=== PATIENT | male | born 1960 | race Caucasian/White ===

== ENCOUNTER 2016-03-26 01:09 | Inpatient (IN) ==
[2016-03-26] MEDS ORDERED: 0.9 % Sodium Chloride 1,000 ML ONE ×2 (01:21→04:35)
[2016-03-26] MEDS ORDERED: 0.9 % Sodium Chloride 1,000 ML IV ONE (01:25)
[2016-03-26 01:59] LABS: Basophils # 0.1 K/mcL (0.0-0.2); Basophils % 0.4 %; Eosinophils # 0.1 K/mcL (0.0-0.6); Eosinophils % 0.6 %; Hematocrit 33.5 % (37.5-50.1); Immature Granulocytes % 2.1 % (0-4); Lymphocytes # 1.8 K/mcL (0.6-4.6); Lymphocytes % 14.2 %; Mean Corpuscular HGB Conc 32.8 g/dL (31.6-35.5); Mean Corpuscular Hemoglobin 31.7 pg (28.0-33.3); Mean Corpuscular Volume 96.5 fL (83.0-100.0); Mean Platelet Volume 9.2 fL (9.4-12.4); Monocytes # 1.6 K/mcL (0.0-1.3); Monocytes % 12.8 %; Neutrophils # 8.8 K/mcL (1.6-8.9); Platelet Count 252 K/mcL (140-400); Red Blood Count 3.47 M/mcL (4.19-5.50); Red Cell Distribution Width 13.5 % (11.5-14.5); Segmented Neutrophils % 69.9 %
[2016-03-26 02:00] LABS: Bilirubin,Urine Negative (Negative); Blood,Urine Negative (Negative); Clarity,Urine Cloudy (Clear); Color,Urine Yellow (Yellow); Glucose,Urine (UA) >=1000 mg/dL (Normal); Ketones,Urine Negative (Negative); Leukocyte Esterase,Urine Negative (Negative); Nitrite,Urine Negative (Negative); PH,Urine 6.5 pH Units (5.0-8.0); Protein,Urine Negative (Neg-Trace); Urobilinogen,Urine Normal (Normal)
[2016-03-26 02:02] LABS: Bacteria,Urine None Seen per hpf (None-Few); Hyaline Casts,Urine None Seen per lpf (None-Few); Squamous Epithelial Cell,Urine Many per lpf (None-Few)
[2016-03-26 02:03] LABS: INR 1.1; Prothrombin Time 12.4 Seconds (9.4-12.1)
[2016-03-26 02:04] LABS: Amphetamine Screen,Urine Negative ng/mL (Cutoff=1000); Barbiturate Screen,Urine Negative ng/mL (Cutoff=200); Benzodiazepines Screen,Urine Negative ng/mL (Cutoff=200); Cannabinoid Screen,Urine Positive ng/mL (Cutoff = 50); Cocaine Screen,Urine Negative ng/mL (Cutoff= 300); Opiate Screen,Urine Negative ng/mL (Cutoff=300); Phencyclidine Screen,Urine Negative ng/mL (Cutoff=25)
[2016-03-26 02:05] LABS: Activated Partial Thrombo Time 26.6 Seconds (26.0-36.0)
[2016-03-26] MEDS: 0.9 % Sodium Chloride 1,000 ML IVC ONE ×2 (02:06→05:11)
--- NOTE | 2016-03-26 02:07 | Emergency Department Note ---
START Narrative - START START: I examined this patient and my medical decision-making was reviewed with the TERMINATION CLERK/PA/Advanced Practice Nurse/Resident Physician. I agree with the documented findings, disposition and treatment plan as described except to the extent set forth below. Patient to the emergency department with altered mental status. Per EMS the family called them because they state he stumbled and after smoking some marijuana. He was confused. On arrival here patient is awake alert. Denies taking any drugs tonight. On exam he is lethargic but answers questions. Hypotensive in the 60s systolic. No obvious signs of trauma. Noted have a glass eye. Abdomen soft and lungs clear. Plan. Altered mental status workup. IV fluids. Patient's blood pressure is improved after IV fluids. His mental status is improved as well. He is awake alert and appropriate. We will observe.
[2016-03-26 02:12] LABS: Acetaminophen < 1.0 mcg/mL (10-30); Alanine Aminotransferase 12 Units/L (0-55); Albumin 2.8 g/dL (3.5-5.0); Alkaline Phosphatase 41 Units/L (38-126); Aspartate Amino Transferase 16 Units/L (5-34); BUN/Creatinine Ratio 8 (6-26); Bilirubin,Direct 0.1 mg/dL (0.0-0.5); Bilirubin,Indirect 0.2 mg/dL (0.0-1.2); Bilirubin,Total 0.3 mg/dL (0.2-1.2); Blood Urea Nitrogen 21 mg/dL (8-26); Calcium 8.3 mg/dL (8.6-10.8); Carbon Dioxide 13 mEq/L (19-29); Chloride 100 mEq/L (98-109); Ethanol < 10 mg/dL (0-10); Globulin 2.7 g/dL (2.4-3.5); Glucose 142 mg/dL (70-99); Osmolality,Calculated 265 (280-300); Potassium 5.6 mEq/L (3.5-4.5); Salicylate < 5.0 mg/dL (15-30); Sodium 125 mEq/L (136-145); Total Protein 5.5 g/dL (6.0-8.3); eGFR For African Americans 31 (> 60); eGFR For Non-African Americans 26 (> 60)
[2016-03-26 02:20] LABS: Transitional Epi Cells,Urine Many per hpf (None-Few)
--- NOTE | 2016-03-26 02:49 | Emergency Department Note ---
Disposition Clinical Impression: Acute kidney injury, Dehydration Altered mental status Qualifiers: Altered mental status type: unspecified Qualified Code(s): R41.82 - Altered mental status, unspecified Hypotension Qualifiers: Hypotension type: unspecified hypotension type Qualified Code(s): I95.9 - Hypotension, unspecified Disposition: Admitted As Inpatient Condition: Fair Referrals: NO,PCP [Non-Partnered Physician] - Forms: ED Satisfaction Letter Time of Disposition: 04:34 Altered Mental Status HPI - General Chief Complaint: ED Altered Mental Status Stated Complaint: AMS Source: patient Limitations: altered mental status Nursing Notes Reviewed: Yes Vital Signs Reviewed: Yes - History of Present Illness HPI Narrative: Patient presents AMS today for evaluation of altered mental status. He was found by family to be stumbling and acting differently after going to a friend' s house. They said that he might have smoked marijuana at the house. Denied any other drug use. Patient has had this happen several times at the past but this is little different. He does have a seizure history and takes medications for this as well as psychiatric disorder. His med list is not with him at this time. Vital signs in transit showed normal heart rate but he has been intermittently hypotensive. He was difficult to arouse per EMS. No other intervention is performed by EMS transportation MD complaint: decreased responsiveness Onset (ago): Just [employer] Timing confirmed by: family member Pain Severity: mild Consistency of Symptoms: waxing and waning Context: other (Drug use) Associated symptoms: Reports: other (Difficult to obtain secondary to patient's presenting decreased responsiveness) Treatments prior to arrival: IV fluid - Related Data Home Medications Medication Instructions Recorded Confirmed Divalproex (24 HR) [Depakote ER 1,500 mg PO BID 03/31/15 03/01/16 (24 HR)] Glimepiride [Amaryl] 4 mg PO BID 03/31/15 03/01/16 Lisinopril [Zestril] 20 mg PO DAILY 03/31/15 03/01/16 RisperiDONE [Risperidone] 1 mg PO DAILY 03/31/15 03/01/16 Aspirin [Adult Low Dose Aspirin EC] 81 mg PO DAILY 04/07/15 03/01/16 Benztropine Mesylate 2 mg PO BID 04/07/15 03/01/16 Citalopram [CeleXA] 40 mg PO HS 04/07/15 03/01/16 Diclofenac Sodium [Voltaren] 50 mg PO TID 04/07/15 03/01/16 Fenofibrate [Tricor] 54 mg PO DAILY 04/07/15 03/01/16 Gabapentin [Neurontin] 600 mg PO QID 04/07/15 03/01/16 Levothyroxine [Synthroid] 100 mcg PO 0630 04/07/15 03/01/16 Metformin [Glucophage] 500 mg PO BIDWM 08/04/15 03/01/16 Pantoprazole Sodium [Protonix] 40 mg PO DAILY 10/04/15 03/01/16 RisperiDONE [Risperdal] 3 mg PO HS 10/04/15 03/01/16 Vitamin E 1,000 unit PO DAILY 10/04/15 03/01/16 Previous Rx's Medication Instructions Recorded Benzonatate [Tessalon] 200 mg PO TID PRN #30 capsule 02/17/16 DiphenhydraMINE [Benadryl] 25 mg PO Q8HR PRN #20 capsule 02/17/16 Allergies Allergy/AdvReac Type Severity Reaction Status Date / Time No Known Allergies Allergy Verified 12/18/14 22:44 All systems ED: reviewed and negative except as stated. Constitutional: Denies: fever, chills Cardiovascular: Denies: palpitations, dyspnea on exertion Respiratory: Denies: dyspnea, wheezes Gastrointestinal: Denies: nausea, vomiting, diarrhea Neurological: Denies: headache Psychiatric: Denies: depression Past Medical History - Past Medical History Attestation: Yes The following information was validated with the patient. Source: patient Medical history: Reports: diabetes, other Surgical history: Reports: orthopedic, other, other Psychiatric history: Reports: anxiety, depression, prior suicide attempt - Social History Smoking Status: Current every day smoker Smokeless Tobacco Status: No Alcohol use: Reports: rarely Drug use: Reports: marijuana Physical Exam - General Limitations: altered mental status General appearance: appears intoxicated, lethargic - Head Head exam: atraumatic, normocephalic - Eye Eye exam: Present: normal appearance, PERRL - ENT ENT exam: normal exam, normal oropharynx - Neck Neck exam: Present: normal inspection, full ROM, trachea midline - Chest Chest inspection: Present: normal inspection, symmetric chest wall rise. Absent : tenderness - Respiratory Respiratory exam: Present: normal lung sounds bilaterally - Cardiovascular Cardiovascular exam: Present: regular rate, normal rhythm, normal heart sounds - Extremities Exam Extremities exam: Present: normal inspection, full ROM. Absent: tenderness, pedal edema - Back Exam Back exam: Present: normal inspection, full ROM - Neurological Exam Neurological exam: Present: alert, oriented X3, CN II-XII intact, normal gait - Psychiatric Psychiatric exam: Present: normal affect, normal mood - Skin Skin exam: Present: warm, dry, intact, normal color Course Course Narrative: Patient seen and examined the time of arrival. See history of present illness. 55-year-old male presents by EMS. EMS picked him up at his home today for altered mental status as well as ataxic gait. The family he was a friend's house in its proximal lead. A concern that he had a drug reaction. Patient on presentation here has decreased responsiveness but is mentating appropriately when awake. Answers questions appropriately and knows exactly where he is at. Vital signs on presentation show stable heart rate blood pressure has been marginal with systolic ranging from 95 205. His physical exam is benign head is atraumatic left pupil is decreased reactivedoes react to light. His right eye is glass. His oral mucosa is patent. He is an appropriate gag reflex. He has full range of motion in neck cervical lymphadenopathy is not visualized. His lungs are clear heart is regular. Abdomen soft nontender nondistended. He moves all 4 extremities with purpose. He does have decreased responsiveness but he does wake up easily with sternal rub. EKG chest x-ray CT of the head urine drug screen alcohol Tylenol and aspirin to be ordered. Basic laboratory workup to be treated. Disposition will be determined once workup is completed. Patient has some underlying aspect of toxidrome. There is no visible signs of trauma or injury. We will continue to monitor as his workup is completed. - Reevaluation(s) Reevaluation #1: Showing signs of decreased responsiveness. He had an episode of somnolence while getting his CAT scan required evaluation on arrival back to the emergency room. He woke up quickly with sternal rub at that time and has been answering questions appropriately since then. Patient is denying any drug use though he does have a seizure history. He does take Depakote. Depakote level ordered at this time. Patient is stable and is provided with 2 L of fluid and his blood pressure stabilizes time. He is mentating more appropriate. Patient's vital signs been stable. He has not required aggressive intervention including intubation or IV access. He is easily arousable now this time his vital signs stabilized. Disposition and be determined after we image his chest and abdomen. There is concern for possible other underlying etiology. Bedside ultrasound was also completely looking at the there is no visible signs of aneurysm or dilation. There is no fluid in the abdomen. We will continue to monitor as this workup is completed. Disposition pending evaluation and treatment course Time: 03:32 Reevaluation #2: CT imaging of the patient's chest and abdomen are negative for acute pathology. Patient is still somnolent while here in the vital signs are stable. At this point patient will be admitted to the hospital for further evaluation of what appears to be decreased responsiveness and concern for drug-induced toxidrome. No other acute pathology noted during this treatment course her evaluation. Hospitals be paged and discussed on the hand over the patient's medical recommendations. We will advised to come down and evaluate the patient here in the emergency room to make sure that they are comfortable with him going to the floor as he is. Access sites have been obtained of the abdomen given Time: 04:16 Reevaluation #3: Patient was discussed with the hospitalist . Detailed review the presentation symptoms medical intervention were discussed. He is comfortable accepting the patient this time. I had requested for him to come down and evaluate him in the emergency room initially did not want anything else done to him prior to going up to the floor. He does not have any acute signs of decompensation. He has been maintaining his airway without complication or issue. Vital signs been stable. Hospitals, evaluated in the emergency room prior to him going up to the floor. He will be observed here in the ER until admission process is completed Time: 04:32 Additional Reevaluation(s): Patient was evaluated by the hospitalist Dr. darby. We reviewed the patient at the bedside. He evaluated him here in the emergency room and had no other recommendations at this time. She will be placed on a telemetry floor. Vital Signs Temperature 97.5 F L 03/26/16 01:22 Pulse Rate 85 03/26/16 01:22 Respiratory Rate 14 03/26/16 01:22 Blood Pressure 64/36 03/26/16 01:22 O2 Sat by Pulse Oximetry 96 03/26/16 01:22 Temperature 97.5 F L 03/26/16 01:22 Pulse Rate 85 03/26/16 01:22 Respiratory Rate 14 03/26/16 01:22 Blood Pressure 64/36 03/26/16 01:22 O2 Sat by Pulse Oximetry 96 03/26/16 01:22 Oxygen Delivery Oxygen Delivery Room Air Altered Mental Status - MDM Narrative Medical decision making narrative: Decreased responsiveness, hypotension, - Medical Records Medical records reviewed: Yes I reviewed the patient's medical records. - Lab Data Lab results reviewed: Yes I reviewed the patient's lab results. Result diagrams: 03/26/16 01:51 03/26/16 01:51 Lab Results 03/26/16 03/26/16 03/26/16 Range/Units 01:47 01:50 01:50 WBC (4.3-11.1) K/mcL RBC (4.19-5.50) M/mcL Hgb (12.9-16.9) g/dL Hct (37.5-50.1) % MCV (83.0-100.0) fL MCH (28.0-33.3) pg MCHC (31.6-35.5) g/dL RDW (11.5-14.5) % Plt Count (140-400) K/mcL MPV (9.4-12.4) fL Immature Gran % (0-4) % Seg Neutrophils % % Lymphocytes % % Monocytes % % Eosinophils % % Basophils % % Neutrophils # (1.6-8.9) K/mcL Lymphocytes # (0.6-4.6) K/mcL Monocytes # (0.0-1.3) K/mcL Eosinophils # (0.0-0.6) K/mcL Basophils # (0.0-0.2) K/mcL PT (9.4-12.1) Seconds INR APTT (26.0-36.0) Seconds Sodium (136-145) mEq/L Potassium (3.5-4.5) mEq/L Chloride (98-109) mEq/L Carbon Dioxide (19-29) mEq/L BUN (8-26) mg/dL Creatinine (0.72-1.25) mg/dL Est GFR ( Amer) (> 60) Est GFR (Non-Af Amer) (> 60) BUN/Creatinine Ratio (6-26) Glucose (70-99) mg/dL POC Glucose 159 H (58-89) Calculated Osmolality (280-300) Calcium (8.6-10.8) mg/dL Total Bilirubin (0.2-1.2) mg/dL Direct Bilirubin (0.0-0.5) mg/dL Indirect Bilirubin (0.0-1.2) mg/dL AST (5-34) Units/L ALT (0-55) Units/L Alkaline Phosphatase (38-126) Units/L Troponin I (0-0.03) ng/mL Serum Total Protein (6.0-8.3) g/dL Albumin (3.5-5.0) g/dL Globulin (2.4-3.5) g/dL Albumin/Globulin Ratio (1.1-2.2) Urine Color Yellow (Yellow) Urine Clarity Cloudy A (Clear) Urine pH 6.5 (5.0-8.0) pH Units Ur Specific [place] 1.020 (1.010-1.025) Urine Protein Negative (Neg-Trace) mg/dL Urine Glucose (UA) >=1000 H (Normal) mg/dL Urine Ketones Negative (Negative) mg/dL Urine Blood Negative (Negative) Urine Nitrite Negative (Negative) Urine Bilirubin Negative (Negative) Urine Urobilinogen Normal (Normal) mg/dL Ur Leukocyte Esterase Negative (Negative) Urine Microscopic RBC 5-15 H (0-3) per hpf Urine Microscopic WBC 3-5 H (0-3) per hpf Ur Squamous Epith Cells Many H (None-Few) per lpf Ur Transition Epith Cell Many H (None-Few) per hpf Urine Bacteria None Seen (None-Few) per hpf Hyaline Casts None Seen (None-Few) per lpf Ur Culture Indicated? NO (NO) Salicylates (15-30) mg/dL Urine Opiates Screen Negative (Liepgf=409) ng/mL Acetaminophen (10-30) mcg/mL Ur Barbiturates Screen Negative (Rtbaav=398) ng/mL Ur Phencyclidine Scrn Negative (Cutoff=25) ng/mL Ur Amphetamines Screen Negative (Pkauvy=1145) ng/mL U Benzodiazepines Scrn Negative (Jehdkx=000) ng/mL Urine Cocaine Screen Negative (Cutoff= 300) ng/mL U Marijuana (THC) Screen Positive H (Cutoff = 50) ng/mL Ethyl Alcohol (0-10) mg/dL 03/26/16 03/26/16 03/26/16 Range/Units 01:51 01:51 01:51 WBC 12.5 H (4.3-11.1) K/mcL RBC 3.47 L (4.19-5.50) M/mcL Hgb 11.0 L (12.9-16.9) g/dL Hct 33.5 L (37.5-50.1) % MCV 96.5 (83.0-100.0) fL MCH 31.7 (28.0-33.3) pg MCHC 32.8 (31.6-35.5) g/dL RDW 13.5 (11.5-14.5) % Plt Count 252 (140-400) K/mcL MPV 9.2 L (9.4-12.4) fL Immature Gran % 2.1 (0-4) % Seg Neutrophils % 69.9 % Lymphocytes % 14.2 % Monocytes % 12.8 % Eosinophils % 0.6 % Basophils % 0.4 % Neutrophils # 8.8 (1.6-8.9) K/mcL Lymphocytes # 1.8 (0.6-4.6) K/mcL Monocytes # 1.6 H (0.0-1.3) K/mcL Eosinophils # 0.1 (0.0-0.6) K/mcL Basophils # 0.1 (0.0-0.2) K/mcL PT 12.4 H (9.4-12.1) Seconds INR 1.1 APTT 26.6 (26.0-36.0) Seconds Sodium 125 L (136-145) mEq/L Potassium 5.6 H (3.5-4.5) mEq/L Chloride 100 (98-109) mEq/L Carbon Dioxide 13 L (19-29) mEq/L BUN 21 (8-26) mg/dL Creatinine 2.60 H (0.72-1.25) mg/dL Est GFR ( Amer) 31 L (> 60) Est GFR (Non-Af Amer) 26 L (> 60) BUN/Creatinine Ratio 8 (6-26) Glucose 142 H (70-99) mg/dL POC Glucose (58-89) Calculated Osmolality 265 L (280-300) Calcium 8.3 L (8.6-10.8) mg/dL Total Bilirubin 0.3 (0.2-1.2) mg/dL Direct Bilirubin 0.1 (0.0-0.5) mg/dL Indirect Bilirubin 0.2 (0.0-1.2) mg/dL AST 16 (5-34) Units/L ALT 12 (0-55) Units/L Alkaline Phosphatase 41 (38-126) Units/L Troponin I (0-0.03) ng/mL Serum Total Protein 5.5 L (6.0-8.3) g/dL Albumin 2.8 L (3.5-5.0) g/dL Globulin 2.7 (2.4-3.5) g/dL Albumin/Globulin Ratio 1.0 L (1.1-2.2) Urine Color (Yellow) Urine Clarity (Clear) Urine pH (5.0-8.0) pH Units Ur Specific [place] (1.010-1.025) Urine Protein (Neg-Trace) mg/dL Urine Glucose (UA) (Normal) mg/dL Urine Ketones (Negative) mg/dL Urine Blood (Negative) Urine Nitrite (Negative) Urine Bilirubin (Negative) Urine Urobilinogen (Normal) mg/dL Ur Leukocyte Esterase (Negative) Urine Microscopic RBC (0-3) per hpf Urine Microscopic WBC (0-3) per hpf Ur Squamous Epith Cells (None-Few) per lpf Ur Transition Epith Cell (None-Few) per hpf Urine Bacteria (None-Few) per hpf Hyaline Casts (None-Few) per lpf Ur Culture Indicated? (NO) Salicylates (15-30) mg/dL Urine Opiates Screen (Nmjbmf=737) ng/mL Acetaminophen (10-30) mcg/mL Ur Barbiturates Screen (Bgctpu=806) ng/mL Ur Phencyclidine Scrn (Cutoff=25) ng/mL Ur Amphetamines Screen (Vrdlcr=5185) ng/mL U Benzodiazepines Scrn (Fewewr=459) ng/mL Urine Cocaine Screen (Cutoff= 300) ng/mL U Marijuana (THC) Screen (Cutoff = 50) ng/mL Ethyl Alcohol < 10 (0-10) mg/dL 03/26/16 03/26/16 Range/Units 01:51 01:51 WBC (4.3-11.1) K/mcL RBC (4.19-5.50) M/mcL Hgb (12.9-16.9) g/dL Hct (37.5-50.1) % MCV (83.0-100.0) fL MCH (28.0-33.3) pg MCHC (31.6-35.5) g/dL RDW (11.5-14.5) % Plt Count (140-400) K/mcL MPV (9.4-12.4) fL Immature Gran % (0-4) % Seg Neutrophils % % Lymphocytes % % Monocytes % % Eosinophils % % Basophils % % Neutrophils # (1.6-8.9) K/mcL Lymphocytes # (0.6-4.6) K/mcL Monocytes # (0.0-1.3) K/mcL Eosinophils # (0.0-0.6) K/mcL Basophils # (0.0-0.2) K/mcL PT (9.4-12.1) Seconds INR APTT (26.0-36.0) Seconds Sodium (136-145) mEq/L Potassium (3.5-4.5) mEq/L Chloride (98-109) mEq/L Carbon Dioxide (19-29) mEq/L BUN (8-26) mg/dL Creatinine (0.72-1.25) mg/dL Est GFR ( Amer) (> 60) Est GFR (Non-Af Amer) (> 60) BUN/Creatinine Ratio (6-26) Glucose (70-99) mg/dL POC Glucose (58-89) Calculated Osmolality (280-300) Calcium (8.6-10.8) mg/dL Total Bilirubin (0.2-1.2) mg/dL Direct Bilirubin (0.0-0.5) mg/dL Indirect Bilirubin (0.0-1.2) mg/dL AST (5-34) Units/L ALT (0-55) Units/L Alkaline Phosphatase (38-126) Units/L Troponin I 0.02 (0-0.03) ng/mL Serum Total Protein (6.0-8.3) g/dL Albumin (3.5-5.0) g/dL Globulin (2.4-3.5) g/dL Albumin/Globulin Ratio (1.1-2.2) Urine Color (Yellow) Urine Clarity (Clear) Urine pH (5.0-8.0) pH Units Ur Specific [place] (1.010-1.025) Urine Protein (Neg-Trace) mg/dL Urine Glucose (UA) (Normal) mg/dL Urine Ketones (Negative) mg/dL Urine Blood (Negative) Urine Nitrite (Negative) Urine Bilirubin (Negative) Urine Urobilinogen (Normal) mg/dL Ur Leukocyte Esterase (Negative) Urine Microscopic RBC (0-3) per hpf Urine Microscopic WBC (0-3) per hpf Ur Squamous Epith Cells (None-Few) per lpf Ur Transition Epith Cell (None-Few) per hpf Urine Bacteria (None-Few) per hpf Hyaline Casts (None-Few) per lpf Ur Culture Indicated? (NO) Salicylates < 5.0 L (15-30) mg/dL Urine Opiates Screen (Aotipx=065) ng/mL Acetaminophen < 1.0 L (10-30) mcg/mL Ur Barbiturates Screen (Qvkpan=666) ng/mL Ur Phencyclidine Scrn (Cutoff=25) ng/mL Ur Amphetamines Screen (Spidze=0648) ng/mL U Benzodiazepines Scrn (Noahwg=303) ng/mL Urine Cocaine Screen (Cutoff= 300) ng/mL U Marijuana (THC) Screen (Cutoff = 50) ng/mL Ethyl Alcohol (0-10) mg/dL - Radiology Data Radiology results reviewed: Yes I reviewed the patient's radiology results. Chest x-ray and CT of the head are negative for acute without - EKG Data EKG attestation: Yes I reviewed and interpreted this EKG. EKG shows normal: sinus rhythm, axis, intervals, QRS complexes, ST-T waves Rate: normal Rhythm: NSR [place]/QRS: normal When compared to previous EKG there are: no significant changes Interpretation: no acute changes, unchanged when compared to prior tracing (date ) (10/03/13) TPA Checklist - LKW: 3-4.5 hrs Add. Contraindications Patient/family understanding: The patient/family members have been counseled and understood the risk, benefit , and alternatives of treatment.
[2016-03-26 04:37] LABS: Creatine Kinase 224 Units/L (30-200); Magnesium 1.8 mg/dL (1.6-2.6)
[2016-03-26 04:44] LABS: Valproate 81.81 mcg/mL (50-100)
[2016-03-26] MEDS ORDERED: Naloxone 0.4 MG/ML INJ IVP PRN (06:00)
[2016-03-26] MEDS ORDERED: Calcium Gluconate 1,000 MG in D5% in Water 100 ML IVPB STA (06:04)
[2016-03-26] MEDS ORDERED: Lactulose Oral Soln 20 GM/30 ML UDC PO ONE (06:04)
--- NOTE | 2016-03-26 06:23 | Internal Med History&Physical ---
Date of Encounter: 03/26/16 Time of Encounter: 05:00 Assessment and Plan (1) Acute renal failure Current visit: Yes Status: Acute Possibly due to volume depletion. Treat with IV normal saline infusion. Monitor renal function Qualifiers: Acute renal failure type: unspecified Qualified Code(s): N17.9 - Acute kidney failure, unspecified (2) Hyperkalemia Current visit: Yes Status: Acute Likely due to Acute renal failure / ELOISE. Treat with kayexalate and calcium gluconate. (3) Encephalopathy Current visit: Yes Status: Acute Likely due to substance abuse versus ELOISE. Neurological checks Q4H (4) Substance abuse Current visit: Yes Status: Acute Utox is positive for Marijuana (5) Schizoaffective disorder Current visit: Yes Status: Chronic Continue home medications Qualifiers: Schizoaffective disorder type: depressive Qualified Code(s): F25.1 - Schizoaffective disorder, depressive type (6) Diabetes mellitus, type 2 Current visit: Yes Status: Chronic Hold oral agents. 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 Continue home meds (8) Hyponatremia Current visit: Yes Status: Chronic Monitor Sodium levels. (9) Hypothyroidism Current visit: Yes Status: Chronic Continue synthroid Qualifiers: Hypothyroidism type: unspecified Qualified Code(s): E03.9 - Hypothyroidism , unspecified (10) DVT prophylaxis Current visit: No Status: Acute Heparin Internal Medicine - H&P: HPI Chief complaint: Altered mental status Admitted From: Emergency Dept Plans for Post Hospital Care: Home History of present illness: Mr. Frey is a 55 year old male with medical history significant for hypertension , schizoaffective disorder on multiple antipsychotics, seizure disorder, chronic hyponatremia, Diabetes mellitus, hypothyroidism. Pt is not able to give clinical details. Per the ER physician, he was found by family to be stumbling and acting differently after going to a friend's house. They suspected he might have smoked marijuana at the house. He denied any other drug use. Apparently this happened several times in the past but this is little different. He was difficult to arouse per EMS. He was evaluated in the ER. CT head was negative. Labs showed acute kidney injury and hyperkalemia. He was started on IV fluid and admitted to the hospitalist service for further management. Past Med Surg Social Fam HX - Past Medical History Medical history: diabetes, other Psychiatric history: anxiety, depression, prior suicide attempt - Past Surgical History Surgical History: orthopedic, other, other - Social History Smoking Status: Current every day smoker Smokeless Tobacco Status: No Alcohol use: rarely Drug use: marijuana - Family History Daughter Living Status: Still Living Hx Family Cardiac Disorders: No Hx Family Respiratory Disorders: Yes Hx Family Cancer: No Hx Family GI Disorders: No Hx Family Endocrine Disorder: No Hx Family Neuromuscular Disorders: No Hx Family Neurologic Disorders: No Hx Family HEENT Disorders: No Hx Family Autoimmune Disorders: No Mother Living Status: Hx Family Cardiac Disorders: Yes Father Living Status: Internal Medicine - H&P: Meds Divalproex (24 HR) [Depakote ER (24 HR)] 1,500 mg PO BID 03/31/15 [History] Glimepiride [Amaryl] 4 mg PO BID 03/31/15 [History] Lisinopril [Zestril] 20 mg PO DAILY 03/31/15 [History] RisperiDONE [Risperidone] 1 mg PO DAILY 03/31/15 [History] Aspirin [Adult Low Dose Aspirin EC] 81 mg PO DAILY 04/07/15 [History] Benztropine Mesylate 2 mg PO BID 04/07/15 [History] Citalopram [CeleXA] 40 mg PO HS 04/07/15 [History] Diclofenac Sodium [Voltaren] 50 mg PO TID 04/07/15 [History] Fenofibrate [Tricor] 54 mg PO DAILY 04/07/15 [History] Gabapentin [Neurontin] 600 mg PO QID 04/07/15 [History] Levothyroxine [Synthroid] 100 mcg PO 0630 04/07/15 [History] Metformin [Glucophage] 500 mg PO BIDWM 08/04/15 [History] Pantoprazole Sodium [Protonix] 40 mg PO DAILY 10/04/15 [History] RisperiDONE [Risperdal] 3 mg PO HS 10/04/15 [History] Vitamin E 1,000 unit PO DAILY 10/04/15 [History] Benzonatate [Tessalon] 200 mg PO TID PRN #30 capsule 02/17/16 [Rx] DiphenhydraMINE [Benadryl] 25 mg PO Q8HR PRN #20 capsule 02/17/16 [Rx] Allergies No Known Allergies Allergy (Verified 12/18/14 22:44) ROS unobtainable: due to mental status All Systems PM: A 10-system review of systems was performed and is negative for pertinent findings except as documented above in the HPI. - Constitutional Vitals: Temp Pulse Resp BP Pulse Ox 97.5 F L 96 18 85/53 100 03/26/16 01:22 03/26/16 04:20 03/26/16 05:44 03/26/16 05:44 03/26/16 04:20 Exam: General: Not in acute distress at the time of my evaluation HEENT: Oral mucosa is moist. No conjunctival palor. Has glass eye on the right side. Neck: No obvious neck swellings Lungs: Clear to auscultation Cardiac: Regular rate and rhythm. No significant murmurs Abdomen: Soft, non tender. Bowel sounds present Neurological: Somnolent. Arousable to sternal rub. confused. No gross localizing deficits Psych: Not aggressive or agitated Extremities: no significant leg edema Skin: No generalized rash Internal Med - H&P Results - Labs CBC & Chem 7: 03/26/16 01:51 03/26/16 01:51 - Impressions ITS Impressions Chest X-Ray 03/26/16 01:18 IMPRESSION: Negative portable expiratory exam. D/ / Elvin Hernandez MD / Elvin Hernandez MD Interpreting Provider: Elvin Hernandez MD Head CT 03/26/16 01:19 IMPRESSION: 1. No acute intracranial process identified. 2. Mild diffuse cerebral volume loss. D/ / Paulino Hood MD / Paulino Hood MD Interpreting Provider: Paulino Hood MD Abdomen/Pelvis CT 03/26/16 02:26 IMPRESSION: 1. No acute intra-abdominal abnormality. 2. Reticular opacities in the bilateral bases may represent atelectasis versus aspiration. 3. Normal appendix. D/ / Shannan Putnam MD / Shannan Putnam MD Interpreting Provider: Shannan Putnam MD Chest CT 03/26/16 02:26
[2016-03-26] MEDS ORDERED: *HR* Dextrose 50 % in Water (Syg) 50 ML SYRINGE IVP PRN (06:35)
[2016-03-26] MEDS ORDERED: D5% in Water 1,000 ML IV PRN (06:35)
[2016-03-26] MEDS ORDERED: Dextrose Gel 15 GM PO PRN ×2 (06:35)
[2016-03-26] MEDS: 0.9 % Sodium Chloride 1,000 ML IVC SCH ×3 (07:14→19:40)
[2016-03-26] MEDS: *HR* Heparin 5,000 UNIT/ML VIAL SQ SCH ×2 (07:14→18:08)
[2016-03-26] MEDS: Insulin LISPRO 300 UNITS/3 ML VIAL SQ SCH ×3 (09:38→16:09)
--- NOTE | 2016-03-26 14:00 | Internal Med Progress Note ---
Date of Encounter: 03/26/16 Time of Encounter: 09:00 - Assessment and plan (1) Acute kidney injury Current Visit: Yes Status: Acute Assessment and plan: Most likely due to dehydration. We will aggressively hydrate patient with IV fluid and follow-up renal function. (2) Altered mental status Current Visit: Yes Status: Acute Assessment and plan: Patient was found confused. His urine screen shows marijuana positive. Suspect drug induced confusion. However, patient has a seizure disorder, pulse is seizure confusion is also a possibility. We will continue closely monitor patient and continue his seizure medications. Qualifiers: Altered mental status type: transient alteration of awareness Qualified Code(s): R40.4 - Transient alteration of awareness (3) Dehydration Current Visit: Yes Status: Acute Assessment and plan: Patient is dehydrated. Will give IV fluid. (4) Encephalopathy Current Visit: Yes Status: Acute Assessment and plan: Etiology is undetermined. Improved now. We will closely monitor patient in telemetry. (5) Hyperkalemia Current Visit: Yes Status: Acute Assessment and plan: Due to dehydration and acute renal failure. Calcium-gluconate and Kayexalate were given. Continue IV fluid. Follow up potassium level (6) Substance abuse Current Visit: Yes Status: Acute Assessment and plan: Social work consult (7) Diabetes mellitus, type 2 Current Visit: Yes Status: Chronic Assessment and plan: Patient was on by mouth medication at home. We will cover him with sliding scale in Hospital Qualifiers: Diabetes mellitus complication status: without complication Diabetes mellitus snf insulin use: without snf use Qualified Code(s): E11.9 - Type 2 diabetes mellitus without complications (8) Hyponatremia Current Visit: Yes Status: Chronic Assessment and plan: Patient has a history of chronic hyponatremia, possibly due to psych medications. His sodium level is at his baseline now. (9) Hypothyroidism Current Visit: Yes Status: Chronic Qualifiers: Hypothyroidism type: due to medication Qualified Code(s): E03.2 - Hypothyroidism due to medicaments and other exogenous substances (10) Schizoaffective disorder Current Visit: Yes Status: Chronic Assessment and plan: We will continue home medication Qualifiers: Schizoaffective disorder type: depressive Qualified Code(s): F25.1 - Schizoaffective disorder, depressive type (11) Seizure disorder Current Visit: Yes Status: Chronic Assessment and plan: We will continue home medications and closely monitor patient (12) DVT prophylaxis Current Visit: No Status: Acute Assessment and plan: Heparin subcutaneously (13) Nonhealing surgical wound Current Visit: No Status: Acute Assessment and plan: Wound care, podiatry consult Qualifiers: Encounter type: subsequent encounter Qualified Code(s): T81.89XD - Other complications of procedures, not elsewhere classified, subsequent encounter - Time Spent With Patient 25 - 35 minutes - Subjective Interval history: Patient is a 55-year-old male admitted for altered mental status. His past medical history is significant for hypertension, schizoaffective disorder, seizure, chronic hyponatremia, diabetes, hypothyroidism. Patient was seen and examined. He is awake alert, oriented 3. Denies chest pain, shortness of breath, nausea, or vomiting. Vitals are stable. U tox shows a marijuana positive. Acute altered mental status possibly drug induced. Patient has a chronic wound on heel, podiatry consult was called. - Constitutional Vitals: Temp Pulse Resp BP Pulse Ox 97.6 F 101 18 130/70 100 03/26/16 11:51 03/26/16 11:51 03/26/16 11:51 03/26/16 11:51 03/26/16 11:51 General appearance: Present: A&O X 3, no acute distress, answers questions appropriately - Head Head exam: Present: atraumatic, normocephalic - Eye Eye exam: Present: PERRL, conjuntiva pink, sclera anicteric Pupils: Present: PERRL - Neck Neck exam general surgery: Present: supple, trachea midline. Absent: lymphadenopathy - Respiratory Respiratory exam: Present: CTAB. Absent: accessory muscle use, rales, rhonchi, wheezes - Cardiovascular Cardiovascular exam: Present: RRR, +S1, +S2. Absent: diastolic murmur, gallop, rubs, systolic murmur - GI/Abdominal GI/Abdominal exam: Present: normal bowel sounds, soft, no peritoneal signs. Absent: distended, tenderness - Extremities Exam Extremities exam: Present: warm, radial pulses palpable and symetrical. Absent : calf tenderness, cyanotic, pedal edema - Neurological Exam Neurological exam: Present: CN II-XII intact, oriented X3, no focal deficits. Absent: pronater drift, facial droop, speech deficit - Skin Skin exam: Present: dry, intact Internal Medicine: Result - Labs CBC & Chem 7: 03/26/16 01:51 03/26/16 01:51 - ABG Interpretation ABG results: PT/INR, D-dimer PT 12.4 Seconds (9.4-12.1) H 03/26/16 01:51 Consult Discharge Plan - Plan Referrals: Dany Carreon DO [Primary Care Provider] -
--- NOTE | 2016-03-26 14:48 | Electrocardiograph Report ---
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
[2016-03-26] MEDS: risperiDONE 1 MG TABLET PO SCH (15:42)
[2016-03-26] MEDS: Gabapentin 400 MG CAPSULE PO SCH ×2 (18:08→21:30)
[2016-03-26] MEDS ORDERED: RisperiDAL 3 MG TABLET PO SCH (21:00)
[2016-03-26] MEDS ORDERED: Insulin LISPRO 300 UNITS/3 ML VIAL SQ SCH (21:00)
[2016-03-26] MEDS ORDERED: traZODone 50 MG TABLET PO ONE (21:23)
[2016-03-26] MEDS: Divalproex (24 HR) 500 MG TABLET PO SCH (21:30)
[2016-03-27] MEDS: 0.9 % Sodium Chloride 1,000 ML IVC SCH (04:12)
[2016-03-27 05:41] LABS: Basophils % 0.4 %; Eosinophils # 0.2 K/mcL (0.0-0.6); Eosinophils % 3.4 %; Hematocrit 31.6 % (37.5-50.1); Hemoglobin 10.6 g/dL (12.9-16.9); Immature Granulocytes % 0.7 % (0-4); Lymphocytes # 2.7 K/mcL (0.6-4.6); Lymphocytes % 38.4 %; Mean Corpuscular HGB Conc 33.5 g/dL (31.6-35.5); Mean Corpuscular Volume 92.4 fL (83.0-100.0); Monocytes # 0.8 K/mcL (0.0-1.3); Monocytes % 11.2 %; Neutrophils # 3.3 K/mcL (1.6-8.9); Platelet Count 233 K/mcL (140-400); Red Blood Count 3.42 M/mcL (4.19-5.50); Red Cell Distribution Width 13.1 % (11.5-14.5); Segmented Neutrophils % 45.9 %
[2016-03-27] MEDS: *HR* Heparin 5,000 UNIT/ML VIAL SQ SCH (05:50)
[2016-03-27 05:56] LABS: BUN/Creatinine Ratio 9 (6-26); Calcium 8.3 mg/dL (8.6-10.8); Carbon Dioxide 22 mEq/L (19-29); Chloride 102 mEq/L (98-109); Glucose 78 mg/dL (70-99); Magnesium 1.5 mg/dL (1.6-2.6); Osmolality,Calculated 267 (280-300); Sodium 130 mEq/L (136-145); eGFR For African Americans > 60 (> 60); eGFR For Non-African Americans > 60 (> 60)
[2016-03-27 06:01] LABS: Blood Urea Nitrogen 7 mg/dL (8-26); Potassium 4.3 mEq/L (3.5-4.5)
[2016-03-27] MEDS: Insulin LISPRO 300 UNITS/3 ML VIAL SQ SCH ×2 (08:27→11:24)
[2016-03-27] MEDS: risperiDONE 1 MG TABLET PO SCH (08:43)
[2016-03-27] MEDS: Divalproex (24 HR) 500 MG TABLET PO SCH (08:44)
[2016-03-27] MEDS: Gabapentin 400 MG CAPSULE PO SCH ×2 (08:44→14:47)
[2016-03-27 11:13] VITALS: BP 118/74
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
--- NOTE | 2016-03-27 14:31 | Discharge Summary ---
Date of Encounter: 03/27/16 Time of Encounter: 10:00 - Discharge Diagnosis (1) Acute kidney injury Priority: Primary Status: Acute (2) Altered mental status Priority: Primary Status: Acute Qualifiers: Altered mental status type: transient alteration of awareness Qualified Code(s): R40.4 - Transient alteration of awareness (3) Dehydration Priority: Primary Status: Acute (4) Encephalopathy Priority: Primary Status: Acute (5) Hyperkalemia Priority: Primary Status: Acute (6) Substance abuse Priority: Primary Status: Acute (7) Diabetes mellitus, type 2 Priority: Secondary Status: Chronic Qualifiers: Diabetes mellitus complication status: without complication Diabetes mellitus terminal clerk insulin use: without skilled nursing use Qualified Code(s): E11.9 - Type 2 diabetes mellitus without complications (8) Hyponatremia Priority: Secondary Status: Chronic (9) Hypothyroidism Priority: Secondary Status: Chronic Qualifiers: Hypothyroidism type: due to medication Qualified Code(s): E03.2 - Hypothyroidism due to medicaments and other exogenous substances (10) Schizoaffective disorder Priority: Secondary Status: Chronic Qualifiers: Schizoaffective disorder type: depressive Qualified Code(s): F25.1 - Schizoaffective disorder, depressive type (11) Seizure disorder Priority: Secondary Status: Chronic (12) DVT prophylaxis Priority: Secondary Status: Acute (13) Nonhealing surgical wound Priority: Secondary Status: Acute Qualifiers: Encounter type: subsequent encounter Qualified Code(s): T81.89XD - Other complications of procedures, not elsewhere classified, subsequent encounter - Discharge Medications Home Medications: Divalproex (24 HR) [Depakote ER (24 HR)] 1,500 mg PO BID 03/31/15 [History] Glimepiride [Amaryl] 4 mg PO BID 03/31/15 [History] Lisinopril [Zestril] 20 mg PO DAILY 03/31/15 [History] RisperiDONE [Risperidone] 1 mg PO DAILY 03/31/15 [History] Aspirin [Adult Low Dose Aspirin EC] 81 mg PO DAILY 04/07/15 [History] Benztropine Mesylate 2 mg PO BID 04/07/15 [History] Citalopram [CeleXA] 40 mg PO HS 04/07/15 [History] Fenofibrate [Tricor] 54 mg PO DAILY 04/07/15 [History] Levothyroxine [Synthroid] 100 mcg PO 0630 04/07/15 [History] Pantoprazole Sodium [Protonix] 40 mg PO DAILY 10/04/15 [History] RisperiDONE [Risperdal] 3 mg PO HS 10/04/15 [History] Vitamin E 1,000 unit PO DAILY 10/04/15 [History] Dextran 70/Hypromellose [Artificial Tears] 1 drop OP DAILY 03/27/16 [History] Diclofenac Sodium 1 appl TP QID PRN 03/27/16 [History] Gabapentin 800 mg PO TID 03/27/16 [History] Metformin [Glucophage] 850 mg PO BIDWM 03/27/16 [History] Sulfamethoxazole/Trimeth DS [Bactrim Ds] 1 each PO BID 03/27/16 [History] Allergies/Adverse Reactions: Allergies No Known Allergies Allergy (Verified 12/18/14 22:44) - Notes to Outpatient Provider Patient had blood culture result pending (Sent from ER). He has no white count , no fever, no signs of infection. Please follow up result as outpatient. Date of admission: 03/26/16 06:00 Primary care physician: Dany Carreon DO Consults: 03/26/16 10:55 Consult to Open Hearth Furnace Operator [CONS] Routine Reason for SW Consult: Poor self management 03/26/16 11:07 Consult to Podiatry [CONS] Routine Consulting Provider: [facility] Reason for Consult: Heel wound Call Completed: Yes Discharging clinician: Billy Maddox Anticipated date of discharge: 03/27/16 - Patient Status Disposition: Home, Self-Care Condition: Good Functional capacity at discharge: independent ambulation Overall status at discharge: patient is back to baseline - Discharge Instructions Follow Up With: Dany Carreon DO [Primary Care Provider] - 04/05/16 3:15 pm - Diet and Activity Activity: increase activity as tolerated Diet: diabetic diet Interval History: Mr. Frey is a 55 year old male with medical history significant for hypertension , schizoaffective disorder on multiple antipsychotics, seizure disorder, chronic hyponatremia, Diabetes mellitus, hypothyroidism. Pt is not able to give clinical details. Per the ER physician, he was found by family to be stumbling and acting differently after going to a friend's house. They suspected he might have smoked marijuana at the house. He denied any other drug use. Apparently this happened several times in the past but this is little different. He was difficult to arouse per EMS. He was evaluated in the ER. CT head was negative. Labs showed acute kidney injury and hyperkalemia. He was started on IV fluid and admitted to the hospitalist service for further management. Hospital course: Mr. Frey is a 55 year old male admitted as altered mental status, dehydration, and acute kidney injury. He was placed on closely cardiac monitoring. Treated with IV fluid. His mental status had changed back to normal. The altered mental status is most likely due to marijuana use. After treatment, his kidney function returned to normal. Hypokalemia has improved. Repeated potassium level is normal. Patient has a mild hypo-magnesium, will give po supplements. Patient has an unhealed wound, he is following podiatry as outpatient for wound care. Will continue arrange podiatry and wound care follow-up. Patient is ready to discharge home and follow-up with podiatry and PCP and psychiatry as outpatient. Patient was seen and examined today, he is awake alert, oriented 3. Vitals are stable. Labs unremarkable. Patient was educated stopped taking marijuana. Patient is stable to discharge home and follow-up with PCP, psychiatry, and podiatry. - Time Spent with Patient Total time spent providing and/or coordinating discharge services: 40 minutes Greater than 30 minutes - Constitutional Vitals: Temp Pulse Resp BP Pulse Ox 97.7 F 75 16 118/74 99 03/27/16 11:11 03/27/16 13:27 03/27/16 11:11 03/27/16 11:11 03/27/16 13:27 General appearance: Present: A&O X 3, no acute distress, answers questions appropriately - Head Head exam: Present: atraumatic, normocephalic - Eye Eye exam: Present: PERRL, conjuntiva pink, sclera anicteric Pupils: Present: PERRL - Neck Neck exam general surgery: Present: supple, trachea midline. Absent: lymphadenopathy - Respiratory Respiratory exam: Present: CTAB. Absent: accessory muscle use, rales, rhonchi, wheezes - Cardiovascular Cardiovascular exam: Present: RRR, +S1, +S2. Absent: diastolic murmur, gallop, rubs, systolic murmur - GI/Abdominal GI/Abdominal exam: Present: normal bowel sounds, soft, no peritoneal signs. Absent: distended, tenderness - Extremities Exam Extremities exam: Present: warm, radial pulses palpable and symetrical. Absent : calf tenderness, cyanotic, pedal edema - Neurological Exam Neurological exam: Present: CN II-XII intact, oriented X3, no focal deficits. Absent: pronater drift, facial droop, speech deficit - Skin Skin exam: Present: dry, intact
[2016-03-27] MEDS ORDERED: Magnesium Sulfate 1 GM in D5% in Water 100 ML IVPB ONE (14:33)
== END 2016-03-27 17:20 | disposition home or self-care (01) | DRG 469 ==
LOC: EMEROO 01:09 → 2NNU 01:09
PROVIDERS: ADMIT Internal Medicine; ATTEND Internal Medicine

== ENCOUNTER 2016-08-19 19:36 | Inpatient (IN) ==
[2016-08-19 20:04] LABS: Bilirubin,Urine Negative (Negative); Blood,Urine Negative (Negative); Clarity,Urine Clear (Clear); Color,Urine Yellow (Yellow); Glucose,Urine (UA) Normal (Normal); Ketones,Urine Negative (Negative); Leukocyte Esterase,Urine Negative (Negative); Nitrite,Urine Negative (Negative); PH,Urine 7.5 pH Units (5.0-8.0); Protein,Urine Negative (Neg-Trace); Specific Gravity,Urine 1.009 (1.010-1.025); Urobilinogen,Urine Normal (Normal)
[2016-08-19 20:20] LABS: Basophils # 0.1 K/mcL (0.0-0.2); Basophils % 0.8 %; Eosinophils # 0.2 K/mcL (0.0-0.6); Eosinophils % 2.2 %; Hematocrit 40.9 % (37.5-50.1); Hemoglobin 13.5 g/dL (12.9-16.9); Immature Granulocytes % 0.6 % (0-4); Lymphocytes # 2.8 K/mcL (0.6-4.6); Mean Corpuscular Hemoglobin 30.5 pg (28.0-33.3); Mean Corpuscular Volume 92.3 fL (83.0-100.0); Mean Platelet Volume 8.9 fL (9.4-12.4); Monocytes % 9.4 %; Neutrophils # 6.3 K/mcL (1.6-8.9); Platelet Count 379 K/mcL (140-400); Red Blood Count 4.43 M/mcL (4.19-5.50); Red Cell Distribution Width 12.6 % (11.5-14.5)
[2016-08-19 20:35] LABS: Amphetamine Screen,Urine Negative ng/mL (Cutoff=1000); Barbiturate Screen,Urine Negative ng/mL (Cutoff=200); Benzodiazepines Screen,Urine Negative ng/mL (Cutoff=200); Cannabinoid Screen,Urine Negative ng/mL (Cutoff = 50); Cocaine Screen,Urine Negative ng/mL (Cutoff= 300); Opiate Screen,Urine Negative ng/mL (Cutoff=300); Phencyclidine Screen,Urine Negative ng/mL (Cutoff=25)
[2016-08-19 20:36] LABS: Acetaminophen < 1.0 mcg/mL (10-30); BUN/Creatinine Ratio 22 (6-26); Blood Urea Nitrogen 19 mg/dL (8-26); Calcium 9.6 mg/dL (8.6-10.8); Carbon Dioxide 25 mEq/L (19-29); Chloride 100 mEq/L (98-109); Ethanol < 10 mg/dL (0-10); Glucose 127 mg/dL (70-99); Osmolality,Calculated 282 (280-300); Potassium 4.6 mEq/L (3.5-4.5); Salicylate < 5.0 mg/dL (15-30); Sodium 134 mEq/L (136-145); eGFR For African Americans > 60 (> 60); eGFR For Non-African Americans > 60 (> 60)
--- NOTE | 2016-08-19 22:04 | Emergency Department Note ---
Disposition Clinical Impression: Suicidal ideation Disposition: Admitted As Inpatient Condition: Fair Psych HPI - General Chief Complaint: ED Psychiatric Symptoms Stated Complaint: SI Source: patient, EMS Mode of arrival: EMS Limitations: no limitations Nursing Notes Reviewed: Yes Vital Signs Reviewed: Yes - History of Present Illness HPI Narrative: 55-year-old male presents with concerns of suicidal ideation. Patient states that he had thoughts about ending his life after a verbal argument with his significant other. Patient states he had a plan to take all of his medications which include medications for diabetes, high blood pressure and anxiety and depression. Recent states he has tried to take it medications to end his life in the past. Patient denies taking of his medications medications or other illicit drugs today. Denies fever, chills, nausea, vomiting, diarrhea, chest pain, palpitations, abdominal pain, diarrhea, hematochezia, melena. - Related Data Home Medications Medication Instructions Recorded Confirmed Glimepiride [Amaryl] 4 mg PO BID 03/31/15 06/28/16 Lisinopril [Zestril] 20 mg PO DAILY 03/31/15 06/28/16 risperiDONE [Risperidone] 1 mg PO DAILY 03/31/15 06/28/16 Aspirin [Adult Low Dose Aspirin EC] 81 mg PO DAILY 04/07/15 06/28/16 Citalopram [CeleXA] 40 mg PO HS 04/07/15 06/28/16 Fenofibrate [Tricor] 54 mg PO DAILY 04/07/15 06/28/16 Levothyroxine [Synthroid] 100 mcg PO 0630 04/07/15 06/28/16 Pantoprazole Sodium [Protonix] 40 mg PO DAILY 10/04/15 06/28/16 RisperiDONE [Risperdal] 3 mg PO HS 10/04/15 06/28/16 Dextran 70/Hypromellose 1 drop OP DAILY 03/27/16 06/28/16 [Artificial Tears] Diclofenac Sodium 1 appl TP QID PRN 03/27/16 06/28/16 Gabapentin 800 mg PO TID 03/27/16 06/28/16 metFORMIN [Glucophage] 850 mg PO BIDWM 03/27/16 06/28/16 Previous Rx's Medication Instructions Recorded Magnesium Oxide [Mag-Ox] 400 mg PO BID #14 tablet 03/27/16 Allergies Allergy/AdvReac Type Severity Reaction Status Date / Time No Known Allergies Allergy Verified 08/20/16 15:47 All systems ED: reviewed and negative except as stated. Constitutional: Denies: fever, chills, weakness Cardiovascular: Denies: chest pain, palpitations Respiratory: Denies: cough, dyspnea, wheezes Gastrointestinal: Denies: abdominal pain, nausea, vomiting Genitourinary: Denies: urgency, dysuria Musculoskeletal: Denies: back pain, neck pain Integumentary: Denies: rash, abrasion Past Medical History - Past Medical History Attestation: Yes The following information was validated with the patient. Source: patient Medical history: Reports: arthritis, diabetes, hypertension Surgical history: Reports: orthopedic, other, other Psychiatric history: Reports: anxiety, depression, prior suicide attempt - Social History Smoking Status: Current every day smoker Smokeless Tobacco Status: No Alcohol use: Reports: occasionally Drug use: Reports: none Physical Exam General: Alert and in no acute distress Skin: Warm, dry, intact Head: Normocephalic and atraumatic Neck: Supple, trachea midline and no tenderness Cardiovascular: RRR, no murmur, normal perfusion Respiratory: CTAB, no wheezing, cough, or respiratory distress Musculoskeletal: Normal strength, no tenderness, swelling or deformity GI: Soft, nontender, nondistended. Bowel sounds present Neuro: A&O to person, place, time and situation. No focal deficits noted on exam Psychiatric: cooperative and appropriate mood and affect. - General Limitations: no limitations General appearance: alert, in no apparent distress Course Vital Signs Temperature 98.2 F 08/19/16 19:41 Pulse Rate 104 08/19/16 19:41 Respiratory Rate 16 08/19/16 19:41 Blood Pressure 142/79 08/19/16 19:41 O2 Sat by Pulse Oximetry 97 08/19/16 19:41 Temperature 98.0 F 08/20/16 21:00 Pulse Rate 107 08/20/16 21:00 Respiratory Rate 16 08/20/16 21:00 Blood Pressure 125/87 08/20/16 21:00 O2 Sat by Pulse Oximetry 97 08/19/16 19:41 Oxygen Delivery Oxygen Delivery Room Air Psych - MDM Narrative Medical decision making narrative: Patient will be evaluated by behavioral health for further care and evaluation. Patient seen by behavioral health who found the patient to be in need of inpatient psychiatric care. - Lab Data Result diagrams: 08/19/16 20:15 08/19/16 20:15 Lab Results 08/19/16 08/19/16 08/19/16 Range/Units 19:50 20:15 20:15 WBC 10.4 (4.3-11.1) K/mcL RBC 4.43 (4.19-5.50) M/mcL Hgb 13.5 (12.9-16.9) g/dL Hct 40.9 (37.5-50.1) % MCV 92.3 (83.0-100.0) fL MCH 30.5 (28.0-33.3) pg MCHC 33.0 (31.6-35.5) g/dL RDW 12.6 (11.5-14.5) % Plt Count 379 (140-400) K/mcL MPV 8.9 L (9.4-12.4) fL Immature Gran % 0.6 (0-4) % Seg Neutrophils % 60.0 % Lymphocytes % 27.0 % Monocytes % 9.4 % Eosinophils % 2.2 % Basophils % 0.8 % Neutrophils # 6.3 (1.6-8.9) K/mcL Lymphocytes # 2.8 (0.6-4.6) K/mcL Monocytes # 1.0 (0.0-1.3) K/mcL Eosinophils # 0.2 (0.0-0.6) K/mcL Basophils # 0.1 (0.0-0.2) K/mcL Sodium 134 L (136-145) mEq/L Potassium 4.6 H (3.5-4.5) mEq/L Chloride 100 (98-109) mEq/L Carbon Dioxide 25 (19-29) mEq/L BUN 19 (8-26) mg/dL Creatinine 0.85 (0.72-1.25) mg/dL Est GFR ( Amer) > 60 (> 60) Est GFR (Non-Af Amer) > 60 (> 60) BUN/Creatinine Ratio 22 (6-26) Glucose 127 H (70-99) mg/dL Calculated Osmolality 282 (280-300) Calcium 9.6 (8.6-10.8) mg/dL Urine Color (Yellow) Urine Clarity (Clear) Urine pH (5.0-8.0) pH Units Ur Specific [place] (1.010-1.025) Urine Protein (Neg-Trace) mg/dL Urine Glucose (UA) (Normal) mg/dL Urine Ketones (Negative) mg/dL Urine Blood (Negative) Urine Nitrite (Negative) Urine Bilirubin (Negative) Urine Urobilinogen (Normal) mg/dL Ur Leukocyte Esterase (Negative) Salicylates < 5.0 L (15-30) mg/dL Urine Opiates Screen Negative (Wzdmgu=570) ng/mL Acetaminophen < 1.0 L (10-30) mcg/mL Ur Barbiturates Screen Negative (Ioexhd=163) ng/mL Ur Phencyclidine Scrn Negative (Cutoff=25) ng/mL Ur Amphetamines Screen Negative (Hcxwpd=1290) ng/mL U Benzodiazepines Scrn Negative (Wsrapw=116) ng/mL Urine Cocaine Screen Negative (Cutoff= 300) ng/mL U Marijuana (THC) Screen Negative (Cutoff = 50) ng/mL Ethyl Alcohol < 10 (0-10) mg/dL 08/19/16 Range/Units 20:50 WBC (4.3-11.1) K/mcL RBC (4.19-5.50) M/mcL Hgb (12.9-16.9) g/dL Hct (37.5-50.1) % MCV (83.0-100.0) fL MCH (28.0-33.3) pg MCHC (31.6-35.5) g/dL RDW (11.5-14.5) % Plt Count (140-400) K/mcL MPV (9.4-12.4) fL Immature Gran % (0-4) % Seg Neutrophils % % Lymphocytes % % Monocytes % % Eosinophils % % Basophils % % Neutrophils # (1.6-8.9) K/mcL Lymphocytes # (0.6-4.6) K/mcL Monocytes # (0.0-1.3) K/mcL Eosinophils # (0.0-0.6) K/mcL Basophils # (0.0-0.2) K/mcL Sodium (136-145) mEq/L Potassium (3.5-4.5) mEq/L Chloride (98-109) mEq/L Carbon Dioxide (19-29) mEq/L BUN (8-26) mg/dL Creatinine (0.72-1.25) mg/dL Est GFR ( Amer) (> 60) Est GFR (Non-Af Amer) (> 60) BUN/Creatinine Ratio (6-26) Glucose (70-99) mg/dL Calculated Osmolality (280-300) Calcium (8.6-10.8) mg/dL Urine Color Yellow (Yellow) Urine Clarity Clear (Clear) Urine pH 7.5 (5.0-8.0) pH Units Ur Specific [place] 1.009 L (1.010-1.025) Urine Protein Negative (Neg-Trace) mg/dL Urine Glucose (UA) Normal (Normal) mg/dL Urine Ketones Negative (Negative) mg/dL Urine Blood Negative (Negative) Urine Nitrite Negative (Negative) Urine Bilirubin Negative (Negative) Urine Urobilinogen Normal (Normal) mg/dL Ur Leukocyte Esterase Negative (Negative) Salicylates (15-30) mg/dL Urine Opiates Screen (Hyzoim=896) ng/mL Acetaminophen (10-30) mcg/mL Ur Barbiturates Screen (Spduwn=076) ng/mL Ur Phencyclidine Scrn (Cutoff=25) ng/mL Ur Amphetamines Screen (Bpphez=7091) ng/mL U Benzodiazepines Scrn (Mujbxb=287) ng/mL Urine Cocaine Screen (Cutoff= 300) ng/mL U Marijuana (THC) Screen (Cutoff = 50) ng/mL Ethyl Alcohol (0-10) mg/dL Psychiatric Medical Clearance - Medical Clearance Checklist Medical History: No Social History Section defined Current Vitals: Last Vital Signs Temp 98.0 F 08/20/16 21:00 Pulse 107 08/20/16 21:00 Resp 16 08/20/16 21:00 BP 125/87 08/20/16 21:00 Pulse Ox 97 08/19/16 19:41 Abnormal Labs: Abnormal lab results MPV 8.9 fL (9.4-12.4) L 08/19/16 20:15 Sodium 134 mEq/L (136-145) L 08/19/16 20:15 Potassium 4.6 mEq/L (3.5-4.5) H 08/19/16 20:15 Glucose 127 mg/dL (70-99) H 08/19/16 20:15 POC Glucose 125 (58-89) H 08/20/16 16:31 Ur Specific [place] 1.009 (1.010-1.025) L 08/19/16 20:50 Salicylates < 5.0 mg/dL (15-30) L 08/19/16 20:15 Acetaminophen < 1.0 mcg/mL (10-30) L 08/19/16 20:15 Statement of Medical Clearance: I have evaluated the patient, reviewed diagnostic information, and certify that the patient's medical condition is sufficiently stable that transfer to the psychiatric unit does not pose a significant risk of deterioration.
[2016-08-19] MEDS ORDERED: MOM Conc 10 ML UD.LIQ PO PRN (23:43)
[2016-08-19] MEDS ORDERED: *HR* LORazepam 2 MG/ML VIAL IM PRN (23:43)
[2016-08-19] MEDS ORDERED: *HR* LORazepam 1 MG TABLET PO PRN (23:43)
[2016-08-19] MEDS ORDERED: Mag Hydrox/Al Hydrox/Simeth 30 ML UDC PO PRN (23:43)
[2016-08-19] MEDS ORDERED: Nicotine 2 MG GUM BC PRN (23:43)
[2016-08-19] MEDS ORDERED: hydrOXYzine pamoate 25 MG CAPSULE PO PRN (23:43)
[2016-08-19] MEDS ORDERED: Haloperidol Lactate 5 MG/ML VIAL IM PRN (23:43)
[2016-08-20] MEDS: Gabapentin 400 MG CAPSULE PO SCH ×4 (00:14→20:13)
[2016-08-20] MEDS: *HR* Metformin 850 MG TABLET PO SCH ×3 (00:14→16:31)
[2016-08-20] MEDS: *HR* Glimepiride 4 MG TABLET PO SCH ×3 (00:14→20:13)
[2016-08-20] MEDS: traZODone 50 MG TABLET PO PRN ×2 (00:14→20:13)
[2016-08-20] MEDS: Aspirin Enteric Coated 81 MG Tablet PO SCH (08:25)
[2016-08-20] MEDS: Lisinopril 20 MG TABLET PO SCH (08:25)
[2016-08-20] MEDS: Fenofibrate 54 MG TABLET PO SCH (08:25)
[2016-08-20] MEDS: Artificial Tears SOLN 15 ML BOTTLE OP SCH (08:59)
--- NOTE | 2016-08-20 10:40 | Psychiatry History & Physical ---
Date of Encounter: 08/20/16 Time of Encounter: 09:30 History of Present Illness Patient Stated Chief Complaint: depression and suicidal ideations Medicare Admission Attestation: For traditional Medicare patients the provided hospital inpatient services are reasonable and necessary and in the case of services not specified as inpatient -only under 42 CFR 419.22 (n), that they are appropriately provided as inpatient services in accordance 42 CFR 412.3. For Critical Access Hospital the patient may reasonably be expected to be discharged or transferred to a hospital within 96 hours after admission to the Critical Access Hospital. Admitted From: Emergency Dept Plans for Post Hospital Care: Home History of Present Illness: Mr. Frey is a 55 year old male Was referred for hospitalization from emergency department where he presented with symptoms of depression and suicidal ideations with thoughts of wanting to overdose. Patient is noted to have extensive history of depression. He reported multiple recurrences of depression over the course of his life. He reported that his most recent bout has been going on for the last 2 or 3 months. His ongoing challenges and stressors include his living situation. Patient reported that he is currently residing with his girlfriend and girlfriend's and daughter and son. She reported that it is a small place and there is no privacy which leads to a lot of arguments and conflicts with his contribution to his depression. He also endorsed serious financial challenges. He reported that him and his girlfriend have been having frequent arguments and issues and on the day of his hospitalization that had an altercation after which she felt extremely hopeless depressed and decided to end his life by overdosing. He reported symptoms of depression which included low mood any Stephanie hopeless helpless feeling social and isolation and withdrawn behavior lower energy levels a motivation. Since patient was actively suicidal and able to contract for safety was decided to hospitalize him at [address] [facility] facility for safety concerns. Past Med Surg Social Fam HX - Past Medical History Medical history: arthritis, diabetes, hypertension - Past Psychiatric History Psychiatric history: Reports: depression, previous psychiatric hospitalization Past psychiatric history details: 2 prior psych hosp Last 4-5 yrs ago Receiving outpatient Rx from [facility] and is u/c of a telepsychiatrist Family psychiatric history: No Family History of Suicide: None - Past Surgical History Surgical History: orthopedic, other, other - Social History Smoking Status: Current every day smoker Smokeless Tobacco Status: No Alcohol use: occasionally Drug use: none Occupational status: disabled Current living situation: Home Activity Level: Independent ambulation Recent Out of Country Travel Within the Last 8 Weeks: No Exposure or Possible Exposure to Illness During Travel: No Additional social history: Born in [place] Educated till 9th grade Has 2 grownup daughters Currently residing with girlfriend and her family and is on disability No current legal issue - Family History Daughter Living Status: Still Living Hx Family Cardiac Disorders: No Hx Family Respiratory Disorders: Yes Hx Family Cancer: No Hx Family GI Disorders: No Hx Family Endocrine Disorder: No Hx Family Neuromuscular Disorders: No Hx Family Neurologic Disorders: No Hx Family HEENT Disorders: No Hx Family Autoimmune Disorders: No Mother History Unknown: Yes Living Status: Hx Family Cardiac Disorders: Yes Father History Unknown: Yes Living Status: Medications & Allergies Glimepiride [Amaryl] 4 mg PO BID 03/31/15 [History] Lisinopril [Zestril] 20 mg PO DAILY 03/31/15 [History] risperiDONE [Risperidone] 1 mg PO DAILY 03/31/15 [History] Aspirin [Adult Low Dose Aspirin EC] 81 mg PO DAILY 04/07/15 [History] Citalopram [CeleXA] 40 mg PO HS 04/07/15 [History] Fenofibrate [Tricor] 54 mg PO DAILY 04/07/15 [History] Levothyroxine [Synthroid] 100 mcg PO 0630 04/07/15 [History] Pantoprazole Sodium [Protonix] 40 mg PO DAILY 10/04/15 [History] RisperiDONE [Risperdal] 3 mg PO HS 10/04/15 [History] Dextran 70/Hypromellose [Artificial Tears] 1 drop OP DAILY 03/27/16 [History] Diclofenac Sodium 1 appl TP QID PRN 03/27/16 [History] Gabapentin 800 mg PO TID 03/27/16 [History] Magnesium Oxide [Mag-Ox] 400 mg PO BID #14 tablet 03/27/16 [Rx] metFORMIN [Glucophage] 850 mg PO BIDWM 03/27/16 [History] Allergies No Known Allergies Allergy (Verified 05/25/16 00:56) Review of Systems Psychiatric: Reports: depression, suicidal ideation, anhedonia, difficulty concentrating, hopelessness Mental Status Exam Patient orientation: Yes Person, Yes Time, Yes Place Level of alertness: Alert Patient appearance: Unkempt, Disheveled Behavior: anxious Psychomotor activity: Slowed Eye contact: Maintains Eye Contact Mood description: Depressed Affect description: flat Speech pattern: Normal rate, Normal rhythm, Normal tone Speech volume: Soft/Quiet Thought process: Linear, Goal Oriented Thought content: Yes Suicidal ideation Perceptual disturbances: No Auditory hallucinations, No Visual hallucinations Attention span: Capable of Focused Attention Memory description: Grossly Intact Patient reliability: Reliable Historian Intelligence estimate: Average Judgment: Limited Insight: Minimal Exam - HEENT Head exam IM: Present: normal inspection Eye exam IM: Present: normal appearance ENT exam IM: Present: mucous membranes moist, normal exam - Neurological Neurological exam IM: Present: alert, CN II-XII intact, normal gait, oriented X3 , reflexes normal, no focal deficits. Absent: motor sensory deficit - Respiratory Respiratory exam IM: Absent: respiratory distress, rhonchi, stridor, wheezes, tachypnea - GI/Abdominal GI/Abdominal exam IM: Present: normal bowel sounds, soft - Extremities Extremities exam IM: Present: full ROM, normal inspection - Skin Skin exam IM: Present: normal color Results - Vital Signs Vital signs: Temp Pulse Resp BP Pulse Ox 98.0 F 96 18 122/84 97 08/20/16 08:24 08/20/16 08:24 08/20/16 08:24 08/20/16 08:24 08/19/16 19:41 - Labs Labs: Laboratory Last Values WBC 10.4 K/mcL (4.3-11.1) 08/19/16 20:15 RBC 4.43 M/mcL (4.19-5.50) 08/19/16 20:15 Hgb 13.5 g/dL (12.9-16.9) 08/19/16 20:15 Hct 40.9 % (37.5-50.1) 08/19/16 20:15 MCV 92.3 fL (83.0-100.0) 08/19/16 20:15 MCH 30.5 pg (28.0-33.3) 08/19/16 20:15 MCHC 33.0 g/dL (31.6-35.5) 08/19/16 20:15 RDW 12.6 % (11.5-14.5) 08/19/16 20:15 Plt Count 379 K/mcL (140-400) 08/19/16 20:15 MPV 8.9 fL (9.4-12.4) L 08/19/16 20:15 Immature Gran % 0.6 % (0-4) 08/19/16 20:15 Seg Neutrophils % 60.0 % 08/19/16 20:15 Lymphocytes % 27.0 % 08/19/16 20:15 Monocytes % 9.4 % 08/19/16 20:15 Eosinophils % 2.2 % 08/19/16 20:15 Basophils % 0.8 % 08/19/16 20:15 Neutrophils # 6.3 K/mcL (1.6-8.9) 08/19/16 20:15 Lymphocytes # 2.8 K/mcL (0.6-4.6) 08/19/16 20:15 Monocytes # 1.0 K/mcL (0.0-1.3) 08/19/16 20:15 Eosinophils # 0.2 K/mcL (0.0-0.6) 08/19/16 20:15 Basophils # 0.1 K/mcL (0.0-0.2) 08/19/16 20:15 Sodium 134 mEq/L (136-145) L 08/19/16 20:15 Potassium 4.6 mEq/L (3.5-4.5) H 08/19/16 20:15 Chloride 100 mEq/L (98-109) 08/19/16 20:15 Carbon Dioxide 25 mEq/L (19-29) 08/19/16 20:15 BUN 19 mg/dL (8-26) 08/19/16 20:15 Creatinine 0.85 mg/dL (0.72-1.25) 08/19/16 20:15 Est GFR ( Amer) > 60 (> 60) 08/19/16 20:15 Est GFR (Non-Af Amer) > 60 (> 60) 08/19/16 20:15 BUN/Creatinine Ratio 22 (6-26) 08/19/16 20:15 Glucose 127 mg/dL (70-99) H 08/19/16 20:15 POC Glucose 185 (58-89) H 08/20/16 06:41 Calculated Osmolality 282 (280-300) 08/19/16 20:15 Calcium 9.6 mg/dL (8.6-10.8) 08/19/16 20:15 Urine Color Yellow (Yellow) 08/19/16 20:50 Urine Clarity Clear (Clear) 08/19/16 20:50 Urine pH 7.5 pH Units (5.0-8.0) 08/19/16 20:50 Ur Specific [place] 1.009 (1.010-1.025) L 08/19/16 20:50 Urine Protein Negative mg/dL (Neg-Trace) 08/19/16 20:50 Urine Glucose (UA) Normal mg/dL (Normal) 08/19/16 20:50 Urine Ketones Negative mg/dL (Negative) 08/19/16 20:50 Urine Blood Negative (Negative) 08/19/16 20:50 Urine Nitrite Negative (Negative) 08/19/16 20:50 Urine Bilirubin Negative (Negative) 08/19/16 20:50 Urine Urobilinogen Normal mg/dL (Normal) 08/19/16 20:50 Ur Leukocyte Esterase Negative (Negative) 08/19/16 20:50 Salicylates < 5.0 mg/dL (15-30) L 08/19/16 20:15 Urine Opiates Screen Negative ng/mL (Gvjzei=250) 08/19/16 19:50 Acetaminophen < 1.0 mcg/mL (10-30) L 08/19/16 20:15 Ur Barbiturates Screen Negative ng/mL (Xzusdc=210) 08/19/16 19:50 Ur Phencyclidine Scrn Negative ng/mL (Cutoff=25) 08/19/16 19:50 Ur Amphetamines Screen Negative ng/mL (Mofbmf=8347) 08/19/16 19:50 U Benzodiazepines Scrn Negative ng/mL (Cyfkzm=707) 08/19/16 19:50 Urine Cocaine Screen Negative ng/mL (Cutoff= 300) 08/19/16 19:50 U Marijuana (THC) Screen Negative ng/mL (Cutoff = 50) 08/19/16 19:50 Ethyl Alcohol < 10 mg/dL (0-10) 08/19/16 20:15 Assessment and Plan (1) MDD (major depressive disorder), recurrent severe, without psychosis Current visit: Yes Status: Acute Plan: Admit inpatient for safety and stabilization, Close observation, Suicide Precautions per unit protocol, Encourage participation in unit milieu, Group Therapy, Monitor sleep, Monitor appetite Additional Plan: After reviewing the symptoms, diagnosis,treatment plan and explaining the risks , benefits, side effects, alternative treatment and consequences of no treatment and afer getting informed consent from the patient it was obvious that patient never had a full-blown hypomanic or manic episode and his symptoms have mostly been of depression Based on this information we will not restart patient's Valium or Depakote or increase his Risperdal however,we will continue the Risperdal 3 mg at bedtime we will continue patient's Celexa 40 mg daily for his depression and we will add Wellbutrin SR 150 mg daily as an adjunct treatment for his depressed mood. Risks, benefits, side effects, alternatives discussed w/pt: No Patient agreeable to treatment: No Plans for Post Hospital Care: Home Estimated Length of Stay (Days): 4
[2016-08-20] MEDS: BuPROPion SR (12 HR) 150 MG TABLET PO SCH (12:08)
[2016-08-20] MEDS: Acetaminophen 325 MG TABLET PO PRN (19:12)
[2016-08-21] MEDS: *HR* Glimepiride 4 MG TABLET PO SCH (08:17)
[2016-08-21] MEDS: BuPROPion SR (12 HR) 150 MG TABLET PO SCH (08:17)
[2016-08-21] MEDS: Lisinopril 20 MG TABLET PO SCH (08:17)
[2016-08-21] MEDS: Aspirin Enteric Coated 81 MG Tablet PO SCH (08:17)
[2016-08-21] MEDS: *HR* Metformin 850 MG TABLET PO SCH (08:17)
[2016-08-21] MEDS: Gabapentin 400 MG CAPSULE PO SCH ×2 (08:18→14:24)
[2016-08-21] MEDS: Fenofibrate 54 MG TABLET PO SCH (08:18)
[2016-08-21] MEDS: Artificial Tears SOLN 15 ML BOTTLE OP SCH (08:19)
[2016-08-21 09:28] VITALS: BP 117/83
--- NOTE | 2016-08-21 12:30 | Discharge Summary ---
Date of Encounter: 08/21/16 Time of Encounter: 12:26 Diagnosis - Discharge Diagnosis (1) MDD (major depressive disorder), recurrent severe, without psychosis Status: Acute Medications - Discharge Medications Prescriptions: BuPROPion SR (12 HR) [Wellbutrin SR] 150 mg PO DAILY #30 tablet.er Glimepiride [Amaryl] 4 mg PO BID 03/31/15 [History] Lisinopril [Zestril] 20 mg PO DAILY 03/31/15 [History] risperiDONE [Risperidone] 1 mg PO BID 03/31/15 [History] Aspirin [Adult Low Dose Aspirin EC] 81 mg PO DAILY 04/07/15 [History] Citalopram [CeleXA] 20 mg PO HS 04/07/15 [History] Fenofibrate [Tricor] 54 mg PO DAILY 04/07/15 [History] Levothyroxine [Synthroid] 100 mcg PO DAILY 04/07/15 [History] Pantoprazole Sodium [Protonix] 40 mg PO DAILY 10/04/15 [History] Dextran 70/Hypromellose [Artificial Tears] 1 drop OP DAILY 03/27/16 [History] Gabapentin 800 mg PO QID 03/27/16 [History] Magnesium Oxide [Mag-Ox] 400 mg PO BID #14 tablet 03/27/16 [Rx] BuPROPion SR (12 HR) [Wellbutrin SR] 150 mg PO DAILY #30 tablet.er 08/21/16 [Rx] Diclofenac Sodium [Voltaren] 50 mg PO TID 08/21/16 [History] Trazodone HCl 100 mg PO HS 08/21/16 [History] metFORMIN [Glucophage] 500 mg PO BID 08/21/16 [History] Allergies No Known Allergies Allergy (Verified 08/20/16 15:47) Provider Date of admission: 08/19/16 22:51 Primary care physician: PCP NO Discharging clinician: Silva Cisse Assessment and Plan - Patient/Caregiver Discharge Instructions Activity: resume usual activities as tolerated Diet: diabetic diet - Follow up Plan Follow up with: [facility] [Outside] - 09/11/16 1:20 pm (The above appointment is with Dr. Rivera, for outpatient psychiatric assessment and medication management services. Additionally, the new test case developer assigned to you will contact you directly to schedule an appointment to meet with you.) Functional capacity at discharge: independent ambulation Overall status at discharge: Stable Disposition: Home, Self-Care Hospital Course Hospital course: Mr. Frey is a 55 year old male who was admitted secondary to SI and a plan to overdose. Started on Wellbutrin and feeling better. Lives with girlfriend and staff have spoken with her. She feels client is better and she is willing to have him come home. Client reports his living situation is stressful because his girlfriend rents the property from her ex-. However, client reports for now it is working. He also reports his sister lives a couple of blocks away and when he feels overwhelmed he is always welcome at her house. Client is already linked with [facility]. Social work is setting him up with case management. Client seems lower functioning and would likely benefit from case management/wrap around services. Client wants to leave today. Denies any further suicidal thoughts and states his girlfriend will manage his medications. - Time Spent with Patient Total time spent providing and/or coordinating discharge services: Quality - Multiple Antipsychotics Patient discharged on 2 or more antipsychotic medications: No Procedures - Procedures Procedures: Medication Management, Crisis Stabilization, Supportive Therapy, Group Therapy Mental Status Exam - Mental Status Exam Patient orientation: Yes Person, Yes Time, Yes Place Level of alertness: Alert Patient appearance: Appropriate Behavior: calm, cooperative Psychomotor activity: Normal Eye contact: Minimal Contact Mood description: Depressed Affect description: blunted Speech pattern: Slowed Speech Volume: Soft/Quiet Thought process: [place] Thought Content: No Suicidal ideation, No Homicidal ideation, No Overt delusions Perceptual Disturbances: No Auditory hallucinations, No Visual hallucinations Judgment: Fair Insight: Partial
[2016-08-21] MEDS: Acetaminophen 325 MG TABLET PO PRN (13:28)
== END 2016-08-21 15:00 | disposition home or self-care (01) | DRG 751 ==
LOC: EMEROO 19:36 → 1ANU 22:51
PROVIDERS: ADMIT Psychiatry & Neurology Psychiatry; ATTEND Psychiatry & Neurology Psychiatry

== ENCOUNTER 2016-09-27 20:02 | Inpatient (IN) ==
[2016-09-27] MEDS ORDERED: 0.9 % Sodium Chloride 1,000 ML IVC ONE ×2 (20:08→20:14)
--- NOTE | 2016-09-27 20:08 | Emergency Department Note ---
Disposition Clinical Impression: Septic shock, NSTEMI (non-ST elevated myocardial infarction), ELOISE (acute kidney injury) Disposition: Admitted As Inpatient Condition: Good Time of Disposition: 02:52 General Adult HPI - General Chief complaint: ED Dizziness Stated complaint: Dizziness/Weakness Time Seen by Provider: 09/27/16 20:07 Nursing Notes Reviewed: Yes Vital Signs Reviewed: Yes - History of Present Illness HPI Narrative: Patient had an I&D of a area to his left heel today. After he got home he had several episodes of syncope. Does have a history of seizures. States he takes his medication as prescribed. Has not missed any doses. Denies fevers chills shortness of breath or chest pain. Denies any headache or blurred vision. - Related Data Home Medications Medication Instructions Recorded Confirmed Glimepiride [Amaryl] 4 mg PO BID 03/31/15 09/27/16 Lisinopril [Zestril] 20 mg PO DAILY 03/31/15 09/27/16 risperiDONE [Risperidone] 1 mg PO BID 03/31/15 09/27/16 Citalopram [CeleXA] 20 mg PO HS 04/07/15 09/27/16 Fenofibrate [Tricor] 54 mg PO DAILY 04/07/15 09/27/16 Levothyroxine [Synthroid] 100 mcg PO DAILY 04/07/15 09/27/16 Pantoprazole Sodium [Protonix] 40 mg PO DAILY 10/04/15 09/27/16 Dextran 70/Hypromellose 1 drop OP DAILY 03/27/16 09/27/16 [Artificial Tears] Gabapentin 800 mg PO QID 03/27/16 09/27/16 Diclofenac Sodium [Voltaren] 50 mg PO TID 08/21/16 09/27/16 Trazodone HCl 100 mg PO HS 08/21/16 09/27/16 metFORMIN [Glucophage] 500 mg PO BID 08/21/16 09/27/16 Aspirin 81 mg PO DAILY 09/27/16 09/27/16 Previous Rx's Medication Instructions Recorded Magnesium Oxide [Mag-Ox] 400 mg PO BID #14 tablet 03/27/16 BuPROPion SR (12 HR) [Wellbutrin 150 mg PO DAILY #30 tablet.er 08/21/16 SR] Allergies Allergy/AdvReac Type Severity Reaction Status Date / Time No Known Allergies Allergy Verified 08/20/16 15:47 All systems ED: reviewed and negative except as stated. Constitutional: Denies: fever, chills ENT ED: Denies: congestion Cardiovascular: Denies: chest pain, palpitations, syncope Respiratory: Denies: cough, dyspnea, wheezes Gastrointestinal: Denies: abdominal pain, nausea, vomiting, diarrhea, hematemesis Genitourinary: Denies: urgency, dysuria, frequency, hematuria Musculoskeletal: Denies: back pain, neck pain Integumentary: Denies: rash, abrasion Neurological: Denies: headache, weakness Past Medical History - Past Medical History Attestation: Yes The following information was validated with the patient. Medical history: Reports: arthritis, diabetes, hypertension Surgical history: Reports: orthopedic, other, other Psychiatric history: Reports: anxiety, depression, prior suicide attempt - Social History Smoking Status: Current every day smoker Smokeless Tobacco Status: No Alcohol use: Reports: occasionally Drug use: Reports: none Physical Exam - General Limitations: no limitations General appearance: alert, in no apparent distress - Head Head exam: atraumatic, normocephalic, normal inspection - Eye Eye exam: Present: normal appearance, PERRL, EOMI. Absent: scleral icterus - ENT ENT exam: normal exam, normal oropharynx, mucous membranes moist - Neck Neck exam: Present: normal inspection, full ROM, trachea midline - Chest Chest inspection: Present: normal inspection, symmetric chest wall rise. Absent : tenderness - Respiratory Respiratory exam: Present: normal lung sounds bilaterally. Absent: respiratory distress, wheezes - Cardiovascular Cardiovascular exam: Present: regular rate, normal rhythm, normal heart sounds - Abdominal Exam Abdominal exam: Present: soft, Non-Tender, normal bowel sounds - Expanded Upper Extremity Exam Shoulder exam: Present: normal inspection, full ROM Arm exam: Present: normal inspection, full ROM Elbow exam: Present: normal inspection, full ROM Forearm/Wrist exam: Present: normal inspection, full ROM Hand exam: Present: normal inspection, full ROM Vascular exam: Normal: capillary refill, radial pulse - Expanded Lower Extremity Exam Hip/Pelvis exam: Present: normal inspection, full ROM Upper leg exam: Present: normal inspection, full ROM Knee exam: Present: normal inspection, full ROM Lower leg exam: Present: normal inspection, full ROM Ankle exam: Present: normal inspection, full ROM Foot/toe exam: Present: full ROM, other (Area of I&D to the left lateral aspect of left heel. Well-appearing. Nonerythematous. Non-warm. PACs. It does not appear to be draining.) Neurovascular/Tendon exam: Absent: motor deficit, sensory deficit, tendon deficit - Back Exam Back exam: Present: normal inspection, full ROM. Absent: tenderness - Neurological Exam Neurological exam: Present: alert, oriented X3 (Aware of person place and time.) , other (Appears to be somewhat confused. Has slowed speech. Unsure if this is patient's norm.) - Psychiatric Psychiatric exam: Present: normal affect, normal mood - Skin Skin exam: Present: warm, dry, intact, normal color. Absent: rash, cyanosis, diaphoresis, erythema Course Course Narrative: Male patient presented to the emergency department after several syncopal episodes at home. He had a wound I&D today at wound care on his left foot. As have history of seizures. Since he got home he has had several syncopal episodes. EMS got the scene and he syncopized whenever they attempted to get him up from a seated position. They denied any seizure-like activity. He said he was initially hypertensive for them. He is hypotensive on arrival here. Patient is alert and oriented to person place and time however does appear somewhat confused. He has a prosthetic right eye. I do not see any localizing neurological deficits. He has no trauma to his body that I can appreciate. We will scan patient's head and neck due to his recent falls. EEG shows new Q waves in the leads. There is also some upsloping ST elevation in lead V2 however this is isolated. It did not appreciate any reciprocal changes. He does have new T-wave inversions in several leads as well. We will give patient a fluid bolus. The area to patient's left heel appears to be healing appropriately. It does not appear erythematous it is not warm. There is no discharge however it is packed at this time. Not appreciate any other signs of infection to the patient. His lung sounds are clear heart sounds are normal chest x-ray is normal as well. Patient has an AK as well as increased troponin. This is been discussed with cardiology. They are advising to heparinize the patient but after their evaluation of the EKG advised that it is an NSTEMI. Patient has responded well to fluid bolus. - Reevaluation(s) Reevaluation #1: Patient reevaluated. He was not started on vasopressors as his blood pressure rapidly responded to IV fluids. At time of this reexamination patient has had 1500 mL of the 2500 mL bolus. Patient states that he feels much better. He still denies any chest pain or shortness of breath. Vital signs at this time show a pulse of 98, respirations 21, BP 118/81, oxygen saturation 99% on room air. Heart is regular rate and rhythm with no ectopy noted. Breath sounds are clear and equal bilaterally. Skin is warm and dry with good color. Strong peripheral pulses in upper and lower extremities with normal capillary refill. Time: 22:05 - Consultations Consultation #1: I Spoke with Dr. Kam. We discussed the EKG changes as well as the patient's elevated troponin and creatinine. He is going to the patient's EKG and call us back. He called back called the patient and an NSTEMI. He is suggesting we heparinized the patient. I have ordered this. Time: 21:27 Consultation #2: Dr. Perez accepted patient in stable condition. Time: 21:47 Vital Signs Temperature 97.4 F L 09/27/16 20:03 Pulse Rate 86 09/27/16 20:03 Respiratory Rate 16 09/27/16 20:03 Blood Pressure 63/41 09/27/16 20:03 O2 Sat by Pulse Oximetry 96 09/27/16 20:03 Temperature 98.3 F 09/28/16 00:02 Pulse Rate 106 09/28/16 00:02 Respiratory Rate 18 09/28/16 00:02 Blood Pressure 128/82 09/28/16 00:02 O2 Sat by Pulse Oximetry 96 09/28/16 00:02 Oxygen Delivery Oxygen Delivery Room Air Medical Decision Making - Medical Records Medical records reviewed: Yes I reviewed the patient's medical records. - Lab Data Lab results reviewed: Yes I reviewed the patient's lab results. Result diagrams: 09/27/16 20:10 09/27/16 20:10 Lab Results 09/27/16 09/27/16 09/27/16 Range/Units 20:10 20:10 20:10 WBC 18.5 H (4.3-11.1) K/mcL RBC 4.56 (4.19-5.50) M/mcL Hgb 13.8 (12.9-16.9) g/dL Hct 41.5 (37.5-50.1) % MCV 91.0 (83.0-100.0) fL MCH 30.3 (28.0-33.3) pg MCHC 33.3 (31.6-35.5) g/dL RDW 13.7 (11.5-14.5) % Plt Count 327 (140-400) K/mcL MPV 9.3 L (9.4-12.4) fL Immature Gran % 1.0 (0-4) % Seg Neutrophils % 70.4 % Lymphocytes % 16.6 % Monocytes % 10.5 % Eosinophils % 1.0 % Basophils % 0.5 % Neutrophils # 13.0 H (1.6-8.9) K/mcL Lymphocytes # 3.1 (0.6-4.6) K/mcL Monocytes # 1.9 H (0.0-1.3) K/mcL Eosinophils # 0.2 (0.0-0.6) K/mcL Basophils # 0.1 (0.0-0.2) K/mcL PT (9.4-12.1) Seconds INR APTT (26.0-36.0) Seconds Sodium 131 L (136-145) mEq/L Potassium 4.1 (3.5-4.5) mEq/L Chloride 98 (98-109) mEq/L Carbon Dioxide 19 (19-29) mEq/L BUN 27 H (8-26) mg/dL Creatinine 2.63 H (0.72-1.25) mg/dL Est GFR ( Amer) 31 L (> 60) Est GFR (Non-Af Amer) 25 L (> 60) BUN/Creatinine Ratio 10 (6-26) Glucose 156 H (70-99) mg/dL POC Glucose (58-89) Calculated Osmolality 280 (280-300) Lactic Acid (0.5-2.2) mmol/L Calcium 9.5 (8.6-10.8) mg/dL Phosphorus 4.8 H (2.3-4.7) mg/dL Magnesium 1.8 (1.6-2.6) mg/dL Total Bilirubin 0.3 (0.2-1.2) mg/dL AST 17 (5-34) Units/L ALT 19 (0-55) Units/L Alkaline Phosphatase 64 (38-126) Units/L Troponin I 0.38 H* (0-0.03) ng/mL Serum Total Protein 7.0 (6.0-8.3) g/dL Albumin 3.9 (3.5-5.0) g/dL Globulin 3.1 (2.4-3.5) g/dL Albumin/Globulin Ratio 1.3 (1.1-2.2) Ur Specimen Adequacy Urine Color (Yellow) Urine Clarity (Clear) Urine pH (5.0-8.0) pH Units Ur Specific Homer (1.010-1.025) Urine Protein (Neg-Trace) mg/dL Urine Glucose (UA) (Normal) mg/dL Urine Ketones (Negative) mg/dL Urine Blood (Negative) Urine Nitrite (Negative) Urine Bilirubin (Negative) Urine Urobilinogen (Normal) mg/dL Ur Leukocyte Esterase (Negative) Urine Microscopic RBC (0-3) per hpf Urine Microscopic WBC (0-3) per hpf Ur Squamous Epith Cells (None-Few) per lpf Urine Bacteria (None-Few) per hpf Hyaline Casts (None-Few) per lpf Ur Culture Indicated? (NO) Urine Opiates Screen (Zykuhb=112) ng/mL Ur Barbiturates Screen (Hcdpwy=954) ng/mL Ur Phencyclidine Scrn (Cutoff=25) ng/mL Ur Amphetamines Screen (Jrrkhm=1890) ng/mL U Benzodiazepines Scrn (Gafzpw=245) ng/mL Urine Cocaine Screen (Cutoff= 300) ng/mL U Marijuana (THC) Screen (Cutoff = 50) ng/mL 09/27/16 09/27/16 09/27/16 Range/Units 20:10 20:51 21:16 WBC (4.3-11.1) K/mcL RBC (4.19-5.50) M/mcL Hgb (12.9-16.9) g/dL Hct (37.5-50.1) % MCV (83.0-100.0) fL MCH (28.0-33.3) pg MCHC (31.6-35.5) g/dL RDW (11.5-14.5) % Plt Count (140-400) K/mcL MPV (9.4-12.4) fL Immature Gran % (0-4) % Seg Neutrophils % % Lymphocytes % % Monocytes % % Eosinophils % % Basophils % % Neutrophils # (1.6-8.9) K/mcL Lymphocytes # (0.6-4.6) K/mcL Monocytes # (0.0-1.3) K/mcL Eosinophils # (0.0-0.6) K/mcL Basophils # (0.0-0.2) K/mcL PT 11.0 (9.4-12.1) Seconds INR 1.0 APTT 25.5 L (26.0-36.0) Seconds Sodium (136-145) mEq/L Potassium (3.5-4.5) mEq/L Chloride (98-109) mEq/L Carbon Dioxide (19-29) mEq/L BUN (8-26) mg/dL Creatinine (0.72-1.25) mg/dL Est GFR ( Amer) (> 60) Est GFR (Non-Af Amer) (> 60) BUN/Creatinine Ratio (6-26) Glucose (70-99) mg/dL POC Glucose (58-89) Calculated Osmolality (280-300) Lactic Acid 5.3 H* (0.5-2.2) mmol/L Calcium (8.6-10.8) mg/dL Phosphorus (2.3-4.7) mg/dL Magnesium (1.6-2.6) mg/dL Total Bilirubin (0.2-1.2) mg/dL AST (5-34) Units/L ALT (0-55) Units/L Alkaline Phosphatase (38-126) Units/L Troponin I (0-0.03) ng/mL Serum Total Protein (6.0-8.3) g/dL Albumin (3.5-5.0) g/dL Globulin (2.4-3.5) g/dL Albumin/Globulin Ratio (1.1-2.2) Ur Specimen Adequacy Urine Color (Yellow) Urine Clarity (Clear) Urine pH (5.0-8.0) pH Units Ur Specific Homer (1.010-1.025) Urine Protein (Neg-Trace) mg/dL Urine Glucose (UA) (Normal) mg/dL Urine Ketones (Negative) mg/dL Urine Blood (Negative) Urine Nitrite (Negative) Urine Bilirubin (Negative) Urine Urobilinogen (Normal) mg/dL Ur Leukocyte Esterase (Negative) Urine Microscopic RBC (0-3) per hpf Urine Microscopic WBC (0-3) per hpf Ur Squamous Epith Cells (None-Few) per lpf Urine Bacteria (None-Few) per hpf Hyaline Casts (None-Few) per lpf Ur Culture Indicated? (NO) Urine Opiates Screen Negative (Dppqeo=155) ng/mL Ur Barbiturates Screen Negative (Qyakpv=283) ng/mL Ur Phencyclidine Scrn Negative (Cutoff=25) ng/mL Ur Amphetamines Screen Negative (Hxpkin=4372) ng/mL U Benzodiazepines Scrn Negative (Jovduj=520) ng/mL Urine Cocaine Screen Negative (Cutoff= 300) ng/mL U Marijuana (THC) Screen Positive H (Cutoff = 50) ng/mL 09/27/16 09/27/16 09/28/16 Range/Units 21:18 22:43 01:43 WBC (4.3-11.1) K/mcL RBC (4.19-5.50) M/mcL Hgb (12.9-16.9) g/dL Hct (37.5-50.1) % MCV (83.0-100.0) fL MCH (28.0-33.3) pg MCHC (31.6-35.5) g/dL RDW (11.5-14.5) % Plt Count (140-400) K/mcL MPV (9.4-12.4) fL Immature Gran % (0-4) % Seg Neutrophils % % Lymphocytes % % Monocytes % % Eosinophils % % Basophils % % Neutrophils # (1.6-8.9) K/mcL Lymphocytes # (0.6-4.6) K/mcL Monocytes # (0.0-1.3) K/mcL Eosinophils # (0.0-0.6) K/mcL Basophils # (0.0-0.2) K/mcL PT (9.4-12.1) Seconds INR APTT (26.0-36.0) Seconds Sodium (136-145) mEq/L Potassium (3.5-4.5) mEq/L Chloride (98-109) mEq/L Carbon Dioxide (19-29) mEq/L BUN (8-26) mg/dL Creatinine (0.72-1.25) mg/dL Est GFR ( Amer) (> 60) Est GFR (Non-Af Amer) (> 60) BUN/Creatinine Ratio (6-26) Glucose (70-99) mg/dL POC Glucose 152 H (58-89) Calculated Osmolality (280-300) Lactic Acid 3.3 H (0.5-2.2) mmol/L Calcium (8.6-10.8) mg/dL Phosphorus (2.3-4.7) mg/dL Magnesium (1.6-2.6) mg/dL Total Bilirubin (0.2-1.2) mg/dL AST (5-34) Units/L ALT (0-55) Units/L Alkaline Phosphatase (38-126) Units/L Troponin I (0-0.03) ng/mL Serum Total Protein (6.0-8.3) g/dL Albumin (3.5-5.0) g/dL Globulin (2.4-3.5) g/dL Albumin/Globulin Ratio (1.1-2.2) Ur Specimen Adequacy See below A Urine Color Yellow (Yellow) Urine Clarity Cloudy A (Clear) Urine pH 6.5 (5.0-8.0) pH Units Ur Specific Homer 1.028 H (1.010-1.025) Urine Protein >=300 H (Neg-Trace) mg/dL Urine Glucose (UA) Normal (Normal) mg/dL Urine Ketones Negative (Negative) mg/dL Urine Blood Negative (Negative) Urine Nitrite Negative (Negative) Urine Bilirubin Negative (Negative) Urine Urobilinogen Normal (Normal) mg/dL Ur Leukocyte Esterase Moderate H (Negative) Urine Microscopic RBC 0-3 (0-3) per hpf Urine Microscopic WBC 15-30 H (0-3) per hpf Ur Squamous Epith Cells Few (None-Few) per lpf Urine Bacteria Moderate H (None-Few) per hpf Hyaline Casts Few (None-Few) per lpf Ur Culture Indicated? YES A (NO) Urine Opiates Screen (Yqfzyy=590) ng/mL Ur Barbiturates Screen (Cvtmsk=016) ng/mL Ur Phencyclidine Scrn (Cutoff=25) ng/mL Ur Amphetamines Screen (Evdabb=4823) ng/mL U Benzodiazepines Scrn (Etdokf=090) ng/mL Urine Cocaine Screen (Cutoff= 300) ng/mL U Marijuana (THC) Screen (Cutoff = 50) ng/mL - Radiology Data Radiology results reviewed: Yes I reviewed the patient's radiology results. Chest X-Ray 09/27/16 20:08 IMPRESSION: Stable portable study. D/ / Kya Jorgensen Cha, MD / Kya Jorgensen Cha, MD Interpreting Provider: Kya Jorgensen Cha, MD Head CT 09/27/16 20:08 IMPRESSION: No acute intracranial abnormality. D/ / Jhon Brasher MD / Jhon Brasher MD Interpreting Provider: Jhon Brasher MD Cervical Spine CT 09/27/16 20:09 IMPRESSION: No acute abnormality of the cervical spine. D/ / Kya Jorgensen Cha, MD / Kya Jorgensen Cha, MD Interpreting Provider: Kya Jorgensen Cha, MD - EKG Data EKG #1 EKG attestation: Yes I reviewed and interpreted this EKG. EKG results narrative: Normal sinus rhythm at a rate 82. RI interval is 156. QRS duration is 89. QT is 363. QTC is 402. Patient does have some upsloping and ST elevation of lead V2. This is isolated. Again appreciate any other signs of ST elevation or cervical changes. RV does have some new Q waves in the precordial leads. He also has some T-wave inversions throughout. Abnormal EKG. Critical Care Time Critical Care Time: Yes (Patient presented hypotensive. Presentation consistent with septic shock. ) Total Critical Care Time: 60 (Patient also found to have a non-STEMI and started on heparin.) Attestation: Critical care performed: Time is exclusive of separately billable procedures. Time includes: direct patient care, patient reassessment, coordination of patient care, interpretation of data (laboratory data, radiology data, and respiratory data), review of patient's medical records, medical consultation and documentation of patient care. Procedures included in critical care time: Procedures excluded from critical care time: Attestation Statement - Attestation Attestation: I, Moshe Santamaria MD, personally evaluated this patient and discussed their management with the resident physician. I reviewed the resident's note and agree with the documented findings, medical decision making, and plan of care. 55-year-old male presents to the emergency department by ambulance with a complaint of dizziness and passing out spells. Patient had an I&D of an abscess of his left heel area this morning and was started on antibiotics. He states he felt fine at that time but after transport to come home and dropped him off he states he started feeling weak and dizzy. He went to his sister's house but they were not at home and he could not get in so he laid down on the porch. He states they got home about 12:30 this afternoon and when he got up he got dizzy and lightheaded and collapsed and fell. He denies any injury from the fall. He states that ever since then he is dizzy when he gets up or moves around. He gets very weak in his knees buckle and he goes down. He denies complete loss of consciousness with any of the episodes. He denies any chest pain or shortness of breath. No definite fever. No palpitations. He denies any nausea or vomiting or diarrhea. No abdominal pain. No urinary symptoms. On examination patient is a well-developed well-nourished male in no acute distress. He is alert and oriented 3. There is no cyanosis or diaphoresis. Patient hypotensive on arrival with blood pressure in the range of 60/40. He is not tachycardic. Patient has a right prosthetic eye. Mucous membranes are moist. Neck is supple. Chest is nontender to palpation. Breath sounds are decreased but clear and equal bilaterally. Heart regular rate and rhythm. Abdomen soft and nontender with normal bowel sounds. There is a wound to the lateral aspect of the left heel with packing in place. There is tenderness to palpation in this area with no significant bruising or erythema noted. EKG shows a normal sinus rhythm with a heart rate of 82. Inferior IN of indeterminate age, there is some isolated ST elevation in lead V2 only. Dr. Ordonez discussed the patient and EKG findings with the meter setter on-call, Dr. Dillon, and he reviewed the EKG. He did recommend starting the patient on heparin. Labs reviewed. WBC 18. Lactic acid 5.3. Troponin 0.38. Chest x-ray negative. CT of the head and cervical spine shows no acute abnormality. Patient treated for septic shock protocol other than not started on vasopressors as his blood pressure rapidly responded to IV fluids. Zosyn and vancomycin initiated. The hospitalist, Dr. Romero, was consulted and accepted admission of the patient.
[2016-09-27] MEDS ORDERED: 0.9 % Sodium Chloride 500 ML IVC ONE (20:19)
[2016-09-27 20:30] LABS: Basophils # 0.1 K/mcL (0.0-0.2); Basophils % 0.5 %; Eosinophils # 0.2 K/mcL (0.0-0.6); Hematocrit 41.5 % (37.5-50.1); Hemoglobin 13.8 g/dL (12.9-16.9); Lymphocytes # 3.1 K/mcL (0.6-4.6); Lymphocytes % 16.6 %; Mean Corpuscular HGB Conc 33.3 g/dL (31.6-35.5); Mean Corpuscular Hemoglobin 30.3 pg (28.0-33.3); Mean Platelet Volume 9.3 fL (9.4-12.4); Monocytes # 1.9 K/mcL (0.0-1.3); Monocytes % 10.5 %; Platelet Count 327 K/mcL (140-400); Red Blood Count 4.56 M/mcL (4.19-5.50); Red Cell Distribution Width 13.7 % (11.5-14.5); Segmented Neutrophils % 70.4 %
[2016-09-27 20:52] LABS: Albumin 3.9 g/dL (3.5-5.0); Albumin/Globulin Ratio 1.3 (1.1-2.2); Bilirubin,Total 0.3 mg/dL (0.2-1.2); Calcium 9.5 mg/dL (8.6-10.8); Globulin 3.1 g/dL (2.4-3.5); Potassium 4.1 mEq/L (3.5-4.5)
[2016-09-27 21:02] LABS: Magnesium 1.8 mg/dL (1.6-2.6); Phosphorous 4.8 mg/dL (2.3-4.7)
[2016-09-27] MEDS ORDERED: Vancomycin 1,250 MG in D5% in Water 250 ML IVPB ONE (21:11)
[2016-09-27] MEDS ORDERED: Piperacillin/Tazobactam 3.375 GM in D5% in Water (Mini-Bag+) 100 ML IVPB ONE (21:11)
[2016-09-27] MEDS ORDERED: *HR* Heparin 5,000 UNIT/ML VIAL IVP PRN (21:31)
[2016-09-27] MEDS ORDERED: *HR* Heparin 5,000 UNIT/ML VIAL IVP ONE (21:31)
[2016-09-27 21:42] LABS: Amphetamine Screen,Urine Negative ng/mL (Cutoff=1000); Barbiturate Screen,Urine Negative ng/mL (Cutoff=200); Benzodiazepines Screen,Urine Negative ng/mL (Cutoff=200); Cannabinoid Screen,Urine Positive ng/mL (Cutoff = 50); Cocaine Screen,Urine Negative ng/mL (Cutoff= 300); Opiate Screen,Urine Negative ng/mL (Cutoff=300); Phencyclidine Screen,Urine Negative ng/mL (Cutoff=25)
[2016-09-27 21:46] LABS: Bilirubin,Urine Negative (Negative); Blood,Urine Negative (Negative); Clarity,Urine Cloudy (Clear); Color,Urine Yellow (Yellow); Glucose,Urine (UA) Normal (Normal); Ketones,Urine Negative (Negative); Nitrite,Urine Negative (Negative); PH,Urine 6.5 pH Units (5.0-8.0); Protein,Urine >=300 mg/dL (Neg-Trace); Specific Gravity,Urine 1.028 (1.010-1.025); Urobilinogen,Urine Normal (Normal)
[2016-09-27 21:47] LABS: Leukocyte Esterase,Urine Moderate (Negative); WBC,Urine 15-30 per hpf (0-3)
[2016-09-27 21:48] LABS: Bacteria,Urine Moderate per hpf (None-Few); Hyaline Casts,Urine Few per lpf (None-Few); RBC,Urine 0-3 per hpf (0-3); Squamous Epithelial Cell,Urine Few per lpf (None-Few)
[2016-09-27] MEDS ORDERED: Aspirin 81 MG TAB.CHEW PO ONE (21:49)
[2016-09-27 22:22] LABS: Activated Partial Thrombo Time 25.5 Seconds (26.0-36.0)
--- NOTE | 2016-09-27 23:36 | Internal Med History&Physical ---
Addendum entered and electronically signed by Ry Dean DO 09/28/16 02:24: Exam: General: Alert, oriented x 3. Pleasant, resting comfortably, answering questions appropriately. - Head Head exam: Present: atraumatic, normal inspection, normocephalic - Eye Eye exam: Present: Left eye: normal appearance, pupil reactive to light, sclera anicteric. Right prosthetic eye. - Neck Neck exam general surgery: Present: trachea midline. Absent: lymphadenopathy, tenderness - Respiratory Respiratory exam: Present: CTAB Additional comments: No increased work of breathing, no resp distress - Cardiovascular Cardiovascular exam: Present: +S1, +S2, tachycardia. Absent: systolic murmur - GI/Abdominal GI/Abdominal exam: Present: soft. Absent: distended, mass, tenderness, peritoneal signs, rigidity - Extremities Exam Extremities exam: Present: normal capillary refill, radial pulses palpable and symmetrical. Absent: cyanotic, pedal edema Additional comments: Medial right foot lesion/wound inferior to medial malleolus with small 0.5cm central opening with small amount of yellow/green pus drainage - no significant erythema or edema of this area - Neurological Exam Additional comments: A&Ox3; no focal neuro deficits, strength 5/5 in UE and LE bilaterally; no facial droop, no speech deficit - Skin Skin exam: Present: dry, normal color, warm. Absent: cyanosis, diaphoretic, erythema, pallor, petechiae, rash Additional comments: Medial right foot lesion/wound inferior to medial malleolus with small 0.5cm central opening with small amount of yellow/green pus drainage - no significant erythema or edema of this area Original Note: <Ry Dean - Last Filed: 09/28/16 00:43> Date of Encounter: 09/28/16 Time of Encounter: 23:34 Assessment and Plan (1) Severe sepsis Current visit: Yes Status: Acute Presented to ED today due to near syncopal events. On presentation, found to have leukocytosis, tachycardia, lactic acid of 5.3, hypotensive; has chronic wound of right foot; meet sepsis criteria. Patient was given 2.5 L bolus in the ED and hypotension improved, BP now WNL. No pressors started. Patient follows with Dr. Fairchild for chronic wound of right foot. He states he had I&D of wound today at Dr. Fairchild's office. Exam shows open draining wound of right medial foot. No localized erythema, excessive warmth. Small 0.5cm central opening with small amount of pus draining from opening. Patient started on vancomycin and zosyn empirically, continue abx Trend lactic acid Continue IV fluids Monitor BP Blood cultures pending Urine culture pending (2) Unspecified open wound, right foot, subsequent encounter Current visit: Yes Status: Acute Patient follows with Dr. Fairchild for chronic wound of right foot. He states he had I&D of wound today at Dr. Fairchild's office. Exam shows open draining wound of right medial foot. No localized erythema, excessive warmth. Small 0.5cm central opening with small amount of pus draining from opening. Patient started on vancomycin and zosyn empirically, continue abx Blood cultures pending See above (3) Leukocytosis Current visit: Yes Status: Acute Likely secondary to chronic right foot wound infection. See above Qualifiers: Leukocytosis type: unspecified Qualified Code(s): D72.829 - Elevated white blood cell count, unspecified (4) Hypotension Current visit: No Status: Acute Resolved. Continue to monitor. See above Qualifiers: Hypotension type: unspecified hypotension type Qualified Code(s): I95.9 - Hypotension, unspecified (5) Near syncope Current visit: Yes Status: Acute Possibly secondary to hypotension and/or NSTEMI. He states feelings of weakness and light headedness have gone away after fluids. Head CT negative for any acute intracranial abnormality. No focal neuro deficits on exam, strength 5/5 in bilateral upper and lower extremities. Continue to monitor. See above plans. (6) NSTEMI (non-ST elevated myocardial infarction) Current visit: Yes Status: Acute Troponin of 0.38 with EKG showing sinus tach with no ST elevations, mild nonspecific changes. Cardiology has reviewed and called NSTEMI. Currently on heparin drip requested by cardiology. Continue heparin drip Cardiology consulted (7) Elevated troponin I level Current visit: Yes Status: Acute See above. (8) Acute kidney injury Current visit: No Status: Acute Cr 2.63, GFR 25. Continue fluids Continue to monitor renal function (9) Diabetes mellitus, type 2 Current visit: No Status: Chronic Glucose 156 on presentation. Hx of DM type 2, controlled at home with metformin. Will start low dose SSI ACHS Qualifiers: Diabetes mellitus complication status: without complication Diabetes mellitus intermediate insulin use: without assistant terminal manager use Qualified Code(s): E11.9 - Type 2 diabetes mellitus without complications (10) Schizoaffective disorder Current visit: No Status: Chronic Continue home medications of celexa, wellbutrin, trazodone (confirmed with patient) Qualifiers: Schizoaffective disorder type: depressive Qualified Code(s): F25.1 - Schizoaffective disorder, depressive type (11) Seizure disorder Current visit: No Status: Chronic Continue home medication of Depakote (12) Hyponatremia Current visit: No Status: Chronic Chronic for patient. Will continue to monitor. Internal Medicine - H&P: HPI Chief complaint: near syncope Admitted From: Emergency Dept Plans for Post Hospital Care: Home History of present illness: Mr. Frey is a 55 year old male with PMHx of DM, HTN, seizures, schizoaffective disorder. He has been taking all prescribed medicines daily, has not missed any doses. He presented today due to several episodes of near syncope at home. Patient stated that he had incision and drainage of chronic wound of right foot today at Dr. Fairchild's office. He was also prescribed doxycycline for this wound today. He states that after he went home from this appointment, he began feeling lightheaded and weak and felt like his knees buckled and gave out from underneath him. He said that he would slowly fall to the ground,land on the ground and then "almost pass out." He denies actually losing consciousness. Denies any changes in vision, hearing, numbness, tingling, headache, confusion, difficulty with speech, facial droop. He said this happened about 10 times a home. He says that he had some palpitations before some of the episodes but denies any overt chest pain, shortness of breath, nausea, vomiting, fevers, abdominal pain. He did admit to occasional diarrhea. EMS was called after a near syncope episode. No seizure like activity was noted by family member that was present at the time. On arrival to the ED, patient was hypotensive mildly confused but was still oriented 3. EKG showed nonspecific ST changes. Troponin elevated. Cardiology was contacted, they were concerned for NSTEMI and started patient on heparin drip. CT of the head was negative for any acute intracranial abnormality. Blood cultures were drawn, urine culture drawn, patient was started on vancomycin and Zosyn empirically for right wound infection. He is also given 2.5 L of fluids. Hypotension resolved. Blood pressure now stable and 120s over 80s. Patient stated feeling much better after receiving fluids, is no longer confused, says that he no longer feels lightheaded. Past Med Surg Social Fam HX - Past Medical History Medical history: arthritis, diabetes, hypertension Psychiatric history: anxiety, depression, prior suicide attempt - Past Surgical History Surgical History: orthopedic, other, other - Social History Smoking Status: Current every day smoker Smokeless Tobacco Status: No Alcohol use: occasionally Drug use: none - Family History Daughter Living Status: Still Living Hx Family Cardiac Disorders: No Hx Family Respiratory Disorders: Yes Hx Family Cancer: No Hx Family GI Disorders: No Hx Family Endocrine Disorder: No Hx Family Neuromuscular Disorders: No Hx Family Neurologic Disorders: No Hx Family HEENT Disorders: No Hx Family Autoimmune Disorders: No Mother Living Status: Hx Family Cardiac Disorders: Yes Father Living Status: Internal Medicine - H&P: Meds Glimepiride [Amaryl] 4 mg PO BID 03/31/15 [History] Lisinopril [Zestril] 20 mg PO DAILY 03/31/15 [History] risperiDONE [Risperidone] 1 mg PO BID 03/31/15 [History] Citalopram [CeleXA] 20 mg PO HS 04/07/15 [History] Fenofibrate [Tricor] 54 mg PO DAILY 04/07/15 [History] Levothyroxine [Synthroid] 100 mcg PO DAILY 04/07/15 [History] Pantoprazole Sodium [Protonix] 40 mg PO DAILY 10/04/15 [History] Dextran 70/Hypromellose [Artificial Tears] 1 drop OP DAILY 03/27/16 [History] Gabapentin 800 mg PO QID 03/27/16 [History] Magnesium Oxide [Mag-Ox] 400 mg PO BID #14 tablet 03/27/16 [Rx] BuPROPion SR (12 HR) [Wellbutrin SR] 150 mg PO DAILY #30 tablet.er 08/21/16 [Rx] Diclofenac Sodium [Voltaren] 50 mg PO TID 08/21/16 [History] Trazodone HCl 100 mg PO HS 08/21/16 [History] metFORMIN [Glucophage] 500 mg PO BID 08/21/16 [History] Aspirin 81 mg PO DAILY 09/27/16 [History] No Known Allergies Allergy (Verified 08/20/16 15:47) All Systems PM: A 10-system review of systems was performed and is negative for pertinent findings except as documented above in the HPI. - Constitutional Constitutional: fatigue, falls, weakness - EENT Eyes: no blurry vision, no change in vision, no loss of vision, no seeing flashes, no spots in vision Ears: no decreased hearing, no tinnitus Nose, mouth and throat: no neck pain, no sore throat - Cardiovascular Cardiovascular ROS IM: lightheadedness, palpitations, other (near syncope), no chest pain, no diaphoresis, no dyspnea - Respiratory Respiratory: no cough, no dyspnea, no wheezing, no excessive phlegm production - Gastrointestinal Gastrointestinal: diarrhea, no hematochezia, no melena, no nausea, no vomiting - Musculoskeletal Musculoskeletal ROS IM: no neck pain, no numbness, no tingling - Integumentary Integumentary IM: non-healing lesions, other - Neurological Neurological ROS: frequent falls, weakness, no abnormal hearing, no abnormal speech, no dizziness, no focal weakness - Allergic/Immunologic Allergic/Immunologic: no uticaria, no wheezing - Constitutional Vitals: Temp Pulse Resp BP Pulse Ox 97.4 F L 103 20 138/89 99 09/27/16 20:03 09/27/16 22:21 09/27/16 22:21 09/27/16 22:21 09/27/16 22:21 Internal Med - H&P Results - Labs CBC & Chem 7: 09/27/16 20:10 09/27/16 20:10 <Jose Luis Ramos - Last Filed: 09/28/16 02:46> Date of Encounter: 09/27/16 Assessment and Plan (1) GERD (gastroesophageal reflux disease) Current visit: Yes Status: Chronic will continue PPI Qualifiers: Esophagitis presence: without esophagitis Qualified Code(s): K21.9 - Gastro -esophageal reflux disease without esophagitis (2) Hypothyroidism Current visit: Yes Status: Chronic will continue home synthroid Qualifiers: Hypothyroidism type: acquired Qualified Code(s): E03.9 - Hypothyroidism, unspecified Internal Medicine - H&P: [facility] History of present illness: Mr. Frey is a 55 year old male All Systems PM: A 10-system review of systems was performed and is negative for pertinent findings except as documented above in the HPI. - Constitutional Vitals: Temp Pulse Resp BP Pulse Ox 98.3 F 106 18 128/82 96 09/28/16 00:02 09/28/16 00:02 09/28/16 00:02 09/28/16 00:02 09/28/16 00:02 Internal Med - H&P Results - Labs CBC & Chem 7: 09/27/16 20:10 09/27/16 20:10 - Diagnostic Studies CT scan - head Status: image reviewed by me Chest x-ray Status: image reviewed by me - Attending Attestation Correction; date of encounter is 09/27/16 I personally interviewed and examined this patient and my medical decision- making was reviewed with the Resident Physician. I agree with the documented findings, disposition and treatment plan as described except to the extent set forth below. Patient does not seem to have NSTEMI, he most likely has troponin elevation from a combination of demand ischemia and poor renal clearance of cardiac enzymes in the setting of ELOISE considering elevation of his creatinine from 0.85 in 08/28 to 2.63 today in the presence of sepsis. We will hydrate and follow BMP/Troponin and treat underlying cause. Jose Luis Ramos MD, MPH Hospitalist
[2016-09-28] MEDS ORDERED: Dextrose Gel 15 GM PO PRN ×2 (00:07)
[2016-09-28] MEDS ORDERED: D5% in Water 1,000 ML IVC PRN (00:07)
[2016-09-28] MEDS ORDERED: *HR* Dextrose 50 % in Water (Syg) 50 ML SYRINGE IVP PRN (00:07)
[2016-09-28] MEDS: Insulin LISPRO 300 UNITS/3 ML VIAL SQ SCH ×6 (01:20→20:26)
[2016-09-28] MEDS: 0.9 % Sodium Chloride 1,000 ML IVC SCH ×4 (01:32→17:42)
[2016-09-28] MEDS ORDERED: traZODone 50 MG TABLET PO ONE (01:45)
[2016-09-28] MEDS: Heparin 25,000 UNIT/500 ML D5W 25,000 UNIT/500 ML MLS IVC SCH (01:52)
[2016-09-28 04:31] LABS: Basophils # 0.1 K/mcL (0.0-0.2); Basophils % 0.4 %; Eosinophils # 0.1 K/mcL (0.0-0.6); Eosinophils % 1.1 %; Hematocrit 37.1 % (37.5-50.1); Hemoglobin 12.6 g/dL (12.9-16.9); Immature Granulocytes % 0.5 % (0-4); Immature Platelets 2.4 % (1.1-6.1); Lymphocytes # 3.1 K/mcL (0.6-4.6); Lymphocytes % 23.4 %; Mean Corpuscular Hemoglobin 30.7 pg (28.0-33.3); Mean Corpuscular Volume 90.5 fL (83.0-100.0); Mean Platelet Volume 9.3 fL (9.4-12.4); Monocytes # 1.1 K/mcL (0.0-1.3); Monocytes % 8.6 %; Neutrophils # 8.7 K/mcL (1.6-8.9); Platelet Count 312 K/mcL (140-400); Red Cell Distribution Width 13.5 % (11.5-14.5)
[2016-09-28 04:42] LABS: BUN/Creatinine Ratio 15 (6-26); Blood Urea Nitrogen 21 mg/dL (8-26); Calcium 8.5 mg/dL (8.6-10.8); Carbon Dioxide 22 mEq/L (19-29); Chloride 103 mEq/L (98-109); Glucose 124 mg/dL (70-99); Magnesium 1.6 mg/dL (1.6-2.6); Osmolality,Calculated 278 (280-300); Phosphorous 4.1 mg/dL (2.3-4.7); Sodium 132 mEq/L (136-145); eGFR For African Americans > 60 (> 60); eGFR For Non-African Americans 54 (> 60)
[2016-09-28] MEDS ORDERED: Vancomycin 1,250 MG in D5% in Water 250 ML IVPB SCH (09:00)
[2016-09-28] MEDS ORDERED: Divalproex (12 HR) 500 MG TABLET PO SCH (09:00)
[2016-09-28] MEDS: BuPROPion SR (12 HR) 150 MG TABLET PO SCH (09:55)
[2016-09-28] MEDS: risperiDONE 1 MG TABLET PO SCH ×2 (09:55→20:19)
[2016-09-28] MEDS: Aspirin 81 MG TAB.CHEW PO SCH (09:56)
[2016-09-28] MEDS: Gabapentin 400 MG CAPSULE PO SCH ×3 (09:56→20:19)
[2016-09-28] MEDS: *HR* Heparin 5,000 UNIT/ML VIAL IVP PRN (10:16)
--- NOTE | 2016-09-28 12:26 | Cardiology Consult Note ---
Date of Encounter: 09/28/16 Time of Encounter: 12:17 Assessment and Plan (1) NSTEMI (non-ST elevated myocardial infarction) Current Visit: Yes Status: Acute Troponin 0.38, 5.01, 5.82. EKG shows NSR. Non-specific EKG changes. Type II KS in the setting of sepsis and ARF. Cardiac risk factors include DM type II, HTN, and tobacco use. Telemetry shows NSR. AVG HR 82 over past 12 hours. Check TTE. He denies chest pain. Continue heparin GTT. He was started on plavix. Recommend asa, statin, and bb. Not a good candidate for C at this time in the setting of ELOISE and sepsis. Further recommendations to follow. (2) Diabetes mellitus, type 2 Current Visit: No Status: Chronic Qualifiers: Diabetes mellitus complication status: without complication Diabetes mellitus skilled nursing insulin use: without skilled nursing use Qualified Code(s): E11.9 - Type 2 diabetes mellitus without complications (3) Hypertension Current Visit: No Status: Acute Qualifiers: Hypertension type: essential hypertension Qualified Code(s): I10 - Essential (primary) hypertension Discussion w patient/family: The assessment and plan as outlined above was discussed with the patient and/or family members who expressed understanding and agreement. All questions were answered. Thank you for involving us in the care of your patient. Please call with any questions. History of Present Illness Consult date: 09/28/16 Requesting physician: Ry Dean Consult reason: NSTEMI Chief complaint: Weakness, presyncope History of present illness: Mr. Frey is a 55 year old male with a history of diabetes, HTN, schizophrenia, and left foot wound who presented after falling. He underwent I&D of a foot wound with Dr. Fairchild yesterday. After going home he walked a couple blocks to his pharmacy to picker packer an antibiotic. He states he did well walking to the pharmacy. While walking home his legs became very weak and he became lightheaded. He also c/o his head pounding and he was sweating profusely. He says it was very hot and humid out. He eventually fell into the street. He denies loss of consciousness. Someone called EMS and he was brought to the hospital. While in the ED he was noted to have AMS and confusion. His initial work-up revealed lactic acidosis, leukocytosis, ELOISE, and hypotension. Findings concerning for sepsis. He was also found to have elevated troponin. He was started on heparin gtt for NSTEMI. He denies having chest pain or SOB. Denies history of CAD. Past Med Surg Social Fam HX - Past Medical History Attestation: Yes The following information was validated with the patient. Medical history: arthritis, diabetes, hypertension, seizures Psychiatric history: anxiety, depression, prior suicide attempt, schizophrenia - Past Surgical History Surgical History: orthopedic, other, other - Social History Smoking Status: Current every day smoker Smokeless Tobacco Status: No Alcohol use: occasionally Drug use: none - Family History Daughter Living Status: Still Living Hx Family Cardiac Disorders: No Hx Family Respiratory Disorders: Yes Hx Family Cancer: No Hx Family GI Disorders: No Hx Family Endocrine Disorder: No Hx Family Neuromuscular Disorders: No Hx Family Neurologic Disorders: No Hx Family HEENT Disorders: No Hx Family Autoimmune Disorders: No Mother Living Status: Hx Family Cardiac Disorders: Yes Father Living Status: Medications and Allergies Glimepiride [Amaryl] 4 mg PO BID 03/31/15 [History] Lisinopril [Zestril] 20 mg PO DAILY 03/31/15 [History] risperiDONE [Risperidone] 1 mg PO BID 03/31/15 [History] Citalopram [CeleXA] 20 mg PO HS 04/07/15 [History] Fenofibrate [Tricor] 54 mg PO DAILY 04/07/15 [History] Levothyroxine [Synthroid] 100 mcg PO DAILY 04/07/15 [History] Pantoprazole Sodium [Protonix] 40 mg PO DAILY 10/04/15 [History] Dextran 70/Hypromellose [Artificial Tears] 1 drop OP DAILY 03/27/16 [History] Gabapentin 800 mg PO QID 03/27/16 [History] Magnesium Oxide [Mag-Ox] 400 mg PO BID #14 tablet 03/27/16 [Rx] BuPROPion SR (12 HR) [Wellbutrin SR] 150 mg PO DAILY #30 tablet.er 08/21/16 [Rx] Diclofenac Sodium [Voltaren] 50 mg PO TID 08/21/16 [History] Trazodone HCl 100 mg PO HS 08/21/16 [History] metFORMIN [Glucophage] 500 mg PO BID 08/21/16 [History] Aspirin 81 mg PO DAILY 09/27/16 [History] 3 Allergy/AdvReac Type Severity Reaction Status Date / Time No Known Allergies Allergy Verified 08/20/16 15:47 All Systems Review: A 10-system review of systems was performed and is negative for pertinent findings except as documented above in the HPI. Physical Examination Vital Signs, Last 4 Hours Temp Pulse Resp BP Pulse Ox 09/28/16 11:44 98.4 F 90 18 140/83 98 09/28/16 11:09 98 General: Conversant, No Apparent Distress HEENT: Atraumatic, Normocephaly, Mucus Membranes Moist Neck: No JVD, Normal carotid pulses Cardiac: Reg Rate and Rhythm, Normal S1 and S2, No Murmur Lungs: Normal Breath Sounds, No Wheeze, Rales, Rhonchi Neuro: Alert and responsive, No focal deficits noted Abdomen: Soft, Non-Tender Skin: No rashes noted on visualized skin Musculoskeletal: No Chest Wall Tenderness Extremities: No Clubbing, No Cyanosis, No Edema, Normal Pulses Results 09/28/16 04:12 09/28/16 04:12 Lab Results 09/28/16 09/28/16 09/28/16 04:12 04:12 04:12 WBC 13.2 H Hgb 12.6 L Hct 37.1 L Plt Count 312 APTT Sodium 132 L Potassium 4.0 Chloride 103 Carbon Dioxide 22 BUN 21 Creatinine 1.36 H Glucose 124 H Calcium 8.5 L Magnesium 1.6 Troponin I 5.01 H* 09/28/16 09/28/16 07:44 07:44 WBC Hgb Hct Plt Count APTT 37.7 H Sodium Potassium Chloride Carbon Dioxide BUN Creatinine Glucose Calcium Magnesium Troponin I 5.82 H* - EKG Interpretation EKG results cardiology: personally reviewed (SR with non-specific ST changes. Old inferior KS.) Consult Discharge Plan - Plan Referrals: Luana Anna DO [Primary Care Provider] - 10/04/16 9:30 am
[2016-09-28] MEDS ORDERED: Piperacillin/Tazobactam 3.375 GM in D5% in Water (Mini-Bag+) 100 ML IVPB SCH (13:00)
[2016-09-28] MEDS: Nicotine 21 MG PATCH.TD24 TD SCH (13:36)
[2016-09-28] MEDS: Vancomycin 1,000 MG in D5% in Water 250 ML IVPB SCH (15:13)
--- NOTE | 2016-09-28 15:28 | Electrocardiograph Report ---
[place] [id number] Test Date: 2016-09-27 Pat Name: Joe Fery Department: 104 Room: 2N12 Gender: M Naturopathic Oncology Provider: : [id number] Requested By: Clarita Ordonez Order Number: [id number] Reading MD: Akil Landa MD Measurements Intervals Lena Rate: 82 P: 55 RI: 156 QRS: 11 QRSD: 89 T: -33 QT: 363 QTc: 402 Interpretive Statements SINUS RHYTHM INFERIOR MYOCARDIAL INFARCTION, OF INDETERMINATE AGE Electronically Signed On 09-28-2016 15:27:17 EDT by Akil Landa MD
--- NOTE | 2016-09-28 16:45 | Internal Med Progress Note ---
Date of Encounter: 09/28/16 Time of Encounter: 08:40 - Assessment and plan (1) NSTEMI (non-ST elevated myocardial infarction) Current Visit: Yes Status: Acute Assessment and plan: Non-ST elevation ME - probable type II ME in the setting of sepsis and acute kidney injury IV heparin continued as per protocol Continue aspirin, statin, beta clover Troponin - 5.82 EKG - nonspecific changes Echocardiogram - LVEF 45% with regional wall motion abnormalities, RV size and function normal CT head - no acute intracranial abnormality Chest x-ray - no acute process CT cervical spine - no acute process Cardiology consult - recommend left heart catheterization when acute kidney injury and sepsis improve Cardiac telemetry, lives in a.m. (2) Severe sepsis Current Visit: Yes Status: Acute Assessment and plan: Severe sepsis present on admission - possible sources include UTI and chronic right foot wound infection Continue IV fluids, IV vancomycin, IV Zosyn Cultures pending Podiatry consult pending (3) ELOISE (acute kidney injury) Current Visit: Yes Status: Acute Assessment and plan: Acute kidney injury - likely secondary to dehydration and severe sepsis - slowly improving Continue IV fluids, labs in a.m., monitor closely (4) Diabetes mellitus, type 2 Current Visit: No Status: Chronic Assessment and plan: Diabetes mellitus type 2, [id number], hyperglycemia Continue insulin sliding scale and glucose checks Qualifiers: Diabetes mellitus complication status: without complication Diabetes mellitus jail insulin use: without vermin exterminator use Qualified Code(s): E11.9 - Type 2 diabetes mellitus without complications (5) Hypertension Current Visit: No Status: Chronic Assessment and plan: Essential hypertension, controlled, continue current meds, monitor Qualifiers: Hypertension type: essential hypertension Qualified Code(s): I10 - Essential (primary) hypertension (6) Substance abuse Current Visit: No Status: Chronic Assessment and plan: Tobacco use and marijuana use - counseled about cessation Nicotine patch (7) Seizure disorder Current Visit: No Status: Chronic Assessment and plan: Stable - continue home medication Depakote (8) Schizoaffective disorder Current Visit: No Status: Chronic Assessment and plan: Continue home medications - Risperdal and trazodone Qualifiers: Schizoaffective disorder type: depressive Qualified Code(s): F25.1 - Schizoaffective disorder, depressive type (9) DVT prophylaxis Current Visit: No Status: Acute Assessment and plan: IV heparin continued - Time Spent With Patient 25 - 35 minutes - Subjective Interval history: Examined this morning. Patient is awake and alert. Not in any distress. Denies chest pain. Complains of mild shortness of breath at times. No fever. Hemodynamically stable. Admitted for non-ST elevation ME and severe sepsis. IV heparin and IV antibiotics continued. No other acute events or complaints. - Constitutional Vitals: Temp Pulse Resp BP Pulse Ox 98.3 F 83 18 139/82 98 09/28/16 16:31 09/28/16 16:31 09/28/16 16:31 09/28/16 16:31 09/28/16 16:31 General appearance: Present: cooperative, A&O X 3, pleasant, no acute distress, answers questions appropriately - Head Head exam: Present: atraumatic - Eye Eye exam: Present: EOMI - ENT ENT exam: Present: mucous membranes dry - Neck Neck exam general surgery: Present: supple - Respiratory Respiratory exam: Present: wheezes (Mild bilateral). Absent: accessory muscle use, rales, rhonchi, tachypnea - Cardiovascular Cardiovascular exam: Present: RRR, +S1, +S2 - GI/Abdominal GI/Abdominal exam: Present: soft. Absent: distended, firm, guarding, tenderness - Extremities Exam Extremities exam: Present: radial pulses palpable and symmetrical. Absent: cyanotic, pedal edema Additional comments: Right chronic foot wound - Neurological Exam Neurological exam: Present: alert, oriented X3, no focal deficits. Absent: facial droop, speech deficit Internal Medicine: Result - Labs CBC & Chem 7: 09/28/16 04:12 09/28/16 04:12 Labs: Short CBC 09/28/16 Range/Units 04:12 WBC 13.2 H (4.3-11.1) K/mcL Hgb 12.6 L (12.9-16.9) g/dL Hct 37.1 L (37.5-50.1) % Plt Count 312 (140-400) K/mcL Neutrophils # 8.7 (1.6-8.9) K/mcL BMP 09/28/16 04:12 Sodium 132 L Potassium 4.0 Chloride 103 Carbon Dioxide 22 BUN 21 Creatinine 1.36 H Glucose 124 H Calcium 8.5 L Cardiac Enzymes 09/28/16 09/28/16 Range/Units 04:12 07:44 Troponin I 5.01 H* 5.82 H* (0-0.03) ng/mL - ABG Interpretation ABG results: PT/INR, D-dimer PT 11.0 Seconds (9.4-12.1) 09/27/16 20:10 Consult Discharge Plan - Plan Referrals: Luana Anna DO [Primary Care Provider] - 10/04/16 9:30 am
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
[2016-09-28] MEDS: Piperacillin/Tazobactam 3.375 GM in D5% in Water (Mini-Bag+) 100 ML IVPB SCH (20:15)
[2016-09-28] MEDS: traZODone 50 MG TABLET PO SCH (20:19)
[2016-09-28] MEDS: Divalproex (12 HR) 500 MG TABLET PO SCH (20:19)
[2016-09-29] MEDS: Heparin 25,000 UNIT/500 ML D5W 25,000 UNIT/500 ML MLS IVC SCH (00:03)
[2016-09-29] MEDS: Vancomycin 1,000 MG in D5% in Water 250 ML IVPB SCH ×2 (00:03→12:29)
[2016-09-29] MEDS: Piperacillin/Tazobactam 3.375 GM in D5% in Water (Mini-Bag+) 100 ML IVPB SCH ×3 (03:38→20:23)
[2016-09-29 07:33] LABS: Basophils # 0.1 K/mcL (0.0-0.2); Basophils % 0.4 %; Eosinophils # 0.2 K/mcL (0.0-0.6); Eosinophils % 1.2 %; Hematocrit 35.5 % (37.5-50.1); Hemoglobin 12.2 g/dL (12.9-16.9); Immature Granulocytes % 0.4 % (0-4); Lymphocytes # 2.5 K/mcL (0.6-4.6); Lymphocytes % 18.8 %; Mean Corpuscular HGB Conc 34.4 g/dL (31.6-35.5); Mean Corpuscular Hemoglobin 30.7 pg (28.0-33.3); Mean Corpuscular Volume 89.4 fL (83.0-100.0); Mean Platelet Volume 9.7 fL (9.4-12.4); Monocytes # 1.4 K/mcL (0.0-1.3); Monocytes % 10.4 %; Neutrophils # 9.2 K/mcL (1.6-8.9); Platelet Count 266 K/mcL (140-400); Red Blood Count 3.97 M/mcL (4.19-5.50); Red Cell Distribution Width 13.6 % (11.5-14.5); Segmented Neutrophils % 68.8 %
[2016-09-29 07:42] LABS: BUN/Creatinine Ratio 13 (6-26); Carbon Dioxide 24 mEq/L (19-29); Chloride 102 mEq/L (98-109); Glucose 148 mg/dL (70-99); Osmolality,Calculated 282 (280-300); Potassium 4.2 mEq/L (3.5-4.5); Sodium 135 mEq/L (136-145); eGFR For African Americans > 60 (> 60); eGFR For Non-African Americans > 60 (> 60)
[2016-09-29 07:54] LABS: Blood Urea Nitrogen 10 mg/dL (8-26); INR 1.1; Prothrombin Time 11.4 Seconds (9.4-12.1)
[2016-09-29 08:00] LABS: Activated Partial Thrombo Time 27.1 Seconds (26.0-36.0)
[2016-09-29] MEDS: Insulin LISPRO 300 UNITS/3 ML VIAL SQ SCH ×4 (08:25→21:32)
[2016-09-29] MEDS: Divalproex (12 HR) 500 MG TABLET PO SCH ×2 (08:47→20:22)
[2016-09-29] MEDS: Gabapentin 400 MG CAPSULE PO SCH ×3 (08:48→20:22)
[2016-09-29] MEDS: Aspirin 81 MG TAB.CHEW PO SCH (08:48)
[2016-09-29] MEDS: risperiDONE 1 MG TABLET PO SCH ×2 (08:48→20:23)
[2016-09-29] MEDS: 0.9 % Sodium Chloride 1,000 ML IVC SCH (08:49)
[2016-09-29] MEDS: BuPROPion SR (12 HR) 150 MG TABLET PO SCH (08:49)
[2016-09-29] MEDS: *HR* Heparin 5,000 UNIT/ML VIAL IVP PRN (08:58)
--- NOTE | 2016-09-29 10:38 | Event Note ---
Date of Encounter: 09/29/16 Time of Encounter: 10:33 - Cardiology Event Note Mr. Frey had an uneventful night. Denies chest pain. Denies dizziness or syncope. Troponin elevated up to 5.82. TTE showed EF 45% with WMA. [facility] indication, risks, benefits, and alternatives discussed. Patient agrees to proceed. Kidney function has returned to normal. Plan for [facility] today.
[2016-09-29] MEDS ORDERED: Heparin 1,000 UNITS/500 mL NS 500 ML ONE (13:24)
[2016-09-29] MEDS ORDERED: *HR* Heparin 10,000 UNIT/10 ML VIAL ONE (13:24)
[2016-09-29] MEDS ORDERED: Nitroglycerin 1,000 MCG/10 ML VIAL IV ONE (13:24)
[2016-09-29] MEDS ORDERED: 0.9 % Sodium Chloride 1,000 ML ONE ×2 (13:24→14:04)
[2016-09-29] MEDS ORDERED: *HR* FentaNYL (PF) 100 MCG/2 ML VIAL ONE (13:34)
[2016-09-29] MEDS ORDERED: *HR* Midazolam HCl 2 MG/2 ML VIAL ONE ×2 (13:34→14:49)
--- NOTE | 2016-09-29 14:01 | Internal Med Progress Note ---
Date of Encounter: 09/29/16 Time of Encounter: 09:15 - Assessment and plan (1) NSTEMI (non-ST elevated myocardial infarction) Current Visit: Yes Status: Acute Assessment and plan: Non-ST elevation HI - probable type II HI in the setting of sepsis and acute kidney injury - [facility] planned for today IV heparin continued as per protocol Continue aspirin, statin, beta clover Troponin - 3.41 EKG - nonspecific changes Echocardiogram - LVEF 45% with regional wall motion abnormalities, RV size and function normal CT head - no acute intracranial abnormality Chest x-ray - no acute process CT cervical spine - no acute process Cardiology consult - recommend left heart catheterization today Cardiac telemetry, lives in a.m. (2) Severe sepsis Current Visit: Yes Status: Acute Assessment and plan: Severe sepsis present on admission - possible sources include UTI and chronic left foot wound infection Continue IV fluids, IV vancomycin, IV Zosyn Cultures - no growth Podiatry consult - recommendations reviewed, appreciate input (3) ELOISE (acute kidney injury) Current Visit: Yes Status: Acute Assessment and plan: Acute kidney injury - likely secondary to dehydration and severe sepsis - now resolved Continue IV fluids, labs in a.m., monitor closely (4) Diabetes mellitus, type 2 Current Visit: No Status: Chronic Assessment and plan: Diabetes mellitus type 2, [id number], hyperglycemia Continue insulin sliding scale and glucose checks Qualifiers: Diabetes mellitus complication status: without complication Diabetes mellitus penitentiary insulin use: without penitentiary use Qualified Code(s): E11.9 - Type 2 diabetes mellitus without complications (5) Hypertension Current Visit: No Status: Chronic Assessment and plan: Essential hypertension, controlled, continue current meds, monitor Qualifiers: Hypertension type: essential hypertension Qualified Code(s): I10 - Essential (primary) hypertension (6) Substance abuse Current Visit: No Status: Chronic Assessment and plan: Tobacco use and marijuana use - counseled about cessation Nicotine patch (7) Seizure disorder Current Visit: No Status: Chronic Assessment and plan: Stable - continue home medication Depakote (8) Schizoaffective disorder Current Visit: No Status: Chronic Assessment and plan: Continue home medications - Risperdal and trazodone Qualifiers: Schizoaffective disorder type: depressive Qualified Code(s): F25.1 - Schizoaffective disorder, depressive type (9) DVT prophylaxis Current Visit: No Status: Acute Assessment and plan: IV heparin continued - Time Spent With Patient 25 - 35 minutes - Subjective Interval history: Examined this morning. Patient is awake and alert. Not in any distress. Denies chest pain or mild shortness of breath. Patient had fever last night. Hemodynamically stable. Admitted for non-ST elevation HI and severe sepsis. Acute kidney injury has now resolved. IV heparin and IV antibiotics continued. [facility] planned for today. No other acute events or complaints. - Constitutional Vitals: Temp Pulse Resp BP Pulse Ox 97.5 F L 86 18 99/60 98 09/29/16 11:24 09/29/16 12:11 09/29/16 11:24 09/29/16 11:24 09/29/16 11:24 General appearance: Present: cooperative, A&O X 3, pleasant, no acute distress, answers questions appropriately - Head Head exam: Present: atraumatic - Eye Eye exam: Present: EOMI - ENT ENT exam: Present: mucous membranes dry - Respiratory Respiratory exam: Present: CTAB. Absent: rales, rhonchi, wheezes, tachypnea - Cardiovascular Cardiovascular exam: Present: RRR, +S1, +S2 - GI/Abdominal GI/Abdominal exam: Present: soft. Absent: distended, firm, guarding, tenderness - Extremities Exam Extremities exam: Present: radial pulses palpable and symmetrical. Absent: cyanotic, pedal edema Additional comments: Left heel chronic wound - Neurological Exam Neurological exam: Present: alert, oriented X3, no focal deficits. Absent: facial droop, speech deficit Internal Medicine: Result - Labs CBC & Chem 7: 09/29/16 06:58 09/29/16 06:58 Labs: Short CBC 09/29/16 Range/Units 06:58 WBC 13.4 H (4.3-11.1) K/mcL Hgb 12.2 L (12.9-16.9) g/dL Hct 35.5 L (37.5-50.1) % Plt Count 266 (140-400) K/mcL Neutrophils # 9.2 H (1.6-8.9) K/mcL BMP 09/29/16 06:58 Sodium 135 L Potassium 4.2 Chloride 102 Carbon Dioxide 24 BUN 10 D Creatinine 0.80 Glucose 148 H Calcium 9.0 Cardiac Enzymes 09/28/16 Range/Units 16:26 Troponin I 3.41 H* (0-0.03) ng/mL - ABG Interpretation ABG results: PT/INR, D-dimer PT 11.4 Seconds (9.4-12.1) 09/29/16 06:58 - Impressions Impressions Foot X-Ray 09/28/16 17:08 IMPRESSION: Lateral soft tissue swelling with no acute bony abnormality seen. D/ / Kya Jorgensen Cha, MD / Kya Jorgensen Cha, MD Interpreting Provider: Kya Jorgensen Cha, MD Consult Discharge Plan - Plan Referrals: Ruben Andre DO [Resident] - 10/03/16 8:00 am
--- NOTE | 2016-09-29 14:09 | Pre-Sedation Evaluation ---
Pre-sedation evaluation - Pre-sedation checklist Date of procedure: 09/29/16 Procedure: Heart Cath Recent Vitals: Last Vital Signs Temp 97.5 F L 09/29/16 11:24 Pulse 86 09/29/16 12:11 Resp 18 09/29/16 11:24 BP 99/60 09/29/16 11:24 Pulse Ox 98 09/29/16 11:24 H&P (including ROS) documented in medical record: Yes Previous reaction to sedatives/anesthetics: No Dietary Status: NPO after Midnight Airway Assessment: Patient can open mouth completely, TMJ function normal, Micrognathia (under-bite, receding chin) absent, Neck with adequate range of motion Dentition: No loose teeth or bridges Possible difficult airway: No ASA Classification *see protocol: CLASS II-Mild systemic disease Plan of Care: Pt appropriate candidate for procedure/moderate/conscious sedation , Risks/benefits of procedure/sedation discussed w/ patient/family
[2016-09-29] MEDS ORDERED: *HR* Bivalirudin 250 MG VIAL IVC ONE (14:54)
--- NOTE | 2016-09-29 15:36 | Invasive Diagnostic Lab Proc ---
Name: Joe Frey Date of Study: 09/29/2016 Date: 1960 Ht: 66.9in Medical Record#: [id number] Age: 55 Wt: 185.19lb Gender: Male BSA: 1.96 Order #: [id number] BMI: 29.07 Physicians Procedure Physician: Lakeshia Silav MD, [facility] Referring MD: Referring MD: Staff Name Position Time In Terry Torres RT (R) Scrub 02:05 PM Shannan Cruz RN Cook Fish Eggs 02:05 PM Duc Ross RN Cook Fish Eggs 02:05 PM Alyx Bernal RN Monitor 02:05 PM Esthela Sloan RT (R) 02:05 PM Indications Indication Non-Stemi Procedures Performed Procedure L HRT ARTERY/VENTRICLE ANGIO PRQ CARDIAC ANGIOPLAST 1 ART Pre-Procedure Checklist Informed consent is complete signed and on chart. H&P is on chart. ID band is on and ID verified with patient. Patient NPO for procedure The procedure was described for the patient and questions were answered. Blood Pressure: 115/71 ECG is on chart. Rhythm: NSR Plan of Care Patient will tolerate the procedure without complications. Adequate level of comfort will be maintained. Hemodynamics will remain stable Patient will recover from procedure without complications. Respiratory function will be maintained. Cardiac rhythm will remain stable. Patient temperature will be maintained. Patient and/or family have verbalized understanding of the procedure. Patient Education Chief Complaint/Reason for Test: Cardiac Cath Developmental Category: Adult (18-64 years) Developmentally Appropriate for Age: Yes Learning Barriers: None Education Needs: Procedure Education Method: Verbal Information Taught: Cardiac Cath Educational Evaluation: Able to repeat information Intravenous Access Time IV Size Location DC'd Fluid/Drip Rate Units RN 02:05 PM 20g 1 /" Patent On Arrival Rt Wrist 02:07 PM Powerglide Rt Arm 0.9NaCl 50 ml/hr Duc Ross RN Allergies NONE KNOWN Vital Signs Time BP (mmHg) HR (bpm) O2 Sat. RR (bpm) LOC 98 / 66 96 98 % 16 02:06 PM / % 5 = Fully awake and oriented or at pre-proc level 02:06 PM / % 5 = Fully awake and oriented or at pre-proc level 02:21 PM / % 5 = Fully awake and oriented or at pre-proc level 02:36 PM / % 5 = Fully awake and oriented or at pre-proc level 02:51 PM / % 5 = Fully awake and oriented or at pre-proc level 02:57 PM / % 4 = Oriented but drowsy 02:08 PM 115 / 71 88 98 % 17 02:13 PM 101 / 65 95 94 % 20 02:18 PM 97 / 58 91 95 % 20 02:20 PM 99 / 61 80 95 % 21 02:22 PM 106 / 65 96 95 % 20 02:28 PM 98 / 63 91 95 % 17 02:33 PM 99 / 63 90 95 % 17 02:38 PM 97 / 62 89 95 % 17 02:43 PM 104 / 69 91 95 % 16 02:49 PM 108 / 72 86 98 % 18 02:53 PM 94 / 64 91 92 % 20 02:58 PM 98 / 59 89 94 % 17 03:03 PM 87 / 55 88 92 % 17 03:04 PM 90 / 53 89 94 % 16 03:07 PM 98 / 66 84 98 % 18 03:08 PM 86 / 55 86 98 % 16 03:09 PM 93 / 56 87 97 % 21 03:13 PM 94 / 59 84 97 % 16 Procedural Medications Time Medication Dose Units Method Given By 02:06 PM Oxygen 2 L/min nasal cannula Duc Ross RN 02:08 PM Versed 2 mg Intravenous Duc Ross RN 02:08 PM Fentanyl 50 mcg Intravenous Duc Ross RN 02:18 PM Lidocaine 2% 16 ml Subcutaneous Lakeshia Silva MD, FACC 02:25 PM Angiomax 0.75mg/kg bolus: 13 ml Intravenous Duc Ross RN 02:26 PM Angiomax 1.75mg/kg/hr: 30 ml Intravenous Duc Ross RN 02:50 PM Versed 1 mg Intravenous Duc Ross RN 02:50 PM Fentanyl 25 mcg Intravenous Duc Ross RN 02:52 PM Nitroglycerin 200 mcg Intracoronary Lakeshia Silva MD, FACC 02:55 PM Oxygen 4 L/min nasal cannula Duc Ross RN 02:59 PM Nitroglycerin 200 mcg Intracroselynary Lakeshia Silva MD, FACC 03:04 PM Oxygen 5 L/min nasal cannula Duc Ross RN 03:07 PM Nitroglycerin 200 mcg Intracoronary Lakeshia Silva MD, FACC ASA Classification: CLASS II- Mild systemic disease (i.e. well-controlled diabetes, hypertension, asthma, cigarette smoking) Christ Score Preprocedure Postprocedure Activity 2- Moves 4 extremities sustained head lift Activity Circulation 2- SBP +/= 20 points of pre-anesthetic level Circulation Consciousness 2- Awake and alert oriented x 3 Consciousness O2 Saturation 2- Able to maintain O2 satruation of 92% on room air O2 Saturation Respiratory 2- Able to deep breathe and cough well Respiratory Total Score 10 Total Score Contrast Agent: Isovue Diagnostic Contrast: 132 ml Total Contrast: 132 ml Fluoro Dose: 1345 mGy Procedure Log Time Note Enter By 02:05 PM Pt arrived to bottle label inspector 2 at 14:05 ejohnson 02:05 PM Terry Torres RT (R) Position: Scrub Time in: 14:05 ejohnson 02:05 PM Shannan Cruz RN Position: Cook Fish Eggs Time in: 14:05 ejohnson 02:05 PM Duc Ross RN Position: Cook Fish Eggs Time in: 14: ejohnson 02:05 PM Alyx Bernal RN Position: Monitor Time in: 14:05 ejohnson 02:05 PM Esthela Sloan RT (R) Position: Time in: 14:05 ejohnson 02:05 PM Patient charges- Angio tray pack, Navilyst 3mm J, Pulse Oximetry and ACIST tubing and transducer ejohnson 02:05 PM Case Delayed No ejohnson 02:06 PM Hair removed from procedure site in procedure lab using clippers. Bilateral groin prepped with Chloraprep by Terry Torres RT (R), safety strap applied then patient was draped. Skin intact. ejohnson 02:06 PM Physician arrived 14:06 ejohnson 02:06 PM ASA Class CLASS II- Mild systemic disease (i.e. well-controlled diabetes, hypertension, asthma, cigarette smoking) ejohnson 02:06 PM Meet and greet completed ejohnson 02:06 PM Sign in performed according to hospital policy. ejohnson 02:06 PM Procedure start 14:06 ejohnson 02:06 PM Time: 14:06 Oxygen on at 2 L/min per nasal cannula by Duc Ross RN ejohnson 02:06 PM Time: 14:06 Patient comfortable and pain free: Yes ejohnson 02:06 PM Time: 14:06LOC: 5 = Fully awake and oriented or at pre-proc level ejohnson 02:07 PM CathStat 02:07 PM Vitals capture started with the following parameters, Patient=Adult, Interval=5 min, Initial Qpunvdtb=245 mmHg, Deflation Rate=5 mmHg, Cuff placed on Left Arm 02:08 PM HR=88 bpm, JQFF=841/71 mmhg, SpO2=98.0 %, Resp=17 B/min, Comment=SR 02:08 PM Recorded ECG: HR=89 Condition=Condition 1 02:08 PM Time: 14:08 Versed 2 mg Intravenous Given by Duc Ross RN ejohnsishaan 02:08 PM Time: 14:08 Fentanyl 50 mcg Intravenous Given by Duc Ross RN ejohnson 02:13 PM HR=95 bpm, LUGF=161/65 mmhg, SpO2=94.0 %, Resp=20 B/min, Comment=SR 02:16 PM Time out performed according to hospital policy ejohnson 02:18 PM Time: 14:18 16 ml Lidocaine 2% to right groin Subcutaneous Given by Lakeshia Silva MD, [facility] ejohnson 02:18 PM HR=91 bpm, NIBP=97/58 mmhg, SpO2=95.0 %, Resp=20 B/min, Comment=SR 02:18 PM Access obtained by percutaneous puncture. 5Fr 10cm Terumo Walker sheath placed in right Femoral artery. [id number] ejohnson 02:19 PM 5Fr FL 4 catheter inserted over the wire DN ejohnson 02:19 PM NIBP STAT measurement started. 02:19 PM Recorded Pressure: Ao, HR=88, Condition=Condition 1 (Aorta) Ao 71/54/62 02:20 PM LCA angiography performed in multiple views. ejohnson 02:20 PM HR=80 bpm, NIBP=99/61 mmhg, SpO2=95.0 %, Resp=21 B/min, Comment=SR 02:20 PM Catheter removed ejohnson 02:21 PM Time: 14:06LOC: 5 = Fully awake and oriented or at pre-proc level ejohnson 02:21 PM Time: 14:06 Patient comfortable and pain free: Yes ejohnson 02:21 PM 5Fr FR 4 catheter inserted over the wire DNC ejohnson 02:22 PM NIBP STAT measurement started. 02:22 PM Recorded Pressure: Ao, HR=98, Condition=Condition 1 (Aorta) Ao 70/57/63 02:22 PM HR=96 bpm, BLOT=925/65 mmhg, SpO2=95.0 %, Resp=20 B/min, Comment=SR 02:23 PM Catheter removed ejohnson 02:23 PM 5Fr Pigtail catheter inserted over the wire DNC ejohnson 02:24 PM Pressure channel 1 zeroed. 02:24 PM Recorded Pressure: LV, HR=95, Condition=Condition 1 (Left Ventricle) LV 73/10/12 02:24 PM Catheter selectively placed in left ventricle ejohnson 02:24 PM Bolus angiogram of left Ventricle complete: 8 ml/sec for a total of 24 mls ejohnson 02:24 PM Recorded Pressure: LV, Ao, HR=95, Condition=Condition 1 (Left Ventricle) LV 105/45/82, (Aorta) Ao 75/57/67 02:25 PM Catheter removed ejohnson 02:25 PM Sheath exchanged for a 6 Fr 11 cm Cordis Samanta sheath [id number] ejohnson 02:25 PM Inflation device was opened. ejohnson 02:25 PM 6Fr JR 4 Runway guide catheter was used to cannulate the PCI vessel successfully. reused? No ejohnson 02:26 PM Time: 14:25 Angiomax 0.75mg/kg bolus: 13 ml Intravenous Given by Duc Ross RN Nixon pump ejohnson 02:26 PM Time: 14:26 Angiomax 1.75mg/kg/hr: 30 ml Intravenous Given by Duc Ross RN Nixon pump ejohnson 02:26 PM .014 Prowater 180cm guide wire across target lesion- successful. reused? No ejohnson 02:26 PM Coronary Dominance: right ejohnson 02:27 PM Lesion found in Mid RCA. Pre Stenosis: 100 Pre PERNELL Flow: 0: No Flow/No perfusion ejohnson 02:27 PM Right Coronary, Right Posterior Descending Arteries with Right Posterolateral and Acute Marginal branches with 100 % stenosis. ejohnson 02:28 PM HR=91 bpm, NIBP=98/63 mmhg, SpO2=95.0 %, Resp=17 B/min, Comment=SR 02:33 PM HR=90 bpm, NIBP=99/63 mmhg, SpO2=95.0 %, Resp=17 B/min, Comment=SR 02:35 PM Guide wire removed intact. ejohnson 02:36 PM .014 PT Graphix 300cm guide wire across target lesion- successful. reused? No ejohnson 02:36 PM Time: 14:21LOC: 5 = Fully awake and oriented or at pre-proc level ejohnson 02:36 PM Time: 14:21 Patient comfortable and pain free: Yes ejohnson 02:38 PM HR=89 bpm, NIBP=97/62 mmhg, SpO2=95.0 %, Resp=17 B/min, Comment=SR 02:39 PM 1.5 mm x 15 mm Emerge OTW balloon across target lesion- successful. reused? No ejohnson 02:42 PM Guide wire removed intact. ejohnson 02:43 PM HR=91 bpm, PJYO=938/69 mmhg, SpO2=95.0 %, Resp=16 B/min, Comment=SR 02:44 PM .014 Prowater 300cm guide wire across target lesion- successful. reused? No ejohnson 02:45 PM Balloon inflated @ 6 elder for 20 seconds ejohnson 02:46 PM Balloon inflated @ 6 elder for 20 seconds ejohnson 02:46 PM Balloon inflated @ 6 elder for 20 seconds ejohnson 02:47 PM Balloon inflated @ 6 elder for 20 seconds ejohnson 02:47 PM Balloon inflated @ 6 elder for 20 seconds ejohnson 02:48 PM Balloon inflated @ 6 elder for 20 seconds ejohnson 02:49 PM HR=86 bpm, RPEP=211/72 mmhg, SpO2=98.0 %, Resp=18 B/min, Comment=SR 02:49 PM Balloon inflated @ 6 elder for 20 seconds ejohnson 02:50 PM Balloon inflated @ 6 elder for 20 seconds ejohnson 02:50 PM Time: 14:50 Versed 1 mg Intravenous Given by Duc Ross RN ejohnson 02:50 PM Time: 14:50 Fentanyl 25 mcg Intravenous Given by Duc Ross RN ejohnson 02:51 PM Balloon catheter removed intact. ejohnson 02:51 PM Time: 14:36 Patient comfortable and pain free: Yes ejohnson 02:51 PM Time: 14:36LOC: 5 = Fully awake and oriented or at pre-proc level ejohnson 02:51 PM Recorded Pressure: Ao, HR=90, Condition=Condition 1 (Aorta) Ao 94/61/76 02:52 PM Time: 14:52 Nitroglycerin 200 mcg Intracoronary Given by Lakeshia Silva MD, FAC ejohnson 02:53 PM HR=91 bpm, NIBP=94/64 mmhg, SpO2=92.0 %, Resp=20 B/min, Comment=SR 02:54 PM 2.0 mm x 15 mm Emerge Monorail balloon across target lesion- successful. reused? No ejohnson 02:54 PM Balloon inflated @ 10 elder for 20 seconds ejohnson 02:55 PM Balloon inflated @ 14 elder for 30 seconds ejohnson 02:56 PM Time: 14:55 Oxygen on at 4 L/min per nasal cannula by Duc Ross RN ejohnson 02:56 PM Balloon inflated @ 6 elder for 20 seconds ejohnson 02:57 PM Balloon inflated @ 6 elder for 20 seconds ejohnson 02:57 PM Balloon inflated @ 6 elder for 20 seconds ejohnson 02:57 PM Time: 14:51 Patient comfortable and pain free: Yes ejohnson 02:57 PM Time: 14:51LOC: 5 = Fully awake and oriented or at pre-proc level ejohnson 02:58 PM Balloon inflated @ 14 elder for 20 seconds ejohnson 02:58 PM HR=89 bpm, NIBP=98/59 mmhg, SpO2=94.0 %, Resp=17 B/min, Comment=SR 02:59 PM Balloon catheter removed intact. ejohnson 02:59 PM Time: 14:59 Nitroglycerin 200 mcg Intracoronary Given by Lakeshia Silva MD, FAC ejohnson 03:01 PM 2.5 mm x 15 mm Emerge Monorail balloon across target lesion- successful. reused? No ejohnson 03:03 PM HR=88 bpm, NIBP=87/55 mmhg, SpO2=92.0 %, Resp=17 B/min, Comment=SR 03:03 PM Balloon inflated @ 8 elder for 20 seconds ejohnson 03:03 PM NIBP STAT measurement started. 03:04 PM HR=89 bpm, NIBP=90/53 mmhg, SpO2=94.0 %, Resp=16 B/min, Comment=SR 03:04 PM Balloon inflated @ 8 elder for 20 seconds ejohnson 03:04 PM Time: 15:04 Oxygen on at 5 L/min per nasal cannula by Duc Ross RN ejohnson 03:06 PM Recorded Pressure: Ao, HR=86, Condition=Condition 1 (Aorta) Ao 71/54/62 03:06 PM NIBP STAT measurement started. 03:07 PM Balloon catheter removed intact. ejohnson 03:07 PM HR=84 bpm, NIBP=98/66 mmhg, SpO2=98 %, Resp=18 B/min 03:08 PM Time: 15:07 Nitroglycerin 200 mcg Intracoronary Given by Lakeshia Silva MD, FACC ejohnson 03:08 PM HR=86 bpm, NIBP=86/55 mmhg, SpO2=98.0 %, Resp=16 B/min, Comment=SR 03:09 PM NIBP STAT measurement started. 03:09 PM Recorded Pressure: Ao, HR=86, Condition=Condition 1 (Aorta) Ao 74/47/58 03:09 PM HR=87 bpm, NIBP=93/56 mmhg, SpO2=97 %, Resp=21 B/min 03:11 PM Guide wire removed intact. ejohnson 03:11 PM Guide catheter removed intact. ejohnson 03:11 PM Bolus angiogram of right Femoral complete: 2 ml/sec for a total of 4 mls ejohnson 03:12 PM Procedure completed at 15:12 ejohnson 03:13 PM Time: 14:57LOC: 4 = Oriented but drowsy ejohnson 03:13 PM Time: 14:57 Patient comfortable and pain free: Yes ejohnson 03:13 PM HR=84 bpm, NIBP=94/59 mmhg, SpO2=97.0 %, Resp=16 B/min, Comment=SR 03:16 PM Sign out completed: Radiation Dose 1344.52 mGy Fluoro Time: 20.4 Isovue 370 - 200ml contrast 132 ml given by Lakeshia Silva MD, FACC. Complications: NoneCardiac Rehab Consult needed: NoConfirmed administered medications: Yes ejohnson 03:18 PM Sheath left in place to be pulled on floor/holding area ejohnson 03:18 PM Post ECG NSR ejohnson 03:18 PM Post Blood Pressure 94/59 ejohnson 03:18 PM 15:18 Post Pulses Bilateral DP & PT 2+ ejohnson 03:19 PM Information taught PCI and Cardiac Cath ejohnson 03:20 PM Education needs Plan of Care and Responsibilities of Patient in Care ejohnson 03:20 PM Learning barriers :None ejohnson 03:20 PM Education Methods Verbal ejohnson 03:20 PM Education evaluation Able to repeat information ejohnson 03:20 PM Site status No bleeding/hematoma - Rt Groin as reported by Terry Torres RT (R) at 15:20 ejohnson 03:20 PM Opsite applied ejohnson 03:20 PM Report given to Gautam GORDON Pt taken to 2N Room #12. 15:20 ejohnson 03:20 PM Plavix, Effient or Brilinta given No ejohnson 03:20 PM Delay to floor No ejohnson 03:20 PM Patient out of room: 15:20 ejohnson 03:20 PM Family none available at this time ejohnson 03:21 PM Lesion found in LMCA. Pre Stenosis: 15 Pre PERNELL Flow: 3: Complete and Brisk Flow/Perfusion ejohnson 03:21 PM Lesion found in Proximal LAD. Pre Stenosis: 30 Pre PERNELL Flow: 3: Complete and Brisk Flow/Perfusion ejohnson 03:21 PM Lesion found in Proximal Circumflex. Pre Stenosis: 40 Pre PERNELL Flow: 3: Complete and Brisk Flow/Perfusion ejohnson 03:21 PM Lesion found in 1st Marginal. Pre Stenosis: 50 Pre PERNELL Flow: 3: Complete and Brisk Flow/Perfusion ejohnson 03:22 PM Lesion found in 2nd Marginal. Pre Stenosis: 30 Pre PERNELL Flow: 3: Complete and Brisk Flow/Perfusion ejohnson 03:22 PM Left Main Coronary Artery with 15% stenosis ejohnson 03:22 PM Proximal Left Anterior Descending Coronary Artery with 30% stenosis. ejohnson 03:22 PM Circumflex, Obtuse Marginal, Left Posterior Descending, and Left Posterolateral Coronary Arteries with 50 % stenosis. ejohnson Complications Complication None Hemodynamics Pressures Site Systolic/A Wave Diastolic/V Wave Mean AO 71 54 62 AO 70 57 63 LV 73 10 12 LV 105 45 82 AO 75 57 67 AO 94 61 76 AO 71 54 62 AO 74 47 58 Post Procedure Information Blood Pressure: 94/59 mmHg Rhythm: NSR Post procedural instructions were given Site Checks Time Location Status Staff Sheath In? Note 03:20 PM Rt Groin No bleeding/hematoma Terry Torres RT (R) Pulses Time Site Pre-Procedure Post-Procedure Note 09/29/2016 2:04:00 PM Bilateral DP & PT 2+ 09/29/2016 2:04:00 PM Bilateral radial 2+ 3:18:00 PM Bilateral DP & PT 2+ Updated by Alyx Bernal RN on 09/29/2016 3:29:22 PM Alyx Bernal RN electronically signed on 09/29/2016 3:29:50 PM with status of Final
[2016-09-29] MEDS: Nicotine 21 MG PATCH.TD24 TD SCH (16:03)
--- NOTE | 2016-09-29 16:20 | Invasive Diagnostic Lab ---
Name: Joe Frey Date of Study: 09/29/2016 Date: 1960 Ht: 170.0 cm /66.9 in Medical Record#: [id number] Age: 55 Wt: 84. kg / 185.19 lb Account/Order#: [id number] Gender: Male BSA: 1.96 Order #: [id number] Fluoro Dose: 1345 mGy BMI: 29.07 Procedure Physician: Lakeshia Silva MD, [facility] Referring MD: Referring MD: Procedures Performed: LEFT HEART CATH PTCA Single Major Vessel Indications: Non-Stemi Impressions: Single vessel coronary artery disease. Unsuccessful PTCA of RCA. R PDA fills via L to R collaterals. Mild segmental LV dysfunction. EF 45% Recommendations: Optimal medical therapy of patient's disease. Aggressive risk factor modification. History/Risk Factors: Acute Renal Failure Diabetes Hypertension Procedure Access obtained in the right Femoral artery by percutaneous puncture Patient had unsuccessful PTCA in the mid RCA. Complications: None Contrast: Isovue 132ml Hemodynamics: Pressures Site Systolic/ A Wave Diastolic/ V Wave End Diastolic/ Mean HR AO 71 54 62 88 AO 70 57 63 98 LV 73 10 12 95 LV 105 45 82 94 AO 75 57 67 96 AO 94 61 76 90 AO 71 54 62 86 AO 74 47 58 86 LV Ventriculography Ejection Method: LV Gram Ejection Fraction: 45% Wall Motion: NATH Anterobasal Normal Anterolateral Normal Apical: Normal Inferoapical Moderate Hypokinesis Inferobasal Severe Hypokinesis Coronary Dominance: right Lesion Findings/Interventions * Left Main Coronary Artery There is a 15% stenosis in the LMCA. * Left Anterior Descending There is a 30% stenosis in the Proximal LAD. * Circumflex There is a 40% stenosis in the Proximal Circumflex. There is a 50% stenosis in the 1st Marginal. There is a 30% stenosis in the 2nd Marginal. * Right Coronary Artery There is a 15 mm long, 100% stenosis in the Mid RCA. The lesion has a PERNELL flow of 0 and has collaterals which feed from left to right. An intervention was performed on the Mid RCA with a final stenosis of 99%. There were no lesion complications. The final PERNELL flow was 1. R PDA fills via L to R collaterals. Interventional Device(s) Vessel Segment Type Name Diameter (mm) Length (mm) Mid RCA Balloon Emerge Monorail 2.5 15 Mid RCA Balloon Emerge Monorail 2 15 Mid RCA Balloon Emerge OTW 1.5 15 Updated by Lakeshia Silva MD, FACC on 09/29/2016 4:15:37 PM Lakeshia Silva MD, FACC electronically signed on 09/29/2016 4:16:39 PM with status of Final
[2016-09-29] MEDS ORDERED: *HR* Atropine Sulfate 1 MG/10 ML SYRINGE ONE (17:25)
[2016-09-29] MEDS: traZODone 50 MG TABLET PO SCH (20:23)
[2016-09-30 02:20] LABS: Basophils # 0.1 K/mcL (0.0-0.2); Basophils % 0.4 %; Eosinophils # 0.1 K/mcL (0.0-0.6); Eosinophils % 0.7 %; Immature Granulocytes % 0.6 % (0-4); Immature Platelets 2.7 % (1.1-6.1); Lymphocytes # 2.4 K/mcL (0.6-4.6); Lymphocytes % 15.7 %; Mean Corpuscular HGB Conc 32.4 g/dL (31.6-35.5); Mean Corpuscular Hemoglobin 30.1 pg (28.0-33.3); Mean Corpuscular Volume 92.7 fL (83.0-100.0); Mean Platelet Volume 9.2 fL (9.4-12.4); Monocytes # 1.6 K/mcL (0.0-1.3); Monocytes % 10.6 %; Neutrophils # 10.9 K/mcL (1.6-8.9); Platelet Count 285 K/mcL (140-400); Red Blood Count 3.99 M/mcL (4.19-5.50); Red Cell Distribution Width 13.9 % (11.5-14.5)
[2016-09-30 02:26] LABS: INR 1.1; Prothrombin Time 11.8 Seconds (9.4-12.1)
[2016-09-30 02:30] LABS: BUN/Creatinine Ratio 12 (6-26); Blood Urea Nitrogen 12 mg/dL (8-26); Calcium 9.5 mg/dL (8.6-10.8); Carbon Dioxide 25 mEq/L (19-29); Chloride 99 mEq/L (98-109); Glucose 128 mg/dL (70-99); Osmolality,Calculated 281 (280-300); Sodium 135 mEq/L (136-145); eGFR For African Americans > 60 (> 60); eGFR For Non-African Americans > 60 (> 60)
[2016-09-30] MEDS: 0.9 % Sodium Chloride 1,000 ML IVC SCH (02:45)
[2016-09-30] MEDS ORDERED: Vancomycin 1,250 MG in D5% in Water 250 ML IVPB SCH (03:30)
[2016-09-30] MEDS: Piperacillin/Tazobactam 3.375 GM in D5% in Water (Mini-Bag+) 100 ML IVPB SCH ×2 (04:26→13:19)
[2016-09-30] MEDS: Nicotine 21 MG PATCH.TD24 TD SCH (09:19)
[2016-09-30] MEDS: Divalproex (12 HR) 500 MG TABLET PO SCH (09:19)
[2016-09-30] MEDS: Insulin LISPRO 300 UNITS/3 ML VIAL SQ SCH ×2 (09:19→12:00)
[2016-09-30] MEDS: risperiDONE 1 MG TABLET PO SCH (09:20)
[2016-09-30] MEDS: Gabapentin 400 MG CAPSULE PO SCH (09:20)
[2016-09-30] MEDS: BuPROPion SR (12 HR) 150 MG TABLET PO SCH (09:20)
[2016-09-30] MEDS: Aspirin 81 MG TAB.CHEW PO SCH (09:20)
[2016-09-30 11:54] VITALS: BP 100/58
--- NOTE | 2016-09-30 13:10 | Discharge Summary ---
Date of Encounter: 09/30/16 Time of Encounter: 09:40 - Discharge Diagnosis (1) NSTEMI (non-ST elevated myocardial infarction) Priority: Primary Status: Acute Comments: Non-ST elevation TX - probable type II TX in the setting of sepsis and ELOISE S/P [facility] - single vessel CAD, unsuccessful PTCA of RCA, LVEF 45%, right PDA fills via left to right collaterals Continue Aspirin, Statin, beta clover Needs optimal medical therapy Troponin - 3.41 EKG - nonspecific changes Echocardiogram - LVEF 45% with regional wall motion abnormalities, RV size and function normal CT head - no acute intracranial abnormality Chest x-ray - no acute process CT cervical spine - no acute process Advised follow-up with cardiology as outpatient, optimal medical therapy, aggressive risk factor modification (2) Severe sepsis Priority: Primary Status: Acute Comments: Severe sepsis present on admission - secondary to UTI and chronic left foot wound infection Continue antibiotics by mouth, discharged home with Bactrim Cultures - MRSA in wound, sensitivities pending Podiatry consult - recommendations reviewed, appreciate input Follow-up with podiatry as outpatient for chronic "phoned (3) ELOISE (acute kidney injury) Priority: Primary Status: Acute Comments: Acute kidney injury - likely secondary to dehydration and severe sepsis - now resolved (4) Diabetes mellitus, type 2 Priority: Secondary Status: Chronic Comments: Diabetes mellitus type 2, [id number], hyperglycemia Continue insulin sliding scale and glucose checks Qualifiers: Diabetes mellitus complication status: without complication Diabetes mellitus termite exterminator insulin use: without termite exterminator use Qualified Code(s): E11.9 - Type 2 diabetes mellitus without complications (5) Hypertension Priority: Secondary Status: Chronic Comments: Essential hypertension, controlled, continue current meds, monitor Qualifiers: Hypertension type: essential hypertension Qualified Code(s): I10 - Essential (primary) hypertension (6) Substance abuse Priority: Secondary Status: Chronic Comments: Tobacco use and marijuana use - counseled about cessation Nicotine patch (7) Seizure disorder Priority: Secondary Status: Chronic Comments: Stable - continue home medication Depakote (8) Schizoaffective disorder Priority: Secondary Status: Chronic Comments: Continue home medications - Risperdal and trazodone Qualifiers: Schizoaffective disorder type: depressive Qualified Code(s): F25.1 - Schizoaffective disorder, depressive type - Discharge Medications Prescriptions: Amoxicillin/Clavulanate [Augmentin] 875 mg PO BIDWM 10 Days Aspirin 81 mg PO DAILY #30 Atorvastatin [Lipitor] 80 mg PO HS 30 Days Clopidogrel [Plavix] 75 mg PO DAILY 30 Days Divalproex (12 HR) [Depakote (12 HR)] 1,500 mg PO BID 30 Days Lisinopril [Zestril] 20 mg PO DAILY #30 Metoprolol [Lopressor] 12.5 mg PO BID 30 Days Nicotine Patch [Nicoderm] 21 mg TD DAILY 30 Days Sulfamethoxazole/Trimeth DS [Bactrim DS] 1 each PO BID 10 Days Home Medications: Glimepiride [Amaryl] 4 mg PO BID 03/31/15 [History] risperiDONE [Risperidone] 1 mg PO BID 03/31/15 [History] Citalopram [CeleXA] 20 mg PO HS 04/07/15 [History] Fenofibrate [Tricor] 54 mg PO DAILY 04/07/15 [History] Levothyroxine [Synthroid] 100 mcg PO DAILY 04/07/15 [History] Pantoprazole Sodium [Protonix] 40 mg PO DAILY 10/04/15 [History] Dextran 70/Hypromellose [Artificial Tears] 1 drop OP DAILY 03/27/16 [History] Gabapentin 800 mg PO QID 03/27/16 [History] Magnesium Oxide [Mag-Ox] 400 mg PO BID #14 tablet 03/27/16 [Rx] BuPROPion SR (12 HR) [Wellbutrin SR] 150 mg PO DAILY #30 tablet.er 08/21/16 [Rx] Trazodone HCl 100 mg PO HS 08/21/16 [History] metFORMIN [Glucophage] 500 mg PO BID 08/21/16 [History] Amoxicillin/Clavulanate [Augmentin] 875 mg PO BIDWM 10 Days 09/30/16 [Rx] Aspirin 81 mg PO DAILY #30 09/30/16 [Rx] Atorvastatin [Lipitor] 80 mg PO HS 30 Days 09/30/16 [Rx] Clopidogrel [Plavix] 75 mg PO DAILY 30 Days 09/30/16 [Rx] Divalproex (12 HR) [Depakote (12 HR)] 1,500 mg PO BID 30 Days 09/30/16 [Rx] Lisinopril [Zestril] 20 mg PO DAILY #30 09/30/16 [Rx] Metoprolol [Lopressor] 12.5 mg PO BID 30 Days 09/30/16 [Rx] Nicotine Patch [Nicoderm] 21 mg TD DAILY 30 Days 09/30/16 [Rx] Sulfamethoxazole/Trimeth DS [Bactrim DS] 1 each PO BID 10 Days 09/30/16 [Rx] Allergies/Adverse Reactions: 3 Allergy/AdvReac Type Severity Reaction Status Date / Time No Known Allergies Allergy Verified 08/20/16 15:47 Procedures/tests Complete & Pending: Procedures Performed prior 72 hours Category Date Time Status CL Cardiac Catheterization [CL] Routine Carpenter Packing 09/29/16 08:25 Completed EV echocardiogram Routine Y 09/28/16 05:28 Completed Date of admission: 09/28/16 02:00 Primary care physician: Estefanía Medina Consults: 09/28/16 07:35 Consult to Podiatry [CONS] Routine Consulting Provider: Podiat[facility] Reason for Consult: right foot wound Call Completed: No Anticipated date of discharge: 09/30/16 - Patient Status Disposition: Home, Self-Care Condition: Good Functional capacity at discharge: independent ambulation Overall status at discharge: patient is back to baseline - Discharge Instructions Instructions: Myocardial Infarction (DC), Sepsis (DC) Follow Up With: Ruben Andre DO [Resident] - 10/03/16 8:00 am Akil Landa MD [Partnered Physician] - - Diet and Activity Activity: increase activity as tolerated Diet: low fat, low cholesterol Hospital course: Mr. Frey is a 55 year old male with past medical history of anxiety, diabetes, hypertension, depression and chronic left forearm. Patient presented to the ED with complaints of near syncope. Patient stated that he had a debridement of chronic left foot wound and Dr. Fairchild's office. He was prescribed doxycycline, and he went home and began feeling lightheaded. He stated that his knees gave way and he almost passed out. He also complained of some palpitations but no chest pain or shortness of breath or nausea or vomiting. Patient did not have any seizure-like activity. Initial EKG did not show any acute ST-T changes. Troponin was elevated and was trending upward. Cardiology evaluated the patient. Patient was taken for left heart catheterization. Patient does have single vessel coronary artery disease. Unsuccessful PTCA to RCA, right PDA fills via [id number] collaterals. Mild segmental LV dysfunction with LVEF 45 %. Advised optimal medical therapy and aggressive risk factor modification. Patient has been explained about this. Chronic left foot wound was evaluated by podiatry. They have recommended dressing change. Patient's wound cultures came back positive for MRSA and the sensitivities are pending. Patient is being discharged on Bactrim and Augmentin. He will also need to continue aspirin, Plavix and statin. Patient was demanding to be discharged today and was threatening to leave AGAINST MEDICAL ADVICE. Patient was advised one more day of stay in the hospital but he refused and wanted to go home. Patient has been on IV vancomycin and IV Zosyn in the hospital for severe sepsis secondary to UTI and chronic left foot wound infection. Patient also had acute kidney injury likely due to sepsis and dehydration. He was on IV fluids and his acute kidney injury has now resolved. Patient has been counseled about smoking cessation. He was also started on Plavix and statin and aspirin. Patient was continued on all his home medications. Patient tolerated his meds well. He has been advised to continue all his home medications. Patient is doing well and tolerating oral diet well. He had no other acute events or complications during his stay in the hospital. Patient again states he does not want to stay and wants to go home today. He is being discharged in stable condition. Time spent discussing smoking cessation with patient: 3 to 10 minutes - Time Spent with Patient Total time spent providing and/or coordinating discharge services: Greater than 30 minutes - Constitutional Vitals: Temp Pulse Resp BP Pulse Ox 99.0 F 87 16 100/58 97 09/30/16 11:46 09/30/16 11:46 09/30/16 11:46 09/30/16 11:46 09/30/16 11:46 General appearance: Present: A&O X 3, pleasant, no acute distress, answers questions appropriately Exam: Patient wants to go home today, does not want to stay any longer in the hospital , advised at least 1 more day of inpatient stay but patient refuses - Head Head exam: Present: atraumatic - Eye Eye exam: Present: EOMI - ENT ENT exam: Present: mucous membranes moist - Neck Neck exam general surgery: Present: supple - Respiratory Respiratory exam: Present: CTAB. Absent: rales, rhonchi, wheezes, tachypnea - Cardiovascular Cardiovascular exam: Present: RRR, +S1, +S2 - GI/Abdominal GI/Abdominal exam: Present: soft. Absent: distended, firm, guarding, tenderness - Extremities Exam Extremities exam: Present: radial pulses palpable and symmetrical. Absent: cyanotic, pedal edema Additional comments: Left heel chronic wound - healing, right femoral cath site looks okay, distal pulses palpable - Neurological Exam Neurological exam: Present: alert, oriented X3, no focal deficits. Absent: facial droop, speech deficit
--- NOTE | 2016-09-30 14:03 | Cardiology Progress Note ---
Date of Encounter: 09/30/16 Time of Encounter: 11:50 Assessment and Plan (1) NSTEMI (non-ST elevated myocardial infarction) Current Visit: Yes Status: Acute Troponin 0.38, 5.01, 5.82. EKG shows NSR. Non-specific EKG changes. LHC completed showed 100% stenosis with thrombus in the mid RCA. Attempt at PCI unsuccessful. Collateral noted. No complications from procedure. Denies chest pain. Telemetry shows NSR. AVG HR 82 over past 12 hours. TTE showed EF 45%. WMA noted. No significant valvular disease. Recommend asa, statin, plavix, and bb. Out-pt f/u will be made by [facility]. Call with questions. Cardiology will sign off. (2) Hypertension Current Visit: No Status: Chronic Qualifiers: Hypertension type: essential hypertension Qualified Code(s): I10 - Essential (primary) hypertension (3) Near syncope Current Visit: Yes Status: Acute No arrhythmias seen on telemetry to account for near syncope. TTE with no significant valvular disease. Continue medical management for CAD. (4) Cardiomyopathy Current Visit: Yes Status: Acute Ischmic CMP. TTE shows EF 45%. Currently euvolemic. Change metoprolol tartrate to carvedilol. No rhonda inhibitor d/t low blood pressure. Consider starting in future. Qualifiers: Cardiomyopathy type: ischemic Qualified Code(s): I25.5 - Ischemic cardiomyopathy Discussion w patient/family: The assessment and plan as outlined above was discussed with the patient and/or family members who expressed understanding and agreement. All questions were answered. Thank you for involving us in the care of your patient. Please call with any questions. Subjective Principal diagnosis: NSTEMI Interval history: Denies chest pain. Denies syncopal episode. Objective Vital Signs, Last 4 Hours Temp Pulse Resp BP Pulse Ox 09/30/16 11:46 99.0 F 87 16 100/58 97 General: Conversant, No Apparent Distress HEENT: Atraumatic, Normocephaly, Mucus Membranes Moist Neck: No JVD, Normal carotid pulses Cardiac: Reg Rate and Rhythm, Normal S1 and S2, No Murmur Lungs: Normal Breath Sounds, No Wheeze, Rales, Rhonchi Neuro: Alert and responsive, No focal deficits noted Abdomen: Soft, Non-Tender Skin: No rashes noted on visualized skin Musculoskeletal: No Chest Wall Tenderness Extremities: No Clubbing, No Cyanosis, No Edema, Normal Pulses, Other (right groin soft and non-tender.) Results 09/30/16 02:13 09/30/16 02:13 Lab Results 09/30/16 09/30/16 09/30/16 02:13 02:13 02:13 WBC 15.2 H Hgb 12.0 L Hct 37.0 L Plt Count 285 INR 1.1 Sodium 135 L Potassium 4.0 Chloride 99 Carbon Dioxide 25 BUN 12 Creatinine 1.00 Glucose 128 H Calcium 9.5 Consult Discharge Plan - Plan Instructions: Myocardial Infarction (DC), Sepsis (DC) Referrals: Akil Landa MD [Partnered Physician] - Ruben Andre DO [Resident] - 10/03/16 8:00 am Prescriptions: Amoxicillin/Clavulanate [Augmentin] 875 mg PO BIDWM 10 Days Aspirin 81 mg PO DAILY #30 Atorvastatin [Lipitor] 80 mg PO HS 30 Days Clopidogrel [Plavix] 75 mg PO DAILY 30 Days Divalproex (12 HR) [Depakote (12 HR)] 1,500 mg PO BID 30 Days Lisinopril [Zestril] 20 mg PO DAILY #30 Metoprolol [Lopressor] 12.5 mg PO BID 30 Days Nicotine Patch [Nicoderm] 21 mg TD DAILY 30 Days Sulfamethoxazole/Trimeth DS [Bactrim DS] 1 each PO BID 10 Days
[2016-09-30] MEDS ORDERED: Aminoglycoside Consult 1 EACH MC ONE (14:28)
== END 2016-09-30 14:29 | disposition home or self-care (01) | DRG 710 ==
LOC: EMEROO 20:02 → 2NNU 20:02
PROVIDERS: ADMIT Internal Medicine; ATTEND Internal Medicine

== ENCOUNTER 2016-12-27 11:49 | Observation (INO) ==
[2016-12-27 13:22] LABS: Basophils % 0.3 %; Eosinophils # 0.1 K/mcL (0.0-0.6); Eosinophils % 1.3 %; Hematocrit 32.8 % (37.5-50.1); Hemoglobin 11.5 g/dL (12.9-16.9); Lymphocytes % 21.5 %; Mean Corpuscular HGB Conc 35.1 g/dL (31.6-35.5); Mean Corpuscular Hemoglobin 31.7 pg (28.0-33.3); Mean Corpuscular Volume 90.4 fL (83.0-100.0); Mean Platelet Volume 9.1 fL (9.4-12.4); Monocytes % 10.1 %; Neutrophils # 6.2 K/mcL (1.6-8.9); Platelet Count 270 K/mcL (140-400); Red Blood Count 3.63 M/mcL (4.19-5.50); Red Cell Distribution Width 15.8 % (11.5-14.5); Segmented Neutrophils % 65.8 %
[2016-12-27 13:36] LABS: BUN/Creatinine Ratio 13 (6-26); Blood Urea Nitrogen 10 mg/dL (8-26); C-Reactive Protein 1 mg/L (Less than 5); Carbon Dioxide 22 mEq/L (19-29); Chloride 95 mEq/L (98-109); Glucose 184 mg/dL (70-99); Osmolality,Calculated 266 (280-300); Potassium 4.7 mEq/L (3.5-4.5); Sodium 126 mEq/L (136-145); eGFR For African Americans > 60 (> 60); eGFR For Non-African Americans > 60 (> 60)
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
[2016-12-27] MEDS ORDERED: 0.9 % Sodium Chloride 1,000 ML IVC ONE (14:12)
[2016-12-27] MEDS ORDERED: *HR* Morphine 2 MG/ML SYRINGE IVP ONE (14:12)
[2016-12-27] MEDS ORDERED: Ondansetron 4 MG/2 ML VIAL IVP ONE (14:12)
[2016-12-27] MEDS ORDERED: MetroNIDAZOLE 500 MG/100 ML 500 MG/100 ML BAG IVPB ONE (14:13)
[2016-12-27] MEDS ORDERED: Piperacillin/Tazobactam 3.375 GM in D5% in Water (Mini-Bag+) 100 ML IVPB ONE (14:51)
[2016-12-27] MEDS ORDERED: Vancomycin 1,500 MG in D5% in Water 250 ML IVPB ONE (15:00)
[2016-12-27] MEDS ORDERED: Piperacillin/Tazobactam 3.375 GM in D5% in Water 100 ML IVPB ONE (15:30)
[2016-12-27] MEDS ORDERED: Piperacillin/Tazobactam 3.375 GM in D5% in Water 50 ML IVPB ONE (15:45)
[2016-12-27] MEDS ORDERED: Ondansetron 4 MG/2 ML VIAL IVP PRN (16:22)
[2016-12-27] MEDS ORDERED: Naloxone 0.4 MG/ML INJ IVP PRN (16:22)
[2016-12-27] MEDS ORDERED: *HR* Dextrose 50 % in Water (Syg) 50 ML SYRINGE IVP PRN (16:29)
[2016-12-27] MEDS ORDERED: D5% in Water 1,000 ML IVC PRN (16:29)
[2016-12-27] MEDS ORDERED: Dextrose Gel 15 GM PO PRN ×2 (16:29)
[2016-12-27] MEDS ORDERED: Nicotine 21 MG PATCH.TD24 TD SCH (16:30)
--- NOTE | 2016-12-27 16:33 | Internal Med History&Physical ---
<Delmer Dailey - Last Filed: 12/28/16 00:00> Date of Encounter: 12/28/16 Internal Medicine - H&P: HPI History of present illness: Mr. Frey is a 55 year old male Internal Medicine - H&P: Meds risperiDONE [Risperidone] 1 mg PO BID 03/31/15 [History] Fenofibrate [Tricor] 54 mg PO DAILY 04/07/15 [History] Levothyroxine [Synthroid] 100 mcg PO QAM 04/07/15 [History] Pantoprazole Sodium [Protonix] 40 mg PO DAILY 10/04/15 [History] Dextran 70/Hypromellose [Artificial Tears] 1 drop OP DAILY 03/27/16 [History] Trazodone HCl 200 mg PO HS 08/21/16 [History] metFORMIN [Glucophage] 500 mg PO BID 08/21/16 [History] Aspirin 81 mg PO DAILY #30 09/30/16 [Rx] Clopidogrel [Plavix] 75 mg PO DAILY 30 Days tab 09/30/16 [Rx] Divalproex (12 HR) [Depakote (12 HR)] 1,500 mg PO BID 30 Days 09/30/16 [Rx] Atorvastatin [Lipitor] 40 mg PO HS 10/04/16 [History] Acetaminophen [Tylenol] 500 mg PO Q6H PRN 10/10/16 [History] Citalopram Hydrobromide [Citalopram HBr] 20 mg PO HS 10/10/16 [History] Diclofenac Sodium [Voltaren] 50 mg PO Q8HR 10/10/16 [History] Linezolid [Zyvox] 600 mg PO BID 12/06/16 [History] Lisinopril [Zestril] 5 mg PO DAILY 12/06/16 [History] Metoprolol XL (24 HR) Succ [Toprol Xl] 12.5 mg PO DAILY 12/06/16 [History] Magnesium Oxide [Magnesium] 400 mg PO DAILY #30 tablet 12/07/16 [Rx] Nicotine Patch [Nicoderm] 21 mg TD Q24H #30 patch.td24 12/07/16 [Rx] Nitroglycerin [Nitrostat] 0.4 mg SL Q5M PRN 12/11/16 [History] Gabapentin [Neurontin] 800 mg PO QID 12/27/16 [History] Glimepiride [Amaryl] 4 mg PO BID 12/27/16 [History] 3 Allergy/AdvReac Type Severity Reaction Status Date / Time No Known Allergies Allergy Verified 12/27/16 12:11 All Systems PM: A 10-system review of systems was performed and is negative for pertinent findings except as documented above in the HPI. - Constitutional Vitals: Temp Pulse Resp BP Pulse Ox 97.9 F 80 14 144/85 96 12/27/16 23:14 12/27/16 23:14 12/27/16 23:14 12/27/16 23:14 12/27/16 23:14 Internal Med - H&P Results - Labs CBC & Chem 7: 12/27/16 13:08 12/27/16 13:08 - Attending Attestation I have personally performed a face to face evaluation on this patient on . I have reviewed and agree with the care plan. History and Exam by me shows: 55 y/o male with chronic wound L foot admitted due to increased drainage and concern for infection. Exam Alert. [facility] reg No wheeze Small open area on heel - no drainage now. Agree with assessment and plan as outlined above. <Iram Garcia - Last Filed: 12/28/16 08:28> Date of Encounter: 12/28/16 Time of Encounter: 16:30 Assessment and Plan (1) Cellulitis of left foot Current visit: Yes Status: Acute Mr. Frey is a 55 year old male with past medical history CAD, diabetes, chronic hyponatremia, depression and chronic diabetic left foot ulcer who presented to [facility] on 12/27/2016 with complaints of increased drainage to left foot wound the concern for left foot infection. He was placed in observation status for further workup and treatment. 1. Nonhealing surgical wound left lateral heel: Per history. Follows with Dr. Fairchild. Status post excisional debridement 11/2016 and completed 30 day course of Zyvox. Was seen by Dr. Fairchild on 12/20/2016 who trimmed a hyperkeratotic lesion. Now with increasing drainage and erythema to left lateral heel. Left foot x-ray non-acute and without evidence of osteomyelitis. Continue [place]. Podiatry consulted 2. Elevated lactic acid: Lactic acid 2.4, WBC 11 K, afebrile. Does not appear toxic or acute. Received IV fluids in the ED. Monitor repeat lactic acid 3. Chronic hyponatremia: Na 126 on arrival. Appears neurologically intact. Per chart review, patient has a history of psychogenic polydipsia subsequent hyponatremia. Received IV fluids in the ED. Monitor repeat CMP. 4. Diabetes: Per history. Holding home oral hypoglycemics. SSI. Monitor blood sugar and titrate PRN 5. CAD: Per history. Asymptomatic, denies chest pain. Continue home ASA, Plavix, BB, statin. 6. DVT prophylaxis: Heparin (2) Hyponatremia Current visit: No Status: Acute (3) Elevated lactic acid level Current visit: No Status: Acute (4) CAD (coronary artery disease) Current visit: No Status: Chronic Qualifiers: Coronary Disease-Associated Artery/Lesion type: [place] artery [place] vs. transplanted heart: [place] heart Associated angina: without angina Qualified Code(s): I25.10 - Atherosclerotic heart disease of [place] coronary artery without angina pectoris (5) Diabetes mellitus, type 2 Current visit: No Status: Chronic Qualifiers: Diabetes mellitus complication status: without complication Diabetes mellitus long term care social worker insulin use: without snf use Qualified Code(s): E11.9 - Type 2 diabetes mellitus without complications (6) MDD (major depressive disorder), recurrent severe, without psychosis Current visit: No Status: Acute Internal Medicine - H&P: HPI Chief complaint: Increased drainage from left foot wound Admitted From: Home History of present illness: Mr. Frey is a 55 year old male with past medical history CAD, diabetes, chronic hyponatremia, depression and chronic diabetic left foot ulcer who presented to [facility] on 12/27/2016 with complaints of increased drainage to left foot wound the concern for left foot infection. He was placed in observation status for further workup and treatment. Information obtained from chart review and patient report. Patient says he sees Dr. Donovan for chronic , nonhealing left foot wound. Says he notices increased yellow drainage last night with associated redness and tenderness. Says he called Dr. Fairchild's office and was advised to go to the ER. He has no complaints all my exam except for wanting to eat. No fevers or chills, no my exam. Past Med Surg Social Fam HX - Past Medical History Medical history: arthritis, coronary artery disease, diabetes, GERD, hypertension, myocardial infarction, seizures, thyroid disease Psychiatric history: anxiety, depression, prior suicide attempt, schizophrenia - Past Surgical History Surgical History: other - Social History Smoking Status: Current every day smoker Smokeless Tobacco Status: No Alcohol use: occasionally Drug use: marijuana - Family History Daughter Living Status: Still Living Hx Family Cardiac Disorders: No Hx Family Respiratory Disorders: Yes Hx Family Cancer: No Hx Family GI Disorders: No Hx Family Endocrine Disorder: No Hx Family Neuromuscular Disorders: No Hx Family Neurologic Disorders: No Hx Family HEENT Disorders: No Hx Family Autoimmune Disorders: No Mother Living Status: Hx Family Cardiac Disorders: Yes Father Living Status: Hx Family Cardiac Disorders: Yes ([place]) All Systems PM: A 10-system review of systems was performed and is negative for pertinent findings except as documented above in the HPI. - Constitutional Constitutional: no chills, no fever(s), no night sweats - EENT Eyes: no change in vision, no discharge, no pain, no photophobia Ears: no ear discharge, no ear pain, no tinnitus Nose, mouth and throat: no dysphagia, no nasal discharge, no neck pain, no sore throat - Cardiovascular Cardiovascular ROS IM: no chest pain, no diaphoresis, no dyspnea, no lightheadedness, no palpitations, no syncope - Respiratory Respiratory: no cough, no dyspnea, no wheezing, no excessive phlegm production - Gastrointestinal Gastrointestinal: no abdominal pain, no diarrhea, no hematemesis, no hematochezia, no melena, no nausea, no vomiting - Musculoskeletal Musculoskeletal ROS IM: no numbness, no tingling - Integumentary Integumentary IM: as per HPI, no rash, no unusual bruising - Neurological Neurological ROS: no confusion, no convulsions, no focal weakness, no numbness, no tingling, no tremor(s) - Hematologic/Lymphatic Hematologic/Lymphatic: no easy bruising - Constitutional Vitals: Temp Pulse Resp BP Pulse Ox 98.0 F 76 18 118/78 95 12/27/16 12:07 12/27/16 15:35 12/27/16 15:35 12/27/16 15:35 12/27/16 15:35 General appearance: Present: A&O X 3, no acute distress, answers questions appropriately - Head Head exam: Present: atraumatic, normocephalic - Eye Eye exam: Present: PERRL, conjuntiva pink, sclera anicteric Pupils: Present: PERRL - Neck Neck exam general surgery: Present: supple, trachea midline. Absent: lymphadenopathy - Respiratory Respiratory exam: Present: CTAB. Absent: accessory muscle use, rales, rhonchi, wheezes - Cardiovascular Cardiovascular exam: Present: RRR, +S1, +S2. Absent: diastolic murmur, gallop, rubs, systolic murmur - GI/Abdominal GI/Abdominal exam: Present: normal bowel sounds, soft, no peritoneal signs. Absent: distended, tenderness - Extremities Exam Extremities exam: Present: warm, radial pulses palpable and symmetrical. Absent : calf tenderness, cyanotic, pedal edema - Neurological Exam Neurological exam: Present: CN II-XII intact, oriented X3, no focal deficits. Absent: pronater drift, facial droop, speech deficit - Skin Skin exam: Present: dry, intact Additional comments: Left heel with mild erythema, no drainage. Internal Med - H&P Results - Labs CBC & Chem 7: 12/28/16 04:03 12/28/16 04:03
[2016-12-27] MEDS ORDERED: Vancomycin 1,250 MG in D5% in Water 250 ML IVPB SCH (17:00)
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
[2016-12-27] MEDS: Piperacillin/Tazobactam 3.375 GM in D5% in Water 50 ML IVPB SCH (18:01)
[2016-12-27] MEDS: Insulin LISPRO 300 UNITS/3 ML VIAL SQ SCH (18:38)
[2016-12-27] MEDS: Gabapentin 400 MG CAPSULE PO SCH ×2 (18:39→21:09)
[2016-12-27] MEDS ORDERED: Insulin LISPRO 300 UNITS/3 ML VIAL SQ SCH (21:00)
[2016-12-27] MEDS ORDERED: traZODone 50 MG TABLET PO SCH (21:00)
[2016-12-27] MEDS: Divalproex (12 HR) 500 MG TABLET PO SCH (21:09)
[2016-12-27] MEDS: risperiDONE 1 MG TABLET PO SCH (21:09)
[2016-12-27] MEDS: *HR* Morphine 2 MG/ML SYRINGE IVP PRN (22:03)
[2016-12-28] MEDS: Piperacillin/Tazobactam 3.375 GM in D5% in Water 50 ML IVPB SCH ×2 (00:20→09:00)
[2016-12-28] MEDS: *HR* Morphine 2 MG/ML SYRINGE IVP PRN ×3 (02:30→11:16)
[2016-12-28] MEDS: Vancomycin 1,250 MG in D5% in Water 250 ML IVPB SCH ×2 (02:30→15:17)
[2016-12-28 04:44] LABS: Hematocrit 32.1 % (37.5-50.1); Hemoglobin 10.8 g/dL (12.9-16.9); Mean Corpuscular HGB Conc 33.6 g/dL (31.6-35.5); Mean Corpuscular Hemoglobin 30.9 pg (28.0-33.3); Mean Corpuscular Volume 91.7 fL (83.0-100.0); Mean Platelet Volume 9.2 fL (9.4-12.4); Platelet Count 275 K/mcL (140-400); Red Cell Distribution Width 15.8 % (11.5-14.5)
[2016-12-28 04:49] LABS: BUN/Creatinine Ratio 10 (6-26); Blood Urea Nitrogen 8 mg/dL (8-26); Calcium 8.6 mg/dL (8.6-10.8); Carbon Dioxide 24 mEq/L (19-29); Chloride 98 mEq/L (98-109); Glucose 159 mg/dL (70-99); Osmolality,Calculated 272 (280-300); Potassium 4.4 mEq/L (3.5-4.5); Sodium 130 mEq/L (136-145); eGFR For African Americans > 60 (> 60); eGFR For Non-African Americans > 60 (> 60)
[2016-12-28] MEDS: Gabapentin 400 MG CAPSULE PO SCH ×2 (08:47→13:48)
[2016-12-28] MEDS: Insulin LISPRO 300 UNITS/3 ML VIAL SQ SCH ×2 (08:47→13:44)
[2016-12-28] MEDS: Divalproex (12 HR) 500 MG TABLET PO SCH (08:48)
[2016-12-28] MEDS: risperiDONE 1 MG TABLET PO SCH (08:48)
[2016-12-28] MEDS ORDERED: Metoprolol XL (24 HR) Succ 25 MG TAB.ER.24H PO SCH (09:00)
[2016-12-28] MEDS ORDERED: Fenofibrate 54 MG TABLET PO SCH (09:00)
[2016-12-28] MEDS ORDERED: Aspirin 81 MG TAB.CHEW PO SCH (09:00)
[2016-12-28 15:38] VITALS: BP 127/72
--- NOTE | 2016-12-28 15:45 | Discharge Summary ---
Date of Encounter: 12/28/16 Time of Encounter: 13:55 - Discharge Diagnosis (1) CAD (coronary artery disease) Priority: Secondary Status: Chronic Qualifiers: Coronary Disease-Associated Artery/Lesion type: [place] artery [place] vs. transplanted heart: [place] heart Associated angina: without angina Qualified Code(s): I25.10 - Atherosclerotic heart disease of [place] coronary artery without angina pectoris (2) Diabetes mellitus, type 2 Priority: Secondary Status: Chronic Qualifiers: Diabetes mellitus complication status: without complication Diabetes mellitus mcfp insulin use: without mcfp use Qualified Code(s): E11.9 - Type 2 diabetes mellitus without complications (3) DVT prophylaxis Priority: Secondary Status: Acute (4) Hypertension Priority: Secondary Status: Chronic Qualifiers: Hypertension type: essential hypertension Qualified Code(s): I10 - Essential (primary) hypertension (5) Hyponatremia Priority: Secondary Status: Chronic (6) Nonhealing surgical wound Priority: Primary Status: Acute Qualifiers: Encounter type: sequela Qualified Code(s): T81.89XS - Other complications of procedures, not elsewhere classified, sequela (7) Schizoaffective disorder Priority: Secondary Status: Chronic Qualifiers: Schizoaffective disorder type: depressive Qualified Code(s): F25.1 - Schizoaffective disorder, depressive type - Discharge Medications Prescriptions: cephALEXin [Keflex] 500 mg PO BID #14 capsule HYDROcodone/Acet 5/325 mg [[place] 5-325 mg] 1 tab PO Q6H PRN #10 tab PRN Reason: Severe Pain Home Medications: risperiDONE [Risperidone] 1 mg PO BID 03/31/15 [History] Fenofibrate [Tricor] 54 mg PO DAILY 04/07/15 [History] Levothyroxine [Synthroid] 100 mcg PO QAM 04/07/15 [History] Pantoprazole Sodium [Protonix] 40 mg PO DAILY 10/04/15 [History] Dextran 70/Hypromellose [Artificial Tears] 1 drop OP DAILY 03/27/16 [History] Trazodone HCl 200 mg PO HS 08/21/16 [History] metFORMIN [Glucophage] 500 mg PO BID 08/21/16 [History] Aspirin 81 mg PO DAILY #30 09/30/16 [Rx] Clopidogrel [Plavix] 75 mg PO DAILY 30 Days tab 09/30/16 [Rx] Divalproex (12 HR) [Depakote (12 HR)] 1,500 mg PO BID 30 Days 09/30/16 [Rx] Atorvastatin [Lipitor] 40 mg PO HS 10/04/16 [History] Acetaminophen [Tylenol] 500 mg PO Q6H PRN 10/10/16 [History] Citalopram Hydrobromide [Citalopram HBr] 20 mg PO HS 10/10/16 [History] Diclofenac Sodium [Voltaren] 50 mg PO Q8HR 10/10/16 [History] Lisinopril [Zestril] 5 mg PO DAILY 12/06/16 [History] Metoprolol XL (24 HR) Succ [Toprol Xl] 12.5 mg PO DAILY 12/06/16 [History] Magnesium Oxide [Magnesium] 400 mg PO DAILY #30 tablet 12/07/16 [Rx] Nicotine Patch [Nicoderm] 21 mg TD Q24H #30 patch.td24 12/07/16 [Rx] Nitroglycerin [Nitrostat] 0.4 mg SL Q5M PRN 12/11/16 [History] Gabapentin [Neurontin] 800 mg PO QID 12/27/16 [History] Glimepiride [Amaryl] 4 mg PO BID 12/27/16 [History] HYDROcodone/Acet 5/325 mg [[place] 5-325 mg] 1 tab PO Q6H PRN #10 tab 12/28/16 [Rx ] cephALEXin [Keflex] 500 mg PO BID #14 capsule 12/28/16 [Rx] Allergies/Adverse Reactions: 3 Allergy/AdvReac Type Severity Reaction Status Date / Time No Known Allergies Allergy Verified 12/27/16 12:11 Date of admission: 12/27/16 14:43 Primary care physician: Ruben Andre DO Consults: Podiatry Discharging clinician: Orquidea Mercer Anticipated date of discharge: 12/28/16 - Patient Status Disposition: Home, Self-Care Condition: Fair Functional capacity at discharge: uses cane/walker Overall status at discharge: patient is back to baseline - Discharge Instructions Follow Up With: Ruben Andre DO [Primary Care Provider] - Additional Instructions: Please follow up with podiatry within five days after your discharge from the hospital Please follow up with your primary care physician within one week after your discharge from the hospital Please continue oral antibiotics as prescribed please resume all your home medications as prescribed by your primary care physician. - Diet and Activity Activity: resume usual activities as tolerated Diet: diabetic diet, low fat, low cholesterol, low salt diet Hospital course: Mr. Frey is a 55 year old male with PMH of CAD, chronic hyponatremia, DM, chronic diabetic foot ulcer who was admitted for worsening drainage of the left foot s/p excisional debridement by Dr. Fairchild as outpatient. Pt was found to have elevated LA and hyponatremia. He was started on empiric abx, IV fluids to which he responded appropriately. Podiatry evaluated the patient and reported that the wound looked better and patient was stable for discharge with oral antibiotics. Pt is hemodynamically stable, resolution of elevated LA, improvement of hyponatremia. He reports of feeling significantly better. He will be discharged to home with follow up with PCP and podiatry. Pt and significant other (present at bedside) in agreement of the plan. - Time Spent with Patient Total time spent providing and/or coordinating discharge services: Less than 30 minutes - Constitutional Vitals: Temp Pulse Resp BP Pulse Ox 98.3 F 79 16 130/74 97 12/28/16 11:11 12/28/16 11:11 12/28/16 11:11 12/28/16 11:11 12/28/16 11:11 General appearance: Present: A&O X 3, no acute distress, obese, answers questions appropriately - Head Head exam: Present: atraumatic, normocephalic - Eye Eye exam: Present: conjuntiva pink, sclera anicteric - Respiratory Respiratory exam: Present: CTAB. Absent: respiratory distress, wheezes - Cardiovascular Cardiovascular exam: Present: RRR, +S1, +S2. Absent: diastolic murmur, gallop, rubs, systolic murmur - GI/Abdominal GI/Abdominal exam: Present: normal bowel sounds, soft, no peritoneal signs. Absent: distended, tenderness - Extremities Exam Extremities exam: Present: warm, radial pulses palpable and symmetrical (left heel dressing intact). Absent: calf tenderness - Neurological Exam Neurological exam: Present: alert, oriented X3
[2016-12-28] MEDS ORDERED: Aminoglycoside Consult 1 EACH MC ONE (16:30)
--- NOTE | 2016-12-28 17:18 | Podiatry Progress Note ---
Date of Encounter: 12/28/16 Time of Encounter: 12:30 - Assessment and Plan (1) Diabetes mellitus, type 2 Status: Chronic Qualifiers: Diabetes mellitus complication status: without complication Diabetes mellitus terminologist insulin use: without usp use Qualified Code(s): E11.9 - Type 2 diabetes mellitus without complications (2) Nonhealing surgical wound Status: Acute Assessment: Non healing surgical wound to the left lateral heel with light periwound erythema. No fluctuance, not able to express any purulent drainage. erythema is resolving. WBC: 7.9 Xray of left foot reviewed, no evidence of osteomyelitis. Plan: No fluctuance to left heel, erythema is resolving. No surgical intervention required. Recommend patient be discharged home on oral antibiotics, continue wound care as directed by Dr. Fairchild and follow up in wound care with next scheduled appointment. Plan of care reviewed with Dr. Mcnally and agreeable to plan of care. Qualifiers: Encounter type: sequela Qualified Code(s): T81.89XS - Other complications of procedures, not elsewhere classified, sequela Subjective Interval history: Patient is lying in bed with girlfriend at bedside. Patient denies any fever or chills overnight. Patient has a dressing dry and intact to the left lateral heel. Patient states left heel is painful. Objective - Vital Signs Vital Signs: Vital Signs Temp Pulse Resp BP Pulse Ox 12/28/16 15:37 97.9 F 74 20 127/72 96 12/28/16 11:11 98.3 F 79 16 130/74 97 12/28/16 07:44 97.5 F L 83 16 114/78 97 12/28/16 03:32 97.3 F L 75 16 115/74 96 12/27/16 23:14 97.9 F 80 14 144/85 96 12/27/16 20:43 98.3 F 82 14 147/82 95 Intake and Output 12/28/16 12/28/16 12/28/16 07:59 15:59 23:59 Intake Total 120 / 120 950 / 950 Output Total 1250 / 1250 1075 / 1075 Balance -1130 / -1130 -125 / -125 Intake: IV Fluids 350 / 350 Zosyn 3.375 GM In Dextrose 5% ( 100 / 100 ADD-[place]) 50 ML @ 12.5 mls/ hr IVPB Q8H BACILIO Rx#:[id number] Vancocin 1,250 MG In Dextrose 5 250 / 250 % 250 ML @ 166.67 mls/hr IVPB Q12H BACILIO Rx#:[id number] Oral 120 / 120 600 / 600 Output: Urine 1250 / 1250 1075 / 1075 Other: Meal Lunch Percent of Meal Consumed 100% Weight 86.8 kg Blood Glucose* 151 145 Patient Weight 12/28/16 23:59 Weight 86.8 kg - Exam Exam: Extremities exam: Present: normal capillary refill, tenderness (to the left lateral heel, small [place] wound measuring 0.3 cm in diameter x 0.2 cm in depth , base of wound is pink, no pus, no odor, no fluctuance. Light periwound erythema, no ascending cellulitis, no lymphangitis. Scant amount of serous drainage observed to dressing) - Neurological Exam Neurological exam: Present: oriented X3 - Vascular Capillary Refill: less than 3 seconds (pedal pulses of left foot palpable.) - Lab Result Diagrams: 12/28/16 04:03 12/28/16 04:03 Labs: Abnormal lab results RBC 3.50 M/mcL (4.19-5.50) L 12/28/16 04:03 Hgb 10.8 g/dL (12.9-16.9) L 12/28/16 04:03 Hct 32.1 % (37.5-50.1) L 12/28/16 04:03 RDW 15.8 % (11.5-14.5) H 12/28/16 04:03 MPV 9.2 fL (9.4-12.4) L 12/28/16 04:03 Sodium 130 mEq/L (136-145) L 12/28/16 04:03 Glucose 159 mg/dL (70-99) H 12/28/16 04:03 Hemoglobin A1c 6.0 % (-5.6) H 12/27/16 17:03 Calculated Osmolality 272 (280-300) L 12/28/16 04:03 Consult Discharge Plan - Plan Instructions: Cephalexin (By mouth), Hydrocodone/Acetaminophen (By mouth) Additional Instructions: Please follow up with podiatry within five days after your discharge from the hospital Please follow up with your primary care physician within one week after your discharge from the hospital Please continue oral antibiotics as prescribed please resume all your home medications as prescribed by your primary care physician. Referrals: Podiatry [facility] [Provider Group] - 01/02/17 7:00 am Ruben Andre DO [Primary Care Provider] - 01/08/17 3:00 pm Prescriptions: cephALEXin [Keflex] 500 mg PO BID #14 capsule HYDROcodone/Acet 5/325 mg [[place] 5-325 mg] 1 tab PO Q6H PRN #10 tab PRN Reason: Severe Pain
== END 2016-12-28 16:31 | disposition home or self-care (01) ==
LOC: EMEROO 11:49 → 3BNU 11:49 → SUATTDRO 14:43 → 3BNU 17:20
PROVIDERS: ADMIT Internal Medicine; ATTEND Internal Medicine

== ENCOUNTER 2017-01-21 17:01 | Observation (INO) ==
--- NOTE | 2017-01-21 17:18 | Emergency Department Note ---
Disposition Clinical Impression: Pre-syncope Fall Qualifiers: Encounter type: initial encounter Qualified Code(s): W19.XXXA - Unspecified fall, initial encounter Disposition: Admitted As Inpatient Condition: Good Referrals: Ruben Andre DO [Primary Care Provider] - Forms: ED Satisfaction Letter General Adult HPI - General Chief complaint: ED Extremity Problem,Nontraumatic Stated complaint: right foot pain Time Seen by Provider: 01/21/17 17:06 Source: patient, EMS Limitations: no limitations Nursing Notes Reviewed: Yes Vital Signs Reviewed: Yes - History of Present Illness HPI Narrative: 56-year-old male presents to the emergency department after concern for recurrent falls over the last couple days. Patient states that he has fallen and hit his head, right foot, and right knee. Patient states that when he stands up he has blurry vision. Patient admits to having some chest pressure last couple weeks and has been unremitting. The patient also reports some ecchymosis over the right aspect of his abdomen. He denies any blood thinning medications. Pain Scale: 10 - Related Data Home Medications Medication Instructions Recorded Confirmed risperiDONE [Risperidone] 1 mg PO BID 03/31/15 01/17/17 Fenofibrate [Tricor] 54 mg PO DAILY 04/07/15 01/17/17 Levothyroxine [Synthroid] 100 mcg PO QAM 04/07/15 01/17/17 Pantoprazole Sodium [Protonix] 40 mg PO DAILY 10/04/15 01/17/17 Dextran 70/Hypromellose 1 drop OP DAILY 03/27/16 01/17/17 [Artificial Tears] Trazodone HCl 200 mg PO HS 08/21/16 01/17/17 metFORMIN [Glucophage] 500 mg PO BID 08/21/16 01/17/17 Atorvastatin [Lipitor] 40 mg PO HS 10/04/16 01/17/17 Acetaminophen [Tylenol] 500 mg PO Q6H PRN 10/10/16 01/17/17 Citalopram Hydrobromide 40 mg PO HS 10/10/16 01/17/17 [Citalopram HBr] Lisinopril [Zestril] 5 mg PO DAILY 12/06/16 01/17/17 Metoprolol XL (24 HR) Succ [Toprol 12.5 mg PO DAILY 12/06/16 01/17/17 Xl] Nitroglycerin [Nitrostat] 0.4 mg SL Q5M PRN 12/11/16 01/17/17 Gabapentin [Neurontin] 800 mg PO QID 12/27/16 01/17/17 Glimepiride [Amaryl] 4 mg PO BID 12/27/16 01/17/17 RisperiDONE [Risperidone Odt] 3 mg PO HS 01/17/17 01/17/17 hydrOXYzine pamoate [HydrOXYzine 25 mg PO TID 01/17/17 01/17/17 Pamoate] Previous Rx's Medication Instructions Recorded Aspirin 81 mg PO DAILY #30 09/30/16 Clopidogrel [Plavix] 75 mg PO DAILY 30 Days tab 09/30/16 Divalproex (12 HR) [Depakote (12 1,500 mg PO BID 30 Days 09/30/16 HR)] Magnesium Oxide [Magnesium] 400 mg PO DAILY #30 tablet 12/07/16 Nicotine Patch [Nicoderm] 21 mg TD Q24H #30 patch.td24 12/07/16 HYDROcodone/Acet 5/325 mg [[place] 1 tab PO Q6H PRN #10 tab 12/28/16 5-325 mg] Benzonatate [Tessalon] 200 mg PO TID PRN #30 capsule 01/14/17 cephALEXin [Keflex] 500 mg PO QID #40 capsule 01/14/17 methylPREDNISolone [Medrol] 4 mg PO TAPER #21 tablet 01/14/17 Allergies Allergy/AdvReac Type Severity Reaction Status Date / Time No Known Allergies Allergy Verified 01/14/17 16:14 All systems ED: reviewed and negative except as stated. Review of Systems: As Per HPI Constitutional: Denies: fever Cardiovascular: Reports: chest pain Respiratory: Reports: cough Gastrointestinal: Reports: abdominal pain. Denies: nausea, vomiting Musculoskeletal: Denies: back pain, neck pain Past Medical History - Past Medical History Medical history: Reports: atrial fibrillation, COPD, diabetes, hypertension, other Surgical history: Reports: other Psychiatric history: Reports: anxiety, depression, prior suicide attempt, schizophrenia - Social History Smoking Status: Current every day smoker Smokeless Tobacco Status: No Alcohol use: Reports: occasionally Drug use: Reports: marijuana Physical Exam CONSTITUTIONAL: Alert and oriented X3, well-nourished, unkempt, in no apparent distress HEAD: Right eye prosthesis; atraumatic. EYES: PERRL, no scleral icterus. NOSE: The nose is normal in appearance without rhinorrhea RESP: Normal chest excursion with respiration; breath sounds clear and equal bilaterally; no wheezes, rhonchi, or rales CARD: Regular rhythm, without murmurs, rub or gallop ABD: Ecchymosis of the right lateral aspect of the lower abdomen. Non-distended ; non-tender, soft,without rigidity, rebound or guarding Extremity: Mild tenderness to palpation of the right knee, tenderness to palpation of the distal dorsum of the right foot, there is some atrophy and surgical scar on the lateral aspect of the right foot. SKIN: Normal for age and race; warm and dry; no apparent lesions Neuro: GCS 15, no focal neurologic abnormalities, negative pronator drift, normal finger to nose, cranial nerves II through XII grossly intact, - General Limitations: no limitations General appearance: alert, in no apparent distress Course Vital Signs Temperature 98.5 F 01/21/17 17:03 Pulse Rate 90 01/21/17 17:03 Respiratory Rate 16 01/21/17 17:03 Blood Pressure 112/78 01/21/17 17:03 O2 Sat by Pulse Oximetry 96 01/21/17 17:03 Temperature 98.5 F 01/21/17 17:03 Pulse Rate 90 01/21/17 17:03 Respiratory Rate 16 01/21/17 17:03 Blood Pressure 112/78 01/21/17 17:03 O2 Sat by Pulse Oximetry 96 01/21/17 17:03 Oxygen Delivery Oxygen Delivery Room Air Medical Decision Making - [facility] Narrative Medical decision making narrative: 56-year-old male presents to the emergency department after having near syncopal episodes. He has been falling more last couple weeks. We will obtain CT scan of the head and neck, chest x-ray, scan of the abdomen and pelvis as he has some ecchymosis of the right side of the abdomen. We will also obtain x- rays of the right knee and right foot. Patient was given analgesia for his pain. He was also given a banana bag because there is some suspicion of alcoholism. Chest x-ray did not reveal any evidence of pneumonia or any other intrathoracic abnormality. Head CT did not reveal any acute intracranial abnormality. Abdomen and pelvis CT did not reveal any acute abnormality. Electrocardiogram did not reveal any evidence of ischemia. Troponin was negative. BNP was negative. CBC revealed mild anemia. His current hemoglobin is stable compared to previous ones. Urinalysis is unrevealing evidence of infection. There is concern that this patient is having multiple falls over the last few days. At this time, I discussed admission with him and he was willing to be admitted for his falls and presyncopal episodes. Patient was admitted to the hospital. He is in no acute distress and hemodynamically stable at this time. Chest X-Ray 01/21/17 17:13 IMPRESSION: Stable portable study. D/ / Kya Jorgensen Cha, MD / Kya Jorgensen Cha, MD Interpreting Provider: Kya Jorgensen Cha, MD Head CT 01/21/17 17:14 IMPRESSION: No acute intracranial abnormality. D/ / Dany Mccollum / Dany Mccollum Interpreting Provider: Dany Mccollum Abdomen/Pelvis CT 01/21/17 17:17 IMPRESSION: 1. No acute abnormality of the abdomen or pelvis. 2. Trace free fluid in lower pelvis. This is nonspecific in a male patient. 3. Moderate circumferential bladder wall thickening with mild surrounding inflammatory changes. Findings are nonspecific, but possibilities include cystitis versus sequela of bladder outlet obstruction. 4. Scattered air-fluid levels throughout nondilated small bowel. This is nonspecific but may represent mild functional ileus. 5. Few scattered colonic diverticula. No evidence of diverticulitis. 6. Normal appendix. 7. Suggestion of mild hepatic steatosis. 8. Very minimal/trace right pleural effusion versus atelectasis at the right lung base. D/ / 01/21/2017 20:10:20 Randy Osei MD / adam Interpreting Provider: Randy Osei MD Cervical Spine CT 01/21/17 17:18 IMPRESSION: No acute fracture identified. Interval increased anterolisthesis at C3-4, likely chronic as there are increased at least moderate degenerative disc disease and facet hypertrophy changes. Correlation is recommended. MRI may be helpful if indicated. D/ / Kya Jorgensen Cha, MD / Kya Jorgensen Cha, MD Interpreting Provider: Kya Jorgensen Cha, MD Foot X-Ray 01/21/17 17:18 IMPRESSION: Degenerative changes in the right knee without acute osseous abnormality Postop changes in the foot. Diffuse osteopenia is noted Degenerative changes in the great toe metatarsal phalangeal region Old fracture of the 5th metatarsal No acute osseous abnormality D/ / Dany Mccollum / Dany Mccollum Interpreting Provider: Dany Mccollum Knee X-Ray 01/21/17 17:38 IMPRESSION: Degenerative changes in the right knee without acute osseous abnormality Postop changes in the foot. Diffuse osteopenia is noted Degenerative changes in the great toe metatarsal phalangeal region Old fracture of the 5th metatarsal No acute osseous abnormality D/ / Dany Mccollum / Dany Mccollum Interpreting Provider: Dany Mccollum - Lab Data Result diagrams: 01/21/17 17:27 01/21/17 17:27 Lab Results 01/21/17 01/21/17 01/21/17 Range/Units 17:27 17:27 17:27 WBC 10.1 (4.3-11.1) K/mcL RBC 3.93 L (4.19-5.50) M/mcL Hgb 12.2 L (12.9-16.9) g/dL Hct 35.7 L (37.5-50.1) % MCV 90.8 (83.0-100.0) fL MCH 31.0 (28.0-33.3) pg MCHC 34.2 (31.6-35.5) g/dL RDW 14.6 H (11.5-14.5) % Plt Count 307 (140-400) K/mcL MPV 9.1 L (9.4-12.4) fL Immature Gran % 1.4 (0-4) % Seg Neutrophils % 60.1 % Lymphocytes % 25.3 % Monocytes % 9.4 % Eosinophils % 2.9 % Basophils % 0.9 % Neutrophils # 6.1 (1.6-8.9) K/mcL Lymphocytes # 2.6 (0.6-4.6) K/mcL Monocytes # 1.0 (0.0-1.3) K/mcL Eosinophils # 0.3 (0.0-0.6) K/mcL Basophils # 0.1 (0.0-0.2) K/mcL PT 10.6 (9.4-12.1) Seconds INR 1.0 APTT 25.1 L (26.0-36.0) Seconds Sodium 130 L (136-145) mEq/L Potassium 4.6 H (3.5-4.5) mEq/L Chloride 97 L (98-109) mEq/L Carbon Dioxide 25 (19-29) mEq/L BUN 20 (8-26) mg/dL Creatinine 0.90 (0.72-1.25) mg/dL Est GFR ( Amer) > 60 (> 60) Est GFR (Non-Af Amer) > 60 (> 60) BUN/Creatinine Ratio 22 (6-26) Glucose 159 H (70-99) mg/dL POC Glucose (58-89) Calculated Osmolality 276 L (280-300) Calcium 8.7 (8.6-10.8) mg/dL Total Bilirubin 0.3 (0.2-1.2) mg/dL AST 11 (5-34) Units/L ALT 12 (0-55) Units/L Alkaline Phosphatase 60 (38-126) Units/L Troponin I (0-0.03) ng/mL B-Natriuretic Peptide (0-100) pg/mL Serum Total Protein 6.7 (6.0-8.3) g/dL Albumin 3.3 L (3.5-5.0) g/dL Globulin 3.4 (2.4-3.5) g/dL Albumin/Globulin Ratio 1.0 L (1.1-2.2) Urine Color (Yellow) Urine Clarity (Clear) Urine pH (5.0-8.0) pH Units Ur Specific Scott (1.010-1.025) Urine Protein (Neg-Trace) mg/dL Urine Glucose (UA) (Normal) mg/dL Urine Ketones (Negative) mg/dL Urine Blood (Negative) Urine Nitrite (Negative) Urine Bilirubin (Negative) Urine Urobilinogen (Normal) mg/dL Ur Leukocyte Esterase (Negative) Ur Culture Indicated? (NO) 01/21/17 01/21/17 01/21/17 Range/Units 17:27 17:27 17:57 WBC (4.3-11.1) K/mcL RBC (4.19-5.50) M/mcL Hgb (12.9-16.9) g/dL Hct (37.5-50.1) % MCV (83.0-100.0) fL MCH (28.0-33.3) pg MCHC (31.6-35.5) g/dL RDW (11.5-14.5) % Plt Count (140-400) K/mcL MPV (9.4-12.4) fL Immature Gran % (0-4) % Seg Neutrophils % % Lymphocytes % % Monocytes % % Eosinophils % % Basophils % % Neutrophils # (1.6-8.9) K/mcL Lymphocytes # (0.6-4.6) K/mcL Monocytes # (0.0-1.3) K/mcL Eosinophils # (0.0-0.6) K/mcL Basophils # (0.0-0.2) K/mcL PT (9.4-12.1) Seconds INR APTT (26.0-36.0) Seconds Sodium (136-145) mEq/L Potassium (3.5-4.5) mEq/L Chloride (98-109) mEq/L Carbon Dioxide (19-29) mEq/L BUN (8-26) mg/dL Creatinine (0.72-1.25) mg/dL Est GFR ( Amer) (> 60) Est GFR (Non-Af Amer) (> 60) BUN/Creatinine Ratio (6-26) Glucose (70-99) mg/dL POC Glucose (58-89) Calculated Osmolality (280-300) Calcium (8.6-10.8) mg/dL Total Bilirubin (0.2-1.2) mg/dL AST (5-34) Units/L ALT (0-55) Units/L Alkaline Phosphatase (38-126) Units/L Troponin I 0.02 (0-0.03) ng/mL B-Natriuretic Peptide 27 (0-100) pg/mL Serum Total Protein (6.0-8.3) g/dL Albumin (3.5-5.0) g/dL Globulin (2.4-3.5) g/dL Albumin/Globulin Ratio (1.1-2.2) Urine Color Yellow (Yellow) Urine Clarity Clear (Clear) Urine pH 7.5 (5.0-8.0) pH Units Ur Specific Scott 1.014 (1.010-1.025) Urine Protein Negative (Neg-Trace) mg/dL Urine Glucose (UA) 100 H (Normal) mg/dL Urine Ketones Negative (Negative) mg/dL Urine Blood Negative (Negative) Urine Nitrite Negative (Negative) Urine Bilirubin Negative (Negative) Urine Urobilinogen Normal (Normal) mg/dL Ur Leukocyte Esterase Negative (Negative) Ur Culture Indicated? NO (NO) 01/21/17 Range/Units 18:02 WBC (4.3-11.1) K/mcL RBC (4.19-5.50) M/mcL Hgb (12.9-16.9) g/dL Hct (37.5-50.1) % MCV (83.0-100.0) fL MCH (28.0-33.3) pg MCHC (31.6-35.5) g/dL RDW (11.5-14.5) % Plt Count (140-400) K/mcL MPV (9.4-12.4) fL Immature Gran % (0-4) % Seg Neutrophils % % Lymphocytes % % Monocytes % % Eosinophils % % Basophils % % Neutrophils # (1.6-8.9) K/mcL Lymphocytes # (0.6-4.6) K/mcL Monocytes # (0.0-1.3) K/mcL Eosinophils # (0.0-0.6) K/mcL Basophils # (0.0-0.2) K/mcL PT (9.4-12.1) Seconds INR APTT (26.0-36.0) Seconds Sodium (136-145) mEq/L Potassium (3.5-4.5) mEq/L Chloride (98-109) mEq/L Carbon Dioxide (19-29) mEq/L BUN (8-26) mg/dL Creatinine (0.72-1.25) mg/dL Est GFR ( Amer) (> 60) Est GFR (Non-Af Amer) (> 60) BUN/Creatinine Ratio (6-26) Glucose (70-99) mg/dL POC Glucose 220 H (58-89) Calculated Osmolality (280-300) Calcium (8.6-10.8) mg/dL Total Bilirubin (0.2-1.2) mg/dL AST (5-34) Units/L ALT (0-55) Units/L Alkaline Phosphatase (38-126) Units/L Troponin I (0-0.03) ng/mL B-Natriuretic Peptide (0-100) pg/mL Serum Total Protein (6.0-8.3) g/dL Albumin (3.5-5.0) g/dL Globulin (2.4-3.5) g/dL Albumin/Globulin Ratio (1.1-2.2) Urine Color (Yellow) Urine Clarity (Clear) Urine pH (5.0-8.0) pH Units Ur Specific Scott (1.010-1.025) Urine Protein (Neg-Trace) mg/dL Urine Glucose (UA) (Normal) mg/dL Urine Ketones (Negative) mg/dL Urine Blood (Negative) Urine Nitrite (Negative) Urine Bilirubin (Negative) Urine Urobilinogen (Normal) mg/dL Ur Leukocyte Esterase (Negative) Ur Culture Indicated? (NO) - EKG Data EKG #1 EKG attestation: Yes I reviewed and interpreted this EKG. EKG results narrative: 17:55 A chest rate 82 bpm, LA interval 181 ms, QRS duration 120 ms, QT 360 ms, QTC 399 ms, normal axis. Sinus rhythm with a ventricular rate of 80 bpm. There are Q waves in the inferior leads. No acute ischemic changes are noted on the EKG. No significant changes compared to the old EKG dated on December 11, 2016.
[2017-01-21 17:36] LABS: Basophils # 0.1 K/mcL (0.0-0.2); Basophils % 0.9 %; Eosinophils # 0.3 K/mcL (0.0-0.6); Eosinophils % 2.9 %; Hematocrit 35.7 % (37.5-50.1); Hemoglobin 12.2 g/dL (12.9-16.9); Immature Granulocytes % 1.4 % (0-4); Lymphocytes # 2.6 K/mcL (0.6-4.6); Lymphocytes % 25.3 %; Mean Corpuscular HGB Conc 34.2 g/dL (31.6-35.5); Mean Corpuscular Volume 90.8 fL (83.0-100.0); Mean Platelet Volume 9.1 fL (9.4-12.4); Monocytes % 9.4 %; Neutrophils # 6.1 K/mcL (1.6-8.9); Platelet Count 307 K/mcL (140-400); Red Blood Count 3.93 M/mcL (4.19-5.50); Red Cell Distribution Width 14.6 % (11.5-14.5); Segmented Neutrophils % 60.1 %
[2017-01-21 17:41] LABS: Prothrombin Time 10.6 Seconds (9.4-12.1)
[2017-01-21 17:44] LABS: Activated Partial Thrombo Time 25.1 Seconds (26.0-36.0)
[2017-01-21 17:57] LABS: Alanine Aminotransferase 12 Units/L (0-55); Albumin 3.3 g/dL (3.5-5.0); Alkaline Phosphatase 60 Units/L (38-126); Aspartate Amino Transferase 11 Units/L (5-34); BUN/Creatinine Ratio 22 (6-26); Bilirubin,Total 0.3 mg/dL (0.2-1.2); Blood Urea Nitrogen 20 mg/dL (8-26); Calcium 8.7 mg/dL (8.6-10.8); Carbon Dioxide 25 mEq/L (19-29); Chloride 97 mEq/L (98-109); Globulin 3.4 g/dL (2.4-3.5); Glucose 159 mg/dL (70-99); Osmolality,Calculated 276 (280-300); Potassium 4.6 mEq/L (3.5-4.5); Sodium 130 mEq/L (136-145); Total Protein 6.7 g/dL (6.0-8.3); eGFR For African Americans > 60 (> 60); eGFR For Non-African Americans > 60 (> 60)
[2017-01-21 18:08] LABS: Bilirubin,Urine Negative (Negative); Blood,Urine Negative (Negative); Clarity,Urine Clear (Clear); Color,Urine Yellow (Yellow); Glucose,Urine (UA) 100 mg/dL (Normal); Ketones,Urine Negative (Negative); Leukocyte Esterase,Urine Negative (Negative); Nitrite,Urine Negative (Negative); PH,Urine 7.5 pH Units (5.0-8.0); Protein,Urine Negative (Neg-Trace); Specific Gravity,Urine 1.014 (1.010-1.025); Urobilinogen,Urine Normal (Normal)
[2017-01-21] MEDS: Nicotine 21 MG PATCH.TD24 TD SCH (18:18)
[2017-01-21] MEDS ORDERED: Thiamine (B-1) 100 MG, Folic Acid 1 MG, MVI, adult with vitamin K 10 ML in 0.9 % Sodi... IVPB ONE (18:45)
--- NOTE | 2017-01-21 19:00 | Emergency Department Note ---
START Narrative - START START: I examined this patient and my medical decision-making was reviewed with the Resident Physician. I agree with the documented findings, disposition and treatment plan as described except to the extent set forth below. 56 year old male presnt ot the ED via EMS with complaints of right foot pain and states that he has had mutliple falls recently and there is report that he may be homeless He states that he only seldomly drinks alcohol and he follows with sessions for his foot problems. Patient is aleart and ortiented at baseline and does not appear in acute disstress. He also has a hematoma/brise to the his abdomen on the right flank and deniea trauma. We will do a ABCT and syncope wokrup
[2017-01-21] MEDS ORDERED: Acetaminophen 325 MG TABLET PO PRN (21:36)
[2017-01-21] MEDS ORDERED: Naloxone 0.4 MG/ML INJ IVP PRN (21:36)
[2017-01-21] MEDS ORDERED: Ondansetron 4 MG/2 ML VIAL IVP PRN (21:36)
[2017-01-21] MEDS ORDERED: Nitroglycerin 0.4 MG TAB.SUBL SL PRN (21:39)
--- NOTE | 2017-01-21 21:43 | Internal Med History&Physical ---
Date of Encounter: 01/21/17 Time of Encounter: 21:30 Assessment and Plan (1) Frequent falls Current visit: Yes Status: Acute Frequent falls and injury to right foot and knee - unclear etiology - patient does have acute bronchitis Continue Aspirin, Plavix, Lipitor, Toprol-XL, Depakote Keflex and DuoNeb breathing treatment for bronchitis Troponin - 0.02, cycle troponin EKG - sinus rhythm with no acute ST-T changes Chest x-ray - no acute process CT Abdomen/pelvis - no acute abnormality, possible cystitis, mild hepatic steatosis, mild functional ileus CT head - no acute intracranial abnormality CT C-spine - no acute fracture, moderate degenerative disc disease X-ray right knee and right foot - no acute findings BNP - 27 Orthostatic vitals - pending Telemetry, labs in a.m., monitor closely (2) CAD (coronary artery disease) Current visit: Yes Status: Chronic Recent non-ST elevation PA - s/p LHC with unsuccessful PTCA of RCA, LVEF 45%, right PDA fills via left to right collaterals Continue optimal medical management with Aspirin, Plavix, Statin and beta clover Troponin - 0.02, cycle troponin EKG - sinus rhythm with no acute ST-T changes Echocardiogram (09/28/2016) - LVEF 45% with regional wall motion abnormalities, RV size and function normal Cardiac telemetry, monitor closely Qualifiers: Coronary Disease-Associated Artery/Lesion type: [place] artery [place] vs. transplanted heart: [place] heart Associated angina: without angina Qualified Code(s): I25.10 - Atherosclerotic heart disease of [place] coronary artery without angina pectoris (3) Diabetic foot ulcer Current visit: Yes Status: Chronic Chronic diabetic foot ulcer of left foot, lateral aspect of ankle S/p excisional debridement with saline irrigation Patient follows up with podiatry and wound care Qualifiers: Diabetic foot ulcer location: unspecified part of foot Diabetes mellitus type: type 2 Laterality: left Non-pressure ulcer stage: unspecified non- pressure ulcer stage Qualified Code(s): E11.621 - Type 2 diabetes mellitus with foot ulcer; L97.529 - Non-pressure chronic ulcer of other part of left foot with unspecified severity; L97.529 - Non-pressure chronic ulcer of other part of left foot with unspecified severity; L97.529 - Non-pressure chronic ulcer of other part of left foot with unspecified severity; L97.529 - Non- pressure chronic ulcer of other part of left foot with unspecified severity (4) Diabetes mellitus, type 2 Current visit: Yes Status: Chronic Type 2 diabetes mellitus, [id number], hyperglycemia Continue insulin sliding scale, glucose checks Qualifiers: Diabetes mellitus complication status: without complication 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: without terminal supervisor use Qualified Code(s): E11.9 - Type 2 diabetes mellitus without complications (5) Hypertension Current visit: Yes Status: Chronic Essential hypertension, controlled, monitor Continue home dose of Zestril, Toprol-XL Qualifiers: Hypertension type: essential hypertension Qualified Code(s): I10 - Essential (primary) hypertension (6) Schizoaffective disorder Current visit: Yes Status: Chronic Stable, continue home meds including Risperdal and Trazodone Qualifiers: Schizoaffective disorder type: depressive Qualified Code(s): F25.1 - Schizoaffective disorder, depressive type (7) Seizure disorder Current visit: Yes Status: Chronic Seizure disorder, stable Continue home dose of Depakote (8) Substance abuse Current visit: Yes Status: Chronic Chronic tobacco abuse and history of marijuana use Counseled about cessation, nicotine patch (9) DVT prophylaxis Current visit: Yes Status: Acute Heparin subcutaneous Internal Medicine - H&P: HPI Chief complaint: Frequent falls Admitted From: Emergency Dept Plans for Post Hospital Care: Home History of present illness: Mr. Frey is a 56 year old male with past medical history of hypertension, diabetes, schizoaffective disorder, COPD, depression, CAD and seizure disorder. Patient presents to the ED with complaints of frequent falls and right foot pain. Examined in the room. Patient is awake and alert. Not in any distress. He is able to provide all history. Patient states he has had recurrent falls over the past couple days. He states he felt his heart beat in his head for a few minutes. Patient also stated that he felt his knees were weak. Patient states he did not lose consciousness at any time. He states that he hit his head and right foot and right knee. Complains of blurry vision at times. Denies any seizure-like episode. Denies chest pain or palpitations. Denies vomiting or abdominal pain or fever. No other associated symptoms. No other acute complaints. Patient 6 weeks ago with similar complaints. Workup for syncope was negative at the time, and patient was discharged. He does have chronic left foot diabetic wound. Patient follows up with podiatry and wound care. He underwent excisional debridement and saline irrigation, and and then the dressing was changed. Today he complains of pain in right foot after a fall. Complains of mild shortness of breath. States he is on a antibiotic for acute bronchitis. Initial workup in the ED is negative. CT scan of the head is negative. Chest x -ray does not show any acute process. EKG shows sinus rhythm. Troponin is negative. Patient is being admitted with frequent falls. Patient has been explained about his condition and plan of care in detail. Understood and agreed. No unanswered questions. CODE STATUS full code. Past Med Surg Social Fam HX - Past Medical History Medical history: atrial fibrillation, COPD, diabetes, hypertension, other Psychiatric history: anxiety, depression, prior suicide attempt, schizophrenia - Past Surgical History Surgical History: other - Social History Smoking Status: Current every day smoker Smokeless Tobacco Status: No Alcohol use: occasionally Drug use: marijuana - Family History Daughter Living Status: Still Living Hx Family Cardiac Disorders: No Hx Family Respiratory Disorders: Yes Hx Family Cancer: No Hx Family GI Disorders: No Hx Family Endocrine Disorder: No Hx Family Neuromuscular Disorders: No Hx Family Neurologic Disorders: No Hx Family HEENT Disorders: No Hx Family Autoimmune Disorders: No Mother Living Status: Hx Family Cardiac Disorders: Yes Father Living Status: Hx Family Cardiac Disorders: Yes ([place]) Internal Medicine - H&P: Meds risperiDONE [Risperidone] 1 mg PO QAM 03/31/15 [History] Fenofibrate [Tricor] 54 mg PO DAILY 04/07/15 [History] Levothyroxine [Synthroid] 100 mcg PO QAM 04/07/15 [History] Pantoprazole Sodium [Protonix] 40 mg PO DAILY 10/04/15 [History] Dextran 70/Hypromellose [Artificial Tears] 1 drop OP DAILY 03/27/16 [History] Trazodone HCl 200 mg PO HS 08/21/16 [History] metFORMIN [Glucophage] 500 mg PO BID 08/21/16 [History] Aspirin 81 mg PO DAILY #30 09/30/16 [Rx] Clopidogrel [Plavix] 75 mg PO DAILY 30 Days tab 09/30/16 [Rx] Divalproex (12 HR) [Depakote (12 HR)] 1,500 mg PO BID 30 Days 09/30/16 [Rx] Atorvastatin [Lipitor] 40 mg PO HS 10/04/16 [History] Acetaminophen [Tylenol] 500 mg PO Q6H PRN 10/10/16 [History] Citalopram Hydrobromide [Citalopram HBr] 40 mg PO HS 10/10/16 [History] Lisinopril [Zestril] 5 mg PO DAILY 12/06/16 [History] Metoprolol XL (24 HR) Succ [Toprol Xl] 12.5 mg PO DAILY 12/06/16 [History] Magnesium Oxide [Magnesium] 400 mg PO DAILY #30 tablet 12/07/16 [Rx] Nicotine Patch [Nicoderm] 21 mg TD Q24H #30 patch.td24 12/07/16 [Rx] Nitroglycerin [Nitrostat] 0.4 mg SL Q5M PRN 12/11/16 [History] Gabapentin [Neurontin] 800 mg PO QID 12/27/16 [History] Glimepiride [Amaryl] 4 mg PO BID 12/27/16 [History] HYDROcodone/Acet 5/325 mg [[place] 5-325 mg] 1 tab PO Q6H PRN #10 tab 12/28/16 [Rx ] Benzonatate [Tessalon] 200 mg PO TID PRN #30 capsule 01/14/17 [Rx] cephALEXin [Keflex] 500 mg PO QID #40 capsule 01/14/17 [Rx] RisperiDONE [Risperidone Odt] 3 mg PO HS 01/17/17 [History] hydrOXYzine pamoate [HydrOXYzine Pamoate] 25 mg PO TID 01/17/17 [History] 3 Allergy/AdvReac Type Severity Reaction Status Date / Time No Known Allergies Allergy Verified 01/14/17 16:14 All Systems PM: A 10-system review of systems was performed and is negative for pertinent findings except as documented above in the HPI. - Constitutional Constitutional: fatigue, weakness, no fever(s) - EENT Eyes: blurry vision Nose, mouth and throat: no dry mouth - Cardiovascular Cardiovascular ROS IM: dyspnea, lightheadedness, no chest pain, no diaphoresis, no dyspnea on exertion, no edema, no orthopnea, no palpitations, no syncope - Respiratory Respiratory: cough, dyspnea, dyspnea on exertion, wheezing, chest congestion, no hemoptysis - Gastrointestinal Gastrointestinal: no abdominal pain, no bloating, no constipation, no cramping, no diarrhea, no hematemesis, no hematochezia, no loose stools, no melena, no nausea, no vomiting - Genitourinary Genitourinary ROS male: no dysuria - Musculoskeletal Musculoskeletal ROS IM: no back pain - Neurological Neurological ROS: frequent falls, no abnormal gait, no abnormal movements, no abnormal speech, no confusion, no convulsions, no dizziness, no loss of vision, no numbness, no tingling - Constitutional Vitals: Temp Pulse Resp BP Pulse Ox 98.5 F 82 16 112/78 96 01/21/17 17:03 01/21/17 21:15 01/21/17 21:15 01/21/17 21:15 01/21/17 21:15 General appearance: Present: cooperative, A&O X 3, pleasant, no acute distress, answers questions appropriately - Head Head exam: Present: atraumatic - Eye Eye exam: Present: EOMI, sclera anicteric Additional comments: Right prosthetic eye - ENT ENT exam: Present: mucous membranes moist - Respiratory Respiratory exam: Present: wheezes (Mild bilateral). Absent: accessory muscle use, chest wall tenderness, rales, respiratory distress, rhonchi, tachypnea - Cardiovascular Cardiovascular exam: Present: RRR, +S1, +S2 - GI/Abdominal GI/Abdominal exam: Present: soft. Absent: distended, firm, guarding, tenderness - Extremities Exam Extremities exam: Present: radial pulses palpable and symmetrical. Absent: calf tenderness, cyanotic, pedal edema - Neurological Exam Neurological exam: Present: alert, CN II-XII intact, oriented X3, no focal deficits. Absent: facial droop, speech deficit Internal Med - H&P Results - Labs CBC & Chem 7: 01/21/17 17:27 01/21/17 17:27
[2017-01-21] MEDS: Divalproex (12 HR) 500 MG TABLET PO SCH (23:40)
[2017-01-21] MEDS: Aspirin 81 MG TAB.CHEW PO SCH (23:41)
[2017-01-21] MEDS: Magnesium Oxide 400 MG TABLET PO SCH (23:41)
[2017-01-21] MEDS: Fenofibrate 54 MG TABLET PO SCH (23:41)
[2017-01-21] MEDS: Metoprolol XL (24 HR) Succ 25 MG TAB.ER.24H PO SCH ×2 (23:42→23:54)
[2017-01-21] MEDS: *HR* Morphine 2 MG/ML SYRINGE IVP PRN (23:42)
[2017-01-22] MEDS ORDERED: D5% in Water 1,000 ML IVC PRN (01:21)
[2017-01-22] MEDS ORDERED: *HR* Dextrose 50 % in Water (Syg) 50 ML SYRINGE IVP PRN (01:21)
[2017-01-22] MEDS ORDERED: Dextrose Gel 15 GM PO PRN ×2 (01:21)
[2017-01-22] MEDS: RisperiDAL 3 MG TABLET PO SCH ×2 (02:02→21:06)
[2017-01-22] MEDS: traZODone 50 MG TABLET PO SCH ×2 (02:02→21:06)
[2017-01-22 02:52] LABS: Basophils # 0.1 K/mcL (0.0-0.2); Basophils % 0.9 %; Eosinophils # 0.4 K/mcL (0.0-0.6); Eosinophils % 4.3 %; Hematocrit 36.5 % (37.5-50.1); Hemoglobin 12.5 g/dL (12.9-16.9); Immature Granulocytes % 1.7 % (0-4); Immature Platelets 2.9 % (1.1-6.1); Lymphocytes % 33.5 %; Mean Corpuscular HGB Conc 34.2 g/dL (31.6-35.5); Mean Corpuscular Hemoglobin 31.3 pg (28.0-33.3); Mean Corpuscular Volume 91.5 fL (83.0-100.0); Mean Platelet Volume 9.2 fL (9.4-12.4); Monocytes % 10.8 %; Neutrophils # 4.4 K/mcL (1.6-8.9); Platelet Count 335 K/mcL (140-400); Red Blood Count 3.99 M/mcL (4.19-5.50); Red Cell Distribution Width 14.6 % (11.5-14.5); Segmented Neutrophils % 48.8 %
[2017-01-22 03:03] LABS: BUN/Creatinine Ratio 16 (6-26); Blood Urea Nitrogen 15 mg/dL (8-26); Calcium 9.1 mg/dL (8.6-10.8); Carbon Dioxide 26 mEq/L (19-29); Chloride 98 mEq/L (98-109); Glucose 210 mg/dL (70-99); Magnesium 1.6 mg/dL (1.6-2.6); Osmolality,Calculated 281 (280-300); Potassium 4.9 mEq/L (3.5-4.5); Sodium 132 mEq/L (136-145); eGFR For African Americans > 60 (> 60); eGFR For Non-African Americans > 60 (> 60)
[2017-01-22] MEDS: Ipratropium/Albuterol Neb 3 ML IH SCH ×5 (03:37→21:18)
[2017-01-22] MEDS: *HR* Morphine 2 MG/ML SYRINGE IVP PRN ×2 (04:02→08:04)
[2017-01-22] MEDS: *HR* Heparin 5,000 UNIT/ML VIAL SQ SCH ×2 (05:05→17:53)
[2017-01-22] MEDS: Insulin LISPRO 300 UNITS/3 ML VIAL SQ SCH ×4 (07:59→21:12)
[2017-01-22] MEDS: Divalproex (12 HR) 500 MG TABLET PO SCH ×2 (08:00→21:05)
[2017-01-22] MEDS: hydrOXYzine pamoate 25 MG CAPSULE PO SCH ×3 (08:00→21:05)
[2017-01-22] MEDS: Aspirin 81 MG TAB.CHEW PO SCH (08:00)
[2017-01-22] MEDS: risperiDONE 1 MG TABLET PO SCH (08:00)
[2017-01-22] MEDS: Nicotine 21 MG PATCH.TD24 TD SCH (08:00)
[2017-01-22] MEDS: cephALEXin 500 MG CAPSULE PO SCH ×4 (08:00→21:06)
[2017-01-22] MEDS: Fenofibrate 54 MG TABLET PO SCH (08:00)
[2017-01-22] MEDS: Magnesium Oxide 400 MG TABLET PO SCH (08:00)
[2017-01-22] MEDS: Metoprolol XL (24 HR) Succ 25 MG TAB.ER.24H PO SCH (08:01)
[2017-01-22] MEDS: Artificial Tears SOLN 15 ML BOTTLE OP SCH (08:04)
[2017-01-22] MEDS: *HR* HYDROcodone/Acet 5/325 mg TABLET PO PRN ×2 (14:54→21:05)
--- NOTE | 2017-01-22 15:42 | Electrocardiograph Report ---
[place] [id number] Test Date: 2017-01-21 Pat Name: Joe Frey Department: 103 Room: [facility] Gender: M [employer] Molder: SIMONA : 1960 Requested By: Reji Lundberg Order Number: [id number] Reading MD: Gamal Silva Measurements Intervals [place] Rate: 82 P: 54 [place]: 181 QRS: 13 QRSD: 120 T: 6 QT: 360 QTc: 399 Interpretive Statements SINUS RHYTHM Electronically Signed On 01-22-2017 15:40:38 EST by Gamal Silva
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
[2017-01-22] MEDS ORDERED: RISPERIDONE 3 MG PO SCH (21:00)
[2017-01-22] MEDS ORDERED: NON-FORMULARY MEDICATION 1 EACH EACH (Trazodone Hcl [Trazodone Hcl] 200 MG) PO SCH (21:00)
[2017-01-22] MEDS: Gabapentin 300 MG CAPSULE PO SCH (21:06)
[2017-01-23] MEDS: Ipratropium/Albuterol Neb 3 ML IH SCH ×4 (03:45→21:48)
[2017-01-23] MEDS: *HR* Heparin 5,000 UNIT/ML VIAL SQ SCH ×2 (04:36→17:59)
[2017-01-23] MEDS: *HR* HYDROcodone/Acet 5/325 mg TABLET PO PRN ×4 (04:36→23:27)
[2017-01-23 05:55] LABS: BUN/Creatinine Ratio 13 (6-26); Blood Urea Nitrogen 11 mg/dL (8-26); Calcium 8.4 mg/dL (8.6-10.8); Carbon Dioxide 23 mEq/L (19-29); Chloride 99 mEq/L (98-109); Glucose 181 mg/dL (70-99); Osmolality,Calculated 278 (280-300); Potassium 4.1 mEq/L (3.5-4.5); Sodium 132 mEq/L (136-145); eGFR For African Americans > 60 (> 60); eGFR For Non-African Americans > 60 (> 60)
[2017-01-23] MEDS: Artificial Tears SOLN 15 ML BOTTLE OP SCH (09:33)
[2017-01-23] MEDS: Aspirin 81 MG TAB.CHEW PO SCH (09:33)
[2017-01-23] MEDS: hydrOXYzine pamoate 25 MG CAPSULE PO SCH ×3 (09:33→20:22)
[2017-01-23] MEDS: Nicotine 21 MG PATCH.TD24 TD SCH (09:33)
[2017-01-23] MEDS: Gabapentin 300 MG CAPSULE PO SCH ×3 (09:34→20:22)
[2017-01-23] MEDS: Divalproex (12 HR) 500 MG TABLET PO SCH ×2 (09:34→20:22)
[2017-01-23] MEDS: Insulin LISPRO 300 UNITS/3 ML VIAL SQ SCH ×4 (09:34→21:54)
[2017-01-23] MEDS: Magnesium Oxide 400 MG TABLET PO SCH (09:34)
[2017-01-23] MEDS: risperiDONE 1 MG TABLET PO SCH (09:34)
[2017-01-23] MEDS: cephALEXin 500 MG CAPSULE PO SCH ×4 (09:34→23:27)
[2017-01-23] MEDS: Fenofibrate 54 MG TABLET PO SCH (09:34)
[2017-01-23] MEDS: Metoprolol XL (24 HR) Succ 25 MG TAB.ER.24H PO SCH (09:34)
[2017-01-23] MEDS ORDERED: Nicotine 21 MG PATCH.TD24 TD ONE (15:17)
--- NOTE | 2017-01-23 16:45 | Internal Med Progress Note ---
Date of Encounter: 01/23/17 Time of Encounter: 16:43 - Assessment and plan (1) Frequent falls Current Visit: Yes Status: Acute Assessment and plan: with multiple falls for 4-5 days prior to presentation. Etiology unknown at this time. Head CT nonacute. Brain MRI with significant disc extrusion at C3- C4 with associated spinal canal stenosis. Carotid Dopplers, echo and cervical MRI pending. Check orthostatics. Fall precautions. (2) Acute sinusitis Current Visit: Yes Status: Acute Assessment and plan: brain MRI with extensive paranasal sinus disease. Start azithromycin Qualifiers: Sinusitis location: pansinusitis Recurrence: non-recurrent Qualified Code (s): J01.40 - Acute pansinusitis, unspecified (3) Seizure disorder Current Visit: Yes Status: Chronic Assessment and plan: per hx. Falls do not appear to be related to seizure as no loss of consciousness , no bowel or bladder incontinence and no evidence of biting tongue. Continue home AEDs. Depakote level pending. (4) MDD (major depressive disorder), recurrent severe, without psychosis Current Visit: No Status: Acute Assessment and plan: per hx. follows with psychiatry outpatient. Symptoms appear controlled. Continue home medication regimen. (5) DVT prophylaxis Current Visit: Yes Status: Acute Assessment and plan: heparin (6) CAD (coronary artery disease) Current Visit: Yes Status: Chronic Assessment and plan: per hx. Asymptomatic. Denies chest pain. Serial troponin negative, EKG without acute ST changes. [facility] 09/2016 with PTCA and single major vessel disease. EF of 45%. Continue aspirin, Lipitor, Plavix, beta clover. Qualifiers: Coronary Disease-Associated Artery/Lesion type: [place] artery [place] vs. transplanted heart: [place] heart Associated angina: without angina Qualified Code(s): I25.10 - Atherosclerotic heart disease of [place] coronary artery without angina pectoris - Subjective Interval history: Seen and examined at bedside, patient is known to me from previous hospitalization. Patient says he feels somewhat improved. When asked about his falls, he tells me his had multiple falls for the past 3 or 4 days. Says he feels an episode coming on after he goes from a sitting to standing position , reports had feeling cloudy and can feel pulses throbbing in his head. Says he starts to shake, knees give out and he falls to the ground. Denies hitting head, no loss of consciousness. He is not sure if episodes have been witnessed. Blurred or double vision, no headaches. No numbness or tingling. No bowel or bladder incontinence. No evidence of biting tongue. - Constitutional Vitals: Temp Pulse Resp BP Pulse Ox 97.6 F 86 14 96/64 96 01/23/17 15:18 01/23/17 16:04 01/23/17 15:18 01/23/17 16:04 01/23/17 15:18 General appearance: Present: cooperative, A&O X 3, pleasant, no acute distress, answers questions appropriately - Head Head exam: Present: atraumatic, normocephalic - Eye Eye exam: Present: PERRL, conjuntiva pink, sclera anicteric Pupils: Present: PERRL - Neck Neck exam general surgery: Present: supple, trachea midline. Absent: lymphadenopathy - Respiratory Respiratory exam: Present: CTAB. Absent: accessory muscle use, rales, rhonchi, wheezes - Cardiovascular Cardiovascular exam: Present: RRR, +S1, +S2. Absent: diastolic murmur, gallop, rubs, systolic murmur - GI/Abdominal GI/Abdominal exam: Present: normal bowel sounds, soft, no peritoneal signs. Absent: distended, tenderness - Extremities Exam Extremities exam: Present: warm, radial pulses palpable and symmetrical. Absent : calf tenderness, cyanotic, pedal edema - Neurological Exam Neurological exam: Present: CN II-XII intact, oriented X3, no focal deficits. Absent: pronater drift, facial droop, speech deficit - Skin Skin exam: Present: dry, intact Internal Medicine: Result - Labs CBC & Chem 7: 01/22/17 02:46 01/23/17 04:23 Labs: BMP 01/23/17 04:23 Sodium 132 L Potassium 4.1 Chloride 99 Carbon Dioxide 23 BUN 11 Creatinine 0.83 Glucose 181 H Calcium 8.4 L - ABG Interpretation ABG results: PT/INR, D-dimer PT 10.6 Seconds (9.4-12.1) 01/21/17 17:27 - Impressions Impressions Brain MRI 01/23/17 11:03 IMPRESSION: No acute infarct, intracranial hemorrhage, or significant mass effect. Significant disc extrusion at C3-C4 with associated spinal canal stenosis. This is partially imaged on this examination. Correlate with any symptoms of spinal canal stenosis and/or spinal cord compression. Dedicated MRI cervical spine may be obtained if clinically warranted. This is new since a previous brain MRI on 01/28/2014. Extensive paranasal sinus disease as detailed above. Nonspecific left mastoid effusion. D/ / 01/23/2017 14:01:07 Klaus Rizo MD / adam Interpreting Provider: Klaus Rizo MD Consult Discharge Plan - Plan Referrals: Ruben Andre DO [Primary Care Provider] -
[2017-01-23] MEDS ORDERED: Azithromycin 500 MG in D5% in Water 250 ML IVPB SCH (18:00)
[2017-01-23 19:28] LABS: Adenovirus Not Detected (Not Detect); Bordetella Pertussis Not Detected (Not Detect); Chlamydophila pneumoniae Not Detected (Not Detect); Coronavirus 229E Not Detected (Not Detect); Coronavirus HKU1 Not Detected (Not Detect); Coronavirus NL63 Not Detected (Not Detect); Coronavirus OC43 Not Detected (Not Detect); Human Metapneumovirus Not Detected (Not Detect); Human Rhinovirus/Enterovirus Not Detected (Not Detect); Influenza A Subtype 2009 H1 Not Detected (Not Detect); Influenza A Untypeable Not Detected (Not Detect); Influenza B Not Detected (Not Detect); Mycoplasma pneumoniae Not Detected (Not Detect); Parainfluenza Virus 1 Not Detected (Not Detect); Parainfluenza Virus 2 Not Detected (Not Detect); Parainfluenza Virus 3 Not Detected (Not Detect); Parainfluenza Virus 4 Not Detected (Not Detect); Respiratory Syncytial Virus Not Detected (Not Detect)
[2017-01-23] MEDS: RisperiDAL 3 MG TABLET PO SCH (20:22)
[2017-01-23] MEDS: traZODone 50 MG TABLET PO SCH (20:22)
[2017-01-23] MEDS: Saline Nasal Spray 44 ML BOTTLE NS SCH (20:24)
[2017-01-24] MEDS: Ipratropium/Albuterol Neb 3 ML IH SCH ×4 (04:08→21:46)
[2017-01-24] MEDS: *HR* HYDROcodone/Acet 5/325 mg TABLET PO PRN ×4 (05:35→23:38)
[2017-01-24] MEDS: *HR* Heparin 5,000 UNIT/ML VIAL SQ SCH ×2 (05:36→17:28)
[2017-01-24 05:44] LABS: Hematocrit 31.9 % (37.5-50.1); Hemoglobin 11.1 g/dL (12.9-16.9); Mean Corpuscular HGB Conc 34.8 g/dL (31.6-35.5); Mean Corpuscular Hemoglobin 31.2 pg (28.0-33.3); Mean Corpuscular Volume 89.6 fL (83.0-100.0); Mean Platelet Volume 9.4 fL (9.4-12.4); Platelet Count 258 K/mcL (140-400); Red Blood Count 3.56 M/mcL (4.19-5.50); Red Cell Distribution Width 14.2 % (11.5-14.5)
[2017-01-24] MEDS: Nicotine 21 MG PATCH.TD24 TD SCH (08:26)
[2017-01-24] MEDS: Divalproex (12 HR) 500 MG TABLET PO SCH ×2 (08:27→21:02)
[2017-01-24] MEDS: Gabapentin 300 MG CAPSULE PO SCH ×3 (08:27→21:03)
[2017-01-24] MEDS: Aspirin 81 MG TAB.CHEW PO SCH (08:27)
[2017-01-24] MEDS: Magnesium Oxide 400 MG TABLET PO SCH (08:28)
[2017-01-24] MEDS: Fenofibrate 54 MG TABLET PO SCH (08:28)
[2017-01-24] MEDS: risperiDONE 1 MG TABLET PO SCH (08:28)
[2017-01-24] MEDS: cephALEXin 500 MG CAPSULE PO SCH ×2 (08:28→11:35)
[2017-01-24] MEDS: hydrOXYzine pamoate 25 MG CAPSULE PO SCH ×3 (08:28→21:03)
[2017-01-24] MEDS: Metoprolol XL (24 HR) Succ 25 MG TAB.ER.24H PO SCH (08:29)
[2017-01-24] MEDS: Saline Nasal Spray 44 ML BOTTLE NS SCH ×2 (08:31→21:08)
[2017-01-24] MEDS: Artificial Tears SOLN 15 ML BOTTLE OP SCH (08:31)
[2017-01-24] MEDS: Insulin LISPRO 300 UNITS/3 ML VIAL SQ SCH ×4 (08:32→21:07)
[2017-01-24 08:45] LABS: BUN/Creatinine Ratio 7 (6-26); Blood Urea Nitrogen 6 mg/dL (8-26); Carbon Dioxide 22 mEq/L (19-29); Chloride 91 mEq/L (98-109); Glucose 238 mg/dL (70-99); Magnesium 1.3 mg/dL (1.6-2.6); Osmolality,Calculated 259 (280-300); Potassium 4.4 mEq/L (3.5-4.5); eGFR For African Americans > 60 (> 60); eGFR For Non-African Americans > 60 (> 60)
[2017-01-24 08:52] LABS: Sodium 122 mEq/L (136-145)
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
[2017-01-24] MEDS: 0.9 % Sodium Chloride 1,000 ML IVC SCH (17:33)
[2017-01-24] MEDS: traZODone 50 MG TABLET PO SCH (21:02)
[2017-01-24] MEDS: RisperiDAL 3 MG TABLET PO SCH (21:03)
[2017-01-25] MEDS: Ipratropium/Albuterol Neb 3 ML IH SCH ×2 (04:01→11:27)
[2017-01-25] MEDS: *HR* Heparin 5,000 UNIT/ML VIAL SQ SCH (05:31)
[2017-01-25 06:01] LABS: BUN/Creatinine Ratio 9 (6-26); Blood Urea Nitrogen 7 mg/dL (8-26); Calcium 8.3 mg/dL (8.6-10.8); Carbon Dioxide 22 mEq/L (19-29); Chloride 96 mEq/L (98-109); Glucose 167 mg/dL (70-99); Osmolality,Calculated 266 (280-300); Potassium 4.4 mEq/L (3.5-4.5); Sodium 127 mEq/L (136-145); eGFR For African Americans > 60 (> 60); eGFR For Non-African Americans > 60 (> 60)
[2017-01-25 06:04] LABS: Hematocrit 33.6 % (37.5-50.1); Hemoglobin 11.4 g/dL (12.9-16.9); Mean Corpuscular HGB Conc 33.9 g/dL (31.6-35.5); Mean Corpuscular Hemoglobin 30.7 pg (28.0-33.3); Mean Corpuscular Volume 90.6 fL (83.0-100.0); Platelet Count 259 K/mcL (140-400); Red Blood Count 3.71 M/mcL (4.19-5.50); Red Cell Distribution Width 14.1 % (11.5-14.5)
[2017-01-25] MEDS: *HR* HYDROcodone/Acet 5/325 mg TABLET PO PRN (06:05)
[2017-01-25] MEDS: 0.9 % Sodium Chloride 1,000 ML IVC SCH (07:11)
[2017-01-25 07:35] VITALS: BP 102/62
[2017-01-25] MEDS: Magnesium Oxide 400 MG TABLET PO SCH (08:17)
[2017-01-25] MEDS: risperiDONE 1 MG TABLET PO SCH (08:17)
[2017-01-25] MEDS: Gabapentin 300 MG CAPSULE PO SCH (08:18)
[2017-01-25] MEDS: Aspirin 81 MG TAB.CHEW PO SCH (08:18)
[2017-01-25] MEDS: Divalproex (12 HR) 500 MG TABLET PO SCH (08:18)
[2017-01-25] MEDS: Fenofibrate 54 MG TABLET PO SCH (08:18)
[2017-01-25] MEDS: Nicotine 21 MG PATCH.TD24 TD SCH (08:20)
[2017-01-25] MEDS: Saline Nasal Spray 44 ML BOTTLE NS SCH (08:23)
[2017-01-25] MEDS: Artificial Tears SOLN 15 ML BOTTLE OP SCH (08:23)
[2017-01-25] MEDS: Insulin LISPRO 300 UNITS/3 ML VIAL SQ SCH (08:23)
[2017-01-25] MEDS: hydrOXYzine pamoate 25 MG CAPSULE PO SCH (08:29)
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
== END 2017-01-25 11:05 | disposition home or self-care (01) ==
LOC: 3BNU 17:01 → EMEROO 17:01 → SUATTDRO 21:28 → 3BNU 22:30
PROVIDERS: ADMIT Family Medicine; ATTEND Registered Nurse

== ENCOUNTER 2017-02-06 08:14 | Observation (INO) ==
[2017-02-06] MEDS ORDERED: *HR* HYDROcodone/Acet 5/325 mg TABLET PO ONE (08:46)
[2017-02-06] MEDS ORDERED: 0.9 % Sodium Chloride 1,000 ML IVC ONE (08:58)
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
[2017-02-06 09:10] LABS: Basophils % 0.7 %; Eosinophils # 0.5 K/mcL (0.0-0.6); Eosinophils % 9.3 %; Hematocrit 36.5 % (37.5-50.1); Hemoglobin 12.4 g/dL (12.9-16.9); Immature Granulocytes % 1.7 % (0-4); Lymphocytes # 1.5 K/mcL (0.6-4.6); Lymphocytes % 25.1 %; Mean Corpuscular Hemoglobin 30.6 pg (28.0-33.3); Mean Corpuscular Volume 90.1 fL (83.0-100.0); Mean Platelet Volume 9.1 fL (9.4-12.4); Monocytes # 0.9 K/mcL (0.0-1.3); Neutrophils # 2.8 K/mcL (1.6-8.9); Platelet Count 187 K/mcL (140-400); Red Blood Count 4.05 M/mcL (4.19-5.50); Red Cell Distribution Width 13.3 % (11.5-14.5); Segmented Neutrophils % 47.2 %
[2017-02-06 09:16] LABS: INR 1.1; Prothrombin Time 11.4 Seconds (9.4-12.1)
[2017-02-06 09:23] LABS: BUN/Creatinine Ratio 12 (6-26); Blood Urea Nitrogen 10 mg/dL (6-20); Carbon Dioxide 26 mEq/L (23-29); Chloride 98 mEq/L (98-107); Glucose 150 mg/dL (70-105); Osmolality,Calculated 274 (280-300); Potassium 4.1 mEq/L (3.5-5.1); Sodium 131 mEq/L (136-145); eGFR For African Americans > 60 (> 60); eGFR For Non-African Americans > 60 (> 60)
[2017-02-06 09:46] LABS: Bilirubin,Urine Negative (Negative); Blood,Urine Small (Negative); Clarity,Urine Clear (Clear); Color,Urine Yellow (Yellow); Glucose,Urine (UA) Normal (Normal); Ketones,Urine Negative (Negative); Leukocyte Esterase,Urine Negative (Negative); Nitrite,Urine Negative (Negative); Protein,Urine Negative (Neg-Trace); Specific Gravity,Urine 1.015 (1.010-1.025); Urobilinogen,Urine Normal (Normal)
[2017-02-06 09:49] LABS: Bacteria,Urine None Seen per hpf (None-Few); Hyaline Casts,Urine None Seen per lpf (None-Few); Squamous Epithelial Cell,Urine Few per lpf (None-Few); WBC,Urine 0-3 per hpf (0-3)
[2017-02-06 11:21] VITALS: BP 111/72
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
--- NOTE | 2017-02-06 16:55 | Electrocardiograph Report ---
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
== END 2017-02-06 14:24 | disposition home or self-care (01) ==
LOC: 3BNU 08:14 → EMEROO 08:14 → 3BNU 11:03
PROVIDERS: ADMIT Internal Medicine Nephrology; ATTEND Registered Nurse

== ENCOUNTER 2017-07-16 12:04 | Inpatient (IN) ==
[2017-07-16] MEDS ORDERED: 0.9 % Sodium Chloride 1,000 ML IVC ONE (12:11)
--- NOTE | 2017-07-16 12:17 | Emergency Department Note ---
Disposition Clinical Impression: Seizure, Hyponatremia Disposition: Admitted As Inpatient Condition: Critical Referrals: Ruben Andre DO [Primary Care Provider] - Forms: ED Satisfaction Letter Time of Disposition: 15:56 Altered Mental Status HPI - General Chief Complaint: ED Altered Mental Status Stated Complaint: AMS Time Seen by Provider: 07/16/17 12:11 Source: EMS Mode of arrival: EMS Limitations: altered mental status Nursing Notes Reviewed: Yes Vital Signs Reviewed: Yes - History of Present Illness HPI Narrative: 56-year-old male with history of seizures, diabetes, hypertension, previous suicidal ideation, arrives to the emergency department with complaint of alteration in mentation. The patient had an EMS call for seizure-like activity from family and friends in house. EMS arrived and the patient was altered. And not answering questions appropriately. EMS checked vital signs which were within normal limits. Glucose was in the 130s. The patient remained altered and is unable to follow commands or answer questions. He is currently protecting his airway. Incident started roughly 3 hours prior to arrival. - Related Data Home Medications Medication Instructions Recorded Confirmed Fenofibrate [Tricor] 54 mg PO DAILY 04/07/15 07/16/17 Levothyroxine [Synthroid] 100 mcg PO QAM 04/07/15 07/16/17 Pantoprazole Sodium [Protonix] 40 mg PO DAILY 10/04/15 07/16/17 Trazodone HCl 200 mg PO HS 08/21/16 07/16/17 metFORMIN [Glucophage] 500 mg PO BID 08/21/16 07/16/17 Atorvastatin [Lipitor] 40 mg PO HS 10/04/16 07/16/17 Acetaminophen [Tylenol] 500 mg PO Q6H PRN 10/10/16 07/16/17 Nitroglycerin [Nitrostat] 0.4 mg SL Q5M PRN 12/11/16 07/16/17 Gabapentin [Neurontin] 800 mg PO QID 12/27/16 07/16/17 Glimepiride [Amaryl] 4 mg PO BID 12/27/16 07/16/17 hydrOXYzine pamoate [HydrOXYzine 25 mg PO TID 01/17/17 07/16/17 Pamoate] Citalopram [CeleXA] 20 mg PO DAILY 02/06/17 07/16/17 Lisinopril [Zestril] 2.5 mg PO DAILY 02/06/17 07/16/17 Isosorbide MONOnitrate (24 HR) 30 mg PO DAILY 07/16/17 07/16/17 [Imdur] Linezolid [Linezolid] 600 mg PO BID 07/16/17 07/16/17 Sodium Chloride [Sodium Chloride 1 gm PO BID 07/16/17 07/16/17 Tab] levoFLOXacin [Levofloxacin] 500 mg PO DAILY 07/16/17 07/16/17 Previous Rx's Medication Instructions Recorded Aspirin 81 mg PO DAILY #30 09/30/16 Clopidogrel [Plavix] 75 mg PO DAILY 30 Days tab 09/30/16 Divalproex (12 HR) [Depakote (12 1,500 mg PO BID 30 Days 09/30/16 HR)] Carvedilol 3.125 mg PO DAILY #30 tablet 01/25/17 Lidocaine Patch [Lidoderm 5% patch] 1 each TP DAILY PRN #10 adh..patch 07/11/17 Allergies Allergy/AdvReac Type Severity Reaction Status Date / Time No Known Allergies Allergy Verified 07/16/17 13:29 Limitations: ROS unobtainable due to patients medical condition Past Medical History - Past Medical History Source: old records reviewed Medical history: Reports: diabetes, hypertension, myocardial infarction, other Surgical history: Reports: other Psychiatric history: Reports: anxiety, bipolar, depression, prior suicide attempt, schizophrenia - Social History Smoking Status: Current every day smoker Smokeless Tobacco Status: No Alcohol use: Reports: none Drug use: Reports: marijuana Physical Exam - General Limitations: altered mental status General appearance: in no apparent distress, other (Somnolent) - Head Head exam: atraumatic, normocephalic, normal inspection - Eye Eye exam: Present: normal appearance, other (Prosthetic right eye) - ENT ENT exam: normal exam, normal oropharynx, mucous membranes moist - Neck Neck exam: Present: normal inspection, full ROM, trachea midline - Chest Chest inspection: Present: normal inspection, symmetric chest wall rise - Respiratory Respiratory exam: Present: normal lung sounds bilaterally - Cardiovascular Cardiovascular exam: Present: regular rate, normal rhythm, normal heart sounds - Abdominal Exam Abdominal exam: Present: soft, Non-Tender. Absent: tenderness, distention, guarding, rebound, rigidity - Extremities Exam Extremities exam: Present: normal inspection, full ROM. Absent: tenderness, pedal edema - Expanded Neurological Exam Coma Scale Eye Opening: To Voice Coma Scale Motor Response: Localizes to Pain Coma Scale Verbal Response: Incomprehensible Coma Scale Total: 10 Course - Reevaluation(s) Reevaluation #1: Patient was being evaluated in the emergency department. At that time the patient attempted to get out of the cot and hit his head on the wall. In addition the patient was noted to have a seizure that was generalized tonic- clonic. It lasted roughly 15-20 seconds. The patient was postictal after the seizure. The patient had not received head CT at that time. We will continue with the plan of altered mentation workup. In addition the patient was placed in a c-collar after his fall. Patient was administered 2 mg IV Ativan at that time. Time: 12:59 Reevaluation #2: Patient was noted to be hyponatremic with a sodium of 1:15. At that time nephrology was consulted. A central line was placed in the right internal jugular. This was placed for a 3% saline infusion. Nephrology was spoken to and gave recommendations of 3% at 50 mL per hour with every hour sodium checks until 120 and then decrease to a normal saline infusion at 100 mL per hour. Time: 14:14 Vital Signs Temperature 98.4 F 07/16/17 12:09 Pulse Rate 92 07/16/17 12:09 Respiratory Rate 18 07/16/17 12:09 Blood Pressure 145/85 07/16/17 12:09 O2 Sat by Pulse Oximetry 97 07/16/17 12:09 Temperature 98.4 F 07/16/17 12:09 Pulse Rate 78 07/16/17 15:25 Respiratory Rate 6 07/16/17 15:25 Blood Pressure 119/84 07/16/17 15:25 O2 Sat by Pulse Oximetry 95 07/16/17 15:25 Oxygen Delivery Oxygen Delivery Room Air Procedures - Central Line Placement Right IJ Central Line Inserted*: Yes Central Line Insertion: emergent Consent Obtained: verbal consent Procedural Pause: verify patient name and date of , timeout performed per policy, marc and assess the site, assemble equipment and verify supplies, perform hand hygiene Patient Placed on Monitor/Pulse Ox: Yes During the Procedure: clinician is wearing sterile gloves, cap, mask,& gown during insertion, sterile field and sterile technique are maintained, patient's face is covered with drape or mask and wearing a cap, everyone in room is wearing a mask Central Line Prep: Chlorhexidine scrub Prep the Procedure Site: apply chloraprep to the skin using a back and forth scrubbing motion, apply chloraprep for 30 seconds (upper body), 1-2 min ( femoral sites), allow prep to dry, drape the patient with a full body drape Ultrasound Used for Placement: Yes Central Line Lumen Inserted: triple Post Procedure: sutured in place, good blood return, all ports aspirated, flushed, capped, sterile dressing applied, guide wire removed and visualized, dressing is dated Post Procedure X-Ray: tip of catheter in good position, no pneumothorax seen Patient Tolerated Procedure: well, no complications Complications: none Name of Clinician Inserting Central Line: Sonya Clinician Assisting/Completing Checklist: Cam Date: 07/16/17 Time: 14:15 Altered Mental Status - Lab Data Result diagrams: 07/16/17 15:10 07/16/17 14:39 Lab Results 07/16/17 07/16/17 07/16/17 Range/Units 12:38 12:39 12:39 WBC 6.1 (4.3-11.1) K/mcL RBC 3.59 L (4.19-5.50) M/mcL Hgb 11.2 L (12.9-16.9) g/dL Hct 31.6 L (37.5-50.1) % MCV 88.0 (83.0-100.0) fL MCH 31.2 (28.0-33.3) pg MCHC 35.4 (31.6-35.5) g/dL RDW 14.6 H (11.5-14.5) % Plt Count 269 D (140-400) K/mcL MPV 10.3 (9.4-12.4) fL Immature Gran % 2.1 (0-4) % Seg Neutrophils % 54.0 % Lymphocytes % 28.0 % Monocytes % 9.9 % Eosinophils % 5.5 % Basophils % 0.5 % Neutrophils # 3.3 (1.6-8.9) K/mcL Lymphocytes # 1.7 (0.6-4.6) K/mcL Monocytes # 0.6 (0.0-1.3) K/mcL Eosinophils # 0.3 (0.0-0.6) K/mcL Basophils # 0.0 (0.0-0.2) K/mcL PT (9.4-12.1) Seconds INR APTT (26.0-36.0) Seconds Sodium (136-145) mEq/L Potassium (3.5-5.1) mEq/L Chloride (98-107) mEq/L Carbon Dioxide (23-29) mEq/L BUN (6-20) mg/dL Creatinine (0.70-1.30) mg/dL Est GFR ( Amer) (> 60) Est GFR (Non-Af Amer) (> 60) BUN/Creatinine Ratio (6-26) Glucose (70-105) mg/dL Calculated Osmolality (280-300) Uric Acid (2.3-7.6) mg/dL Calcium (8.6-10.3) mg/dL Total Bilirubin (0.3-1.0) mg/dL Direct Bilirubin (0.0-0.2) mg/dL Indirect Bilirubin (0.0-1.2) mg/dL AST (13-39) Units/L ALT (7-52) Units/L Alkaline Phosphatase (34-104) Units/L Ammonia (16-53) mcmol/L Creatine Kinase (30-223) Units/L Troponin I (< 0.04) ng/mL Serum Total Protein (6.4-8.9) g/dL Albumin (3.5-5.7) g/dL Globulin (2.4-3.5) g/dL Albumin/Globulin Ratio (1.1-2.2) TSH (0.340-5.600) mcIU/mL Urine Color Yellow (Yellow) Urine Clarity Clear (Clear) Urine pH 6.5 (5.0-8.0) pH Units Ur Specific [place] 1.015 (1.010-1.025) Urine Protein Negative (Neg-Trace) mg/dL Urine Glucose (UA) 250 H (Normal) mg/dL Urine Ketones Negative (Negative) mg/dL Urine Blood Negative (Negative) Urine Nitrite Negative (Negative) Urine Bilirubin Negative (Negative) Urine Urobilinogen Normal (Normal) mg/dL Ur Leukocyte Esterase Negative (Negative) Ur Culture Indicated? NO (NO) Urine Sodium mEq/L Urine Opiates Screen Negative (Eqhmdv=696) ng/mL Ur Barbiturates Screen Negative (Bvkqur=218) ng/mL Valproic Acid (50-100) mcg/mL Ur Phencyclidine Scrn Negative (Cutoff=25) ng/mL Ur Amphetamines Screen Negative (Fyqtrt=8950) ng/mL U Benzodiazepines Scrn Negative (Cwzxwp=677) ng/mL Urine Cocaine Screen Negative (Cutoff= 300) ng/mL U Marijuana (THC) Screen Positive H (Cutoff = 50) ng/mL Ethyl Alcohol (Less than 10) mg/dL 07/16/17 07/16/17 07/16/17 Range/Units 12:39 12:39 12:39 WBC (4.3-11.1) K/mcL RBC (4.19-5.50) M/mcL Hgb (12.9-16.9) g/dL Hct (37.5-50.1) % MCV (83.0-100.0) fL MCH (28.0-33.3) pg MCHC (31.6-35.5) g/dL RDW (11.5-14.5) % Plt Count (140-400) K/mcL MPV (9.4-12.4) fL Immature Gran % (0-4) % Seg Neutrophils % % Lymphocytes % % Monocytes % % Eosinophils % % Basophils % % Neutrophils # (1.6-8.9) K/mcL Lymphocytes # (0.6-4.6) K/mcL Monocytes # (0.0-1.3) K/mcL Eosinophils # (0.0-0.6) K/mcL Basophils # (0.0-0.2) K/mcL PT 10.9 (9.4-12.1) Seconds INR 1.0 APTT 31.3 (26.0-36.0) Seconds Sodium 115 L* (136-145) mEq/L Potassium 5.4 H (3.5-5.1) mEq/L Chloride 83 L (98-107) mEq/L Carbon Dioxide 26 (23-29) mEq/L BUN 16 (6-20) mg/dL Creatinine 0.82 (0.70-1.30) mg/dL Est GFR ( Amer) > 60 (> 60) Est GFR (Non-Af Amer) > 60 (> 60) BUN/Creatinine Ratio 20 (6-26) Glucose 134 H (70-105) mg/dL Calculated Osmolality 243 L (280-300) Uric Acid 2.9 (2.3-7.6) mg/dL Calcium 8.4 L (8.6-10.3) mg/dL Total Bilirubin 0.7 (0.3-1.0) mg/dL Direct Bilirubin 0.2 (0.0-0.2) mg/dL Indirect Bilirubin 0.5 (0.0-1.2) mg/dL AST 51 H (13-39) Units/L ALT 83 H (7-52) Units/L Alkaline Phosphatase 134 H (34-104) Units/L Ammonia 40 (16-53) mcmol/L Creatine Kinase 543 H (30-223) Units/L Troponin I < 0.03 (< 0.04) ng/mL Serum Total Protein 6.1 L (6.4-8.9) g/dL Albumin 3.4 L (3.5-5.7) g/dL Globulin 2.7 (2.4-3.5) g/dL Albumin/Globulin Ratio 1.3 (1.1-2.2) TSH 2.538 (0.340-5.600) mcIU/mL Urine Color (Yellow) Urine Clarity (Clear) Urine pH (5.0-8.0) pH Units Ur Specific [place] (1.010-1.025) Urine Protein (Neg-Trace) mg/dL Urine Glucose (UA) (Normal) mg/dL Urine Ketones (Negative) mg/dL Urine Blood (Negative) Urine Nitrite (Negative) Urine Bilirubin (Negative) Urine Urobilinogen (Normal) mg/dL Ur Leukocyte Esterase (Negative) Ur Culture Indicated? (NO) Urine Sodium mEq/L Urine Opiates Screen (Awmpwc=848) ng/mL Ur Barbiturates Screen (Decgmf=785) ng/mL Valproic Acid 106 H* (50-100) mcg/mL Ur Phencyclidine Scrn (Cutoff=25) ng/mL Ur Amphetamines Screen (Pefzqf=1425) ng/mL U Benzodiazepines Scrn (Nwtass=439) ng/mL Urine Cocaine Screen (Cutoff= 300) ng/mL U Marijuana (THC) Screen (Cutoff = 50) ng/mL Ethyl Alcohol (Less than 10) mg/dL 06/04/18 06/04/18 06/04/18 Range/Units 12:39 14:39 15:10 WBC 5.5 (4.3-11.1) K/mcL RBC 3.12 L (4.19-5.50) M/mcL Hgb 9.8 L (12.9-16.9) g/dL Hct 27.5 L (37.5-50.1) % MCV 88.1 (83.0-100.0) fL MCH 31.4 (28.0-33.3) pg MCHC 35.6 H (31.6-35.5) g/dL RDW 14.6 H (11.5-14.5) % Plt Count 241 (140-400) K/mcL MPV 10.6 (9.4-12.4) fL Immature Gran % 2.7 (0-4) % Seg Neutrophils % 52.0 % Lymphocytes % 28.6 % Monocytes % 11.2 % Eosinophils % 5.1 % Basophils % 0.4 % Neutrophils # 2.9 (1.6-8.9) K/mcL Lymphocytes # 1.6 (0.6-4.6) K/mcL Monocytes # 0.6 (0.0-1.3) K/mcL Eosinophils # 0.3 (0.0-0.6) K/mcL Basophils # 0.0 (0.0-0.2) K/mcL PT (9.4-12.1) Seconds INR APTT (26.0-36.0) Seconds Sodium 114 L* (136-145) mEq/L Potassium (3.5-5.1) mEq/L Chloride (98-107) mEq/L Carbon Dioxide (23-29) mEq/L BUN (6-20) mg/dL Creatinine (0.70-1.30) mg/dL Est GFR ( Amer) (> 60) Est GFR (Non-Af Amer) (> 60) BUN/Creatinine Ratio (6-26) Glucose (70-105) mg/dL Calculated Osmolality (280-300) Uric Acid (2.3-7.6) mg/dL Calcium (8.6-10.3) mg/dL Total Bilirubin (0.3-1.0) mg/dL Direct Bilirubin (0.0-0.2) mg/dL Indirect Bilirubin (0.0-1.2) mg/dL AST (13-39) Units/L ALT (7-52) Units/L Alkaline Phosphatase (34-104) Units/L Ammonia (16-53) mcmol/L Creatine Kinase (30-223) Units/L Troponin I (< 0.04) ng/mL Serum Total Protein (6.4-8.9) g/dL Albumin (3.5-5.7) g/dL Globulin (2.4-3.5) g/dL Albumin/Globulin Ratio (1.1-2.2) TSH (0.340-5.600) mcIU/mL Urine Color (Yellow) Urine Clarity (Clear) Urine pH (5.0-8.0) pH Units Ur Specific [place] (1.010-1.025) Urine Protein (Neg-Trace) mg/dL Urine Glucose (UA) (Normal) mg/dL Urine Ketones (Negative) mg/dL Urine Blood (Negative) Urine Nitrite (Negative) Urine Bilirubin (Negative) Urine Urobilinogen (Normal) mg/dL Ur Leukocyte Esterase (Negative) Ur Culture Indicated? (NO) Urine Sodium mEq/L Urine Opiates Screen (Jlhbwx=749) ng/mL Ur Barbiturates Screen (Aotyqx=902) ng/mL Valproic Acid (50-100) mcg/mL Ur Phencyclidine Scrn (Cutoff=25) ng/mL Ur Amphetamines Screen (Oyfivc=0440) ng/mL U Benzodiazepines Scrn (Xddfzk=266) ng/mL Urine Cocaine Screen (Cutoff= 300) ng/mL U Marijuana (THC) Screen (Cutoff = 50) ng/mL Ethyl Alcohol < 10 (Less than 10) mg/dL 07/16/17 Range/Units 15:20 WBC (4.3-11.1) K/mcL RBC (4.19-5.50) M/mcL Hgb (12.9-16.9) g/dL Hct (37.5-50.1) % MCV (83.0-100.0) fL MCH (28.0-33.3) pg MCHC (31.6-35.5) g/dL RDW (11.5-14.5) % Plt Count (140-400) K/mcL MPV (9.4-12.4) fL Immature Gran % (0-4) % Seg Neutrophils % % Lymphocytes % % Monocytes % % Eosinophils % % Basophils % % Neutrophils # (1.6-8.9) K/mcL Lymphocytes # (0.6-4.6) K/mcL Monocytes # (0.0-1.3) K/mcL Eosinophils # (0.0-0.6) K/mcL Basophils # (0.0-0.2) K/mcL PT (9.4-12.1) Seconds INR APTT (26.0-36.0) Seconds Sodium (136-145) mEq/L Potassium (3.5-5.1) mEq/L Chloride (98-107) mEq/L Carbon Dioxide (23-29) mEq/L BUN (6-20) mg/dL Creatinine (0.70-1.30) mg/dL Est GFR ( Amer) (> 60) Est GFR (Non-Af Amer) (> 60) BUN/Creatinine Ratio (6-26) Glucose (70-105) mg/dL Calculated Osmolality (280-300) Uric Acid (2.3-7.6) mg/dL Calcium (8.6-10.3) mg/dL Total Bilirubin (0.3-1.0) mg/dL Direct Bilirubin (0.0-0.2) mg/dL Indirect Bilirubin (0.0-1.2) mg/dL AST (13-39) Units/L ALT (7-52) Units/L Alkaline Phosphatase (34-104) Units/L Ammonia (16-53) mcmol/L Creatine Kinase (30-223) Units/L Troponin I (< 0.04) ng/mL Serum Total Protein (6.4-8.9) g/dL Albumin (3.5-5.7) g/dL Globulin (2.4-3.5) g/dL Albumin/Globulin Ratio (1.1-2.2) TSH (0.340-5.600) mcIU/mL Urine Color (Yellow) Urine Clarity (Clear) Urine pH (5.0-8.0) pH Units Ur Specific [place] (1.010-1.025) Urine Protein (Neg-Trace) mg/dL Urine Glucose (UA) (Normal) mg/dL Urine Ketones (Negative) mg/dL Urine Blood (Negative) Urine Nitrite (Negative) Urine Bilirubin (Negative) Urine Urobilinogen (Normal) mg/dL Ur Leukocyte Esterase (Negative) Ur Culture Indicated? (NO) Urine Sodium 75.6 mEq/L Urine Opiates Screen (Buyhbe=196) ng/mL Ur Barbiturates Screen (Olawhv=333) ng/mL Valproic Acid (50-100) mcg/mL Ur Phencyclidine Scrn (Cutoff=25) ng/mL Ur Amphetamines Screen (Qcxqlh=1110) ng/mL U Benzodiazepines Scrn ([place]=626) ng/mL Urine Cocaine Screen (Cutoff= 300) ng/mL U Marijuana (THC) Screen (Cutoff = 50) ng/mL Ethyl Alcohol (Less than 10) mg/dL TPA Checklist - LKW: 3-4.5 hrs Add. Warnings/Precautions Patient/family understanding: The patient/family members have been counseled and understood the risk, benefit , and alternatives of treatment.
[2017-07-16 12:49] LABS: Basophils % 0.5 %; Eosinophils # 0.3 K/mcL (0.0-0.6); Eosinophils % 5.5 %; Hematocrit 31.6 % (37.5-50.1); Hemoglobin 11.2 g/dL (12.9-16.9); Immature Granulocytes % 2.1 % (0-4); Lymphocytes # 1.7 K/mcL (0.6-4.6); Mean Corpuscular HGB Conc 35.4 g/dL (31.6-35.5); Mean Corpuscular Hemoglobin 31.2 pg (28.0-33.3); Mean Platelet Volume 10.3 fL (9.4-12.4); Monocytes # 0.6 K/mcL (0.0-1.3); Monocytes % 9.9 %; Neutrophils # 3.3 K/mcL (1.6-8.9); Platelet Count 269 K/mcL (140-400); Red Blood Count 3.59 M/mcL (4.19-5.50); Red Cell Distribution Width 14.6 % (11.5-14.5)
--- NOTE | 2017-07-16 12:59 | Emergency Department Note ---
Disposition Clinical Impression: Seizure, Hyponatremia Disposition: Admitted As Inpatient Forms: ED Satisfaction Letter General Adult HPI - General Chief complaint: ED Altered Mental Status Stated complaint: AMS Time Seen by Provider: 07/16/17 12:11 Source: EMS Mode of arrival: EMS Limitations: altered mental status - History of Present Illness Pain Scale: 0 - Related Data Home Medications Medication Instructions Recorded Confirmed Fenofibrate [Tricor] 54 mg PO DAILY 04/07/15 07/16/17 Levothyroxine [Synthroid] 100 mcg PO QAM 04/07/15 07/16/17 Pantoprazole Sodium [Protonix] 40 mg PO DAILY 10/04/15 07/16/17 Trazodone HCl 200 mg PO HS 08/21/16 07/16/17 metFORMIN [Glucophage] 500 mg PO BID 08/21/16 07/16/17 Atorvastatin [Lipitor] 40 mg PO HS 10/04/16 07/16/17 Acetaminophen [Tylenol] 500 mg PO Q6H PRN 10/10/16 07/16/17 Nitroglycerin [Nitrostat] 0.4 mg SL Q5M PRN 12/11/16 07/16/17 Gabapentin [Neurontin] 800 mg PO QID 12/27/16 07/16/17 Glimepiride [Amaryl] 4 mg PO BID 12/27/16 07/16/17 hydrOXYzine pamoate [HydrOXYzine 25 mg PO TID 01/17/17 07/16/17 Pamoate] Citalopram [CeleXA] 20 mg PO DAILY 02/06/17 07/16/17 Lisinopril [Zestril] 2.5 mg PO DAILY 02/06/17 07/16/17 Isosorbide MONOnitrate (24 HR) 30 mg PO DAILY 07/16/17 07/16/17 [Imdur] Linezolid [Linezolid] 600 mg PO BID 07/16/17 07/16/17 Sodium Chloride 1 gm PO BID 07/16/17 07/16/17 levoFLOXacin [Levofloxacin] 500 mg PO DAILY 07/16/17 07/16/17 Previous Rx's Medication Instructions Recorded Aspirin 81 mg PO DAILY #30 09/30/16 Clopidogrel [Plavix] 75 mg PO DAILY 30 Days tab 09/30/16 Divalproex (12 HR) [Depakote (12 1,500 mg PO BID 30 Days 09/30/16 HR)] Carvedilol 3.125 mg PO DAILY #30 tablet 01/25/17 Lidocaine Patch [Lidoderm 5% patch] 1 each TP DAILY PRN #10 adh..patch 07/11/17 Allergies Allergy/AdvReac Type Severity Reaction Status Date / Time No Known Allergies Allergy Verified 07/16/17 13:29 Past Medical History - Past Medical History Medical history: Reports: diabetes, hypertension, myocardial infarction, other Surgical history: Reports: other Psychiatric history: Reports: anxiety, bipolar, depression, prior suicide attempt, schizophrenia - Social History Smoking Status: Current every day smoker Smokeless Tobacco Status: No Alcohol use: Reports: none Drug use: Reports: marijuana Physical Exam - General Limitations: altered mental status General appearance: in no apparent distress, other (Somnolent) Course - Consultations Consultation #1: discussed case witih Dr. Cantu and he reccomends 3% hypertoni saline at 50mg/hr and check sodium hourly till he is at 120 and then start at NS at 100ml. I have relayed this information to the nursing staff. I have also admitted patient to Dr. Godinez ICU attending and he is aware of IVF orders for hyponaremia correction Time: 14:12 Vital Signs Temperature 98.4 F 07/16/17 12:09 Pulse Rate 92 07/16/17 12:09 Respiratory Rate 18 07/16/17 12:09 Blood Pressure 145/85 07/16/17 12:09 O2 Sat by Pulse Oximetry 97 07/16/17 12:09 Temperature 98.4 F 07/16/17 12:09 Pulse Rate 85 07/16/17 13:58 Respiratory Rate 10 07/16/17 13:58 Blood Pressure 118/74 07/16/17 13:58 O2 Sat by Pulse Oximetry 98 07/16/17 13:58 Oxygen Delivery Oxygen Delivery Room Air Medical Decision Making - Lab Data Result diagrams: 07/16/17 12:39 07/16/17 12:39 Lab Results 07/16/17 07/16/17 07/16/17 Range/Units 12:38 12:39 12:39 WBC 6.1 (4.3-11.1) K/mcL RBC 3.59 L (4.19-5.50) M/mcL Hgb 11.2 L (12.9-16.9) g/dL Hct 31.6 L (37.5-50.1) % MCV 88.0 (83.0-100.0) fL MCH 31.2 (28.0-33.3) pg MCHC 35.4 (31.6-35.5) g/dL RDW 14.6 H (11.5-14.5) % Plt Count 269 D (140-400) K/mcL MPV 10.3 (9.4-12.4) fL Immature Gran % 2.1 (0-4) % Seg Neutrophils % 54.0 % Lymphocytes % 28.0 % Monocytes % 9.9 % Eosinophils % 5.5 % Basophils % 0.5 % Neutrophils # 3.3 (1.6-8.9) K/mcL Lymphocytes # 1.7 (0.6-4.6) K/mcL Monocytes # 0.6 (0.0-1.3) K/mcL Eosinophils # 0.3 (0.0-0.6) K/mcL Basophils # 0.0 (0.0-0.2) K/mcL PT (9.4-12.1) Seconds INR APTT (26.0-36.0) Seconds Sodium (136-145) mEq/L Potassium (3.5-5.1) mEq/L Chloride (98-107) mEq/L Carbon Dioxide (23-29) mEq/L BUN (6-20) mg/dL Creatinine (0.70-1.30) mg/dL Est GFR ( Amer) (> 60) Est GFR (Non-Af Amer) (> 60) BUN/Creatinine Ratio (6-26) Glucose (70-105) mg/dL Calculated Osmolality (280-300) Calcium (8.6-10.3) mg/dL Total Bilirubin (0.3-1.0) mg/dL Direct Bilirubin (0.0-0.2) mg/dL Indirect Bilirubin (0.0-1.2) mg/dL AST (13-39) Units/L ALT (7-52) Units/L Alkaline Phosphatase (34-104) Units/L Ammonia (16-53) mcmol/L Creatine Kinase (30-223) Units/L Troponin I (< 0.04) ng/mL Serum Total Protein (6.4-8.9) g/dL Albumin (3.5-5.7) g/dL Globulin (2.4-3.5) g/dL Albumin/Globulin Ratio (1.1-2.2) Urine Color Yellow (Yellow) Urine Clarity Clear (Clear) Urine pH 6.5 (5.0-8.0) pH Units Ur Specific [place] 1.015 (1.010-1.025) Urine Protein Negative (Neg-Trace) mg/dL Urine Glucose (UA) 250 H (Normal) mg/dL Urine Ketones Negative (Negative) mg/dL Urine Blood Negative (Negative) Urine Nitrite Negative (Negative) Urine Bilirubin Negative (Negative) Urine Urobilinogen Normal (Normal) mg/dL Ur Leukocyte Esterase Negative (Negative) Ur Culture Indicated? NO (NO) Urine Opiates Screen Negative (Mcorrq=214) ng/mL Ur Barbiturates Screen Negative (Omtwbx=897) ng/mL Valproic Acid (50-100) mcg/mL Ur Phencyclidine Scrn Negative (Cutoff=25) ng/mL Ur Amphetamines Screen Negative (Eklvlx=2944) ng/mL U Benzodiazepines Scrn Negative (Ytosie=290) ng/mL Urine Cocaine Screen Negative (Cutoff= 300) ng/mL U Marijuana (THC) Screen Positive H (Cutoff = 50) ng/mL Ethyl Alcohol (Less than 10) mg/dL 07/16/17 07/16/17 07/16/17 Range/Units 12:39 12:39 12:39 WBC (4.3-11.1) K/mcL RBC (4.19-5.50) M/mcL Hgb (12.9-16.9) g/dL Hct (37.5-50.1) % MCV (83.0-100.0) fL MCH (28.0-33.3) pg MCHC (31.6-35.5) g/dL RDW (11.5-14.5) % Plt Count (140-400) K/mcL MPV (9.4-12.4) fL Immature Gran % (0-4) % Seg Neutrophils % % Lymphocytes % % Monocytes % % Eosinophils % % Basophils % % Neutrophils # (1.6-8.9) K/mcL Lymphocytes # (0.6-4.6) K/mcL Monocytes # (0.0-1.3) K/mcL Eosinophils # (0.0-0.6) K/mcL Basophils # (0.0-0.2) K/mcL PT 10.9 (9.4-12.1) Seconds INR 1.0 APTT 31.3 (26.0-36.0) Seconds Sodium 115 L* (136-145) mEq/L Potassium 5.4 H (3.5-5.1) mEq/L Chloride 83 L (98-107) mEq/L Carbon Dioxide 26 (23-29) mEq/L BUN 16 (6-20) mg/dL Creatinine 0.82 (0.70-1.30) mg/dL Est GFR ( Amer) > 60 (> 60) Est GFR (Non-Af Amer) > 60 (> 60) BUN/Creatinine Ratio 20 (6-26) Glucose 134 H (70-105) mg/dL Calculated Osmolality 243 L (280-300) Calcium 8.4 L (8.6-10.3) mg/dL Total Bilirubin 0.7 (0.3-1.0) mg/dL Direct Bilirubin 0.2 (0.0-0.2) mg/dL Indirect Bilirubin 0.5 (0.0-1.2) mg/dL AST 51 H (13-39) Units/L ALT 83 H (7-52) Units/L Alkaline Phosphatase 134 H (34-104) Units/L Ammonia 40 (16-53) mcmol/L Creatine Kinase 543 H (30-223) Units/L Troponin I < 0.03 (< 0.04) ng/mL Serum Total Protein 6.1 L (6.4-8.9) g/dL Albumin 3.4 L (3.5-5.7) g/dL Globulin 2.7 (2.4-3.5) g/dL Albumin/Globulin Ratio 1.3 (1.1-2.2) Urine Color (Yellow) Urine Clarity (Clear) Urine pH (5.0-8.0) pH Units Ur Specific [place] (1.010-1.025) Urine Protein (Neg-Trace) mg/dL Urine Glucose (UA) (Normal) mg/dL Urine Ketones (Negative) mg/dL Urine Blood (Negative) Urine Nitrite (Negative) Urine Bilirubin (Negative) Urine Urobilinogen (Normal) mg/dL Ur Leukocyte Esterase (Negative) Ur Culture Indicated? (NO) Urine Opiates Screen (Fraadx=040) ng/mL Ur Barbiturates Screen (Gsfezw=840) ng/mL Valproic Acid 106 H* (50-100) mcg/mL Ur Phencyclidine Scrn (Cutoff=25) ng/mL Ur Amphetamines Screen (Hcgvei=0113) ng/mL U Benzodiazepines Scrn (Pnhaez=614) ng/mL Urine Cocaine Screen (Cutoff= 300) ng/mL U Marijuana (THC) Screen (Cutoff = 50) ng/mL Ethyl Alcohol (Less than 10) mg/dL 07/16/17 Range/Units 12:39 WBC (4.3-11.1) K/mcL RBC (4.19-5.50) M/mcL Hgb (12.9-16.9) g/dL Hct (37.5-50.1) % MCV (83.0-100.0) fL MCH (28.0-33.3) pg MCHC (31.6-35.5) g/dL RDW (11.5-14.5) % Plt Count (140-400) K/mcL MPV (9.4-12.4) fL Immature Gran % (0-4) % Seg Neutrophils % % Lymphocytes % % Monocytes % % Eosinophils % % Basophils % % Neutrophils # (1.6-8.9) K/mcL Lymphocytes # (0.6-4.6) K/mcL Monocytes # (0.0-1.3) K/mcL Eosinophils # (0.0-0.6) K/mcL Basophils # (0.0-0.2) K/mcL PT (9.4-12.1) Seconds INR APTT (26.0-36.0) Seconds Sodium (136-145) mEq/L Potassium (3.5-5.1) mEq/L Chloride (98-107) mEq/L Carbon Dioxide (23-29) mEq/L BUN (6-20) mg/dL Creatinine (0.70-1.30) mg/dL Est GFR ( Amer) (> 60) Est GFR (Non-Af Amer) (> 60) BUN/Creatinine Ratio (6-26) Glucose (70-105) mg/dL Calculated Osmolality (280-300) Calcium (8.6-10.3) mg/dL Total Bilirubin (0.3-1.0) mg/dL Direct Bilirubin (0.0-0.2) mg/dL Indirect Bilirubin (0.0-1.2) mg/dL AST (13-39) Units/L ALT (7-52) Units/L Alkaline Phosphatase (34-104) Units/L Ammonia (16-53) mcmol/L Creatine Kinase (30-223) Units/L Troponin I (< 0.04) ng/mL Serum Total Protein (6.4-8.9) g/dL Albumin (3.5-5.7) g/dL Globulin (2.4-3.5) g/dL Albumin/Globulin Ratio (1.1-2.2) Urine Color (Yellow) Urine Clarity (Clear) Urine pH (5.0-8.0) pH Units Ur Specific [place] (1.010-1.025) Urine Protein (Neg-Trace) mg/dL Urine Glucose (UA) (Normal) mg/dL Urine Ketones (Negative) mg/dL Urine Blood (Negative) Urine Nitrite (Negative) Urine Bilirubin (Negative) Urine Urobilinogen (Normal) mg/dL Ur Leukocyte Esterase (Negative) Ur Culture Indicated? (NO) Urine Opiates Screen (Bqdisl=152) ng/mL Ur Barbiturates Screen (Mkivcd=059) ng/mL Valproic Acid (50-100) mcg/mL Ur Phencyclidine Scrn (Cutoff=25) ng/mL Ur Amphetamines Screen (Lpdlms=8418) ng/mL U Benzodiazepines Scrn (Mfkntv=901) ng/mL Urine Cocaine Screen (Cutoff= 300) ng/mL U Marijuana (THC) Screen (Cutoff = 50) ng/mL Ethyl Alcohol < 10 (Less than 10) mg/dL Attestation Statement - Attestation Attestation: I examined this patient and my medical decision-making was reviewed with the Resident Physician. I agree with the documented findings, disposition and treatment plan as described except to the extent set forth below. 56 year old male presents to the ED with complaints of AMS via EMS and has a history of seizure and is unsure if this is related to being noncompliant with medicatiosn or if this is related to alcohol withdrawl although he does not presnets in that specific withdrawl syndrome. He had another witnssed seizure at bedside and it post-itcal. He was trying to get his shoes and expereinced a seizure out of the bed and has a contusion to the to of his head now. He also had a head/neck injury previously before arrival in which a HCT/neck were ordered. Currently on plavix. We will continue with workup and then admit to medicine
[2017-07-16 13:01] LABS: Bilirubin,Urine Negative (Negative); Blood,Urine Negative (Negative); Clarity,Urine Clear (Clear); Color,Urine Yellow (Yellow); Glucose,Urine (UA) 250 mg/dL (Normal); Ketones,Urine Negative (Negative); Leukocyte Esterase,Urine Negative (Negative); Nitrite,Urine Negative (Negative); PH,Urine 6.5 pH Units (5.0-8.0); Protein,Urine Negative (Neg-Trace); Specific Gravity,Urine 1.015 (1.010-1.025); Urobilinogen,Urine Normal (Normal)
[2017-07-16 13:02] LABS: Prothrombin Time 10.9 Seconds (9.4-12.1)
[2017-07-16 13:05] LABS: Activated Partial Thrombo Time 31.3 Seconds (26.0-36.0)
[2017-07-16 13:14] LABS: Amphetamine Screen,Urine Negative ng/mL (Cutoff=1000); Barbiturate Screen,Urine Negative ng/mL (Cutoff=200); Benzodiazepines Screen,Urine Negative ng/mL (Cutoff=200); Cannabinoid Screen,Urine Positive ng/mL (Cutoff = 50); Cocaine Screen,Urine Negative ng/mL (Cutoff= 300); Opiate Screen,Urine Negative ng/mL (Cutoff=300); Phencyclidine Screen,Urine Negative ng/mL (Cutoff=25)
[2017-07-16 13:15] LABS: Alanine Aminotransferase 83 Units/L (7-52); Albumin 3.4 g/dL (3.5-5.7); Albumin/Globulin Ratio 1.3 (1.1-2.2); Alkaline Phosphatase 134 Units/L (34-104); Aspartate Amino Transferase 51 Units/L (13-39); Bilirubin,Direct 0.2 mg/dL (0.0-0.2); Bilirubin,Indirect 0.5 mg/dL (0.0-1.2); Bilirubin,Total 0.7 mg/dL (0.3-1.0); Blood Urea Nitrogen 16 mg/dL (6-20); Calcium 8.4 mg/dL (8.6-10.3); Carbon Dioxide 26 mEq/L (23-29); Chloride 83 mEq/L (98-107); Creatine Kinase 543 Units/L (30-223); Globulin 2.7 g/dL (2.4-3.5); Glucose 134 mg/dL (70-105); Osmolality,Calculated 243 (280-300); Potassium 5.4 mEq/L (3.5-5.1); Sodium 115 mEq/L (136-145); Total Protein 6.1 g/dL (6.4-8.9)
[2017-07-16] MEDS ORDERED: *HR* Midazolam HCl 2 MG/2 ML VIAL IVP ONE (13:49)
[2017-07-16 14:03] LABS: BUN/Creatinine Ratio 20 (6-26); Troponin I < 0.03 ng/mL (< 0.04); Valproate 106 mcg/mL (50-100); eGFR For African Americans > 60 (> 60); eGFR For Non-African Americans > 60 (> 60)
[2017-07-16] MEDS: *HR* LORazepam 2 MG/ML VIAL ONE ×2 (14:24→14:39)
--- NOTE | 2017-07-16 14:28 | Pulmonology History & Physical ---
<Jonathon Gould - Last Filed: 07/16/17 15:55> Date of Encounter: 07/16/17 Time of Encounter: 14:18 Assessment and Plan (1) Altered mental status Current visit: No Status: Acute 1. Multi-factorial given the patients history of seizures and psychiatric issues 2. We will continue to monitor his respiratory status closely and correct any fluid and electrolyte imbalances 3. TSH pending 4. Patient hit his head in the emergency department and no CT was ordered, although the patient was altered prior to this, if mental status does not improve, we will consider head CT 5. CK ~ 500, will continue IVF. Does not appear to be in Rhabdo based on UA/ lytes/Cr Qualifiers: Altered mental status type: transient alteration of awareness Qualified Code(s): R40.4 - Transient alteration of awareness (2) Hyponatremia Current visit: No Status: Chronic 1. Unclear etiology at this time 2. Per nephrology recommendations, ED started 3% NaCl @ 50mL/hr with Na checks Q1hr until Na = 120 then transition back to 0.9% NaCl. 3. We will continue to monitor and transition to normal saline when appropriate 4. Fluid restriction 5. Will order urine lytes/Cr/Osm 6. TSH pending 7. Serum Osm decreased so likely true hypoNa (3) Diabetes Current visit: No Status: Acute 1. History of DM 2. 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 H/o 2. TSH pending 3. Could be contributing to AMS/HypoNa Qualifiers: Hypothyroidism type: acquired Qualified Code(s): E03.9 - Hypothyroidism, unspecified (5) Seizure disorder Current visit: No Status: Chronic 1. H/o Epilepsy 2. Will review medications if any may cause hyponatremia 3. Review psych medications 4. Will start home meds when able 5. Valproic acid level - 106 (6) Hyperkalemia Current visit: No Status: Acute 1. No EKG changes 2. Monitor, will likely decrease with IVF resuscitation History of Present Illness Chief complaint: AMS, hyponatremia, seizure HPI: Mr. Frey is a 56 year old male who presented to the ED via EMS with complaints of altered mental status and seizure. Patient arrived to the ED with the complaint of altered mental status after friends called EMS for seizure-like activity. She does have history of seizures and it is unclear if this is from medication noncompliance or from the hyponatremia. Initial sodium was 115 and the patient did have a witnessed seizure in the emergency department. Patient was not alert or following commands, but was protecting his airway. He has had no further seizure-like activity area. Nephrology was consulted from the ED and they recommended starting hypertonic saline and recheck in the sodium every hour until it came up to 120 and then converting to normal saline for IV fluid. Upon my examination, the patient is minimally responsive, but did just receive 4 mg of Versed for central venous catheter placement. Past Med Surg Social Fam HX - Past Medical History Medical history: diabetes, hypertension, myocardial infarction, other Additional medical history: chronic back pain. sciatica Psychiatric history: anxiety, bipolar, depression, prior suicide attempt, schizophrenia - Past Surgical History Surgical History: other Additional surgical history: bilat leg orthopedic - Social History Smoking Status: Current every day smoker Smokeless Tobacco Status: No Alcohol use: none Drug use: marijuana - Family History Daughter Living Status: Still Living Hx Family Cardiac Disorders: No Hx Family Respiratory Disorders: Yes Hx Family Cancer: No Hx Family GI Disorders: No Hx Family Endocrine Disorder: No Hx Family Neuromuscular Disorders: No Hx Family Neurologic Disorders: No Hx Family HEENT Disorders: No Hx Family Autoimmune Disorders: No Mother Living Status: Hx Family Cardiac Disorders: Yes Father Living Status: Hx Family Cardiac Disorders: Yes ([place]) Medications and Allergies Fenofibrate [Tricor] 54 mg PO DAILY 04/07/15 [History] Levothyroxine [Synthroid] 100 mcg PO QAM 04/07/15 [History] Pantoprazole Sodium [Protonix] 40 mg PO DAILY 10/04/15 [History] Trazodone HCl 200 mg PO HS 08/21/16 [History] metFORMIN [Glucophage] 500 mg PO BID 08/21/16 [History] Aspirin 81 mg PO DAILY #30 09/30/16 [Rx] Clopidogrel [Plavix] 75 mg PO DAILY 30 Days tab 09/30/16 [Rx] Divalproex (12 HR) [Depakote (12 HR)] 1,500 mg PO BID 30 Days 09/30/16 [Rx] Atorvastatin [Lipitor] 40 mg PO HS 10/04/16 [History] Acetaminophen [Tylenol] 500 mg PO Q6H PRN 10/10/16 [History] Nitroglycerin [Nitrostat] 0.4 mg SL Q5M PRN 12/11/16 [History] Gabapentin [Neurontin] 800 mg PO QID 12/27/16 [History] Glimepiride [Amaryl] 4 mg PO BID 12/27/16 [History] hydrOXYzine pamoate [HydrOXYzine Pamoate] 25 mg PO TID 01/17/17 [History] Carvedilol 3.125 mg PO DAILY #30 tablet 01/25/17 [Rx] Citalopram [CeleXA] 20 mg PO DAILY 02/06/17 [History] Lisinopril [Zestril] 2.5 mg PO DAILY 02/06/17 [History] Lidocaine Patch [Lidoderm 5% patch] 1 each TP DAILY PRN #10 adh..patch 07/11/17 [Rx] Isosorbide MONOnitrate (24 HR) [Imdur] 30 mg PO DAILY 07/16/17 [History] Linezolid [Linezolid] 600 mg PO BID 07/16/17 [History] Sodium Chloride [Sodium Chloride Tab] 1 gm PO BID 07/16/17 [History] levoFLOXacin [Levofloxacin] 500 mg PO DAILY 07/16/17 [History] 3 Allergy/AdvReac Type Severity Reaction Status Date / Time No Known Allergies Allergy Verified 07/16/17 13:29 ROS unobtainable: due to mental status All Systems: The remainder of the systems were reviewed and are negative Physical Examination Vital Signs: Vital Signs, Last 4 Hours Temp Pulse Resp BP Pulse Ox 07/16/17 14:10 84 10 121/74 98 07/16/17 13:58 85 10 118/74 98 07/16/17 13:54 86 128/73 07/16/17 13:40 81 128/73 07/16/17 13:25 82 111/75 07/16/17 13:10 84 6 120/78 99 07/16/17 12:09 98.4 F 92 18 145/85 97 General appearance: comatose Eyes: nonicteric ENT: oropharynx moist Effort: normal Inspection: normal Auscultation: bilateral: clear Cardiovascular: regular rate and rhythm Gastrointestinal: normoactive bowel sounds Integumentary: normal Extremities: no cyanosis Musculoskeletal: no deformities pupils equal and round, unable to assess due to mental status Results - Laboratory Findings CBC and BMP: 07/16/17 15:10 07/16/17 14:39 PT/INR, D-dimer PT 10.9 Seconds (9.4-12.1) 07/16/17 12:39 Abnormal lab findings: Abnormal lab results RBC 3.59 M/mcL (4.19-5.50) L 07/16/17 12:39 Hgb 11.2 g/dL (12.9-16.9) L 07/16/17 12:39 Hct 31.6 % (37.5-50.1) L 07/16/17 12:39 RDW 14.6 % (11.5-14.5) H 07/16/17 12:39 Sodium 115 mEq/L (136-145) L* 07/16/17 12:39 Potassium 5.4 mEq/L (3.5-5.1) H 07/16/17 12:39 Chloride 83 mEq/L (98-107) L 07/16/17 12:39 Glucose 134 mg/dL (70-105) H 07/16/17 12:39 Calculated Osmolality 243 (280-300) L 07/16/17 12:39 Calcium 8.4 mg/dL (8.6-10.3) L 07/16/17 12:39 AST 51 Units/L (13-39) H 07/16/17 12:39 ALT 83 Units/L (7-52) H 07/16/17 12:39 Alkaline Phosphatase 134 Units/L (34-104) H 07/16/17 12:39 Creatine Kinase 543 Units/L (30-223) H 07/16/17 12:39 Serum Total Protein 6.1 g/dL (6.4-8.9) L 07/16/17 12:39 Albumin 3.4 g/dL (3.5-5.7) L 07/16/17 12:39 Urine Glucose (UA) 250 mg/dL (Normal) H 07/16/17 12:38 Valproic Acid 106 mcg/mL (50-100) H* 07/16/17 12:39 U Marijuana (THC) Screen Positive ng/mL (Cutoff = 50) H 07/16/17 12:39 <Brittany Godinez M - Last Filed: 07/16/17 16:35> Date of Encounter: 07/16/17 History of Present Illness HPI: Mr. Frey is a 56 year old male All Systems: The remainder of the systems were reviewed and are negative Physical Examination Vital Signs: Vital Signs, Last 4 Hours Pulse Resp BP Pulse Ox 07/16/17 16:10 77 8 121/71 97 07/16/17 15:55 77 132/73 07/16/17 15:40 79 121/83 07/16/17 15:25 78 6 119/84 95 07/16/17 15:10 78 6 133/89 94 07/16/17 14:57 81 6 122/77 96 07/16/17 14:44 81 6 118/76 97 07/16/17 14:25 82 6 125/72 98 07/16/17 14:10 84 10 121/74 98 07/16/17 13:58 85 10 118/74 98 07/16/17 13:54 86 128/73 07/16/17 13:40 81 128/73 07/16/17 13:25 82 111/75 07/16/17 13:10 84 6 120/78 99 Results - Laboratory Findings CBC and BMP: 07/16/17 15:10 07/16/17 15:10 PT/INR, D-dimer PT 10.9 Seconds (9.4-12.1) 07/16/17 12:39 Abnormal lab findings: Abnormal lab results RBC 3.12 M/mcL (4.19-5.50) L 07/16/17 15:10 Hgb 9.8 g/dL (12.9-16.9) L 07/16/17 15:10 Hct 27.5 % (37.5-50.1) L 07/16/17 15:10 MCHC 35.6 g/dL (31.6-35.5) H 07/16/17 15:10 RDW 14.6 % (11.5-14.5) H 07/16/17 15:10 Sodium 117 mEq/L (136-145) L* 07/16/17 15:10 Chloride 87 mEq/L (98-107) L 07/16/17 15:10 Glucose 131 mg/dL (70-105) H 07/16/17 15:10 Calculated Osmolality 247 (280-300) L 07/16/17 15:10 Calcium 7.7 mg/dL (8.6-10.3) L 07/16/17 15:10 AST 51 Units/L (13-39) H 07/16/17 12:39 ALT 83 Units/L (7-52) H 07/16/17 12:39 Alkaline Phosphatase 134 Units/L (34-104) H 07/16/17 12:39 Creatine Kinase 543 Units/L (30-223) H 07/16/17 12:39 Serum Total Protein 6.1 g/dL (6.4-8.9) L 07/16/17 12:39 Albumin 3.4 g/dL (3.5-5.7) L 07/16/17 12:39 Urine Glucose (UA) 250 mg/dL (Normal) H 07/16/17 12:38 Valproic Acid 106 mcg/mL (50-100) H* 07/16/17 12:39 U Marijuana (THC) Screen Positive ng/mL (Cutoff = 50) H 07/16/17 12:39 - Attending Attestation I examined this patient and my medical decision-making was reviewed with the Resident Physician. I agree with the documented findings, disposition and treatment plan as described except to the extent set forth below. Patient seen and examined. I was called by the emergency room physician to evaluate this patient and admitted to ICU. Patient was seen and examined with the resident in the emergency room Labs, radiology, chart personally reviewed. Agree with resident's history and physical, assessment, plan with following comments: CALL OR CONTACT CENTRE TEAM LEADER: Patient does not follows commands, this is multifactorial and may need urology consultation. Pulmonary: Acceptable oxygenation and ventilation at this time however due to his mental status depression he will need close monitoring since he could end up with invasive mechanical ventilation. Cardiovascular: stable GI: Nutrition per dietary and GI prophylaxis per routine Heme: DVT prophylaxis per routine ID: No clear source of infection at this time however his home medication shows evidence that antibiotics are not tested. Unfortunately there is no family available to get more reliable history. Renal; urine out put and renal funtion reviewed. Patient with significant hyponatremia and agree with anthropology and archeology instructor recommendation to correct sodium since he had evidence of seizure and patient needs close monitoring can ICU. Her sodium correction history monitored closely. Endorcine: blood glucose is monitored Lines: all lines checked and no evidence of infections Skin: skin care to prevent pressure ulcers per nursing routine care I spent 32 min of Critical Care time with this patient. It involved decision making of high complexity to assess, manipulate, and support vital organ system failure and/or to prevent further life threatening deterioration of the patient' s condition. The time involved in the performance of separately reportable procedures was not counted toward critical care time.
[2017-07-16] MEDS ORDERED: *HR* LORazepam 2 MG/ML VIAL IVP ONE (14:38)
[2017-07-16] MEDS ORDERED: OXYCODONE Oral CONC 10 MG/0.5 ML ORAL.SYG SL PRN (14:46)
[2017-07-16] MEDS ORDERED: *HR* LORazepam 2 MG/ML VIAL IVP PRN ×2 (14:46→17:00)
[2017-07-16] MEDS ORDERED: Naloxone 0.4 MG/ML INJ IVP PRN (14:46)
[2017-07-16] MEDS ORDERED: Acetaminophen 325 MG TABLET PO PRN ×2 (14:46)
[2017-07-16] MEDS ORDERED: Potassium Phosphate 44 MEQ in 0.9 % Sodium Chloride 250 ML IVPB PRN (14:50)
[2017-07-16] MEDS ORDERED: Potassium Chloride 40 MEQ/200 ML BAG IVPB PRN (14:50)
[2017-07-16 14:58] LABS: Thyroid Stimulating Hormone 2.538 mcIU/mL (0.340-5.600); Uric Acid 2.9 mg/dL (2.3-7.6)
[2017-07-16 15:45] LABS: Basophils % 0.4 %; Eosinophils # 0.3 K/mcL (0.0-0.6); Eosinophils % 5.1 %; Hematocrit 27.5 % (37.5-50.1); Hemoglobin 9.8 g/dL (12.9-16.9); Immature Granulocytes % 2.7 % (0-4); Lymphocytes # 1.6 K/mcL (0.6-4.6); Lymphocytes % 28.6 %; Mean Corpuscular HGB Conc 35.6 g/dL (31.6-35.5); Mean Corpuscular Hemoglobin 31.4 pg (28.0-33.3); Mean Corpuscular Volume 88.1 fL (83.0-100.0); Mean Platelet Volume 10.6 fL (9.4-12.4); Monocytes # 0.6 K/mcL (0.0-1.3); Monocytes % 11.2 %; Neutrophils # 2.9 K/mcL (1.6-8.9); Platelet Count 241 K/mcL (140-400); Red Blood Count 3.12 M/mcL (4.19-5.50); Red Cell Distribution Width 14.6 % (11.5-14.5)
[2017-07-16 15:56] LABS: Potassium,Urine 29.8 mEq/L
[2017-07-16 15:57] LABS: BUN/Creatinine Ratio 21 (6-26); Blood Urea Nitrogen 15 mg/dL (6-20); Calcium 7.7 mg/dL (8.6-10.3); Carbon Dioxide 27 mEq/L (23-29); Chloride 87 mEq/L (98-107); Glucose 131 mg/dL (70-105); Osmolality,Calculated 247 (280-300); Potassium 5.1 mEq/L (3.5-5.1); Sodium 117 mEq/L (136-145); eGFR For African Americans > 60 (> 60); eGFR For Non-African Americans > 60 (> 60)
--- NOTE | 2017-07-16 17:00 | Electrocardiograph Report ---
[place] [address] Test Date: 2017-07-16 Pat Name: oJe Frey Department: 103 Room: Gender: M Benefit Specialist: : [id number] Requested By: Akbar Hassan Order Number: [id number] Reading MD: Maryam Rivera Measurements Intervals [place] Rate: 89 P: 64 MD: 171 QRS: 20 QRSD: 106 T: 5 QT: 340 QTc: 387 Interpretive Statements SINUS RHYTHM INFERIOR MYOCARDIAL INFARCTION [40+ ms Q WAVE AND/OR ST/T ABNORMALITY IN II/aVF], PROBABLY OLD Electronically Signed On 07-16-2017 16:59:09 EDT by Maryam Rivera
[2017-07-16] MEDS ORDERED: Thiamine (B-1) 100 MG, Folic Acid 1 MG, MVI, adult with vitamin K 10 ML in 0.9 % Sodi... IVPB SCH (18:00)
[2017-07-16] MEDS ORDERED: 0.9 % Sodium Chloride 1,000 ML ONE (18:58)
[2017-07-16] MEDS ORDERED: 0.9 % Sodium Chloride 1,000 ML IVC SCH (19:00)
[2017-07-16] MEDS: Divalproex (12 HR) 500 MG TABLET PO SCH (22:04)
[2017-07-16] MEDS: *HR* Heparin 5,000 UNIT/ML VIAL SQ SCH (22:04)
[2017-07-17] MEDS ORDERED: 0.9 % Sodium Chloride 1,000 ML IVC SCH (01:23)
[2017-07-17 04:36] LABS: Basophils % 0.6 %; Eosinophils # 0.3 K/mcL (0.0-0.6); Eosinophils % 5.5 %; Hematocrit 27.7 % (37.5-50.1); Hemoglobin 9.9 g/dL (12.9-16.9); Immature Granulocytes % 2.6 % (0-4); Lymphocytes % 38.4 %; Mean Corpuscular HGB Conc 35.7 g/dL (31.6-35.5); Mean Corpuscular Hemoglobin 31.3 pg (28.0-33.3); Mean Corpuscular Volume 87.7 fL (83.0-100.0); Monocytes # 0.7 K/mcL (0.0-1.3); Monocytes % 12.4 %; Neutrophils # 2.2 K/mcL (1.6-8.9); Platelet Count 284 K/mcL (140-400); Red Blood Count 3.16 M/mcL (4.19-5.50); Segmented Neutrophils % 40.5 %
[2017-07-17 04:49] LABS: Magnesium 1.4 mg/dL (1.6-2.6); Phosphorous 2.9 mg/dL (2.7-4.5)
[2017-07-17 04:50] LABS: BUN/Creatinine Ratio 14 (6-26); Blood Urea Nitrogen 9 mg/dL (6-20); Carbon Dioxide 24 mEq/L (23-29); Chloride 97 mEq/L (98-107); Glucose 70 mg/dL (70-105); Osmolality,Calculated 261 (280-300); Potassium 4.5 mEq/L (3.5-5.1); Sodium 127 mEq/L (136-145); eGFR For African Americans > 60 (> 60); eGFR For Non-African Americans > 60 (> 60)
[2017-07-17] MEDS: *HR* Heparin 5,000 UNIT/ML VIAL SQ SCH ×2 (06:04→17:56)
[2017-07-17] MEDS: Divalproex (12 HR) 500 MG TABLET PO SCH ×2 (07:55→21:44)
--- NOTE | 2017-07-17 08:11 | Nephrology Consult Note ---
Date of Encounter: 07/17/17 Time of Encounter: 08:09 Assessment and Plan (1) Hyponatremia Current Visit: No Status: Chronic Patient presented yesterday with worsening hyponatremia and seizures. Clinically he is euvolemic. Urine osmolality is inappropriately elevated. 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 His sodium is in a safe range currently. I agree with discontinuing the normal saline. The patient. Should be placed on a fluid restriction of 1200 mL per day. It may be worthwhile to see if he can be placed on an alternative agent other than valproic acid. We will check a cosyntropin stimulation test to make sure the patient does not have any adrenal insufficiency. History of Present Illness - History of Present Illness This is a 56-year-old male presenting to the emergency room yesterday with complaints of altered mental status. In the emergency room he had a witnessed seizure. He presented with a sodium of 115. Patient has a past history of chronic hyponatremia dating back to at least 2014. He was hospitalized in 2014 for hyponatremia. At that time he had a urine osmolality is low as 63 and as high as 342. Review of the medical record from that time shows that the patient also had a history of polydipsia. He currently is on valproic acid presumably for his seizures. He also has a history of psychiatric illness. Patient initially was given hypertonic saline until his sodium reached 120. He subsequently was switched to 0.9 normal saline. His sodium this morning is up to 127. The normal saline was discontinued at about 4 AM this morning. Patient is alert. He does have some tremors noted. He is not otherwise is in no acute distress. The nurse reports she has had no further witnessed seizure activity. Urine osmolality yesterday was 370. TSH was normal. Past Med Surg Social Fam HX - Past Medical History Medical history: diabetes, hypertension, myocardial infarction, other Additional medical history: chronic back pain. sciatica Psychiatric history: anxiety, bipolar, depression, prior suicide attempt, schizophrenia - Past Surgical History Surgical History: other Additional surgical history: bilat leg orthopedic - Social History Smoking Status: Current every day smoker Packs per day: 1/2 Smokeless Tobacco Status: No Alcohol use: none Drug use: marijuana - Family History Daughter Living Status: Still Living Hx Family Cardiac Disorders: No Hx Family Respiratory Disorders: Yes Hx Family Cancer: No Hx Family GI Disorders: No Hx Family Endocrine Disorder: No Hx Family Neuromuscular Disorders: No Hx Family Neurologic Disorders: No Hx Family HEENT Disorders: No Hx Family Autoimmune Disorders: No Mother Living Status: Hx Family Cardiac Disorders: Yes Father Living Status: Hx Family Cardiac Disorders: Yes ([place]) Medications and Allergies Fenofibrate [Tricor] 54 mg PO DAILY 04/07/15 [History] Levothyroxine [Synthroid] 100 mcg PO QAM 04/07/15 [History] Pantoprazole Sodium [Protonix] 40 mg PO DAILY 10/04/15 [History] Trazodone HCl 200 mg PO HS 08/21/16 [History] metFORMIN [Glucophage] 500 mg PO BID 08/21/16 [History] Aspirin 81 mg PO DAILY #30 09/30/16 [Rx] Clopidogrel [Plavix] 75 mg PO DAILY 30 Days tab 09/30/16 [Rx] Divalproex (12 HR) [Depakote (12 HR)] 1,500 mg PO BID 30 Days 09/30/16 [Rx] Atorvastatin [Lipitor] 40 mg PO HS 10/04/16 [History] Acetaminophen [Tylenol] 500 mg PO Q6H PRN 10/10/16 [History] Nitroglycerin [Nitrostat] 0.4 mg SL Q5M PRN 12/11/16 [History] Gabapentin [Neurontin] 800 mg PO QID 12/27/16 [History] Glimepiride [Amaryl] 4 mg PO BID 12/27/16 [History] hydrOXYzine pamoate [HydrOXYzine Pamoate] 25 mg PO TID 01/17/17 [History] Carvedilol 3.125 mg PO DAILY #30 tablet 01/25/17 [Rx] Citalopram [CeleXA] 20 mg PO DAILY 02/06/17 [History] Lisinopril [Zestril] 2.5 mg PO DAILY 02/06/17 [History] Lidocaine Patch [Lidoderm 5% patch] 1 each TP DAILY PRN #10 adh..patch 07/11/17 [Rx] Isosorbide MONOnitrate (24 HR) [Imdur] 30 mg PO DAILY 07/16/17 [History] Linezolid [Linezolid] 600 mg PO BID 07/16/17 [History] Sodium Chloride [Sodium Chloride Tab] 1 gm PO BID 07/16/17 [History] levoFLOXacin [Levofloxacin] 500 mg PO DAILY 07/16/17 [History] 3 Allergy/AdvReac Type Severity Reaction Status Date / Time No Known Allergies Allergy Verified 07/16/17 13:29 Review of Systems Constitutional: as per HPI, weakness Nose, mouth and throat: no dizziness, no headache(s) Cardiovascular: no chest pain, no palpitations Respiratory: dyspnea on exertion, no cough, no dyspnea Gastrointestinal: no abdominal pain, no change in bowel habits Musculoskeletal: no muscle weakness, no numbness Integumentary: no hirsutism, no striae Neurological: as per HPI, convulsions Psychiatric: as per HPI, depression Endocrine: as per HPI Hematologic/Lymphatic: no easy bruising, no lymphadenopathy Exam - Vital Signs Vital signs: Initial Vital Signs Temp Pulse Resp BP Pulse Ox 98.4 F 92 18 145/85 97 07/16/17 12:09 07/16/17 12:09 07/16/17 12:09 07/16/17 12:09 07/16/17 12:09 Vital Signs - Last 8 Hours Temp Pulse Resp BP Pulse Ox 07/17/17 08:00 91 18 164/90 95 07/17/17 07:51 98.1 F 07/17/17 07:00 86 16 167/74 100 07/17/17 06:00 89 14 160/90 95 07/17/17 05:00 81 16 154/80 98 07/17/17 04:08 98.0 F 07/17/17 04:00 85 12 147/92 94 07/17/17 03:00 81 14 145/71 99 07/17/17 02:00 85 12 129/90 97 07/17/17 01:00 85 12 133/89 93 Intake and Output 07/16/17 07/17/17 07/17/17 23:59 07:59 15:59 Intake Total 875 / 875 Output Total 4000 / 4000 Balance -3125 / -3125 Intake: IV Fluids 875 / 875 0.9 % Sodium Chloride 1,000 ML 875 / 875 @ 100 mls/hr IVC .Q10H [facility] Rx#: [id number] Output: Catheter 4000 / 4000 - General Appearance Exam: Patient is alert. He is in no acute distress. Blood pressure 160/90. He does have some tremors of his upper extremities. Lungs clear to auscultation. Heart regular rate and rhythm. Abdomen shows normal bowel sounds bruits prostatomegaly tenderness. Lower extremity show no peripheral edema. Results - Lab Results 07/17/17 04:00 07/17/17 04:00 Most recent lab results Calcium 8.0 mg/dL (8.6-10.3) L 07/17/17 04:00 Phosphorus 2.9 mg/dL (2.7-4.5) 07/17/17 04:00 Magnesium 1.4 mg/dL (1.6-2.6) L 07/17/17 04:00 Urine Creatinine 34 mg/dL 07/16/17 15:12 Urine Sodium 75.6 mEq/L 07/16/17 15:20 Consult Discharge Plan - Plan Referrals: Ruben Andre DO [Primary Care Provider] -
[2017-07-17] MEDS ORDERED: Cosyntropin 250 MCG/2 ML VIAL IVP ONE (08:15)
[2017-07-17] MEDS ORDERED: Aspirin 81 MG TAB.CHEW PO SCH (09:00)
[2017-07-17] MEDS ORDERED: Fenofibrate 54 MG TABLET PO SCH (09:00)
[2017-07-17] MEDS ORDERED: levoFLOXacin 500 MG TABLET PO SCH (09:15)
--- NOTE | 2017-07-17 09:20 | Pulmonology Progress Note ---
<Jonathon Gould - Last Filed: 07/17/17 09:26> Date of Encounter: 07/17/17 Time of Encounter: 07:08 Assessment and Plan (1) Altered mental status Current Visit: No Status: Resolved 1. Multi-factorial given the patients history of seizures and psychiatric issues but has resolved today 2. Plan to transfer out of ICU Qualifiers: Altered mental status type: transient alteration of awareness Qualified Code(s): R40.4 - Transient alteration of awareness (2) Hyponatremia Current Visit: No Status: Chronic 1. Resolved, Na 127. 2. Nephrology following, appreciate recs 3. D/C IVF 4. Fluid restriction of 1200mL/day 5. Further workup pending, may need to find another medication for his seizures (3) Abscess of left foot Current Visit: No Status: Acute 1. Is followed by podiatry for this. 2. Recent wound cultures on 07/04 showed MRSA, Klebsiella, Proteus. These were susceptible to Levaquin and linezolid, which the patient was started on as an outpatient previously. I spoke with the patient's wetlands conservation laborer, and we will restart his medications today and he will come and evaluate the patient this afternoon. (4) Diabetes Current Visit: No Status: Acute 1. Restart home metformin today Qualifiers: Diabetes mellitus type: type 2 Diabetes mellitus technician terminal and repeater insulin use: without technician terminal and repeater use Diabetes mellitus complication status: without complication Qualified Code(s): E11.9 - Type 2 diabetes mellitus without complications (5) Hypothyroidism Current Visit: No Status: Chronic 1. continue home meds, TSH WNL Qualifiers: Hypothyroidism type: acquired Qualified Code(s): E03.9 - Hypothyroidism, unspecified (6) Seizure disorder Current Visit: No Status: Chronic 1. H/o Epilepsy 2. Valproic acid level - 106, could be contributing to his hyponatremia 3. Likely will consult neurology to discuss medication adjustment (7) Hyperkalemia Current Visit: No Status: Resolved 1. Resolved Subjective Principal diagnosis: AMS, hyponatremia Interval history: Patient admitted yesterday for hyponatremia, seizures. Patient's initial sodium was 114, a central line was started in the ER and the patient received 3 % hypertonic saline. Per nephrology recommendation. This is continued until his sodium rechecked 120 and then he was transitioned to normal saline. His sodium is now 127 and the patient is awake and alert and feeling better. He does have a history of seizures and states he has been compliant with his medication. He also has a left foot wound. The after reviewing her previous culture was growing MRSA and Klebsiella. His wetlands conservation laborer, Dr. Fairchild placed him on linezolid and Levaquin after receiving sensitivities. This was stopped yesterday because we were unsure what he was on this for but were restarted today. Patient denies any complaints at this time Objective PUL Vital signs: Last Vital Signs Temp 98.1 F 07/17/17 07:51 Pulse 87 07/17/17 09:00 Resp 15 07/17/17 09:00 BP 175/111 07/17/17 09:00 Pulse Ox 98 07/17/17 09:00 General appearance: no acute distress, alert Eyes: nonicteric, other (R glass eye ) ENT: oropharynx moist Neck: supple Effort: normal Auscultation: bilateral: clear Cardiovascular: regular rate and rhythm Gastrointestinal: normoactive bowel sounds, non-distended Integumentary: other (Left foot ulcer) Extremities: no cyanosis Musculoskeletal: no deformities, ROM normal non-focal exam, pupils equal and round (R glass eye ) mood appropriate, affect normal Results - Laboratory Findings CBC and BMP: 07/17/17 04:00 07/17/17 08:00 PT/INR, D-dimer PT 10.9 Seconds (9.4-12.1) 07/16/17 12:39 Abnormal lab findings: Abnormal lab results RBC 3.16 M/mcL (4.19-5.50) L 07/17/17 04:00 Hgb 9.9 g/dL (12.9-16.9) L 07/17/17 04:00 Hct 27.7 % (37.5-50.1) L 07/17/17 04:00 MCHC 35.7 g/dL (31.6-35.5) H 07/17/17 04:00 RDW 15.0 % (11.5-14.5) H 07/17/17 04:00 Sodium 127 mEq/L (136-145) L 07/17/17 08:00 Chloride 97 mEq/L (98-107) L 07/17/17 04:00 Creatinine 0.64 mg/dL (0.70-1.30) L 07/17/17 04:00 Calculated Osmolality 261 (280-300) L 07/17/17 04:00 Calcium 8.0 mg/dL (8.6-10.3) L 07/17/17 04:00 Magnesium 1.4 mg/dL (1.6-2.6) L 07/17/17 04:00 AST 51 Units/L (13-39) H 07/16/17 12:39 ALT 83 Units/L (7-52) H 07/16/17 12:39 Alkaline Phosphatase 134 Units/L (34-104) H 07/16/17 12:39 Creatine Kinase 543 Units/L (30-223) H 07/16/17 12:39 Serum Total Protein 6.1 g/dL (6.4-8.9) L 07/16/17 12:39 Albumin 3.4 g/dL (3.5-5.7) L 07/16/17 12:39 Urine Glucose (UA) 250 mg/dL (Normal) H 07/16/17 12:38 Valproic Acid 106 mcg/mL (50-100) H* 07/16/17 12:39 U Marijuana (THC) Screen Positive ng/mL (Cutoff = 50) H 07/16/17 12:39 - Clinical Findings Intake & Output: Intake & Output 07/16/17 07/17/17 07/17/17 23:59 07:59 15:59 Intake Total 875 / 875 Output Total 4000 / 4000 Balance -3125 / -3125 Consult Discharge Plan - Plan Referrals: Ruben Andre DO [Primary Care Provider] - <Brittany Godinez - Last Filed: 07/17/17 09:49> Date of Encounter: 07/17/17 Objective PUL Vital signs: Last Vital Signs Temp 98.1 F 07/17/17 07:51 Pulse 87 07/17/17 09:00 Resp 15 07/17/17 09:00 BP 175/111 07/17/17 09:00 Pulse Ox 98 07/17/17 09:00 Results - Laboratory Findings CBC and BMP: 07/17/17 04:00 07/17/17 08:00 PT/INR, D-dimer PT 10.9 Seconds (9.4-12.1) 07/16/17 12:39 Abnormal lab findings: Abnormal lab results RBC 3.16 M/mcL (4.19-5.50) L 07/17/17 04:00 Hgb 9.9 g/dL (12.9-16.9) L 07/17/17 04:00 Hct 27.7 % (37.5-50.1) L 07/17/17 04:00 MCHC 35.7 g/dL (31.6-35.5) H 07/17/17 04:00 RDW 15.0 % (11.5-14.5) H 07/17/17 04:00 Sodium 127 mEq/L (136-145) L 07/17/17 08:00 Chloride 97 mEq/L (98-107) L 07/17/17 04:00 Creatinine 0.64 mg/dL (0.70-1.30) L 07/17/17 04:00 Calculated Osmolality 261 (280-300) L 07/17/17 04:00 Calcium 8.0 mg/dL (8.6-10.3) L 07/17/17 04:00 Magnesium 1.4 mg/dL (1.6-2.6) L 07/17/17 04:00 AST 51 Units/L (13-39) H 07/16/17 12:39 ALT 83 Units/L (7-52) H 07/16/17 12:39 Alkaline Phosphatase 134 Units/L (34-104) H 07/16/17 12:39 Creatine Kinase 543 Units/L (30-223) H 07/16/17 12:39 Serum Total Protein 6.1 g/dL (6.4-8.9) L 07/16/17 12:39 Albumin 3.4 g/dL (3.5-5.7) L 07/16/17 12:39 Urine Glucose (UA) 250 mg/dL (Normal) H 07/16/17 12:38 Valproic Acid 106 mcg/mL (50-100) H* 07/16/17 12:39 U Marijuana (THC) Screen Positive ng/mL (Cutoff = 50) H 07/16/17 12:39 - Clinical Findings Intake & Output: Intake & Output 07/16/17 07/17/17 07/17/17 23:59 07:59 15:59 Intake Total 875 / 875 Output Total 4000 / 4000 Balance -3125 / -3125 - Attending Attestation I examined this patient and my medical decision-making was reviewed with the Resident Physician. I agree with the documented findings, disposition and treatment plan as described except to the extent set forth below. Patient seen and examined. Labs, radiology, chart personally reviewed. Agree with resident's history and physical, assessment, plan with following comments: DIRECTOR MARKET RESEARCH: Patient follows commands, there is significant improvement and patient to be on antiepileptic medication. Pulmonary: Acceptable oxygenation and ventilation Cardiovascular: stable GI: Nutrition per dietary and GI prophylaxis per routine Heme: DVT prophylaxis per routine ID: Patient has been on antibiotics as outpatient and apparently completed his course. Consult podiatry for more information and if he needs antibiotics. Renal; urine out put and renal funtion reviewed. There is significant improvement in hyponatremia and patient should avoid significant alcohol intake. Endorcine: blood glucose is monitored Lines: all lines checked and no evidence of infections Skin: skin care to prevent pressure ulcers per nursing routine care Patient will be transferred out of ICU.
[2017-07-17 12:55] LABS: Magnesium 1.7 mg/dL (1.6-2.6)
[2017-07-17] MEDS ORDERED: Linezolid 600 MG TABLET PO SCH (13:00)
[2017-07-17] MEDS ORDERED: *HR* LORazepam 2 MG/ML VIAL IVP PRN ×2 (15:02)
[2017-07-17] MEDS ORDERED: Naloxone 0.4 MG/ML INJ IVP PRN (15:02)
[2017-07-17] MEDS ORDERED: Acetaminophen 325 MG TABLET PO PRN (15:02)
[2017-07-17] MEDS ORDERED: Nicotine 21 MG PATCH.TD24 TD STA (15:13)
[2017-07-17] MEDS ORDERED: *HR* Glimepiride 4 MG TABLET PO SCH (16:30)
[2017-07-17] MEDS ORDERED: *HR* Metformin 500 MG TABLET PO SCH (17:00)
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
[2017-07-17] MEDS: Thiamine (B-1) 100 MG, Folic Acid 1 MG, MVI, adult with vitamin K 10 ML in 0.9 % Sodi... IVPB SCH (17:56)
[2017-07-17] MEDS: *HR* Metformin 500 MG TABLET PO SCH (17:57)
[2017-07-17] MEDS: Linezolid 600 MG TABLET PO SCH (21:45)
[2017-07-17] MEDS: *HR* Glimepiride 4 MG TABLET PO SCH (21:45)
[2017-07-18] MEDS: *HR* Heparin 5,000 UNIT/ML VIAL SQ SCH ×2 (06:23→16:43)
[2017-07-18 08:57] LABS: Total Volume 24 Hour,Urine 5.93 Liters (0.80-1.80)
[2017-07-18] MEDS ORDERED: Isosorbide MONOnitrate (24 HR) 30 MG TAB.ER.24H PO SCH (09:00)
[2017-07-18 09:53] LABS: Sodium, Urine 79.6 mEq/L
--- NOTE | 2017-07-18 09:54 | Nephrology Progress Note ---
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 There may be contributed factor from the valproic acid. TSH was normal. Cosyntropin stimulation test results are pending. I would continue with the oral fluid restriction of 1200 mL per day. We will check some lab today. Subjective Principal diagnosis: AMS, hyponatremia Interval history: The patient has no new complaints. His mental status appears to be stable. There is no lab available for today. Urine output yesterday was recorded as 4.7 L with an intake of 875. Vital signs are stable. Objective - Vital Signs Vital signs: Vital Signs Temp Pulse Resp BP Pulse Ox 07/18/17 06:53 98.7 F 87 18 148/85 96 07/18/17 04:15 98.3 F 96 18 159/86 99 07/17/17 23:42 98.5 F 86 16 157/91 99 07/17/17 21:42 83 16 152/83 07/17/17 21:21 98.2 F 07/17/17 20:06 86 07/17/17 16:48 98.0 F 07/17/17 15:00 91 18 96 07/17/17 12:28 98.0 F 07/17/17 12:00 90 18 138/81 96 07/17/17 10:00 82 16 158/90 95 Intake and Output 07/17/17 07/18/17 07/18/17 23:59 07:59 15:59 Intake Total 240 / 240 Output Total 750 / 750 750 / 750 Balance -750 / -750 -750 / -750 240 / 240 Intake: Oral 240 / 240 Output: Urine 750 / 750 750 / 750 Other: Meal Dinner Breakfast Percent of Meal Consumed 85% 100% Blood Glucose* 146 - General Appearance Exam: Patient appears alert and oriented. He is in no acute distress. Lungs clear to auscultation. Heart regular rhythm. Abdomen is benign. There is no peripheral edema. - Lab 07/17/17 04:00 07/17/17 22:18 Most recent lab results Calcium 8.0 mg/dL (8.6-10.3) L 07/17/17 04:00 Phosphorus 2.9 mg/dL (2.7-4.5) 07/17/17 04:00 Magnesium 1.7 mg/dL (1.6-2.6) 07/17/17 12:00 Urine Creatinine 34 mg/dL 07/16/17 15:12 Urine Sodium 75.6 mEq/L 07/16/17 15:20 Consult Discharge Plan - Plan Referrals: Ruben Andre DO [Primary Care Provider] -
[2017-07-18] MEDS: *HR* Glimepiride 4 MG TABLET PO SCH ×2 (10:04→21:37)
[2017-07-18] MEDS: Divalproex (12 HR) 500 MG TABLET PO SCH ×2 (10:05→21:38)
[2017-07-18] MEDS: *HR* Metformin 500 MG TABLET PO SCH ×2 (10:05→16:41)
[2017-07-18] MEDS: Linezolid 600 MG TABLET PO SCH ×2 (10:05→21:37)
[2017-07-18] MEDS: Aspirin 81 MG TAB.CHEW PO SCH (10:06)
[2017-07-18] MEDS: Isosorbide MONOnitrate (24 HR) 30 MG TAB.ER.24H PO SCH (10:06)
[2017-07-18] MEDS: levoFLOXacin 500 MG TABLET PO SCH (10:07)
[2017-07-18] MEDS: Fenofibrate 54 MG TABLET PO SCH (10:07)
[2017-07-18 10:40] LABS: Basophils # 0.1 K/mcL (0.0-0.2); Eosinophils # 0.2 K/mcL (0.0-0.6); Eosinophils % 4.5 %; Hematocrit 33.8 % (37.5-50.1); Immature Granulocytes % 0.8 % (0-4); Lymphocytes % 38.4 %; Mean Corpuscular Hemoglobin 30.3 pg (28.0-33.3); Mean Corpuscular Volume 88.9 fL (83.0-100.0); Mean Platelet Volume 10.3 fL (9.4-12.4); Monocytes # 0.9 K/mcL (0.0-1.3); Monocytes % 16.5 %; Platelet Count 344 K/mcL (140-400); Red Cell Distribution Width 15.5 % (11.5-14.5); Segmented Neutrophils % 38.8 %
[2017-07-18 10:42] LABS: Hemoglobin 11.5 g/dL (12.9-16.9)
[2017-07-18 11:08] LABS: Alanine Aminotransferase 49 Units/L (7-52); Albumin 3.3 g/dL (3.5-5.7); Albumin/Globulin Ratio 1.3 (1.1-2.2); Alkaline Phosphatase 92 Units/L (34-104); Aspartate Amino Transferase 31 Units/L (13-39); BUN/Creatinine Ratio 11 (6-26); Bilirubin,Total 0.6 mg/dL (0.3-1.0); Blood Urea Nitrogen 8 mg/dL (6-20); Calcium 8.8 mg/dL (8.6-10.3); Carbon Dioxide 24 mEq/L (23-29); Chloride 98 mEq/L (98-107); Globulin 2.6 g/dL (2.4-3.5); Glucose 174 mg/dL (70-105); Magnesium 1.5 mg/dL (1.6-2.6); Osmolality,Calculated 269 (280-300); Phosphorous 2.7 mg/dL (2.7-4.5); Potassium 4.6 mEq/L (3.5-5.1); Sodium 128 mEq/L (136-145); Total Protein 5.9 g/dL (6.4-8.9); eGFR For African Americans > 60 (> 60); eGFR For Non-African Americans > 60 (> 60)
[2017-07-18] MEDS: Thiamine (B-1) 100 MG, Folic Acid 1 MG, MVI, adult with vitamin K 10 ML in 0.9 % Sodi... IVPB SCH (16:44)
[2017-07-18] MEDS: OXYCODONE Oral CONC 10 MG/0.5 ML ORAL.SYG SL PRN ×2 (16:52→21:40)
--- NOTE | 2017-07-18 20:26 | Internal Med Progress Note ---
Date of Encounter: 07/18/17 Time of Encounter: 13:05 - Assessment and plan (1) Diabetes mellitus, type 2 Current Visit: Yes Status: Chronic Assessment and plan: A1c 7.4% in May,. SSI, accuchecks achs, diabetic diet. Qualifiers: Diabetes mellitus [facility] insulin use: without filler leaf cutter long use Diabetes mellitus complication status: without complication Qualified Code(s): E11.9 - Type 2 diabetes mellitus without complications (2) Hyperkalemia Current Visit: Yes Status: Resolved (3) Hyponatremia Current Visit: Yes Status: Acute Assessment and plan: Improving. Sodium is 128 today. Unclear etiology. Continue fluid restriction 1.2 L Nephrology following. I appreciate his recommendations. (4) Hypothyroidism Current Visit: No Status: Chronic Assessment and plan: TSH is within normal limits. Continue home dose of levothyroxine. Qualifiers: Hypothyroidism type: acquired Qualified Code(s): E03.9 - Hypothyroidism, unspecified (5) Seizure Current Visit: Yes Status: Chronic Assessment and plan: Chronic. Acid level only mildly elevated elevated. Continue to monitor. Seizure precautions. (6) Seizure disorder Current Visit: Yes Status: Chronic Assessment and plan: Plan as above. (7) Unspecified open wound, right foot, subsequent encounter Current Visit: Yes Status: Chronic Assessment and plan: Patient with chronic wound to left foot. Patient reports that he sees wound care here. Onset 3 years ago per patient history. Dressing is dry and intact. There is approximately a dime-sized opening with no drainage. Patient denies pain. Wound care consultation. - Time Spent With Patient Total time spent is greater than 50% in coordination of care (as documented) at patient's floor/unit and/or counseling patient: less than 15 minutes - Subjective Interval history: Patient was seen and assessed in the ER hold. At 1305. He was drowsy, he awakened easily to verbal stimuli. He states that he is feeling better than he was on admission. Patient reports no nausea, vomiting, diarrhea, no chest pain or shortness of breath. - Constitutional Vitals: Temp Pulse Resp BP Pulse Ox 98.7 F 83 16 129/88 97 07/18/17 20:16 07/18/17 20:16 07/18/17 20:16 07/18/17 20:16 07/18/17 20:16 General appearance: Present: cooperative, A&O X 3, pleasant, no acute distress, answers questions appropriately - Head Head exam: Present: atraumatic, normal inspection, normocephalic - Eye Eye exam: Present: normal appearance, conjuntiva pink. Absent: PERRL, sclera anicteric Pupils: Present: PERRL - Neck Neck exam general surgery: Present: supple, trachea midline. Absent: lymphadenopathy, tenderness - Respiratory Respiratory exam: Present: CTAB. Absent: accessory muscle use, rales, respiratory distress, rhonchi, wheezes - Cardiovascular Cardiovascular exam: Present: RRR, +S1, +S2. Absent: diastolic murmur, gallop, rubs, systolic murmur - GI/Abdominal GI/Abdominal exam: Present: hepatomegaly, normal bowel sounds, soft. Absent: distended, tenderness - Extremities Exam Extremities exam: Present: normal capillary refill, normal inspection, warm, radial pulses palpable and symmetrical. Absent: calf tenderness, cyanotic, pedal edema, tenderness - Neurological Exam Neurological exam: Present: alert, oriented X3, no focal deficits. Absent: facial droop, speech deficit - Skin Skin exam: Present: dry, intact, normal color, warm. Absent: rash Internal Medicine: Result - Labs CBC & Chem 7: 07/18/17 10:01 07/18/17 10:01 Labs: Short CBC 07/18/17 Range/Units 10:01 WBC 5.2 (4.3-11.1) K/mcL Hgb 11.5 L D (12.9-16.9) g/dL Hct 33.8 L (37.5-50.1) % Plt Count 344 (140-400) K/mcL Neutrophils # 2.0 (1.6-8.9) K/mcL BMP 07/17/17 07/18/17 22:18 10:01 Sodium 129 L 128 L Potassium 4.6 Chloride 98 Carbon Dioxide 24 BUN 8 Creatinine 0.70 Glucose 174 H Calcium 8.8 Liver Function 07/18/17 Range/Units 10:01 Total Bilirubin 0.6 (0.3-1.0) mg/dL AST 31 (13-39) Units/L ALT 49 (7-52) Units/L Alkaline Phosphatase 92 (34-104) Units/L Albumin 3.3 L (3.5-5.7) g/dL - ABG Interpretation ABG results: PT/INR, D-dimer PT 10.9 Seconds (9.4-12.1) 07/16/17 12:39 Consult Discharge Plan - Plan Referrals: Ruben Andre DO [Primary Care Provider] -
[2017-07-19] MEDS: OXYCODONE Oral CONC 10 MG/0.5 ML ORAL.SYG SL PRN ×4 (02:06→20:09)
[2017-07-19] MEDS: *HR* Heparin 5,000 UNIT/ML VIAL SQ SCH ×2 (06:27→17:33)
[2017-07-19 07:26] LABS: Alanine Aminotransferase 42 Units/L (7-52); Albumin 3.3 g/dL (3.5-5.7); Albumin/Globulin Ratio 1.1 (1.1-2.2); Alkaline Phosphatase 90 Units/L (34-104); Aspartate Amino Transferase 32 Units/L (13-39); BUN/Creatinine Ratio 12 (6-26); Bilirubin,Total 0.6 mg/dL (0.3-1.0); Blood Urea Nitrogen 8 mg/dL (6-20); Calcium 8.7 mg/dL (8.6-10.3); Carbon Dioxide 20 mEq/L (23-29); Chloride 101 mEq/L (98-107); Globulin 3.1 g/dL (2.4-3.5); Glucose 132 mg/dL (70-105); Osmolality,Calculated 270 (280-300); Potassium 5.6 mEq/L (3.5-5.1); Sodium 130 mEq/L (136-145); Total Protein 6.4 g/dL (6.4-8.9); eGFR For African Americans > 60 (> 60); eGFR For Non-African Americans > 60 (> 60)
[2017-07-19 08:11] LABS: Basophils # 0.1 K/mcL (0.0-0.2); Eosinophils # 0.4 K/mcL (0.0-0.6); Eosinophils % 4.8 %; Hematocrit 36.1 % (37.5-50.1); Hemoglobin 12.3 g/dL (12.9-16.9); Lymphocytes # 2.8 K/mcL (0.6-4.6); Lymphocytes % 37.4 %; Mean Corpuscular HGB Conc 34.1 g/dL (31.6-35.5); Mean Corpuscular Hemoglobin 30.8 pg (28.0-33.3); Mean Corpuscular Volume 90.3 fL (83.0-100.0); Mean Platelet Volume 9.8 fL (9.4-12.4); Monocytes % 13.3 %; Neutrophils # 3.1 K/mcL (1.6-8.9); Platelet Count 408 K/mcL (140-400); Red Cell Distribution Width 15.2 % (11.5-14.5); Segmented Neutrophils % 42.5 %
[2017-07-19 08:31] LABS: BUN/Creatinine Ratio 10 (6-26); Blood Urea Nitrogen 8 mg/dL (6-20); Calcium 9.2 mg/dL (8.6-10.3); Carbon Dioxide 27 mEq/L (23-29); Chloride 97 mEq/L (98-107); Glucose 143 mg/dL (70-105); Osmolality,Calculated 271 (280-300); Potassium 5.7 mEq/L (3.5-5.1); Sodium 130 mEq/L (136-145); eGFR For African Americans > 60 (> 60); eGFR For Non-African Americans > 60 (> 60)
[2017-07-19] MEDS: Aspirin 81 MG TAB.CHEW PO SCH (09:40)
[2017-07-19] MEDS: levoFLOXacin 500 MG TABLET PO SCH (09:40)
[2017-07-19] MEDS: *HR* Glimepiride 4 MG TABLET PO SCH ×2 (09:41→20:09)
[2017-07-19] MEDS: *HR* Metformin 500 MG TABLET PO SCH ×2 (09:41→17:33)
[2017-07-19] MEDS: Divalproex (12 HR) 500 MG TABLET PO SCH ×2 (09:41→20:09)
[2017-07-19] MEDS: Isosorbide MONOnitrate (24 HR) 30 MG TAB.ER.24H PO SCH (09:42)
[2017-07-19] MEDS: Linezolid 600 MG TABLET PO SCH ×2 (09:42→20:09)
[2017-07-19] MEDS: Fenofibrate 54 MG TABLET PO SCH (09:42)
--- NOTE | 2017-07-19 11:06 | Nephrology Progress Note ---
Date of Encounter: 07/19/17 Time of Encounter: 10:35 - Assessment and Plan (1) Hyponatremia Current Visit: Yes Status: Acute Sodium improving 130, K 5.6. Bicarb 20. Renal fct normal. Possible hyperkalemic RTA.Will start on Oral Bicarb. Subjective Principal diagnosis: AMS, hyponatremia Interval history: Laying quietly, states feeling better, no further seizures. Objective - Vital Signs Vital signs: Vital Signs Temp Pulse Resp BP Pulse Ox 07/19/17 09:45 87 07/19/17 07:26 97.9 F 88 18 128/85 98 07/19/17 04:21 97.7 F 102 18 155/93 98 07/18/17 23:07 97.9 F 82 16 149/87 98 07/18/17 20:16 98.7 F 83 16 129/88 97 07/18/17 16:56 88 07/18/17 16:22 98.8 F 83 18 137/94 98 Intake and Output 07/18/17 07/19/17 07/19/17 23:59 07:59 15:59 Intake Total 1821.2 / 1821.2 170 / 170 600 / 600 Output Total 1400 / 1400 1000 / 1000 175 / 175 Balance 421.2 / 421.2 -830 / -830 425 / 425 Intake: IV Fluids 511.2 / 511.2 Vitamin B-1 100 MG Folvite 1 MG 511.2 / 511.2 M.v.i. Adult 10 ml In 0.9 % Sodium Chloride 500 ML @ 85.2 mls/hr IVPB DAILY@1800 [facility] Rx#: [id number] Oral 830 / 830 170 / 170 600 / 600 Free Water 480 / 480 Output: Urine 1400 / 1400 1000 / 1000 175 / 175 Other: Meal Dinner Breakfast Percent of Meal Consumed 100% 50% Weight 90.2 kg Blood Glucose* 151 120 - General Appearance General appearance: Present: well-developed, well-nourished, appears started age EENT: Present: mucous membranes moist Neck: Present: no JVD Respiratory: Present: clear Cardiology: Present: no edema, regular rate, regular rhythm Gastrointestinal: Present: normoactive bowel sounds, no tenderness Integumentary: Present: warm and dry Neurologic: Present: alert and oriented x3 - Lab 07/19/17 07:58 07/19/17 07:58 Most recent lab results Calcium 9.2 mg/dL (8.6-10.3) 07/19/17 07:58 Phosphorus 2.7 mg/dL (2.7-4.5) 07/18/17 10:01 Magnesium 1.5 mg/dL (1.6-2.6) L 07/18/17 10:01 Urine Creatinine 25 mg/dL 07/17/17 16:00 Urine Sodium 79.6 mEq/L 07/17/17 16:00 Consult Discharge Plan - Plan Referrals: Ruben Andre DO [Primary Care Provider] -
--- NOTE | 2017-07-19 16:50 | Internal Med Progress Note ---
Date of Encounter: 07/19/17 Time of Encounter: 09:30 - Assessment and plan (1) Diabetes mellitus, type 2 Current Visit: Yes Status: Chronic Assessment and plan: A1c 7.4% in May,. SSI, accuchecks achs, diabetic diet. Patient can benefit from diabetes education, family member is bringing him Mountain Dew to drink in the emergency department. Recommend follow up with diabetes education after discharge. Qualifiers: Diabetes mellitus tank terminal gauger insulin use: without tank terminal gauger use Diabetes mellitus complication status: without complication Qualified Code(s): E11.9 - Type 2 diabetes mellitus without complications (2) Hyperkalemia Current Visit: Yes Status: Resolved Assessment and plan: Resolved. Kayexalate 60 g given. Continue to monitor. (3) Hyponatremia Current Visit: Yes Status: Acute Assessment and plan: Stable. Sodium is 128 today. Patient is not compliant with fluid restriction. Patient denied discussed compliance so that he could go home. He verbalized understanding. It appears the patient is chronically hyponatremic. Unclear etiology. Continue fluid restriction 1.2 L Nephrology following. I appreciate his recommendations. 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 Also may be related to valproic acid. (4) Hypothyroidism Current Visit: Yes Status: Chronic Assessment and plan: continue home medication Qualifiers: Hypothyroidism type: acquired Qualified Code(s): E03.9 - Hypothyroidism, unspecified (5) Seizure Current Visit: Yes Status: Chronic Assessment and plan: Seizure precautions in place. Continue medications. (6) Seizure disorder Current Visit: Yes Status: Chronic Assessment and plan: Plan as above (7) Unspecified open wound, right foot, subsequent encounter Current Visit: Yes Status: Chronic Assessment and plan: Patient with chronic wound to left foot. Patient reports that he sees wound care here. Onset 3 years ago per patient history. Dressing is dry and intact. There is approximately a dime-sized opening with no drainage. Patient denies pain. Wound care consultation. Patient had an I&D of abscess on the left calcaneus per Dr. Fairchild. He was seen by CLE[employer]ICE GRADER AND REEL TENDER in the office and will resume calcium alginate with dressing changes daily. Follow up with [place] 1 week after discharge. - Time Spent With Patient Total time spent is greater than 50% in coordination of care (as documented) at patient's floor/unit and/or counseling patient: less than 15 minutes - Subjective Interval history: Patient was seen and assessed in the ER hold at 9:30 AM. He was awake, alert, answered questions appropriately.. He states that he is feeling better than he was on admission. Patient reports no nausea, vomiting, diarrhea, no chest pain or shortness of breath. Nurse reports patient's family member has bringing him 20 ounce Mountain Dew use that he has been drinking and is not being compliant with fluid restriction. I encouraged patient to stick with it for another day or 2 and then when his sodium was about 1:30 I would like to go home. Verbalized understanding. - Constitutional Vitals: Temp Pulse Resp BP Pulse Ox 97.8 F 93 16 131/91 97 07/19/17 12:00 07/19/17 12:00 07/19/17 12:00 07/19/17 12:07/19/17 12:00 General appearance: Present: cooperative, A&O X 3, pleasant, no acute distress, answers questions appropriately - Head Head exam: Present: atraumatic, normal inspection, normocephalic - Eye Eye exam: Present: normal appearance, conjuntiva pink, sclera anicteric - Neck Neck exam general surgery: Present: supple, trachea midline. Absent: lymphadenopathy, tenderness - Respiratory Respiratory exam: Present: CTAB. Absent: accessory muscle use, chest wall tenderness, rales, rhonchi, wheezes - Cardiovascular Cardiovascular exam: Present: RRR, +S1, +S2. Absent: diastolic murmur, gallop, rubs, systolic murmur - GI/Abdominal GI/Abdominal exam: Present: normal bowel sounds, soft, no peritoneal signs. Absent: distended, hepatomegaly, tenderness - Extremities Exam Extremities exam: Present: normal capillary refill, normal inspection, warm, radial pulses palpable and symmetrical. Absent: calf tenderness, cyanotic, pedal edema, tenderness - Neurological Exam Neurological exam: Present: alert, oriented X3, no focal deficits. Absent: facial droop, speech deficit - Skin Skin exam: Present: dry, intact, normal color, warm. Absent: rash Internal Medicine: Result - Labs CBC & Chem 7: 07/19/17 07:58 07/19/17 15:54 Labs: Short CBC 07/19/17 Range/Units 07:58 WBC 7.4 (4.3-11.1) K/mcL Hgb 12.3 L (12.9-16.9) g/dL Hct 36.1 L (37.5-50.1) % Plt Count 408 H (140-400) K/mcL Neutrophils # 3.1 (1.6-8.9) K/mcL BMP 07/19/17 07/19/17 07/19/17 07:02 07:58 15:54 Sodium 130 L 130 L 128 L Potassium 5.6 H 5.7 H Chloride 101 97 L Carbon Dioxide 20 L 27 BUN 8 8 Creatinine 0.68 L 0.77 Glucose 132 H 143 H Calcium 8.7 9.2 07/19/17 15:54 Sodium Potassium 4.4 Chloride Carbon Dioxide BUN Creatinine Glucose Calcium Liver Function 07/19/17 Range/Units 07:02 Total Bilirubin 0.6 (0.3-1.0) mg/dL AST 32 (13-39) Units/L ALT 42 (7-52) Units/L Alkaline Phosphatase 90 (34-104) Units/L Albumin 3.3 L (3.5-5.7) g/dL - ABG Interpretation ABG results: PT/INR, D-dimer PT 10.9 Seconds (9.4-12.1) 07/16/17 12:39 Consult Discharge Plan - Plan Referrals: Ruben Andre DO [Primary Care Provider] -
[2017-07-20] MEDS: *HR* Heparin 5,000 UNIT/ML VIAL SQ SCH (05:27)
[2017-07-20 05:44] LABS: Basophils # 0.1 K/mcL (0.0-0.2); Basophils % 0.8 %; Eosinophils # 0.4 K/mcL (0.0-0.6); Hematocrit 35.3 % (37.5-50.1); Hemoglobin 11.9 g/dL (12.9-16.9); Immature Granulocytes % 0.9 % (0-4); Lymphocytes # 2.1 K/mcL (0.6-4.6); Mean Corpuscular HGB Conc 33.7 g/dL (31.6-35.5); Mean Corpuscular Hemoglobin 29.8 pg (28.0-33.3); Mean Corpuscular Volume 88.5 fL (83.0-100.0); Mean Platelet Volume 10.3 fL (9.4-12.4); Monocytes # 1.2 K/mcL (0.0-1.3); Monocytes % 16.4 %; Neutrophils # 3.6 K/mcL (1.6-8.9); Platelet Count 391 K/mcL (140-400); Red Blood Count 3.99 M/mcL (4.19-5.50); Red Cell Distribution Width 15.5 % (11.5-14.5); Segmented Neutrophils % 48.9 %
[2017-07-20 06:05] LABS: BUN/Creatinine Ratio 19 (6-26); Blood Urea Nitrogen 15 mg/dL (6-20); Carbon Dioxide 25 mEq/L (23-29); Chloride 100 mEq/L (98-107); Glucose 71 mg/dL (70-105); Osmolality,Calculated 275 (280-300); Potassium 4.1 mEq/L (3.5-5.1); Sodium 133 mEq/L (136-145); eGFR For African Americans > 60 (> 60); eGFR For Non-African Americans > 60 (> 60)
[2017-07-20] MEDS ORDERED: OXYCODONE Oral CONC 10 MG/0.5 ML ORAL.SYG SL PRN (07:45)
[2017-07-20] MEDS: Fenofibrate 54 MG TABLET PO SCH (08:50)
[2017-07-20] MEDS: Linezolid 600 MG TABLET PO SCH (08:51)
[2017-07-20] MEDS: levoFLOXacin 500 MG TABLET PO SCH (08:51)
[2017-07-20] MEDS: Aspirin 81 MG TAB.CHEW PO SCH (08:52)
[2017-07-20] MEDS: Divalproex (12 HR) 500 MG TABLET PO SCH (08:52)
[2017-07-20] MEDS: *HR* Glimepiride 4 MG TABLET PO SCH (08:53)
[2017-07-20] MEDS: *HR* Metformin 500 MG TABLET PO SCH (08:53)
[2017-07-20] MEDS: Isosorbide MONOnitrate (24 HR) 30 MG TAB.ER.24H PO SCH (08:53)
--- NOTE | 2017-07-20 09:32 | Nephrology Progress Note ---
Date of Encounter: 07/20/17 Time of Encounter: 09:00 - Assessment and Plan (1) Hyponatremia Current Visit: Yes Status: Acute Sodium improving 133, K 4.1. Bicarb 25. Renal fct normal. Possible hyperkalemic RTA. Subjective Principal diagnosis: AMS, hyponatremia Interval history: Laying quietly, states feeling better, no further seizures. No new complaints. Objective - Vital Signs Vital signs: Vital Signs Temp Pulse Resp BP Pulse Ox 07/20/17 07:23 97.8 F 86 16 131/83 100 07/20/17 03:56 97.7 F 82 16 115/77 99 07/20/17 00:11 98.5 F 88 16 122/82 96 07/19/17 19:34 98.4 F 95 16 133/89 97 07/19/17 17:12 98.1 F 103 18 119/89 97 07/19/17 12:00 97.8 F 93 16 131/91 97 07/19/17 09:45 87 Intake and Output 07/19/17 07/20/17 07/20/17 23:59 07:59 15:59 Intake Total 0 / 0 30 / 30 Output Total 50 / 50 0 / 0 Balance -50 / -50 30 / 30 Intake: Oral 0 / 0 30 / 30 Output: Urine 50 / 50 0 / 0 Other: Stool Size Moderate Stool Consistency liquid Stool Color Brown Weight 80.558 kg Blood Glucose* 158 Patient Weight 07/20/17 23:59 Weight 80.558 kg - General Appearance General appearance: Present: well-developed, well-nourished, appears started age EENT: Present: mucous membranes moist Neck: Present: no JVD Respiratory: Present: clear Cardiology: Present: no edema, regular rate, regular rhythm Gastrointestinal: Present: normoactive bowel sounds, no tenderness Integumentary: Present: warm and dry Neurologic: Present: alert and oriented x3 - Lab 07/20/17 04:27 07/20/17 04:27 Most recent lab results Calcium 9.0 mg/dL (8.6-10.3) 07/20/17 04:27 Phosphorus 2.7 mg/dL (2.7-4.5) 07/18/17 10:01 Magnesium 1.5 mg/dL (1.6-2.6) L 06/06/18 10:01 Urine Creatinine 25 mg/dL 07/17/17 16:00 Urine Sodium 79.6 mEq/L 07/17/17 16:00 Consult Discharge Plan - Plan Referrals: Ruben Andre DO [Primary Care Provider] -
[2017-07-20 10:42] VITALS: BP 115/81
--- NOTE | 2017-07-20 12:21 | Discharge Summary ---
- NOTES TO OUTPATIENT PROVIDER Notes to Outpatient Provider: Complete levaquin till 07/22, Zyvox 07/24 Orders not resulted at time of discharge: Pending orders 07/21/17 04:00 Basic Metabolic Panel AM 0400 Complete Blood Count [HEME] AM 0400 Date of Encounter: 07/20/17 Time of Encounter: 12:20 - Discharge Diagnosis (1) Diabetes mellitus, type 2 Priority: Secondary Status: Chronic Qualifiers: Diabetes mellitus halfway insulin use: without tank terminal gauger use Diabetes mellitus complication status: without complication Qualified Code(s): E11.9 - Type 2 diabetes mellitus without complications (2) Hyponatremia Priority: Primary Status: Resolved (3) Seizure Priority: Secondary Status: Chronic (4) Hypothyroidism Priority: Secondary Status: Chronic Qualifiers: Hypothyroidism type: acquired Qualified Code(s): E03.9 - Hypothyroidism, unspecified (5) Hyperkalemia Priority: Primary Status: Resolved (6) Seizure disorder Priority: Secondary Status: Chronic (7) Unspecified open wound, right foot, subsequent encounter Priority: Secondary Status: Chronic (8) Altered mental status Priority: Primary Status: Resolved Qualifiers: Altered mental status type: transient alteration of awareness Qualified Code(s): R40.4 - Transient alteration of awareness Hospital course: Mr. Frey is a 56 year old male with PMH of DM, Seizure disorder, Hypothyroidism , HTN, who was admitted to the intensive care unt wit hyponatremia and altered mental status He had recently had an incision and drainage of his Left foot with MRSA, proteus and klebsiella, and was discharged on zyvox and levaquin. It is thought that his altered mental status was multifactorial due to his multiple psych diagnoses , hyponatremia as well as hx of seizure. He made significant improvement and was transferred out of the ICU after one hospital stay Nephrology was consulted for management of his hyponatremia and recommended fluid restriction,and started patient on oral bicarb. Na has improved slowly to 133 from 115 on admission Seen and evaluated at bedside this a.m He complains of R butt cheek,, he is ambulatory and not in any form of distress Labs are stable. He is clinically stable to be discharged home on current meds, recommend follow up with own organ builder, PCP and neurologist, as well as ward secretary Complete Levaquin till 07/22 and zyvox till 07/24 Discharge discussed with: patient, nurse, case management - Time Spent with Patient Total time spent providing and/or coordinating discharge services: Greater than 30 minutes - Discharge Medications Home Medications: Fenofibrate [Tricor] 54 mg PO DAILY 04/07/15 [History] Levothyroxine [Synthroid] 100 mcg PO QAM 04/07/15 [History] Pantoprazole Sodium [Protonix] 40 mg PO DAILY 10/04/15 [History] Trazodone HCl 200 mg PO HS 08/21/16 [History] metFORMIN [Glucophage] 500 mg PO BID 08/21/16 [History] Aspirin 81 mg PO DAILY #30 09/30/16 [Rx] Clopidogrel [Plavix] 75 mg PO DAILY 30 Days tab 09/30/16 [Rx] Divalproex (12 HR) [Depakote (12 HR)] 1,500 mg PO BID 30 Days 09/30/16 [Rx] Atorvastatin [Lipitor] 40 mg PO HS 10/04/16 [History] Acetaminophen [Tylenol] 500 mg PO Q6H PRN 10/10/16 [History] Nitroglycerin [Nitrostat] 0.4 mg SL Q5M PRN 12/11/16 [History] Gabapentin [Neurontin] 800 mg PO QID 12/27/16 [History] Glimepiride [Amaryl] 4 mg PO BID 12/27/16 [History] hydrOXYzine pamoate [HydrOXYzine Pamoate] 25 mg PO TID 01/17/17 [History] Citalopram [CeleXA] 20 mg PO DAILY 02/06/17 [History] Lisinopril [Zestril] 2.5 mg PO DAILY 02/06/17 [History] Lidocaine Patch [Lidoderm 5% patch] 1 each TP DAILY PRN #10 adh..patch 07/11/17 [Rx] Isosorbide MONOnitrate (24 HR) [Imdur] 30 mg PO DAILY 07/16/17 [History] Linezolid 600 mg PO BID 07/16/17 [History] Sodium Chloride [Sodium Chloride Tab] 1 gm PO BID 07/16/17 [History] levoFLOXacin [Levofloxacin] 500 mg PO DAILY 07/16/17 [History] Carvedilol 3.125 mg PO BIDWM 07/17/17 [History] Docusate [Colace] 100 mg PO BID capsule 07/20/17 [Rx] Allergies/Adverse Reactions: 3 Allergy/AdvReac Type Severity Reaction Status Date / Time No Known Allergies Allergy Verified 07/16/17 13:29 Date of admission: 07/16/17 20:13 Primary care physician: Ruben Andre DO Consults: 07/17/17 09:19 Consult to Podiatry [CONS] Routine Consulting Provider: Podiatry [facility] Reason for Consult: MRSA,Kleb, L foot Time Notified: 09:19 Call Completed: Yes 07/18/17 20:35 Consult to Wound Care [CONS] Routine Reason for Consult: Established patient, left lower extremity wound. Recommendations please Call Completed: No Discharging clinician: Issac Gibson Anticipated date of discharge: 07/20/17 - Constitutional Vitals: Temp Pulse Resp BP Pulse Ox 98.2 F 92 16 115/81 97 07/20/17 10:36 07/20/17 10:36 07/20/17 10:36 07/20/17 10:36 07/20/17 10:36 General appearance: Present: cooperative, A&O X 3, pleasant, no acute distress, answers questions appropriately - Head Head exam: Present: atraumatic, normocephalic - Eye Eye exam: Present: PERRL, conjuntiva pink, sclera anicteric Pupils: Present: PERRL - Neck Neck exam general surgery: Present: supple, trachea midline. Absent: lymphadenopathy - Respiratory Respiratory exam: Present: CTAB. Absent: accessory muscle use, rales, rhonchi, wheezes - Cardiovascular Cardiovascular exam: Present: RRR, +S1, +S2. Absent: diastolic murmur, gallop, rubs, systolic murmur - GI/Abdominal GI/Abdominal exam: Present: normal bowel sounds, soft, no peritoneal signs. Absent: distended, tenderness - Extremities Exam Extremities exam: Present: warm, radial pulses palpable and symmetrical. Absent : calf tenderness, cyanotic, pedal edema Additional comments: Left lateral malleolus dressing clean and dry - Neurological Exam Neurological exam: Present: alert, CN II-XII intact, oriented X3, no focal deficits. Absent: pronater drift, facial droop, speech deficit - Skin Skin exam: Present: dry, intact - Patient Status Disposition: Home, Self-Care Condition: Good Functional capacity at discharge: independent ambulation Overall status at discharge: patient is progressing back to baseline - Discharge Instructions Follow Up With: Ruben Andre DO [Primary Care Provider] - 07/26/17 10:00 am (Please follow up as schedule...Please call this number [phone] if you have need to change the appt.) - Diet and Activity Activity: resume usual activities as tolerated Diet: diabetic diet, low fat, low cholesterol, low salt diet
== END 2017-07-20 13:56 | disposition home or self-care (01) | DRG 426 ==
LOC: EMEROO 12:04 → ICNU 20:10 → SUATTDRO 20:13 → ICNU 20:13 → 2SOUTHHOLD 07-17 22:17 → 2ANU 07-19 17:21
PROVIDERS: ADMIT Internal Medicine Pulmonary Disease; ATTEND Internal Medicine

== ENCOUNTER 2017-10-20 18:18 | Observation (INO) ==
[2017-10-20] MEDS ORDERED: 0.9 % Sodium Chloride 1,000 ML IVC ONE (18:31)
[2017-10-20] MEDS ORDERED: Isovue-370 500 ML INFUS..BTL IV ONE (18:43)
--- NOTE | 2017-10-20 18:46 | Emergency Department Note ---
Disposition Clinical Impression: Seizure, Hyponatremia, Seizure secondary to subtherapeutic anticonvulsant medication Disposition: Admitted As Inpatient Condition: Fair Referrals: Ruben Andre DO [Primary Care Provider] - Forms: ED Satisfaction Letter Time of Disposition: 21:27 General Adult HPI - General Chief complaint: ED Seizure Stated complaint: seizures Time Seen by Provider: 10/20/17 18:28 Source: EMS Limitations: no limitations, language barrier Nursing Notes Reviewed: Yes Vital Signs Reviewed: Yes - History of Present Illness HPI Narrative: 56-year-old male presents from home via EMS for evaluation of seizure-like activity. Per EMS, patient had generalized tonic-clonic seizure-like activity which prompted family to call. Remainder of history is limited from EMS as patient's family was uncertain. Patient is obtunded and nonverbal. ROS: Not obtainable secondary to patient's medical status. Pain Scale: 0 - Related Data Home Medications Medication Instructions Recorded Confirmed Fenofibrate [Tricor] 54 mg PO DAILY 04/07/15 07/16/17 Levothyroxine [Synthroid] 100 mcg PO QAM 04/07/15 07/16/17 Pantoprazole Sodium [Protonix] 40 mg PO DAILY 10/04/15 07/16/17 Trazodone HCl 200 mg PO HS 08/21/16 07/16/17 metFORMIN [Glucophage] 500 mg PO BID 08/21/16 07/16/17 Atorvastatin [Lipitor] 40 mg PO HS 10/04/16 07/16/17 Acetaminophen [Tylenol] 500 mg PO Q6H PRN 10/10/16 07/16/17 Nitroglycerin [Nitrostat] 0.4 mg SL Q5M PRN 12/11/16 07/16/17 Gabapentin [Neurontin] 800 mg PO QID 12/27/16 07/16/17 Glimepiride [Amaryl] 4 mg PO BID 12/27/16 07/16/17 hydrOXYzine pamoate [HydrOXYzine 25 mg PO TID 01/17/17 07/16/17 Pamoate] Citalopram [CeleXA] 20 mg PO DAILY 02/06/17 07/16/17 Lisinopril [Zestril] 2.5 mg PO DAILY 02/06/17 07/16/17 Isosorbide MONOnitrate (24 HR) 30 mg PO DAILY 07/16/17 07/16/17 [Imdur] Linezolid 600 mg PO BID 07/16/17 07/16/17 Sodium Chloride [Sodium Chloride 1 gm PO BID 07/16/17 07/16/17 Tab] levoFLOXacin [Levofloxacin] 500 mg PO DAILY 07/16/17 07/16/17 Carvedilol 3.125 mg PO BIDWM 07/17/17 07/17/17 Previous Rx's Medication Instructions Recorded Aspirin 81 mg PO DAILY #30 09/30/16 Clopidogrel [Plavix] 75 mg PO DAILY 30 Days tab 09/30/16 Divalproex (12 HR) [Depakote (12 1,500 mg PO BID 30 Days 09/30/16 HR)] Lidocaine Patch [Lidoderm 5% patch] 1 each TP DAILY PRN #10 adh..patch 07/11/17 Docusate [Colace] 100 mg PO BID capsule 07/20/17 Ibuprofen [Motrin] 600 mg PO Q8HR PRN #30 tab 09/26/17 Lidocaine Patch [Lidoderm 5% patch] 1 each TP DAILY #10 adh..patch 09/26/17 Allergies Allergy/AdvReac Type Severity Reaction Status Date / Time No Known Allergies Allergy Verified 10/20/17 18:36 Review of Systems: As Per HPI Limitations: ROS unobtainable due to patients medical condition Past Medical History - Past Medical History Medical history: Reports: non-contributory, diabetes, hypertension, myocardial infarction, seizures, other Surgical history: Reports: other Psychiatric history: Reports: anxiety, bipolar, depression, prior suicide attempt, schizophrenia - Social History Smoking Status: Current every day smoker Smokeless Tobacco Status: No Alcohol use: Reports: none Drug use: Reports: marijuana Physical Exam Vital Signs Reviewed General: Patient has oral dyskinesia. Head: atraumatic, normocephalic Eye: Right eye has no extra ocular movement with unreactive pupil. Left eye has appropriate extra ocular movement, he is following the around the room, pupil round and reactive. ENT: mucous membranes moist, normal external ear exam Neck: normal inspection, trachea midline, full ROM Chest: normal inspection, symmetric chest rise Respiratory: Good respiratory effort. Bilateral breath sounds are clear without wheezing, crackles, or rhonchi. Cardiovascular: Regular rate and rhythm. No clicks, rubs, gallops, or murmors. Normal heart sounds. No pedal edema. BL radial and posterior tibial pulse. Abdomen: Bowel sounds present normoactive x-4 quadrants. Abdomen is soft, nondistended, and nontender. No guarding or rebound. No organomegaly noted. Musculoskeletal: Spontaneously moving left upper and lower extremities. Skin: warm, dry, intact. Neuro: Alert and following commands with his left hand. No left upper or lower limb drift. Tracking with his left eye. No movement with right upper and lower extremities. Right limbs drift and hit the bed when raised by the examiner. - General Limitations: no limitations, language barrier General appearance: alert Course Course Narrative: Chart check shows patient has history of hyponatremia with hyponatremic seizure activity. Per EMS, no known history of seizure disorder. Prior H&P had diagnosis of seizure disorder on home depakote. He had a normal EEG in mid August. My attending attempted to call the patient's next contact; the phone number on record is disconnected. We were able to contact the EMS squad which transported the patient. He was previously walking independently, doing the dishes. He fell. Call received at 17:53. Assume last known well 17:53. EMS found current hypertensive meds as well as multiple other pill bottles with old labels and mixed pills within. In route, patient had shaking of his left arm and leg; was given 2mg versed IV. 18:35 Patient is awakening. He is following commands with his left upper and lower extremities. He is assisting removal of his trousers by moving his hips and left leg. His right upper and lower extremities are flaccid, his right eye has no extraocular movement and pupil is non-responsive. 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 Attempting to contact [facility]; the squad that brought the patient to attempt to ascertain last known well. Will call stroke alert including CTA head and neck. 19:05 Dr. Schuster, [facility] - no acute findings. 19:10 Patient's right side flaccidity is improving: Patient is able to shrug his right shoulder. He is able to turn his head to the right. He is able to cross his right leg over his left. He is still not able to answer any questions. EKG dated 10/20/2017 at 18:30 interpreted as sinus rhythm with rate of 99. IA 153, C4 75. Normal axis. Nonspecific ST T changes. No previous EKG for comparison. 19:30 Discussed patient with [facility], Dr. Coulter. No tPa at this time. 19:33 Patient ripped off his leads. Nursing stopped him before he removed his IV. Patient was yelling, "Doo doo! I have to go doo doo!" Patient was already up and on his feet, ambulating. Patient ambulating with assistance, some deviation to the right. Calculating depakote loading dose: Loading Dose (mg) = ideal body weight (kg) X Vd X [desired level - current level (mcg/mL)] IBW(male) = 50kg + 0.91*(height cm - 152.4) = 50+0.91(163-152.4) = 59.646 =appx 60 Vd (depakote) = 0.2 Desired level = 100mcg/mL Current level = 50mcg/mL Loading Dose (mg) = 60 x 0.2 x (100-50) = 600mg Depakote to theoretically take him from current 50mcg/mL to desired 100mcg/mL 20:30 Discussed the patient with Dr. Schroeder. Discussed the patient's clinical situation and our workup thus far. He recommends loading dose of 800-1000 mg Depakote. Recommends a maintenance of 500 mg Depakote twice a day with recheck valproate level in the morning. Given the patient was still slightly altered, he agrees to admission to medicine with neurology following. Discussed the patient with having hospitalist, Dr. Romero, who agrees to accept patient for continued evaluation monitoring. Vital Signs Temperature 99.3 F 10/20/17 18:26 Pulse Rate 97 10/20/17 18:26 Respiratory Rate 20 10/20/17 18:26 Blood Pressure 135/93 10/20/17 18:26 O2 Sat by Pulse Oximetry 100 10/20/17 18:26 Temperature 99.3 F 10/20/17 18:26 Pulse Rate 94 10/20/17 20:31 Respiratory Rate 18 10/20/17 20:31 Blood Pressure 144/96 10/20/17 20:31 O2 Sat by Pulse Oximetry 99 10/20/17 20:31 Oxygen Delivery Oxygen Delivery Room Air Medical Decision Making - Lab Data Result diagrams: 10/20/17 19:12 10/20/17 19:12 Lab Results 10/20/17 10/20/17 10/20/17 Range/Units 18:38 19:12 19:12 WBC 8.6 (4.3-11.1) K/mcL RBC 3.91 L (4.19-5.50) M/mcL Hgb 12.4 L (12.9-16.9) g/dL Hct 35.8 L (37.5-50.1) % MCV 91.6 (83.0-100.0) fL MCH 31.7 (28.0-33.3) pg MCHC 34.6 (31.6-35.5) g/dL RDW 13.9 (11.5-14.5) % Plt Count 209 (140-400) K/mcL MPV 9.5 (9.4-12.4) fL Immature Gran % 1.3 (0-4) % Seg Neutrophils % 76.0 % Lymphocytes % 14.6 % Monocytes % 7.2 % Eosinophils % 0.4 % Basophils % 0.5 % Neutrophils # 6.5 (1.6-8.9) K/mcL Lymphocytes # 1.3 (0.6-4.6) K/mcL Monocytes # 0.6 (0.0-1.3) K/mcL Eosinophils # 0.0 (0.0-0.6) K/mcL Basophils # 0.0 (0.0-0.2) K/mcL VBG pH (7.32-7.42) pH Units VBG pCO2 (41-51) mmHg VBG pO2 (25-50) mmHg VBG HCO3 (21-27) mEq/L Sodium 124 L (136-145) mEq/L Potassium 4.4 (3.5-5.1) mEq/L Chloride 92 L (98-107) mEq/L Carbon Dioxide 21 L (23-29) mEq/L BUN 10 (6-20) mg/dL Creatinine 0.77 (0.70-1.30) mg/dL Est GFR ( Amer) > 60 (> 60) Est GFR (Non-Af Amer) > 60 (> 60) BUN/Creatinine Ratio 13 (6-26) Glucose 180 H (70-105) mg/dL POC Glucose 203 H (70-99) mg/dL Calculated Osmolality 262 L (280-300) Lactic Acid (0.5-2.2) mmol/L Calcium 8.8 (8.6-10.3) mg/dL Troponin I < 0.03 (< 0.04) ng/mL Valproic Acid (50-100) mcg/mL 10/20/17 10/20/17 10/20/17 Range/Units 19:12 19:12 19:33 WBC (4.3-11.1) K/mcL RBC (4.19-5.50) M/mcL Hgb (12.9-16.9) g/dL Hct (37.5-50.1) % MCV (83.0-100.0) fL MCH (28.0-33.3) pg MCHC (31.6-35.5) g/dL RDW (11.5-14.5) % Plt Count (140-400) K/mcL MPV (9.4-12.4) fL Immature Gran % (0-4) % Seg Neutrophils % % Lymphocytes % % Monocytes % % Eosinophils % % Basophils % % Neutrophils # (1.6-8.9) K/mcL Lymphocytes # (0.6-4.6) K/mcL Monocytes # (0.0-1.3) K/mcL Eosinophils # (0.0-0.6) K/mcL Basophils # (0.0-0.2) K/mcL VBG pH 7.39 (7.32-7.42) pH Units VBG pCO2 34 L (41-51) mmHg VBG pO2 46 (25-50) mmHg VBG HCO3 20 L (21-27) mEq/L Sodium (136-145) mEq/L Potassium (3.5-5.1) mEq/L Chloride (98-107) mEq/L Carbon Dioxide (23-29) mEq/L BUN (6-20) mg/dL Creatinine (0.70-1.30) mg/dL Est GFR ( Amer) (> 60) Est GFR (Non-Af Amer) (> 60) BUN/Creatinine Ratio (6-26) Glucose (70-105) mg/dL POC Glucose (70-99) mg/dL Calculated Osmolality (280-300) Lactic Acid 5.2 H* (0.5-2.2) mmol/L Calcium (8.6-10.3) mg/dL Troponin I (< 0.04) ng/mL Valproic Acid 50 (50-100) mcg/mL
[2017-10-20 19:26] LABS: Basophils % 0.5 %; Eosinophils % 0.4 %; Hematocrit 35.8 % (37.5-50.1); Hemoglobin 12.4 g/dL (12.9-16.9); Immature Granulocytes % 1.3 % (0-4); Lymphocytes # 1.3 K/mcL (0.6-4.6); Lymphocytes % 14.6 %; Mean Corpuscular HGB Conc 34.6 g/dL (31.6-35.5); Mean Corpuscular Hemoglobin 31.7 pg (28.0-33.3); Mean Corpuscular Volume 91.6 fL (83.0-100.0); Mean Platelet Volume 9.5 fL (9.4-12.4); Monocytes # 0.6 K/mcL (0.0-1.3); Monocytes % 7.2 %; Neutrophils # 6.5 K/mcL (1.6-8.9); Platelet Count 209 K/mcL (140-400); Red Blood Count 3.91 M/mcL (4.19-5.50); Red Cell Distribution Width 13.9 % (11.5-14.5)
[2017-10-20 19:40] LABS: VBG HCO3 20 mEq/L (21-27); VBG PCO2 34 mmHg (41-51); VBG PH 7.39 pH Units (7.32-7.42); VBG PO2 46 mmHg (25-50)
[2017-10-20 19:46] LABS: Calcium 8.8 mg/dL (8.6-10.3); Carbon Dioxide 21 mEq/L (23-29); Chloride 92 mEq/L (98-107); Glucose 180 mg/dL (70-105); Potassium 4.4 mEq/L (3.5-5.1); Sodium 124 mEq/L (136-145); eGFR For Non-African Americans > 60 (> 60)
[2017-10-20 19:47] LABS: Troponin I < 0.03 ng/mL (< 0.04)
--- NOTE | 2017-10-20 19:50 | Emergency Department Note ---
Disposition Clinical Impression: Seizure, Hyponatremia, Seizure secondary to subtherapeutic anticonvulsant medication Disposition: Admitted As Inpatient Condition: Fair General Adult HPI - General Chief complaint: ED Seizure Stated complaint: seizures Time Seen by Provider: 10/20/17 18:28 Source: EMS Limitations: no limitations, language barrier - History of Present Illness Pain Scale: 0 - Related Data Home Medications Medication Instructions Recorded Confirmed Fenofibrate [Tricor] 54 mg PO DAILY 04/07/15 10/20/17 Levothyroxine [Synthroid] 100 mcg PO QAM 04/07/15 10/20/17 Pantoprazole Sodium [Protonix] 40 mg PO DAILY 10/04/15 10/20/17 Trazodone HCl 200 mg PO HS 08/21/16 10/20/17 metFORMIN [Glucophage] 500 mg PO BID 08/21/16 10/20/17 Atorvastatin [Lipitor] 40 mg PO HS 10/04/16 10/20/17 Acetaminophen [Tylenol] 500 mg PO Q6H PRN 10/10/16 10/20/17 Nitroglycerin [Nitrostat] 0.4 mg SL Q5M PRN 12/11/16 10/20/17 Gabapentin [Neurontin] 800 mg PO QID 12/27/16 10/20/17 Glimepiride [Amaryl] 4 mg PO BID 12/27/16 10/20/17 hydrOXYzine pamoate [HydrOXYzine 25 mg PO TID 01/17/17 10/20/17 Pamoate] Citalopram [CeleXA] 20 mg PO DAILY 02/06/17 10/20/17 Lisinopril [Zestril] 2.5 mg PO DAILY 02/06/17 10/20/17 Isosorbide MONOnitrate (24 HR) 30 mg PO DAILY 07/16/17 10/20/17 [Imdur] Linezolid 600 mg PO BID 07/16/17 10/20/17 Sodium Chloride [Sodium Chloride 1 gm PO BID 07/16/17 10/20/17 Tab] levoFLOXacin [Levofloxacin] 500 mg PO DAILY 07/16/17 10/20/17 Carvedilol 3.125 mg PO BIDWM 07/17/17 10/20/17 Previous Rx's Medication Instructions Recorded Aspirin 81 mg PO DAILY #30 09/30/16 Clopidogrel [Plavix] 75 mg PO DAILY 30 Days tab 09/30/16 Divalproex (12 HR) [Depakote (12 1,500 mg PO BID 30 Days 09/30/16 HR)] Lidocaine Patch [Lidoderm 5% patch] 1 each TP DAILY PRN #10 adh..patch 07/11/17 Docusate [Colace] 100 mg PO BID capsule 07/20/17 Ibuprofen [Motrin] 600 mg PO Q8HR PRN #30 tab 09/26/17 Lidocaine Patch [Lidoderm 5% patch] 1 each TP DAILY #10 adh..patch 09/26/17 Allergies Allergy/AdvReac Type Severity Reaction Status Date / Time No Known Allergies Allergy Verified 10/20/17 18:36 Past Medical History - Past Medical History Medical history: Reports: non-contributory, diabetes, hypertension, myocardial infarction, seizures, other Surgical history: Reports: other Psychiatric history: Reports: anxiety, bipolar, depression, prior suicide attempt, schizophrenia - Social History Smoking Status: Current every day smoker Smokeless Tobacco Status: No Alcohol use: Reports: none Drug use: Reports: marijuana Physical Exam - General Limitations: no limitations, language barrier General appearance: alert Course Vital Signs Temperature 99.3 F 10/20/17 18:26 Pulse Rate 97 10/20/17 18:26 Respiratory Rate 20 10/20/17 18:26 Blood Pressure 135/93 10/20/17 18:26 O2 Sat by Pulse Oximetry 100 10/20/17 18:26 Temperature 99.1 F 10/20/17 22:55 Pulse Rate 90 10/20/17 22:55 Respiratory Rate 16 10/20/17 22:55 Blood Pressure 151/95 10/20/17 22:55 O2 Sat by Pulse Oximetry 96 10/20/17 22:55 Oxygen Delivery Oxygen Delivery Room Air Medical Decision Making - Lab Data Result diagrams: 10/20/17 19:12 10/20/17 19:12 Lab Results 10/20/17 10/20/17 10/20/17 Range/Units 18:38 19:12 19:12 WBC 8.6 (4.3-11.1) K/mcL RBC 3.91 L (4.19-5.50) M/mcL Hgb 12.4 L (12.9-16.9) g/dL Hct 35.8 L (37.5-50.1) % MCV 91.6 (83.0-100.0) fL MCH 31.7 (28.0-33.3) pg MCHC 34.6 (31.6-35.5) g/dL RDW 13.9 (11.5-14.5) % Plt Count 209 (140-400) K/mcL MPV 9.5 (9.4-12.4) fL Immature Gran % 1.3 (0-4) % Seg Neutrophils % 76.0 % Lymphocytes % 14.6 % Monocytes % 7.2 % Eosinophils % 0.4 % Basophils % 0.5 % Neutrophils # 6.5 (1.6-8.9) K/mcL Lymphocytes # 1.3 (0.6-4.6) K/mcL Monocytes # 0.6 (0.0-1.3) K/mcL Eosinophils # 0.0 (0.0-0.6) K/mcL Basophils # 0.0 (0.0-0.2) K/mcL VBG pH (7.32-7.42) pH Units VBG pCO2 (41-51) mmHg VBG pO2 (25-50) mmHg VBG HCO3 (21-27) mEq/L Sodium 124 L (136-145) mEq/L Potassium 4.4 (3.5-5.1) mEq/L Chloride 92 L (98-107) mEq/L Carbon Dioxide 21 L (23-29) mEq/L BUN 10 (6-20) mg/dL Creatinine 0.77 (0.70-1.30) mg/dL Est GFR ( Amer) > 60 (> 60) Est GFR (Non-Af Amer) > 60 (> 60) BUN/Creatinine Ratio 13 (6-26) Glucose 180 H (70-105) mg/dL POC Glucose 203 H (70-99) mg/dL Calculated Osmolality 262 L (280-300) Lactic Acid (0.5-2.2) mmol/L Calcium 8.8 (8.6-10.3) mg/dL Troponin I < 0.03 (< 0.04) ng/mL Urine Color (Yellow) Urine Clarity (Clear) Urine pH (5.0-8.0) pH Units Ur Specific [place] (1.010-1.025) Urine Protein (Neg-Trace) mg/dL Urine Glucose (UA) (Normal) mg/dL Urine Ketones (Negative) mg/dL Urine Blood (Negative) Urine Nitrite (Negative) Urine Bilirubin (Negative) Urine Urobilinogen (Normal) mg/dL Ur Leukocyte Esterase (Negative) Urine Microscopic RBC (0-3) per hpf Urine Microscopic WBC (0-3) per hpf Ur Squamous Epith Cells (None-Few) per lpf Urine Bacteria (None-Few) per hpf Hyaline Casts (None-Few) per lpf Ur Culture Indicated? (NO) Urine Osmolality (300-1090) mOsm/kg Urine Creatinine mg/dL Urine Sodium mEq/L Urine Opiates Screen (Nciiyh=922) ng/mL Ur Barbiturates Screen (Pfdrxw=754) ng/mL Valproic Acid (50-100) mcg/mL Ur Phencyclidine Scrn (Cutoff=25) ng/mL Ur Amphetamines Screen (Cerohp=5897) ng/mL U Benzodiazepines Scrn (Kkxahe=550) ng/mL Urine Cocaine Screen (Cutoff= 300) ng/mL U Marijuana (THC) Screen (Cutoff = 50) ng/mL Ur Drug Screen Interp 10/20/17 10/20/17 10/20/17 Range/Units 19:12 19:12 19:33 WBC (4.3-11.1) K/mcL RBC (4.19-5.50) M/mcL Hgb (12.9-16.9) g/dL Hct (37.5-50.1) % MCV (83.0-100.0) fL MCH (28.0-33.3) pg MCHC (31.6-35.5) g/dL RDW (11.5-14.5) % Plt Count (140-400) K/mcL MPV (9.4-12.4) fL Immature Gran % (0-4) % Seg Neutrophils % % Lymphocytes % % Monocytes % % Eosinophils % % Basophils % % Neutrophils # (1.6-8.9) K/mcL Lymphocytes # (0.6-4.6) K/mcL Monocytes # (0.0-1.3) K/mcL Eosinophils # (0.0-0.6) K/mcL Basophils # (0.0-0.2) K/mcL VBG pH 7.39 (7.32-7.42) pH Units VBG pCO2 34 L (41-51) mmHg VBG pO2 46 (25-50) mmHg VBG HCO3 20 L (21-27) mEq/L Sodium (136-145) mEq/L Potassium (3.5-5.1) mEq/L Chloride (98-107) mEq/L Carbon Dioxide (23-29) mEq/L BUN (6-20) mg/dL Creatinine (0.70-1.30) mg/dL Est GFR ( Amer) (> 60) Est GFR (Non-Af Amer) (> 60) BUN/Creatinine Ratio (6-26) Glucose (70-105) mg/dL POC Glucose (70-99) mg/dL Calculated Osmolality (280-300) Lactic Acid 5.2 H* (0.5-2.2) mmol/L Calcium (8.6-10.3) mg/dL Troponin I (< 0.04) ng/mL Urine Color (Yellow) Urine Clarity (Clear) Urine pH (5.0-8.0) pH Units Ur Specific [place] (1.010-1.025) Urine Protein (Neg-Trace) mg/dL Urine Glucose (UA) (Normal) mg/dL Urine Ketones (Negative) mg/dL Urine Blood (Negative) Urine Nitrite (Negative) Urine Bilirubin (Negative) Urine Urobilinogen (Normal) mg/dL Ur Leukocyte Esterase (Negative) Urine Microscopic RBC (0-3) per hpf Urine Microscopic WBC (0-3) per hpf Ur Squamous Epith Cells (None-Few) per lpf Urine Bacteria (None-Few) per hpf Hyaline Casts (None-Few) per lpf Ur Culture Indicated? (NO) Urine Osmolality (300-1090) mOsm/kg Urine Creatinine mg/dL Urine Sodium mEq/L Urine Opiates Screen (Tcjfsa=515) ng/mL Ur Barbiturates Screen (Zktymr=943) ng/mL Valproic Acid 50 (50-100) mcg/mL Ur Phencyclidine Scrn (Cutoff=25) ng/mL Ur Amphetamines Screen (Wkbnsu=7102) ng/mL U Benzodiazepines Scrn (Bbiwzo=018) ng/mL Urine Cocaine Screen (Cutoff= 300) ng/mL U Marijuana (THC) Screen (Cutoff = 50) ng/mL Ur Drug Screen Interp 09/08/18 09/08/18 09/08/18 Range/Units 20:22 20:22 20:32 WBC (4.3-11.1) K/mcL RBC (4.19-5.50) M/mcL Hgb (12.9-16.9) g/dL Hct (37.5-50.1) % MCV (83.0-100.0) fL MCH (28.0-33.3) pg MCHC (31.6-35.5) g/dL RDW (11.5-14.5) % Plt Count (140-400) K/mcL MPV (9.4-12.4) fL Immature Gran % (0-4) % Seg Neutrophils % % Lymphocytes % % Monocytes % % Eosinophils % % Basophils % % Neutrophils # (1.6-8.9) K/mcL Lymphocytes # (0.6-4.6) K/mcL Monocytes # (0.0-1.3) K/mcL Eosinophils # (0.0-0.6) K/mcL Basophils # (0.0-0.2) K/mcL VBG pH (7.32-7.42) pH Units VBG pCO2 (41-51) mmHg VBG pO2 (25-50) mmHg VBG HCO3 (21-27) mEq/L Sodium (136-145) mEq/L Potassium (3.5-5.1) mEq/L Chloride (98-107) mEq/L Carbon Dioxide (23-29) mEq/L BUN (6-20) mg/dL Creatinine (0.70-1.30) mg/dL Est GFR ( Amer) (> 60) Est GFR (Non-Af Amer) (> 60) BUN/Creatinine Ratio (6-26) Glucose (70-105) mg/dL POC Glucose (70-99) mg/dL Calculated Osmolality (280-300) Lactic Acid (0.5-2.2) mmol/L Calcium (8.6-10.3) mg/dL Troponin I (< 0.04) ng/mL Urine Color Yellow (Yellow) Urine Clarity Clear (Clear) Urine pH 7.0 (5.0-8.0) pH Units Ur Specific [place] 1.022 (1.010-1.025) Urine Protein Negative (Neg-Trace) mg/dL Urine Glucose (UA) 500 H (Normal) mg/dL Urine Ketones Negative (Negative) mg/dL Urine Blood Trace H (Negative) Urine Nitrite Negative (Negative) Urine Bilirubin Negative (Negative) Urine Urobilinogen Normal (Normal) mg/dL Ur Leukocyte Esterase Negative (Negative) Urine Microscopic RBC 3-5 H (0-3) per hpf Urine Microscopic WBC 0-3 (0-3) per hpf Ur Squamous Epith Cells Moderate H (None-Few) per lpf Urine Bacteria None Seen (None-Few) per hpf Hyaline Casts None Seen (None-Few) per lpf Ur Culture Indicated? NO (NO) Urine Osmolality (300-1090) mOsm/kg Urine Creatinine 21 mg/dL Urine Sodium 55.3 mEq/L Urine Opiates Screen Negative (Karoya=480) ng/mL Ur Barbiturates Screen Negative (Otlxty=283) ng/mL Valproic Acid (50-100) mcg/mL Ur Phencyclidine Scrn Negative (Cutoff=25) ng/mL Ur Amphetamines Screen Negative (Udyvph=9819) ng/mL U Benzodiazepines Scrn Positive H (Srxzaw=484) ng/mL Urine Cocaine Screen Negative (Cutoff= 300) ng/mL U Marijuana (THC) Screen Positive H (Cutoff = 50) ng/mL Ur Drug Screen Interp See Below 10/20/17 Range/Units 20:32 WBC (4.3-11.1) K/mcL RBC (4.19-5.50) M/mcL Hgb (12.9-16.9) g/dL Hct (37.5-50.1) % MCV (83.0-100.0) fL MCH (28.0-33.3) pg MCHC (31.6-35.5) g/dL RDW (11.5-14.5) % Plt Count (140-400) K/mcL MPV (9.4-12.4) fL Immature Gran % (0-4) % Seg Neutrophils % % Lymphocytes % % Monocytes % % Eosinophils % % Basophils % % Neutrophils # (1.6-8.9) K/mcL Lymphocytes # (0.6-4.6) K/mcL Monocytes # (0.0-1.3) K/mcL Eosinophils # (0.0-0.6) K/mcL Basophils # (0.0-0.2) K/mcL VBG pH (7.32-7.42) pH Units VBG pCO2 (41-51) mmHg VBG pO2 (25-50) mmHg VBG HCO3 (21-27) mEq/L Sodium (136-145) mEq/L Potassium (3.5-5.1) mEq/L Chloride (98-107) mEq/L Carbon Dioxide (23-29) mEq/L BUN (6-20) mg/dL Creatinine (0.70-1.30) mg/dL Est GFR ( Amer) (> 60) Est GFR (Non-Af Amer) (> 60) BUN/Creatinine Ratio (6-26) Glucose (70-105) mg/dL POC Glucose (70-99) mg/dL Calculated Osmolality (280-300) Lactic Acid (0.5-2.2) mmol/L Calcium (8.6-10.3) mg/dL Troponin I (< 0.04) ng/mL Urine Color (Yellow) Urine Clarity (Clear) Urine pH (5.0-8.0) pH Units Ur Specific [place] (1.010-1.025) Urine Protein (Neg-Trace) mg/dL Urine Glucose (UA) (Normal) mg/dL Urine Ketones (Negative) mg/dL Urine Blood (Negative) Urine Nitrite (Negative) Urine Bilirubin (Negative) Urine Urobilinogen (Normal) mg/dL Ur Leukocyte Esterase (Negative) Urine Microscopic RBC (0-3) per hpf Urine Microscopic WBC (0-3) per hpf Ur Squamous Epith Cells (None-Few) per lpf Urine Bacteria (None-Few) per hpf Hyaline Casts (None-Few) per lpf Ur Culture Indicated? (NO) Urine Osmolality 306 (300-1090) mOsm/kg Urine Creatinine mg/dL Urine Sodium mEq/L Urine Opiates Screen (Htwfqa=168) ng/mL Ur Barbiturates Screen (Lokosq=322) ng/mL Valproic Acid (50-100) mcg/mL Ur Phencyclidine Scrn (Cutoff=25) ng/mL Ur Amphetamines Screen (Rdedmc=2588) ng/mL U Benzodiazepines Scrn (Qcqzbn=052) ng/mL Urine Cocaine Screen (Cutoff= 300) ng/mL U Marijuana (THC) Screen (Cutoff = 50) ng/mL Ur Drug Screen Interp Attestation Statement - Attestation Attestation: I have discussed the case with the resident/mid level provider. I have personally performed a history, physical exam, and my own medical decision making. I have reviewed the note and agree with the findings. Patient arrived via EMS for evaluation of possible seizure. Patient reportedly was normal throughout the day. Was washing dishes at the sink. Bow[place] to the ground and had seizure-like activity. Squad was called. Squad noted abnormal movements to the left extremities and gave 2 of Versed. Arrival to the emergency department he opens his eyes spontaneously but does not follow commands. While talking the patient on the right side of the bed, the patient really responded by looking towards the left. EMS had reported past medical history of hypertension with hypotension medications at home. They report seizures related to hyponatremia in the past with no specific seizure medications at home. He said there were several old prescription bottles with mixed medications. The patient has concern for possible seizures which underlying etiology being seizure disorder versus hyponatremia. At this time the patient is no longer seizing but will undergo further evaluation for hyponatremia. A liter of normal saline has been hung. After approximately 5-10 minutes the nurse notified me of flaccid paralysis to the right side. Patient's right pupil is nonreactive. Patient is not moving his right or left leg. Patient does move the left side side. At this time a stroke alert was called and the patient was taken to CT. I did review his chart and his hyponatremia has been as low as 107 in the past. He has not had any history of kidney dysfunction. CTA head and neck was ordered without labs. This was to help expidite potential diagnosis as the patient does not have any family with him and per EMS reports family was very unhelpful at the scene. I am not expecting them to show up to the emergency department during his evaluation. CT of the head is without evidence of stroke. CTA head and neck is also normal. When the patient arrived from CT he started having purposeful movements of his right side. [facility] neurology did evaluate the patient and due to the complex history as well as questionable last known well, patient does not qualify for TPA. Shortly after [facility] evaluation the patient was having purposeful movement of the right side. He is using his right leg to cross his legs as well as take his arm and place it over his chest. There is ecchymosis to the right upper arm and x-ray will be performed. Imaging is negative. Lactic acid elevated consistent with possible seizure. Patient valproic acid is also elevated. This was checked secondary to Depakote being listed with in his chart check. Patient then got upset that he needed to poop by saying "poop". Patient could not state any other words. Patient did ambulate on his own to the bathroom. We are unable to continue with the patient secondary to his mental status. Patient was placed back in his bed but then got up and ripped out his IV. Patient was given 5 mg of Haldol IM. Patient has since then been resting comfortably in the bed. Patient will need admission for further seizure and mental status evaluation. The case was discussed with neurology. A loading dose of Depakote has been ordered. Patient will be admitted to the hospitalist service. Case was discussed by the resident with Dr. Romero. Please see resident note for further details and disposition. Upon my evaluation, this patient had a high probability of imminent or life- threatening deterioration due to altered mental status, concern for acute stroke versus complex seizure, which required my direct attention, intervention , and personal management. I have personally provided 40 minutes of critical care time exclusive of time spent on separately billable procedures. Time includes review of laboratory data , radiology results, discussion with consultants, and monitoring for potential deterioration. Interventions were performed as documented above.
[2017-10-20] MEDS ORDERED: Haloperidol Lactate 5 MG/ML VIAL IM ONE (20:07)
[2017-10-20 20:26] LABS: BUN/Creatinine Ratio 13 (6-26); Blood Urea Nitrogen 10 mg/dL (6-20); Osmolality,Calculated 262 (280-300)
[2017-10-20] MEDS ORDERED: Valproic Acid INJ 800 MG in 0.9 % Sodium Chloride 100 ML IVPB ONE (20:39)
[2017-10-20 20:45] LABS: Bilirubin,Urine Negative (Negative); Blood,Urine Trace (Negative); Clarity,Urine Clear (Clear); Color,Urine Yellow (Yellow); Glucose,Urine (UA) 500 mg/dL (Normal); Ketones,Urine Negative (Negative); Leukocyte Esterase,Urine Negative (Negative); Nitrite,Urine Negative (Negative); Protein,Urine Negative (Neg-Trace); Specific Gravity,Urine 1.022 (1.010-1.025); Urobilinogen,Urine Normal (Normal)
[2017-10-20 20:47] LABS: Bacteria,Urine None Seen per hpf (None-Few); Hyaline Casts,Urine None Seen per lpf (None-Few); Squamous Epithelial Cell,Urine Moderate per lpf (None-Few); WBC,Urine 0-3 per hpf (0-3)
[2017-10-20 20:55] LABS: Sodium, Urine 55.3 mEq/L
[2017-10-20 21:03] LABS: Amphetamine Screen,Urine Negative ng/mL (Cutoff=1000); Barbiturate Screen,Urine Negative ng/mL (Cutoff=200); Benzodiazepines Screen,Urine Positive ng/mL (Cutoff=200); Cannabinoid Screen,Urine Positive ng/mL (Cutoff = 50); Cocaine Screen,Urine Negative ng/mL (Cutoff= 300); Opiate Screen,Urine Negative ng/mL (Cutoff=300); Phencyclidine Screen,Urine Negative ng/mL (Cutoff=25)
[2017-10-21] MEDS ORDERED: Naloxone 0.4 MG/ML INJ IVP PRN (05:17)
[2017-10-21] MEDS ORDERED: Acetaminophen 325 MG TABLET PO PRN (05:17)
--- NOTE | 2017-10-21 05:31 | Internal Med History&Physical ---
Date of Encounter: 10/21/17 Time of Encounter: 00:20 Internal Medicine - H&P: HPI Chief complaint: seizure Admitted From: Emergency Dept Plans for Post Hospital Care: Home History of present illness: Mr. Frey is a 56 year old male who presents to the ER today by EMS for concerns of seizure-like activity. According to EMS records, patient had a generalized tonic-clonic seizure which was witnessed by family. When patient arrived in the ER, he was nonverbal and obtunded. A stroke alert was called and the ER and patient was reviewed by [facility] neurology by telemedicine. They did not feel patient had a stroke and did not warrant any kind of thrombolytics. It was felt patient was suffering from seizure disorder and was in a postictal state. He slowly started coming around and became more alert and awake. At that point , patient was admitted to hospitalist service with neurology consultation. [facility] neurologists were contacted by ER and discussed the case with the ER staff. Upon my assessment of the patient, patient is alert, but is confused and disoriented. He is a very poor historian. He is unable to provide any history whatsoever. He does follow commands and ithere were no focal motor deficits. Past Med Surg Social Fam HX - Past Medical History Source: old records reviewed, other (ER notes) Medical history: diabetes, hypertension, myocardial infarction, seizures Additional medical history: chronic back pain. sciatica Psychiatric history: anxiety, bipolar, depression, prior suicide attempt, schizophrenia - Past Surgical History Surgical History: other (foot wound care/intervention) Additional surgical history: bilat leg orthopedic - Social History Smoking Status: Current every day smoker Smokeless Tobacco Status: No Alcohol use: none Drug use: marijuana - Family History Daughter Living Status: Still Living Hx Family Cardiac Disorders: No Hx Family Respiratory Disorders: Yes Hx Family Cancer: No Hx Family GI Disorders: No Hx Family Endocrine Disorder: No Hx Family Neuromuscular Disorders: No Hx Family Neurologic Disorders: No Hx Family HEENT Disorders: No Hx Family Autoimmune Disorders: No Mother History Unknown: Yes Living Status: Hx Family Cardiac Disorders: Yes Father History Unknown: Yes Living Status: Hx Family Cardiac Disorders: Yes ([place]) Internal Medicine - H&P: Meds Fenofibrate [Tricor] 54 mg PO DAILY 04/07/15 [History] Levothyroxine [Synthroid] 100 mcg PO QAM 04/07/15 [History] Pantoprazole Sodium [Protonix] 40 mg PO DAILY 10/04/15 [History] Trazodone HCl 200 mg PO HS 08/21/16 [History] metFORMIN [Glucophage] 500 mg PO BID 08/21/16 [History] Aspirin 81 mg PO DAILY #30 09/30/16 [Rx] Clopidogrel [Plavix] 75 mg PO DAILY 30 Days tab 09/30/16 [Rx] Divalproex (12 HR) [Depakote (12 HR)] 1,500 mg PO BID 30 Days 09/30/16 [Rx] Atorvastatin [Lipitor] 40 mg PO HS 10/04/16 [History] Acetaminophen [Tylenol] 500 mg PO Q6H PRN 10/10/16 [History] Nitroglycerin [Nitrostat] 0.4 mg SL Q5M PRN 12/11/16 [History] Gabapentin [Neurontin] 800 mg PO QID 12/27/16 [History] Glimepiride [Amaryl] 4 mg PO BID 12/27/16 [History] hydrOXYzine pamoate [HydrOXYzine Pamoate] 25 mg PO TID 01/17/17 [History] Citalopram [CeleXA] 20 mg PO DAILY 02/06/17 [History] Lisinopril [Zestril] 2.5 mg PO DAILY 02/06/17 [History] Lidocaine Patch [Lidoderm 5% patch] 1 each TP DAILY PRN #10 adh..patch 07/11/17 [Rx] Isosorbide MONOnitrate (24 HR) [Imdur] 30 mg PO DAILY 07/16/17 [History] Linezolid 600 mg PO BID 07/16/17 [History] Sodium Chloride [Sodium Chloride Tab] 1 gm PO BID 07/16/17 [History] levoFLOXacin [Levofloxacin] 500 mg PO DAILY 07/16/17 [History] Carvedilol 3.125 mg PO BIDWM 07/17/17 [History] Docusate [Colace] 100 mg PO BID capsule 07/20/17 [Rx] Ibuprofen [Motrin] 600 mg PO Q8HR PRN #30 tab 09/26/17 [Rx] Lidocaine Patch [Lidoderm 5% patch] 1 each TP DAILY #10 adh..patch 09/26/17 [Rx] 3 Allergy/AdvReac Type Severity Reaction Status Date / Time No Known Allergies Allergy Verified 10/20/17 18:36 ROS unobtainable: due to mental status - Constitutional Vitals: Temp Pulse Resp BP Pulse Ox 98.3 F 88 20 167/90 98 10/21/17 02:56 10/21/17 02:56 10/21/17 02:56 10/21/17 02:56 10/21/17 02:56 General appearance: Present: A&O X 1, pleasant, no acute distress. Absent: answers questions appropriately Exam: awake, conversant, confused, disoriented, post-ictal - Head Head exam: Present: normal inspection - Eye Eye exam: Present: EOMI. Absent: scleral icterus Pupils: Present: normal accommodation Additional comments: prosthetic right eye - ENT ENT exam: Present: mucous membranes dry, normal exam, normal oropharynx - Neck Neck exam general surgery: Present: full ROM, supple. Absent: tenderness, nuchal rigidity, thyromegaly - Respiratory Respiratory exam: Present: CTAB. Absent: chest wall tenderness, rales, respiratory distress, rhonchi, wheezes - Cardiovascular Cardiovascular exam: Present: RRR, +S1, +S2. Absent: diastolic murmur, systolic murmur - GI/Abdominal GI/Abdominal exam: Present: soft. Absent: hernia, hepatomegaly, splenomegaly - Extremities Exam Extremities exam: Present: warm, radial pulses palpable and symmetrical. Absent : calf tenderness, joint swelling, pedal edema, tenderness - Back Exam Back exam: Absent: CVA tenderness (L), CVA tenderness (R) - Neurological Exam Neurological exam: Present: alert, CN II-XII intact, no focal deficits, strengths equal and symetr throughout. Absent: oriented X3 - Psychiatric Psychiatric exam: Present: flat affect - Skin Skin exam: Absent: pallor, rash Internal Med - H&P Results - Labs CBC & Chem 7: 10/20/17 19:12 10/20/17 19:12 - Assessment and plan (1) Seizure Current Visit: Yes Status: Chronic Assessment and plan: 1. Patient received Depakote load in ER. 2. Neurology consulted by ER. 3. Continue Depakote per home meds. 4. Neurology consult. 5. Seizure precautions. (2) Lactic acid acidosis Current Visit: Yes Status: Acute Assessment and plan: 1. Likely due to seizures. 2. Patient recevied fluids in ER. 3. Repeat lactate levels now and serval hours later. (3) Hyponatremia Current Visit: Yes Status: Acute Assessment and plan: 1. Patient has chronic hyponatremia. 2. Will trend sodium levels. 3. May need nephrology consult to assist in care. (4) DVT prophylaxis Current Visit: Yes Status: Acute Assessment and plan: 1. Heparin sq.
[2017-10-21] MEDS: *HR* Heparin 5,000 UNIT/ML VIAL SQ SCH ×2 (05:45→16:47)
[2017-10-21 06:03] LABS: Basophils # 0.1 K/mcL (0.0-0.2); Basophils % 0.6 %; Eosinophils % 0.3 %; Hematocrit 35.1 % (37.5-50.1); Hemoglobin 12.5 g/dL (12.9-16.9); Immature Granulocytes % 0.8 % (0-4); Lymphocytes # 2.5 K/mcL (0.6-4.6); Mean Corpuscular HGB Conc 35.6 g/dL (31.6-35.5); Mean Corpuscular Hemoglobin 31.6 pg (28.0-33.3); Mean Corpuscular Volume 88.9 fL (83.0-100.0); Mean Platelet Volume 9.6 fL (9.4-12.4); Monocytes % 11.5 %; Neutrophils # 5.2 K/mcL (1.6-8.9); Platelet Count 223 K/mcL (140-400); Red Blood Count 3.95 M/mcL (4.19-5.50); Red Cell Distribution Width 13.8 % (11.5-14.5); Segmented Neutrophils % 58.8 %
[2017-10-21 06:13] LABS: Prothrombin Time 11.1 Seconds (9.4-12.1)
[2017-10-21 06:16] LABS: Activated Partial Thrombo Time 28.6 Seconds (26.0-36.0)
[2017-10-21 06:20] LABS: Alanine Aminotransferase 7 Units/L (7-52); Albumin 3.8 g/dL (3.5-5.7); Albumin/Globulin Ratio 1.5 (1.1-2.2); Alkaline Phosphatase 44 Units/L (34-104); Aspartate Amino Transferase 16 Units/L (13-39); BUN/Creatinine Ratio 10 (6-26); Bilirubin,Total 0.4 mg/dL (0.3-1.0); Blood Urea Nitrogen 7 mg/dL (6-20); Calcium 8.8 mg/dL (8.6-10.3); Carbon Dioxide 24 mEq/L (23-29); Chloride 99 mEq/L (98-107); Globulin 2.5 g/dL (2.4-3.5); Glucose 143 mg/dL (70-105); Magnesium 1.5 mg/dL (1.6-2.6); Osmolality,Calculated 270 (280-300); Potassium 3.8 mEq/L (3.5-5.1); Sodium 130 mEq/L (136-145); Total Protein 6.3 g/dL (6.4-8.9); eGFR For Non-African Americans > 60 (> 60)
[2017-10-21] MEDS: Gabapentin 400 MG CAPSULE PO SCH ×4 (07:53→20:32)
[2017-10-21] MEDS: Aspirin 81 MG TAB.CHEW PO SCH (07:53)
[2017-10-21] MEDS: Isosorbide MONOnitrate (24 HR) 30 MG TAB.ER.24H PO SCH (07:54)
[2017-10-21] MEDS ORDERED: Valproic Acid 250 MG CAPSULE PO SCH (08:00)
[2017-10-21] MEDS: Divalproex (12 HR) 500 MG TABLET PO SCH ×2 (10:06→20:32)
[2017-10-21] MEDS ORDERED: *HR* Dextrose 50 % in Water (Syg) 50 ML SYRINGE IVP PRN (11:40)
[2017-10-21] MEDS ORDERED: Dextrose Gel 15 GM/37.5 ML TUBE PO PRN ×2 (11:40)
[2017-10-21] MEDS ORDERED: D5% in Water 1,000 ML IVC PRN (11:40)
--- NOTE | 2017-10-21 11:54 | Event Note ---
Date of Encounter: 10/21/17 Time of Encounter: 11:52 Patient seen and evaluated at bedside. No seizure like activity since admission. Hemodynamically stable. Potential discharge tomorrow after neurology evaluation.
[2017-10-21] MEDS: Insulin LISPRO 300 UNITS/3 ML VIAL SQ SCH ×3 (12:46→16:43)
[2017-10-21] MEDS ORDERED: Insulin DETEMIR 100 UNIT/ML X5UNITS SQ SCH (21:00)
[2017-10-22] MEDS: *HR* Heparin 5,000 UNIT/ML VIAL SQ SCH (06:23)
[2017-10-22] MEDS: Insulin LISPRO 300 UNITS/3 ML VIAL SQ SCH ×6 (08:27→16:22)
[2017-10-22] MEDS: Divalproex (12 HR) 500 MG TABLET PO SCH (08:28)
[2017-10-22] MEDS: Gabapentin 400 MG CAPSULE PO SCH ×3 (08:28→16:20)
[2017-10-22] MEDS: Aspirin 81 MG TAB.CHEW PO SCH (08:28)
[2017-10-22] MEDS: Isosorbide MONOnitrate (24 HR) 30 MG TAB.ER.24H PO SCH (08:28)
--- NOTE | 2017-10-22 09:10 | Neurology - Consult Note ---
<Nany Payne P - Last Filed: 10/22/17 12:13> Date of Encounter: 10/22/17 Time of Encounter: 09:00 Assessment and Plan (1) Seizure Current Visit: Yes Status: Chronic Patient has h/o seizure for last 5-6 years He had seizure attack last sunday and states that he has had a few episode once in while but he could not remember the previous one and states that it happens when he misses his medication. He missed the dose of seizure medication so he had seizure attack [place] level; 46 He is on Depakote 1500 mg BID Plan : EEG Give extra dose of depakote 500 mg stat and continue 1500 mg twice daily Can be discharged and he can follow up with EEG report. History of Present Illness Chief complaint: Seizure like activities HPI: Mr. Frey is a 56 year old male with past diagnoses of HTN, DM, CAD and seizure who was admitted to [facility] via ED for seizure-like activity. He had tonic - clonic type of seizure for a few minutes , his family member witnessed his seizure. He was brought in ED in post ictal state and he gradually recovered and became more alert , but confused. He denied any h/o Tongue bite ,urinary in- continence, head injury, aspiration. He is a known case of Seizure disorder under Depakote 1500 mg BD and gabapentin 800 mg QID .He states that he missed the morning dose of seizure medication, he h/o seizure attack on in a while especially he misses seizure medication. He is under seizure medication for last 5 years. His urine valproex level is 46 . His vitals BP 134/94 tem 97.5, pulse 72 Labs: Na 130, K 3.8, BUN 7, Creatinin 0.67,Glucose 143 , Calcium 8.8, magnesium 1.5 , urine analysis: WNL CT head : no acute intra cranial abnormality CTA neck : no acute arterial abnormality , no stenosis Plan: EEG [place] level Continue seizure medication. Past Med Surg Social Fam HX - Past Medical History Medical history: diabetes, hypertension, myocardial infarction, seizures Additional medical history: chronic back pain. sciatica Psychiatric history: anxiety, bipolar, depression, prior suicide attempt, schizophrenia - Past Surgical History Surgical History: other (foot wound care/intervention) Additional surgical history: bilat leg orthopedic - Social History Smoking Status: Current every day smoker Smokeless Tobacco Status: No Alcohol use: none Drug use: marijuana - Family History Daughter Living Status: Still Living Hx Family Cardiac Disorders: No Hx Family Respiratory Disorders: Yes Hx Family Cancer: No Hx Family GI Disorders: No Hx Family Endocrine Disorder: No Hx Family Neuromuscular Disorders: No Hx Family Neurologic Disorders: No Hx Family HEENT Disorders: No Hx Family Autoimmune Disorders: No Mother History Unknown: Yes Living Status: Hx Family Cardiac Disorders: Yes Father History Unknown: Yes Living Status: Hx Family Cardiac Disorders: Yes ([place]) Medications and Allergies Fenofibrate [Tricor] 54 mg PO DAILY 04/07/15 [History] Levothyroxine [Synthroid] 100 mcg PO QAM 04/07/15 [History] Pantoprazole Sodium [Protonix] 40 mg PO DAILY 10/04/15 [History] metFORMIN [Glucophage] 500 mg PO BID 08/21/16 [History] Aspirin 81 mg PO DAILY #30 09/30/16 [Rx] Clopidogrel [Plavix] 75 mg PO DAILY 30 Days tab 09/30/16 [Rx] Divalproex (12 HR) [Depakote (12 HR)] 1,500 mg PO BID 30 Days 09/30/16 [Rx] Atorvastatin [Lipitor] 40 mg PO HS 10/04/16 [History] Acetaminophen [Tylenol] 500 mg PO Q6H PRN 10/10/16 [History] Nitroglycerin [Nitrostat] 0.4 mg SL Q5M PRN 12/11/16 [History] Gabapentin [Neurontin] 800 mg PO QID 12/27/16 [History] Glimepiride [Amaryl] 4 mg PO BID 12/27/16 [History] hydrOXYzine pamoate [HydrOXYzine Pamoate] 25 mg PO TID 01/17/17 [History] Citalopram [CeleXA] 20 mg PO DAILY 02/06/17 [History] Lisinopril [Zestril] 2.5 mg PO DAILY 02/06/17 [History] Isosorbide MONOnitrate (24 HR) [Imdur] 30 mg PO DAILY 07/16/17 [History] Sodium Chloride [Sodium Chloride Tab] 1 gm PO BID 07/16/17 [History] Carvedilol 3.125 mg PO BIDWM 07/17/17 [History] Docusate [Colace] 100 mg PO BID capsule 07/20/17 [Rx] Ibuprofen [Motrin] 600 mg PO Q8HR PRN #30 tab 09/26/17 [Rx] 3 Allergy/AdvReac Type Severity Reaction Status Date / Time No Known Allergies Allergy Verified 10/20/17 18:36 All Systems: The remainder of the systems were reviewed and are negative Physical Examination - Vital Signs Vital Signs: Initial Vital Signs Temp Pulse Resp BP Pulse Ox 99.3 F 97 20 135/93 100 10/20/17 18:26 10/20/17 18:26 10/20/17 18:26 10/20/17 18:26 10/20/17 18:26 - Constitutional General appearance: comfortable - Neurologic Sensorimotor examination: intact Detailed motor examination: grossly full strength in all extremities Motor examination - right side: 5/5: deltoids, biceps, triceps, wrist flexion, wrist extension, concrete gun operator, hip flexors, tibialis Anterior, quadriceps, toe extension (EHL), plantarflexion Motor examination - left side: 5/5: deltoids, biceps, triceps, wrist flexion, wrist extension, hip flexors, concrete gun operator, quadriceps, tibialis Anterior, toe extension (EHL), plantarflexion Detailed sensory examination: intact Reflex and gait examination: normal gait Reflexes: Biceps: 2+, Triceps: 2+, Brachioradialis: 2+, Patella: 2+, Achilles: 2 + Mental Status Examination: awake, alert, oriented to person, oriented to place, oriented to time, follows commands appropriately, answers questions appropriately, no aphasia Cranial nerve examination: PERRL, EOMI, sensory to face intact, no facial asymmetry is present Cerebellar examination: no dysmetria, no gait ataxia Results - Laboratory Findings CBC and BMP: 10/21/17 05:46 10/21/17 05:46 Abnormal lab findings: Abnormal lab results RBC 3.95 M/mcL (4.19-5.50) L 10/21/17 05:46 Hgb 12.5 g/dL (12.9-16.9) L 10/21/17 05:46 Hct 35.1 % (37.5-50.1) L 10/21/17 05:46 MCHC 35.6 g/dL (31.6-35.5) H 10/21/17 05:46 VBG pCO2 34 mmHg (41-51) L 10/20/17 19:33 VBG HCO3 20 mEq/L (21-27) L 10/20/17 19:33 Sodium 130 mEq/L (136-145) L 10/21/17 05:46 Creatinine 0.67 mg/dL (0.70-1.30) L 10/21/17 05:46 Glucose 143 mg/dL (70-105) H 10/21/17 05:46 POC Glucose 165 mg/dL (70-99) H 10/21/17 20:34 Calculated Osmolality 270 (280-300) L 10/21/17 05:46 Magnesium 1.5 mg/dL (1.6-2.6) L 10/21/17 05:46 Serum Total Protein 6.3 g/dL (6.4-8.9) L 10/21/17 05:46 Urine Glucose (UA) 500 mg/dL (Normal) H 10/20/17 20:22 Urine Blood Trace (Negative) H 10/20/17 20:22 Urine Microscopic RBC 3-5 per hpf (0-3) H 10/20/17 20:22 Ur Squamous Epith Cells Moderate per lpf (None-Few) H 10/20/17 20:22 Valproic Acid 46 mcg/mL (50-100) L 10/21/17 05:46 U Benzodiazepines Scrn Positive ng/mL ([place]=757) H 10/20/17 20:32 U Marijuana (THC) Screen Positive ng/mL (Cutoff = 50) H 10/20/17 20:32 Consult Discharge Plan - Plan Referrals: Akosua Carrasco DO [Resident] - 10/30/17 2:00 pm <Adriano Schroeder I - Last Filed: 10/22/17 16:08> Date of Encounter: 10/22/17 Assessment and Plan (1) Seizure disorder Current Visit: No Status: Chronic Pt was seen and examined, my medical decision was reviewed with the Resident Physician, I agree with the documented findings, disposition and treatment plas as described except to the extent set forth below This patient who has an history of flow seizure disorder and is been following up with Dr. Hernandez as an outpatient admitted with breakthrough seizures Depakote level was low now is therapeutic he has received extra dose of Depakote suggested to continue on his home dose now. EEG is been negative for any seizure activity. Patient is back to his baseline suggest to continue follow-up with his neurologist as an outpatient He should also remain on seizure precautions and driving restrictions Adriano Schroeder MD History of Present Illness HPI: Mr. 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) ) Results - Laboratory Findings CBC and BMP: 10/21/17 05:46 10/21/17 05:46 Abnormal lab findings: Abnormal lab results RBC 3.95 M/mcL (4.19-5.50) L 10/21/17 05:46 Hgb 12.5 g/dL (12.9-16.9) L 10/21/17 05:46 Hct 35.1 % (37.5-50.1) L 10/21/17 05:46 MCHC 35.6 g/dL (31.6-35.5) H 10/21/17 05:46 VBG pCO2 34 mmHg (41-51) L 10/20/17 19:33 VBG HCO3 20 mEq/L (21-27) L 10/20/17 19:33 Sodium 130 mEq/L (136-145) L 10/21/17 05:46 Creatinine 0.67 mg/dL (0.70-1.30) L 10/21/17 05:46 Glucose 143 mg/dL (70-105) H 10/21/17 05:46 POC Glucose 165 mg/dL (70-99) H 10/21/17 20:34 Calculated Osmolality 270 (280-300) L 10/21/17 05:46 Magnesium 1.5 mg/dL (1.6-2.6) L 10/21/17 05:46 Serum Total Protein 6.3 g/dL (6.4-8.9) L 10/21/17 05:46 Urine Glucose (UA) 500 mg/dL (Normal) H 10/20/17 20:22 Urine Blood Trace (Negative) H 10/20/17 20:22 Urine Microscopic RBC 3-5 per hpf (0-3) H 10/20/17 20:22 Ur Squamous Epith Cells Moderate per lpf (None-Few) H 10/20/17 20:22 U Benzodiazepines Scrn Positive ng/mL (Byjwxv=409) H 10/20/17 20:32 U Marijuana (THC) Screen Positive ng/mL (Cutoff = 50) H 10/20/17 20:32
--- NOTE | 2017-10-22 09:43 | Internal Med Progress Note ---
Hospitalist Progress Note - Encounter Date of Encounter: 10/22/17 Time of Encounter: 09:40 - Subjective Interval History: Patient seen and evaluated at bedside. He reports that he feels he is back to his baseline. No seizure like activities after admission. Denies headache, lightheadedness, nausea or vomiting. - Exam Vitals: Temp Pulse Resp BP Pulse Ox 97.5 F L 72 18 134/94 97 10/22/17 07:23 10/22/17 07:23 10/22/17 07:23 10/22/17 07:23 10/22/17 07:23 Exam: General: Patient is alert, oriented, no acute distress, speaks in full sentences Head: atraumatic, normocephalic, Eye: normal appearance, PERRL, no scleral icterus, no conjunctival injection ENT: mucous membranes moist, normal external ear exam Chest: normal inspection, symmetric chest rise, barrell shaped Respiratory: Good respiratory effort. Clear to auscultation bilaterally, no wheezing, no rales or crackles. Cardiovascular: regular rhythm, rate, normal s1 and s2 No rubs, gallops, or murmors. Abdomen: Bowel sounds present normoactive x-4 quadrants. Abdomen is soft, nondistended. No guarding or rebound. No organomegaly noted. Musculoskeletal: no edema. Strength is 5 out of 5 in the lower extremity bilaterally. Skin: warm, dry, intact. Neuro: Sensation light touch intact. Cranial nerves 2-12 is intact. Not aphasic, rapid hand movements intact, [id number] intact, Psych: Patient's affect is normal - Assessment and Plan (1) Seizure Current Visit: Yes Status: Chronic Assessment and Plan: No seizure-like activity in the past 24 hours. Plan: pending EEG as per neurology recommendations Depakote level Continue Depakote 1500 mg by mouth twice a day On gabapentin 800 mg by mouth 4 times a day Discharge planning: Pending neurology work up. Possible D/C tomorrow morning (2) CAD (coronary artery disease) Current Visit: Yes Status: Acute Assessment and Plan: Hx of CAD with previous [place] Plan: On isosorbide mononitrate 30mg PO daily Lisinopril 10mg PO daily Low dose carvedilol 3.125mg/PO BID continue dial antiplatelets therapy (3) Diabetes Current Visit: No Status: Acute Assessment and Plan: Blood sugar well controlled Plan: Continue Levemir 5 units HS ON lispro AC 2 units and sliding scale Diabetic diet (4) Hypothyroidism Current Visit: Yes Status: Acute Assessment and Plan: Continue home medication Am TSH reflex to T4. DVT Prophylaxis: On Heparin 5000 units SubQ BID for DVT prophylaxis. - Summary of Assessment and Plan Summary of Assessment and Plan: DC pending EEG for complete neurological work up. - Time Spent with Patient Total time spent is greater than 50% in coordination of care (as documented) at patient's floor/unit and/or counseling patient: 25 - 35 minutes Plan of Care Discussed with: patient (and the nurse) Internal Medicine: Result - Labs CBC & Chem 7: 10/21/17 05:46 10/21/17 05:46 - ABG Interpretation ABG results: PT/INR, D-dimer PT 11.1 Seconds (9.4-12.1) 10/21/17 05:46 Consult Discharge Plan - Plan Referrals: Akosua Carrasco DO [Resident] - 10/30/17 2:00 pm (2) CAD (coronary artery disease) Qualifiers: Coronary Disease-Associated Artery/Lesion type: unspecified vessel or lesion type [place] vs. transplanted heart: unspecified whether [place] or transplanted heart Associated angina: angina presence unspecified Qualified Code(s): I25.10 - Atherosclerotic heart disease of [place] coronary artery without angina pectoris (3) Diabetes Qualifiers: Diabetes mellitus type: type 2 Diabetes mellitus half-way insulin use: without local intermodal truck driver use Diabetes mellitus complication status: with other specified complication Qualified Code(s): E11.69 - Type 2 diabetes mellitus with other specified complication (4) Hypothyroidism Qualifiers: Hypothyroidism type: unspecified Qualified Code(s): E03.9 - Hypothyroidism, unspecified
--- NOTE | 2017-10-22 14:17 | Discharge Summary ---
- NOTES TO OUTPATIENT PROVIDER Notes to Outpatient Provider: EEG results at Neurologist office. Orders not resulted at time of discharge: Pending orders 10/21/17 06:00 ECG 12 lead ECG [ECG] AM 0600 10/23/17 04:00 Basic Metabolic Panel AM 0400 Magnesium AM 0400 Date of Encounter: 10/22/17 Time of Encounter: 14:14 - Discharge Diagnosis (1) Seizure Priority: Primary Status: Resolved (2) CAD (coronary artery disease) Priority: Secondary Status: Acute Qualifiers: Coronary Disease-Associated Artery/Lesion type: unspecified vessel or lesion type [place] vs. transplanted heart: unspecified whether [place] or transplanted heart Associated angina: angina presence unspecified Qualified Code(s): I25.10 - Atherosclerotic heart disease of [place] coronary artery without angina pectoris (3) Diabetes Priority: Secondary Status: Acute Qualifiers: Diabetes mellitus type: type 2 Diabetes mellitus retirement insulin use: without terminal make up operator use Diabetes mellitus complication status: with other specified complication Qualified Code(s): E11.69 - Type 2 diabetes mellitus with other specified complication (4) Hypothyroidism Priority: Secondary Status: Chronic Qualifiers: Hypothyroidism type: unspecified Qualified Code(s): E03.9 - Hypothyroidism , unspecified Hospital course: Mr. Frey is a 56 year old male past medical history significant for seizure, diabetes, hypertension, myocardial infarction. . Presented to the hospital following a witnessed tonicoclonic seizure, postictal. Admitted for observation. Patient acute symptoms resolve, and he was placed on his home dose of his antiseizure medication. Neurology evaluated the patient, and recommended to continue Depakote 1500 mg by mouth twice a day. And to have an EEG done as an outpatient. Patient is hemodynamically stable, no seizures in the past 48 hours. Will be discharged home and to follow up with neurologist as an outpatient. - Time Spent with Patient Total time spent providing and/or coordinating discharge services: Greater than 30 minutes - Discharge Medications Home Medications: Fenofibrate [Tricor] 54 mg PO DAILY 04/07/15 [History] Levothyroxine [Synthroid] 100 mcg PO QAM 04/07/15 [History] Pantoprazole Sodium [Protonix] 40 mg PO DAILY 10/04/15 [History] metFORMIN [Glucophage] 500 mg PO BID 08/21/16 [History] Aspirin 81 mg PO DAILY #30 09/30/16 [Rx] Clopidogrel [Plavix] 75 mg PO DAILY 30 Days tab 09/30/16 [Rx] Divalproex (12 HR) [Depakote (12 HR)] 1,500 mg PO BID 30 Days 09/30/16 [Rx] Atorvastatin [Lipitor] 40 mg PO HS 10/04/16 [History] Acetaminophen [Tylenol] 500 mg PO Q6H PRN 10/10/16 [History] Nitroglycerin [Nitrostat] 0.4 mg SL Q5M PRN 12/11/16 [History] Gabapentin [Neurontin] 800 mg PO QID 12/27/16 [History] Glimepiride [Amaryl] 4 mg PO BID 12/27/16 [History] hydrOXYzine pamoate [HydrOXYzine Pamoate] 25 mg PO TID 01/17/17 [History] Citalopram [CeleXA] 20 mg PO DAILY 02/06/17 [History] Lisinopril [Zestril] 2.5 mg PO DAILY 02/06/17 [History] Isosorbide MONOnitrate (24 HR) [Imdur] 30 mg PO DAILY 07/16/17 [History] Sodium Chloride [Sodium Chloride Tab] 1 gm PO BID 07/16/17 [History] Carvedilol 3.125 mg PO BIDWM 07/17/17 [History] Docusate [Colace] 100 mg PO BID capsule 07/20/17 [Rx] Ibuprofen [Motrin] 600 mg PO Q8HR PRN #30 tab 09/26/17 [Rx] Allergies/Adverse Reactions: 3 Allergy/AdvReac Type Severity Reaction Status Date / Time No Known Allergies Allergy Verified 10/20/17 18:36 Date of admission: 10/20/17 21:32 Primary care physician: Ruben Andre DO Consults: 10/21/17 05:20 Consult to Physician [CONS] Routine Consulting Provider: Adriano Schroeder I Reason for Consult: seizure Call Completed: Yes - Constitutional Vitals: Temp Pulse Resp BP Pulse Ox 98.4 F 89 18 113/78 98 10/22/17 11:29 10/22/17 11:29 10/22/17 11:29 10/22/17 11:29 10/22/17 11:29 General appearance: Present: A&O X 1, pleasant, no acute distress. Absent: answers questions appropriately Exam: General: Patient is alert, oriented, no acute distress, speaks in full sentences Head: atraumatic, normocephalic, Eye: normal appearance, PERRL, no scleral icterus, no conjunctival injection ENT: mucous membranes moist, normal external ear exam Chest: normal inspection, symmetric chest rise, barrell shaped Respiratory: Good respiratory effort. Clear to auscultation bilaterally, no wheezing, no rales or crackles. Cardiovascular: regular rhythm, rate, normal s1 and s2 No rubs, gallops, or murmors. Abdomen: Bowel sounds present normoactive x-4 quadrants. Abdomen is soft, nondistended. No guarding or rebound. No organomegaly noted. Musculoskeletal: no edema. Strength is 5 out of 5 in the lower extremity bilaterally. Skin: warm, dry, intact. Neuro: Sensation light touch intact. Cranial nerves 2-12 is intact. Not aphasic, rapid hand movements intact, [id number] intact, Psych: Patient's affect is normal - Patient Status Disposition: Home, Self-Care Condition: Good Functional capacity at discharge: independent ambulation Overall status at discharge: patient is back to baseline - Discharge Instructions Follow Up With: Akosua Carrasco DO [Resident] - 10/30/17 2:00 pm - Diet and Activity Activity: resume usual activities as tolerated Diet: advance to your usual diet, diabetic diet
--- NOTE | 2017-10-22 14:36 | EEG/EMG/Oth Biometrics Report ---
EEG Procedure Report EEG Procedure: Routine EEG Procedure Note: This is a routine 21 channel digital EEG performed utilizing 10- 20 international electrode placement system. FINDINGS: Patient has a predominant waking background frequency that is average voltage 8 to 10 Hertz alpha activity in the posterior region, normal amplitude symmetrical over the both hemispheres reactive to eyes opening and closing record continued to show alpha activity intermixed with some theta off and on, no abnormal activity recorded, predominantly no evidence of any spike wave discharges or any lateralizing abnormalities, Photic stimulation and hyperventilation did not produce any convulsive response. Intermittent EMG artifacts were noted. Stage II sleep was not achieved. Impression: Normal awake drowsy electroencephalogram. No epileptiform discharges or any other paroxysmal activities noted. ( Please note that normal EEG does not exclude the diagnosis of seizures or epilepsy, clinical correlation is suggested)
[2017-10-22 16:02] VITALS: BP 140/85
--- NOTE | 2017-10-25 14:23 | Electrocardiograph Report ---
[place] [id number] Test Date: 2017-10-20 Pat Name: Joe Frey Department: EXAM4 Room: 2N10 Gender: M Outpatient Facility Physical Therapist: : [id number] Requested By: Nicholas Trevino Order Number: [id number] Reading MD: Mike Chambers Measurements Intervals [place] Rate: 99 P: 64 MI: 153 QRS: 9 QRSD: 107 T: 1 QT: 370 QTc: 475 Interpretive Statements Sinus rhythm Inferior infarct, age indeterminate Electronically Signed On 10-25-2017 14:21:58 EDT by Mike Chambers
== END 2017-10-22 17:35 | disposition home or self-care (01) ==
LOC: EMEROOARM 18:18 → 2NNU 18:18
PROVIDERS: ADMIT Pediatrics; ATTEND Pediatrics

== ENCOUNTER 2017-12-19 12:23 | Observation (INO) ==
--- NOTE | 2017-12-19 12:33 | Emergency Department Note ---
Disposition Clinical Impression: Hyponatremia, Seizure Disposition: Admitted As Inpatient Condition: Fair General Adult HPI - General Stated complaint: seizures Time Seen by Provider: 12/19/17 12:24 Nursing Notes Reviewed: Yes Vital Signs Reviewed: Yes - History of Present Illness HPI Narrative: 56-year-old male presents emergency department after having a seizure. Patient has seizures once every week. Reportedly postictal by family. History of hyponatremia. Patient was brought in by EMS. Reported that he has a contusion on his right side of his forehead. - Related Data Home Medications Medication Instructions Recorded Confirmed RX: Fenofibrate [Tricor] 54 mg PO DAILY 04/07/15 12/19/17 RX: Levothyroxine [Synthroid] 100 mcg PO QAM 04/07/15 12/19/17 RX: Pantoprazole Sodium [Protonix] 40 mg PO DAILY 10/04/15 12/19/17 RX: metFORMIN [Glucophage] 500 mg PO BID 08/21/16 12/19/17 RX: Atorvastatin [Lipitor] 40 mg PO HS 10/04/16 12/19/17 RX: Acetaminophen [Tylenol] 500 mg PO Q6H PRN 10/10/16 12/19/17 RX: Nitroglycerin [Nitrostat] 0.4 mg SL Q5M PRN 12/11/16 12/19/17 RX: Gabapentin [Neurontin] 800 mg PO QID 12/27/16 12/19/17 RX: Glimepiride [Amaryl] 4 mg PO BID 12/27/16 12/19/17 RX: hydrOXYzine pamoate 25 mg PO TID 01/17/17 12/19/17 [HydrOXYzine Pamoate] RX: Citalopram [CeleXA] 20 mg PO DAILY 02/06/17 12/19/17 RX: Lisinopril [Zestril] 2.5 mg PO DAILY 02/06/17 12/19/17 RX: Isosorbide MONOnitrate (24 HR) 30 mg PO DAILY 07/16/17 12/19/17 [Imdur] RX: Sodium Chloride [Sodium 1 gm PO BID 07/16/17 12/19/17 Chloride Tab] RX: Carvedilol 3.125 mg PO BIDWM 07/17/17 12/19/17 RX: Trazodone HCl 100 mg PO HS PRN 12/19/17 12/19/17 Previous Rx's Medication Instructions Recorded RX: Aspirin 81 mg PO DAILY #30 09/30/16 RX: Clopidogrel [Plavix] 75 mg PO DAILY 30 Days tab 09/30/16 RX: Divalproex (12 HR) [Depakote 1,500 mg PO BID 30 Days 09/30/16 (12 HR)] RX: Docusate [Colace] 100 mg PO BID capsule 07/20/17 Lidocaine Patch [Lidoderm 5% patch] 1 - 2 each TP DAILY PRN #20 11/21/17 adh..patch Allergies Allergy/AdvReac Type Severity Reaction Status Date / Time No Known Allergies Allergy Verified 10/20/17 18:36 All systems ED: reviewed and negative except as stated. Review of Systems: As Per HPI Limitations: ROS unobtainable due to patients medical condition (Postictal) Past Medical History - Past Medical History Medical history: Reports: diabetes, hypertension, myocardial infarction, seizures Surgical history: Reports: other (foot wound care/intervention) Psychiatric history: Reports: anxiety, bipolar, depression, prior suicide attempt, schizophrenia - Social History Smoking Status: Current every day smoker Smokeless Tobacco Status: No Alcohol use: Reports: none Drug use: Reports: marijuana Physical Exam - General Limitations: other (Patient postictal) - Head Head exam: other (Right-sided for her contusion) - Eye Eye exam: Present: EOMI (On the left, none on the right), other (Right eye is glass.) - ENT ENT exam: normal oropharynx - Neck Neck exam: Present: trachea midline - Chest Chest inspection: Present: symmetric chest wall rise - Respiratory Respiratory exam: Present: normal lung sounds bilaterally. Absent: respiratory distress, accessory muscle use - Cardiovascular Cardiovascular exam: Present: normal rhythm, tachycardia - Abdominal Exam Abdominal exam: Present: soft, Non-Tender. Absent: distention, guarding, rebound, rigidity - Extremities Exam Extremities exam: Present: normal capillary refill - Back Exam Back exam: Present: full ROM - Neurological Exam Neurological exam: Present: alert, other (Patient postictal, GCS 13) Course Vital Signs Temperature 97.8 F 12/19/17 13:00 Pulse Rate 102 12/19/17 13:00 Respiratory Rate 18 12/19/17 13:00 Blood Pressure 125/95 12/19/17 13:00 O2 Sat by Pulse Oximetry 100 12/19/17 13:00 Temperature 99.1 F 12/19/17 20:35 Pulse Rate 95 12/19/17 20:35 Respiratory Rate 15 12/19/17 20:35 Blood Pressure 115/74 12/19/17 20:35 O2 Sat by Pulse Oximetry 98 12/19/17 20:35 Oxygen Delivery Oxygen Delivery Room Air Medical Decision Making - MDM Narrative Medical decision making narrative: 56-year-old male presents emergency department with a GCS of 14 after a seizure. Reported history of hyponatremia. Patient not actively seizing at this time. He is hemodynamically stable. On physical exam, he does have right glass eye with no extraocular movement there, his left eye has good extraocular movement. Do not suspect stroke at this time. We will obtain labs. We will obtain CT scan of the head and neck. CT scan of head and neck did not reveal any acute abnormalities. Chest x-ray did not reveal any acute process. Sodium of patient was 124. This is lower than previous as there is a downward trend. However, not as low as patient has been. We have stopped patient firm consuming any water as this patient has history of psychogenic polydipsia with his hyponatremia. We have also provided a liter of normal saline to patient. Patient not actively seizing here in the emergency department. Patient be admitted to the hospitalist. She agrees to plan for admission. Patient hemodynamically stable not in any acute distress. Patient was agitated earlier he was given doses of Ativan to help with this. Chest X-Ray 12/19/17 12:30 IMPRESSION: No acute process. D/ / Higinio Weaver MD / Higinio Weaver MD Interpreting Provider: Higinio Weaver MD Cervical Spine CT 12/19/17 12:31 IMPRESSION: No acute abnormality of the cervical spine. Multilevel degenerative changes D/ / Higinio Weaver MD / Higinio Weaver MD Interpreting Provider: Higinio Weaver MD Head CT 12/19/17 12:31 IMPRESSION: 1. No acute intracranial abnormality. 2. Diffuse cerebral atrophy with chronic small vessel ischemic disease. 3. Right phthisis bulbi. D/ / Gino Porras MD / Gino Porras MD Interpreting Provider: Gino Porras MD - Lab Data Result diagrams: 12/19/17 12:53 12/19/17 12:53 Lab Results 12/19/17 12/19/17 12/19/17 Range/Units 12:53 12:53 12:53 WBC 14.3 H (4.3-11.1) K/mcL RBC 4.59 (4.19-5.50) M/mcL Hgb 14.1 (12.9-16.9) g/dL Hct 40.2 (37.5-50.1) % MCV 87.6 (83.0-100.0) fL MCH 30.7 (28.0-33.3) pg MCHC 35.1 (31.6-35.5) g/dL RDW 13.8 (11.5-14.5) % Plt Count 297 (140-400) K/mcL MPV 9.4 (9.4-12.4) fL Immature Gran % 1.0 (0-4) % Seg Neutrophils % 82.6 % Lymphocytes % 10.5 % Monocytes % 5.5 % Eosinophils % 0.1 % Basophils % 0.3 % Neutrophils # 11.8 H (1.6-8.9) K/mcL Lymphocytes # 1.5 (0.6-4.6) K/mcL Monocytes # 0.8 (0.0-1.3) K/mcL Eosinophils # 0.0 (0.0-0.6) K/mcL Basophils # 0.0 (0.0-0.2) K/mcL Sodium 124 L (136-145) mEq/L Potassium 4.6 (3.5-5.1) mEq/L Chloride 88 L (98-107) mEq/L Carbon Dioxide 23 (23-29) mEq/L BUN 13 (6-20) mg/dL Creatinine 0.77 (0.70-1.30) mg/dL Est GFR ( Amer) > 60 (> 60) Est GFR (Non-Af Amer) > 60 (> 60) BUN/Creatinine Ratio 17 (6-26) Glucose 206 H (70-105) mg/dL Est Mean Plasma Glucose mg/dl Hemoglobin A1c ( - 5.6) % Calculated Osmolality 264 L (280-300) Calcium 9.5 (8.6-10.3) mg/dL Creatine Kinase 97 (30-223) Units/L Troponin I < 0.03 (< 0.04) ng/mL TSH (0.340-5.600) mcIU/mL Valproic Acid (50-100) mcg/mL 12/19/17 12/19/17 12/19/17 Range/Units 12:53 12:53 12:53 WBC (4.3-11.1) K/mcL RBC (4.19-5.50) M/mcL Hgb (12.9-16.9) g/dL Hct (37.5-50.1) % MCV (83.0-100.0) fL MCH (28.0-33.3) pg MCHC (31.6-35.5) g/dL RDW (11.5-14.5) % Plt Count (140-400) K/mcL MPV (9.4-12.4) fL Immature Gran % (0-4) % Seg Neutrophils % % Lymphocytes % % Monocytes % % Eosinophils % % Basophils % % Neutrophils # (1.6-8.9) K/mcL Lymphocytes # (0.6-4.6) K/mcL Monocytes # (0.0-1.3) K/mcL Eosinophils # (0.0-0.6) K/mcL Basophils # (0.0-0.2) K/mcL Sodium (136-145) mEq/L Potassium (3.5-5.1) mEq/L Chloride (98-107) mEq/L Carbon Dioxide (23-29) mEq/L BUN (6-20) mg/dL Creatinine (0.70-1.30) mg/dL Est GFR ( Amer) (> 60) Est GFR (Non-Af Amer) (> 60) BUN/Creatinine Ratio (6-26) Glucose (70-105) mg/dL Est Mean Plasma Glucose 146 mg/dl Hemoglobin A1c 6.7 H ( - 5.6) % Calculated Osmolality (280-300) Calcium (8.6-10.3) mg/dL Creatine Kinase (30-223) Units/L Troponin I (< 0.04) ng/mL TSH 3.707 (0.340-5.600) mcIU/mL Valproic Acid 93 (50-100) mcg/mL - EKG Data EKG #1 EKG attestation: Yes I reviewed and interpreted this EKG. EKG results narrative: 12:50 Heart rate 101 bpm, appearing to 160 ms, QRS duration 106 ms, QT 342 ms, normal axis. Sinus tachycardia ischemic ST changes on this EKG. Attestation Statement - Attestation Attestation: I, Gamal Levy, examined this patient and my medical decision-making was reviewed with the RATE CLERK/PA/Advanced Practice Nurse/Resident Physician. I agree with the documented findings, disposition and treatment plan as described except to the extent set forth below. 56 yo male brought to the emergency department for concerns of altered mental status. Patient has a long history of seizures and has seizures almost weekly per the family per EMS. Patient takes Depakote and also has a history of severe hyponatremia secondary to psychogenic polydipsia. Patient is unable to give a history regarding his case and presentation as he is likely postictal at this time. He has a glass eye of the right I. He is moving all extremities. He is a GCS of 13. He is protecting his airway. CT of his head did not show acute fracture or intracranial hemorrhage. Is very restless in the emergency department he was given Ativan to be able to obtain CT of his head. I contacted the family member who witnessed the seizure and stated it was similar to his previous seizures. He is worked up for stroke in the past for similar presentations however he has always been diagnosed with seizure. Patient will be admitted to hospitalist for further care and evaluation.
[2017-12-19] MEDS ORDERED: *HR* LORazepam 2 MG/ML VIAL IVP ONE (12:44)
[2017-12-19] MEDS ORDERED: *HR* LORazepam 2 MG/ML VIAL IVP PRN (12:45)
[2017-12-19 13:08] LABS: Basophils % 0.3 %; Eosinophils % 0.1 %; Red Cell Distribution Width 13.8 % (11.5-14.5)
[2017-12-19 13:16] LABS: Hematocrit 40.2 % (37.5-50.1); Hemoglobin 14.1 g/dL (12.9-16.9); Lymphocytes # 1.5 K/mcL (0.6-4.6); Lymphocytes % 10.5 %; Mean Corpuscular HGB Conc 35.1 g/dL (31.6-35.5); Mean Corpuscular Hemoglobin 30.7 pg (28.0-33.3); Mean Corpuscular Volume 87.6 fL (83.0-100.0); Mean Platelet Volume 9.4 fL (9.4-12.4); Monocytes # 0.8 K/mcL (0.0-1.3); Monocytes % 5.5 %; Neutrophils # 11.8 K/mcL (1.6-8.9); Platelet Count 297 K/mcL (140-400); Red Blood Count 4.59 M/mcL (4.19-5.50); Segmented Neutrophils % 82.6 %
[2017-12-19 13:52] LABS: BUN/Creatinine Ratio 17 (6-26); Blood Urea Nitrogen 13 mg/dL (6-20); Calcium 9.5 mg/dL (8.6-10.3); Carbon Dioxide 23 mEq/L (23-29); Chloride 88 mEq/L (98-107); Glucose 206 mg/dL (70-105); Osmolality,Calculated 264 (280-300); Potassium 4.6 mEq/L (3.5-5.1); Sodium 124 mEq/L (136-145); eGFR For Non-African Americans > 60 (> 60)
[2017-12-19] MEDS ORDERED: 0.9 % Sodium Chloride 1,000 ML IVC ONE (14:32)
[2017-12-19] MEDS ORDERED: Naloxone 0.4 MG/ML INJ IVP PRN (15:46)
[2017-12-19] MEDS ORDERED: Divalproex (12 HR) 500 MG TABLET PO ONE (15:48)
[2017-12-19] MEDS ORDERED: traZODone 50 MG TABLET PO PRN (15:49)
[2017-12-19] MEDS ORDERED: Nitroglycerin 0.4 MG TAB.SUBL SL PRN (15:49)
[2017-12-19 16:04] LABS: Creatine Kinase 97 Units/L (30-223)
[2017-12-19] MEDS: 0.9 % Sodium Chloride 1,000 ML IVC SCH (17:32)
--- NOTE | 2017-12-19 17:37 | Internal Med History&Physical ---
Date of Encounter: 12/19/17 Time of Encounter: 17:00 Internal Medicine - H&P: HPI Chief complaint: Witnessed seizure today History of present illness: Mr. Frey is a 56 year old male with pmh of recurrent seizures, diminished cognitive function, diabetes, hypertension, [place] presenting with complaints of having a seizure today per family. Patient is unable to provide any history. he ialert and oriented to person and place but can provide no other information otherwise. Denies any acute symptoms. he is reported to have seizures weekly and was recently discharged from the hospital In the ER, he had a CT head done and was given ativan. He is currently hemodynamically stable and not actively seizing Past Med Surg Social Fam HX - Past Medical History Medical history: diabetes, hypertension, myocardial infarction, seizures Additional medical history: chronic back pain. sciatica Psychiatric history: anxiety, bipolar, depression, prior suicide attempt, schizophrenia - Past Surgical History Surgical History: other (foot wound care/intervention) Additional surgical history: bilat leg orthopedic - Social History Smoking Status: Current every day smoker Smokeless Tobacco Status: No Alcohol use: none Drug use: marijuana - Family History Daughter Living Status: Still Living Hx Family Cardiac Disorders: No Hx Family Respiratory Disorders: Yes Hx Family Cancer: No Hx Family GI Disorders: No Hx Family Endocrine Disorder: No Hx Family Neuromuscular Disorders: No Hx Family Neurologic Disorders: No Hx Family HEENT Disorders: No Hx Family Autoimmune Disorders: No Mother Living Status: Hx Family Cardiac Disorders: Yes Father Living Status: Hx Family Cardiac Disorders: Yes (AL) Internal Medicine - H&P: Meds Fenofibrate [Tricor] 54 mg PO DAILY 04/07/15 [History] Levothyroxine [Synthroid] 100 mcg PO QAM 04/07/15 [History] Pantoprazole Sodium [Protonix] 40 mg PO DAILY 10/04/15 [History] metFORMIN [Glucophage] 500 mg PO BID 08/21/16 [History] Aspirin 81 mg PO DAILY #30 09/30/16 [Rx] Clopidogrel [Plavix] 75 mg PO DAILY 30 Days tab 09/30/16 [Rx] Divalproex (12 HR) [Depakote (12 HR)] 1,500 mg PO BID 30 Days 09/30/16 [Rx] Atorvastatin [Lipitor] 40 mg PO HS 10/04/16 [History] Acetaminophen [Tylenol] 500 mg PO Q6H PRN 10/10/16 [History] Nitroglycerin [Nitrostat] 0.4 mg SL Q5M PRN 12/11/16 [History] Gabapentin [Neurontin] 800 mg PO QID 12/27/16 [History] Glimepiride [Amaryl] 4 mg PO BID 12/27/16 [History] hydrOXYzine pamoate [HydrOXYzine Pamoate] 25 mg PO TID 01/17/17 [History] Citalopram [CeleXA] 20 mg PO DAILY 02/06/17 [History] Lisinopril [Zestril] 2.5 mg PO DAILY 02/06/17 [History] Isosorbide MONOnitrate (24 HR) [Imdur] 30 mg PO DAILY 07/16/17 [History] Sodium Chloride [Sodium Chloride Tab] 1 gm PO BID 07/16/17 [History] Carvedilol 3.125 mg PO BIDWM 07/17/17 [History] Docusate [Colace] 100 mg PO BID capsule 07/20/17 [Rx] Lidocaine Patch [Lidoderm 5% patch] 1 - 2 each TP DAILY PRN #20 adh..patch 11/21/17 [Rx] Trazodone HCl 100 mg PO HS PRN 12/19/17 [History] Allergy/AdvReac Type Severity Reaction Status Date / Time No Known Allergies Allergy Verified 10/20/17 18:36 All Systems PM: A 10-system review of systems was performed and is negative for pertinent findings except as documented above in the HPI. - Constitutional Constitutional: no chills, no fever(s), no night sweats - EENT Eyes: no change in vision, no discharge, no pain, no photophobia Ears: no ear discharge, no ear pain, no tinnitus Nose, mouth and throat: no dysphagia, no nasal discharge, no neck pain, no sore throat - Cardiovascular Cardiovascular ROS IM: no chest pain, no diaphoresis, no dyspnea, no lightheadedness, no palpitations, no syncope - Respiratory Respiratory: no cough, no dyspnea, no wheezing, no excessive phlegm production - Gastrointestinal Gastrointestinal: no abdominal pain, no diarrhea, no hematemesis, no hematochezia, no melena, no nausea, no vomiting - Musculoskeletal Musculoskeletal ROS IM: no numbness, no tingling - Integumentary Integumentary IM: no rash, no unusual bruising - Neurological Neurological ROS: no confusion, no convulsions, no focal weakness, no numbness, no tingling, no tremor(s) - Hematologic/Lymphatic Hematologic/Lymphatic: no easy bruising - Constitutional Vitals: Temp Pulse Resp BP Pulse Ox 98.7 F 116 18 132/103 100 12/19/17 16:41 12/19/17 15:06 12/19/17 14:13 12/19/17 15:06 12/19/17 15:06 General appearance: Present: A&O X 2 Exam: Only alert to place and person and appears to reduced cognitive function - Head Head exam: Present: atraumatic, normocephalic - Eye Eye exam: Present: PERRL, conjuntiva pink, sclera anicteric Pupils: Present: PERRL - Neck Neck exam general surgery: Present: supple, trachea midline. Absent: lymphadenopathy - Respiratory Respiratory exam: Present: CTAB. Absent: accessory muscle use, rales, rhonchi, wheezes - Cardiovascular Cardiovascular exam: Present: RRR, +S1, +S2. Absent: diastolic murmur, gallop, rubs, systolic murmur - GI/Abdominal GI/Abdominal exam: Present: normal bowel sounds, soft, no peritoneal signs. Absent: distended, tenderness - Extremities Exam Extremities exam: Present: warm, radial pulses palpable and symmetrical. Absent: calf tenderness, cyanotic, pedal edema - Neurological Exam Neurological exam: Present: CN II-XII intact, oriented X3, no focal deficits. Absent: pronater drift, facial droop, speech deficit - Skin Skin exam: Present: dry, intact Internal Med - H&P Results - Labs CBC & Chem 7: 12/19/17 12:53 12/19/17 12:53 Labs: Short CBC 12/19/17 Range/Units 12:53 WBC 14.3 H (4.3-11.1) K/mcL Hgb 14.1 (12.9-16.9) g/dL Hct 40.2 (37.5-50.1) % Plt Count 297 (140-400) K/mcL Neutrophils # 11.8 H (1.6-8.9) K/mcL BMP 12/19/17 12:53 Sodium 124 L Potassium 4.6 Chloride 88 L Carbon Dioxide 23 BUN 13 Creatinine 0.77 Glucose 206 H Calcium 9.5 Cardiac Enzymes 12/19/17 Range/Units 12:53 Troponin I < 0.03 (< 0.04) ng/mL - Impressions ITS Impressions Chest X-Ray 12/19/17 12:30 IMPRESSION: No acute process. D/ / Higinio Weaver MD / Higinio Weaver MD Interpreting Provider: Higinio Weaver MD Cervical Spine CT 12/19/17 12:31 IMPRESSION: No acute abnormality of the cervical spine. Multilevel degenerative changes D/ / Higinio Weaver MD / Higinio Weaver MD Interpreting Provider: Higinio Weaver MD Head CT 12/19/17 12:31 IMPRESSION: 1. No acute intracranial abnormality. 2. Diffuse cerebral atrophy with chronic small vessel ischemic disease. 3. Right phthisis bulbi. D/ / Gino Porras MD / Gino Porras MD Interpreting Provider: Gino Porras MD - Assessment and plan (1) Seizure Current Visit: Yes Status: Acute Assessment and plan: Pt had an acute seizure episode today with postictal state per family On depakote with therapeutic levels. Discussed with nuerology jimy add keppra 500mg IV BID Appreciate neuro recs (2) Hyponatremia Current Visit: No Status: Acute Assessment and plan: Sodium levels were low at 124. Will start on IV fluids with normal saline (3) Diabetes Current Visit: Yes Status: Acute Assessment and plan: Continue insulin and oral meds. Hold metformin. Monitor fingersticks Qualifiers: Diabetes mellitus type: type 2 Diabetes mellitus intermediate designer insulin use: with intermediate designer use Diabetes mellitus complication status: with other specified complication Qualified Code(s): E11.69 - Type 2 diabetes mellitus with other specified complication; Z79.4 - custodial (current) use of insulin (4) CAD (coronary artery disease) Current Visit: No Status: Acute Assessment and plan: Continue aspirin, plavix and statin Qualifiers: Coronary Disease-Associated Artery/Lesion type: unspecified vessel or lesion type [place] vs. transplanted heart: unspecified whether [place] or transplanted heart Associated angina: angina presence unspecified Qualified Code(s): I25.10 - Atherosclerotic heart disease of [place] coronary artery without angina pectoris (5) Leukocytosis Current Visit: Yes Status: Acute Assessment and plan: No clear etiology for infection. Hydrate and monitor CBC. Pt is afebrile Qualifiers: Leukocytosis type: unspecified Qualified Code(s): D72.829 - Elevated white blood cell count, unspecified (6) DVT prophylaxis Current Visit: No Status: Acute Assessment and plan: heparin sc - Time Spent With Patient Total time spent is greater than 50% in coordination of care (as documented) at patient's floor/unit and/or counseling patient:
[2017-12-19] MEDS ORDERED: Dextrose Gel 15 GM/37.5 ML TUBE PO PRN ×2 (17:39)
[2017-12-19] MEDS ORDERED: D5% in Water 1,000 ML IVC PRN (17:39)
[2017-12-19] MEDS ORDERED: *HR* Dextrose 50 % in Water (Syg) 50 ML SYRINGE IVP PRN (17:39)
[2017-12-19 18:01] LABS: Estimated Average Glucose 146 mg/dl; Hemoglobin A1C 6.7 %
[2017-12-19] MEDS: hydrOXYzine pamoate 25 MG CAPSULE PO SCH (22:35)
[2017-12-19] MEDS: Divalproex (12 HR) 500 MG TABLET PO SCH (22:36)
[2017-12-19] MEDS: Gabapentin 400 MG CAPSULE PO SCH ×2 (22:36→22:39)
[2017-12-19] MEDS: *HR* Heparin 5,000 UNIT/ML VIAL SQ SCH (22:38)
[2017-12-19] MEDS: Insulin LISPRO 300 UNITS/3 ML VIAL SQ SCH (22:39)
[2017-12-19] MEDS: *HR* Glimepiride 4 MG TABLET PO SCH (22:39)
[2017-12-20] MEDS: 0.9 % Sodium Chloride 1,000 ML IVC SCH (04:20)
[2017-12-20 05:07] LABS: Basophils # 0.1 K/mcL (0.0-0.2); Basophils % 0.5 %; Eosinophils # 0.1 K/mcL (0.0-0.6); Eosinophils % 0.5 %; Hemoglobin 13.6 g/dL (12.9-16.9); Immature Granulocytes % 0.9 % (0-4); Lymphocytes # 4.2 K/mcL (0.6-4.6); Lymphocytes % 31.8 %; Mean Corpuscular HGB Conc 34.9 g/dL (31.6-35.5); Mean Corpuscular Hemoglobin 30.6 pg (28.0-33.3); Mean Corpuscular Volume 87.8 fL (83.0-100.0); Mean Platelet Volume 9.3 fL (9.4-12.4); Monocytes # 1.5 K/mcL (0.0-1.3); Monocytes % 11.3 %; Neutrophils # 7.3 K/mcL (1.6-8.9); Platelet Count 264 K/mcL (140-400); Red Blood Count 4.44 M/mcL (4.19-5.50)
[2017-12-20 05:25] LABS: BUN/Creatinine Ratio 13 (6-26); Blood Urea Nitrogen 11 mg/dL (6-20); Calcium 9.1 mg/dL (8.6-10.3); Carbon Dioxide 22 mEq/L (23-29); Chloride 98 mEq/L (98-107); Glucose 136 mg/dL (70-105); Magnesium 1.8 mg/dL (1.6-2.6); Osmolality,Calculated 269 (280-300); Phosphorous 3.4 mg/dL (2.7-4.5); Sodium 129 mEq/L (136-145); eGFR For Non-African Americans > 60 (> 60)
[2017-12-20] MEDS: *HR* Heparin 5,000 UNIT/ML VIAL SQ SCH (06:19)
[2017-12-20] MEDS: hydrOXYzine pamoate 25 MG CAPSULE PO SCH (09:00)
[2017-12-20] MEDS ORDERED: Fenofibrate 54 MG TABLET PO SCH (09:00)
[2017-12-20] MEDS ORDERED: Aspirin 81 MG TAB.CHEW PO SCH (09:00)
[2017-12-20] MEDS ORDERED: Isosorbide MONOnitrate (24 HR) 30 MG TAB.ER.24H PO SCH (09:00)
[2017-12-20] MEDS: *HR* Glimepiride 4 MG TABLET PO SCH (09:01)
[2017-12-20] MEDS: Gabapentin 400 MG CAPSULE PO SCH ×2 (09:01→11:30)
[2017-12-20] MEDS: Divalproex (12 HR) 500 MG TABLET PO SCH (09:01)
--- NOTE | 2017-12-20 09:14 | Neurology - Consult Note ---
Date of Encounter: 12/20/17 Time of Encounter: 09:10 Assessment and Plan (1) Seizure Current Visit: No Status: Resolved Patient developed witnessed seizure while on Depakote DR 1500mg bid with therapeutic level of 93. This would be considered a treatment failure so would suggest to add on keppra 500mg bid. Will keep him on Depakote DR 1500mg bid no change. Patient has history of hyponatremia as a chronic condition. Please continue medical and supportive. Patient has baseline Parkinsonism features likely related to antipsychotic use. No focal motor or sensory deficits No futher testing will be recommended at this time. Please continue medical and supportive. Patient okay to be discharged from neurology perspective. Patient is to follow up in neurology in few weeks History of Present Illness Chief complaint: seizure HPI: Mr. Frey is a 56 year old male with PMH significant for seizure disorder, history of SIADH, Parkinsonism, HTN, ischemic cardiomyopathy, DM and hypothyro idism who presented to ER after a witnessed seizure. Patient is unable to provide history regarding his seizure since he has no recollection of the event. He has no tongue biting marc. Been taking Depakote and apparently has been compliant with therapeutic level of 93. Patient is currently without any discomforts. Patient has history of hypnatremia and SIADH. Patient was started Keppra 500mg bid. He is kept on Depakote DR 1500mg bid. Past Med Surg Social Fam HX - Past Medical History Medical history: diabetes, hypertension, myocardial infarction, seizures Additional medical history: chronic back pain. sciatica Psychiatric history: anxiety, bipolar, depression, prior suicide attempt, schizophrenia - Past Surgical History Surgical History: other Additional surgical history: bilat leg orthopedic - Social History Smoking Status: Current every day smoker Smokeless Tobacco Status: No Alcohol use: none Drug use: marijuana - Family History Daughter Living Status: Still Living Hx Family Cardiac Disorders: No Hx Family Respiratory Disorders: Yes Hx Family Cancer: No Hx Family GI Disorders: No Hx Family Endocrine Disorder: No Hx Family Neuromuscular Disorders: No Hx Family Neurologic Disorders: No Hx Family HEENT Disorders: No Hx Family Autoimmune Disorders: No Mother Living Status: Hx Family Cardiac Disorders: Yes Father Living Status: Hx Family Cardiac Disorders: Yes ([place]) Medications and Allergies Fenofibrate [Tricor] 54 mg PO DAILY 04/07/15 [History] Levothyroxine [Synthroid] 100 mcg PO QAM 04/07/15 [History] Pantoprazole Sodium [Protonix] 40 mg PO DAILY 10/04/15 [History] metFORMIN [Glucophage] 500 mg PO BID 08/21/16 [History] Aspirin 81 mg PO DAILY #30 09/30/16 [Rx] Clopidogrel [Plavix] 75 mg PO DAILY 30 Days tab 09/30/16 [Rx] Divalproex (12 HR) [Depakote (12 HR)] 1,500 mg PO BID 30 Days 09/30/16 [Rx] Atorvastatin [Lipitor] 40 mg PO HS 10/04/16 [History] Acetaminophen [Tylenol] 500 mg PO Q6H PRN 10/10/16 [History] Nitroglycerin [Nitrostat] 0.4 mg SL Q5M PRN 12/11/16 [History] Gabapentin [Neurontin] 800 mg PO QID 12/27/16 [History] Glimepiride [Amaryl] 4 mg PO BID 12/27/16 [History] hydrOXYzine pamoate [HydrOXYzine Pamoate] 25 mg PO TID 01/17/17 [History] Citalopram [CeleXA] 20 mg PO DAILY 02/06/17 [History] Lisinopril [Zestril] 2.5 mg PO DAILY 02/06/17 [History] Isosorbide MONOnitrate (24 HR) [Imdur] 30 mg PO DAILY 07/16/17 [History] Sodium Chloride [Sodium Chloride Tab] 1 gm PO BID 07/16/17 [History] Carvedilol 3.125 mg PO BIDWM 07/17/17 [History] Docusate [Colace] 100 mg PO BID capsule 07/20/17 [Rx] Lidocaine Patch [Lidoderm 5% patch] 1 - 2 each TP DAILY PRN #20 adh..patch 11/21/17 [Rx] Trazodone HCl 100 mg PO HS PRN 12/19/17 [History] Allergy/AdvReac Type Severity Reaction Status Date / Time No Known Allergies Allergy Verified 10/20/17 18:36 All Systems: The remainder of the systems were reviewed and are negative Physical Examination - Vital Signs Vital Signs: Initial Vital Signs Temp Pulse Resp BP Pulse Ox 97.8 F 102 18 125/95 100 12/19/17 13:00 12/19/17 13:00 12/19/17 13:00 12/19/17 13:00 12/19/17 13:00 - Constitutional General appearance: chronically ill - Neurologic Sensorimotor examination: intact (Grossly intact) Detailed motor examination: grossly full strength in all extremities Motor examination - right side: 5: deltoids, biceps, triceps, wrist flexion, wrist extension, cover remover, hip flexors, tibialis Anterior, quadriceps, toe extension (EHL), plantarflexion Motor examination - left side: 06/16: deltoids, biceps, triceps, wrist flexion, wrist extension, hip flexors, cover remover, quadriceps, tibialis Anterior, toe extension (EHL), plantarflexion Detailed sensory examination: intact Posture: other (None) Reflex and gait examination: other (Gait not assessed) Reflexes: Biceps: 1+, Triceps: 1+, Brachioradialis: 1+, Patella: 1+, Achilles: 1+ Mental Status Examination: awake, alert, oriented to person, oriented to place, oriented to time, follows commands appropriately, answers questions appropriately, no agnosia, no aphasia, no aproxia Cranial nerve examination: PERRL (right prosthetic eye), EOMI (right prosthetic eye noted. Left eye full range of motion), visual hopkins intact, corneal reflexes brisk symmetrically, sensory to face intact, mastication intact, no facial asymmetry is present, no dysarthria, hearing is intact symmetrically, soft palate elevates bilaterally upon phonation, gag reflex intact, flexes SCM and trapezius muscles symmetrically with full power, tongue protrudes midline, no atrophy or facial fasiculations present Results - Laboratory Findings CBC and BMP: 12/20/17 04:50 12/20/17 04:50 Abnormal lab findings: Abnormal lab results WBC 13.2 K/mcL (4.3-11.1) H 12/20/17 04:50 MPV 9.3 fL (9.4-12.4) L 12/20/17 04:50 Monocytes # 1.5 K/mcL (0.0-1.3) H 12/20/17 04:50 Sodium 129 mEq/L (136-145) L 12/20/17 04:50 Carbon Dioxide 22 mEq/L (23-29) L 12/20/17 04:50 Glucose 136 mg/dL (70-105) H 12/20/17 04:50 POC Glucose 122 mg/dL (70-99) H 12/19/17 22:10 Hemoglobin A1c 6.7 % (-5.6) H 12/19/17 12:53 Calculated Osmolality 269 (280-300) L 12/20/17 04:50 - Diagnostic Findings Additional findings: EXAMINATION: CT OF THE HEAD WITHOUT CONTRAST 12/19/2017 2:07 pm TECHNIQUE: CT of the head was performed without the administration of intravenous contrast. Dose modulation, iterative reconstruction, and/or weight based adjustment of the mA/kV was utilized to reduce the radiation dose to as low as reasonably achievable. COMPARISON: 10/20/2017. HISTORY: ORDERING SYSTEM PROVIDED HISTORY: fall, hit head FINDINGS: BRAIN/VENTRICLES: There is no acute intracranial hemorrhage, mass effect or midline shift. No abnormal extra-axial fluid collection. The matthew-white differentiation is maintained without evidence of an acute infarct. There is no evidence of hydrocephalus. The cerebral sulci and ventricles are enlarged. There is low-attenuation within the periventricular white matter and deep white matter of the brain. ORBITS: The visualized portion of the orbits demonstrate no acute abnormality. Note is made of right phthisis bulbi. SINUSES: The visualized paranasal sinuses and mastoid air cells demonstrate no acute abnormality. There is mucosal disease involving the maxillary sinuses. SOFT TISSUES/SKULL: No acute abnormality of the visualized skull or soft tissues. CT/CT head/brain wo con IMPRESSION: 1. No acute intracranial abnormality. 2. Diffuse cerebral atrophy with chronic small vessel ischemic disease. 3. Right phthisis bulbi. D/ / Gino Porras MD / Gino Porras MD Interpreting Provider: Gino Porras MD OF THE CERVICAL SPINE WITHOUT CONTRAST 12/19/2017 2:08 pm TECHNIQUE: CT of the cervical spine was performed without the administration of intravenous contrast. Multiplanar reformatted images are provided for review. Dose modulation, iterative reconstruction, and/or weight based adjustment of the mA/kV was utilized to reduce the radiation dose to as low as reasonably achievable. COMPARISON: None. HISTORY: ORDERING SYSTEM PROVIDED HISTORY: fall, hit head FINDINGS: BONES/ALIGNMENT: There is no evidence of an acute cervical spine fracture. No acute subluxation. Anterolisthesis of C3 on C4 appears degenerative in etiology. DEGENERATIVE CHANGES: Multilevel degenerative changes. SOFT TISSUES: There is no prevertebral soft tissue swelling. CT/CT cervical spine wo con IMPRESSION: No acute abnormality of the cervical spine. Multilevel degenerative changes D/ / Higinio Weaver MD / Higinio Weaver MD Interpreting Provider: Higinio Weaver MD Consult Discharge Plan - Plan
--- NOTE | 2017-12-20 09:18 | Internal Med Progress Note ---
Hospitalist Progress Note - Encounter Date of Encounter: 12/20/17 Time of Encounter: 09:18 - Exam Vitals: Temp Pulse Resp BP Pulse Ox 97.7 F 74 16 118/73 95 12/20/17 07:12 12/20/17 07:12 12/20/17 07:12 12/20/17 07:12 12/20/17 07:12 - Time Spent with Patient Total time spent is greater than 50% in coordination of care (as documented) at patient's floor/unit and/or counseling patient: Internal Medicine: Result - Labs CBC & Chem 7: 12/20/17 04:50 12/20/17 04:50 Labs: Short CBC 12/19/17 12/20/17 Range/Units 12:53 04:50 WBC 14.3 H 13.2 H (4.3-11.1) K/mcL Hgb 14.1 13.6 (12.9-16.9) g/dL Hct 40.2 39.0 (37.5-50.1) % Plt Count 297 264 (140-400) K/mcL Neutrophils # 11.8 H 7.3 (1.6-8.9) K/mcL BMP 12/19/17 12/20/17 12:53 04:50 Sodium 124 L 129 L Potassium 4.6 4.0 Chloride 88 L 98 Carbon Dioxide 23 22 L BUN 13 11 Creatinine 0.77 0.83 Glucose 206 H 136 H Calcium 9.5 9.1 Cardiac Enzymes 12/19/17 Range/Units 12:53 Troponin I < 0.03 (< 0.04) ng/mL - Impressions Impressions Chest X-Ray 12/19/17 12:30 IMPRESSION: No acute process. D/ / Higinio Weaver MD / Higinio Weaver MD Interpreting Provider: Higinio Weaver MD Cervical Spine CT 12/19/17 12:31 IMPRESSION: No acute abnormality of the cervical spine. Multilevel degenerative changes D/ / Higinio Weaver MD / Higinio Weaver MD Interpreting Provider: Higinio Weaver MD Head CT 12/19/17 12:31 IMPRESSION: 1. No acute intracranial abnormality. 2. Diffuse cerebral atrophy with chronic small vessel ischemic disease. 3. Right phthisis bulbi. D/ / Gino Porras MD / Gino Porras MD Interpreting Provider: Gino Porras MD Consult Discharge Plan - Plan Referrals: Ruben Andre DO [Primary Care Provider] -
[2017-12-20] MEDS: Insulin LISPRO 300 UNITS/3 ML VIAL SQ SCH ×2 (09:23→11:35)
--- NOTE | 2017-12-20 13:54 | Discharge Summary ---
<Ruperto Ford - Last Filed: 12/20/17 13:55> - NOTES TO OUTPATIENT PROVIDER Notes to Outpatient Provider: Will continue Depatkote 1500mg BID, and start Keppra 500mg BID. Cont NaCL 1gm BID. Cont to monitor Na. 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 transplanted heart: [place] heart Associated angina: without angina Qualified Code(s): I25.10 - Atherosclerotic heart disease of [place] coronary artery without angina pectoris (5) Leukocytosis Priority: Secondary Status: Acute Qualifiers: Leukocytosis type: unspecified Qualified Code(s): D72.829 - Elevated white blood cell count, unspecified (6) DVT prophylaxis Priority: Secondary Status: Acute Hospital course: Mr. Frey is a 56 year old male with PMHx significant for seizure disorder, DM, HTN, [place], ischemic cardiomyopathy, hypothyroidism, history of SIADH who presents s/p witnessed seizure by family members. Pt was unable to provide history of event. Denies tongue biting, incontinence, or any other acute symptoms. Notes he has been having seizures on a weekly basis, and was recently discharged from hospital. In ED, pt was given Ativan. CXR showed no acute process. CT cervical spine showed no acute abnormality. Head CT showed no acute intracranial abnormality. Currently managed with Depakote 1500mg BID. Notes compliance. Depakote level - 93. Also noted to be hyponatremic with Na = 124. Hx of chronic hyponatremia. Pt found to be hemodynamically stable. Admitted for neuro folllow-up. Per neuro recs, pt treatment has not been effective. Recommended depakote 1500mg BID and addition of Keppra 500mg BID. Plan to follow up with neuro in a few weeks outpatient. Pt Na = 129 today. Treated with gentle saline and NaCl 1gm BID. Pt is currently stable. Plan to discharge home. Discharge discussed with: patient - Time Spent with Patient Total time spent providing and/or coordinating discharge services: Less than 30 minutes - Discharge Medications Prescriptions: levETIRAcetam [Keppra] 500 mg PO Q12HR 30 Days #60 tablet Divalproex (12 HR) [Depakote (12 HR)] 1,500 mg PO BID 30 Days #180 tablet.dr Home Medications: Fenofibrate [Tricor] 54 mg PO DAILY 04/07/15 [History] Levothyroxine [Synthroid] 100 mcg PO QAM 04/07/15 [History] Pantoprazole Sodium [Protonix] 40 mg PO DAILY 10/04/15 [History] metFORMIN [Glucophage] 500 mg PO BID 08/21/16 [History] Aspirin 81 mg PO DAILY #30 09/30/16 [Rx] Clopidogrel [Plavix] 75 mg PO DAILY 30 Days tab 09/30/16 [Rx] Atorvastatin [Lipitor] 40 mg PO HS 10/04/16 [History] Acetaminophen [Tylenol] 500 mg PO Q6H PRN 10/10/16 [History] Nitroglycerin [Nitrostat] 0.4 mg SL Q5M PRN 12/11/16 [History] Gabapentin [Neurontin] 800 mg PO QID 12/27/16 [History] Glimepiride [Amaryl] 4 mg PO BID 12/27/16 [History] hydrOXYzine pamoate [HydrOXYzine Pamoate] 25 mg PO TID 01/17/17 [History] Citalopram [CeleXA] 20 mg PO DAILY 02/06/17 [History] Lisinopril [Zestril] 2.5 mg PO DAILY 02/06/17 [History] Isosorbide MONOnitrate (24 HR) [Imdur] 30 mg PO DAILY 07/16/17 [History] Sodium Chloride [Sodium Chloride Tab] 1 gm PO BID 07/16/17 [History] Carvedilol 3.125 mg PO BIDWM 07/17/17 [History] Docusate [Colace] 100 mg PO BID capsule 07/20/17 [Rx] Lidocaine Patch [Lidoderm 5% patch] 1 - 2 each TP DAILY PRN #20 adh..patch 11/21/17 [Rx] Trazodone HCl 100 mg PO HS PRN 12/19/17 [History] Divalproex (12 HR) [Depakote (12 HR)] 1,500 mg PO BID 30 Days #180 tablet. 12/20/17 [Rx] levETIRAcetam [Keppra] 500 mg PO Q12HR 30 Days #60 tablet 12/20/17 [Rx] Allergies/Adverse Reactions: Allergy/AdvReac Type Severity Reaction Status Date / Time No Known Allergies Allergy Verified 10/20/17 18:36 Date of admission: 12/19/17 18:42 Primary care physician: Ruben Andre DO Consults: 12/19/17 15:44 Consult to Neurology [CONS] Routine Consulting Provider: [facility]rology [facility] Reason for Consult: recurrent seizures Call Completed: Yes Discharging clinician: Ruperto Ford Anticipated date of discharge: 12/20/17 - Constitutional Vitals: Temp Pulse Resp BP Pulse Ox 98.8 F 80 16 104/71 98 12/20/17 11:32 12/20/17 11:32 12/20/17 11:32 12/20/17 11:32 12/20/17 11:32 General appearance: Present: A&O X 2 Exam: GEN: AOx2; NAD; Resting comfortably in bed HEENT: Atraumatic, normocephalic, EOMI CARDIO: RRR, no murmurs, rubs, gallups RESP: CTAB, no wheezes, rales, rhonchi ABD: Soft, non-tender, non-distended NEURO: CN 2-12 intact, no focal deficits EXT: No lower extremity bilaterally - motor strength 5/5 upper and lower ext b/l - Patient Status Disposition: Home, Self-Care Condition: Fair Overall status at discharge: patient is progressing back to baseline - Discharge Instructions Follow Up With: Ruben Andre DO [Primary Care Provider] - Jacquelyn Hernandez MD [Partnered Physician] - Forms: ED Satisfaction Letter - Diet and Activity Activity: increase activity as tolerated, resume usual activities as tolerated Diet: low fat, low cholesterol <Folaranmi,Supo A - Last Filed: 12/20/17 15:05> Date of Encounter: 12/20/17 - Discharge Diagnosis (1) Seizure Status: Acute (2) Hyponatremia Status: Acute (3) Diabetes Status: Acute Qualifiers: Diabetes mellitus type: type 2 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 transplanted heart: unspecified whether [place] or transplanted heart Associated angina: angina presence unspecified Qualified Code(s): I25.10 - Atherosclerotic heart disease of [place] coronary artery without angina pectoris (5) Leukocytosis Status: Acute Qualifiers: Leukocytosis type: unspecified Qualified Code(s): D72.829 - Elevated white blood cell count, unspecified (6) DVT prophylaxis Status: Acute Hospital course: Mr. Frey is a 56 year old male - Time Spent with Patient Total time spent providing and/or coordinating discharge services: Date of admission: 12/19/17 18:42 Primary care physician: Ruben Andre DO Consults: 12/19/17 15:44 Consult to Neurology [CONS] Routine Consulting Provider: Neurology [facility] Reason for Consult: recurrent seizures Call Completed: Yes - Constitutional Vitals: Temp Pulse Resp BP Pulse Ox 98.8 F 80 16 104/71 98 12/20/17 11:32 12/20/17 11:32 12/20/17 11:32 12/20/17 11:32 12/20/17 11:32 - Attending Attestation I saw and assessed this patient and agree with discharge summary per resident as above GEN: AOx2; NAD; Resting comfortably in bed HEENT: Atraumatic, normocephalic, EOMI CARDIO: RRR, no murmurs, rubs, gallups RESP: CTAB, no wheezes, rales, rhonchi ABD: Soft, non-tender, non-distended NEURO: CN 2-12 intact, no focal deficits EXT: No lower extremity bilaterally - motor strength 5/5 upper and lower ext b/l Plan Breakthrough seizures. Keppra added to depakote per neuro recs Hyponatremia. Improved
[2017-12-20 15:28] VITALS: BP 127/73
--- NOTE | 2017-12-21 16:35 | Electrocardiograph Report ---
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
== END 2017-12-20 15:54 | disposition home or self-care (01) ==
LOC: 2NENU 12:23 → EMEROOARM 12:23 → 2NENU 20:09 → 3ANU 12-20 09:55
PROVIDERS: ADMIT Internal Medicine; ATTEND Internal Medicine

== ENCOUNTER 2018-01-14 09:35 | Observation (INO) ==
[2018-01-14 11:02] LABS: Hematocrit 33.6 % (37.5-50.1); Hemoglobin 11.9 g/dL (12.9-16.9); Mean Corpuscular HGB Conc 35.4 g/dL (31.6-35.5); Mean Corpuscular Hemoglobin 29.8 pg (28.0-33.3); Mean Corpuscular Volume 84.2 fL (83.0-100.0); Mean Platelet Volume 10.4 fL (9.4-12.4); Platelet Count 174 K/mcL (140-400); Red Blood Count 3.99 M/mcL (4.19-5.50); Red Cell Distribution Width 13.5 % (11.5-14.5)
[2018-01-14 11:24] LABS: BUN/Creatinine Ratio 19 (6-26); Blood Urea Nitrogen 30 mg/dL (6-20); Calcium 8.7 mg/dL (8.6-10.3); Carbon Dioxide 21 mEq/L (23-29); Chloride 97 mEq/L (98-107); Ethanol < 10 mg/dL (Less than 10); Glucose 126 mg/dL (70-105); Osmolality,Calculated 274 (280-300); Potassium 3.3 mEq/L (3.5-5.1); Sodium 128 mEq/L (136-145); Troponin I 0.03 ng/mL (< 0.04); eGFR For Non-African Americans 47 (> 60)
[2018-01-14] MEDS ORDERED: 0.9 % Sodium Chloride 1,000 ML IVC ONE (13:30)
--- NOTE | 2018-01-14 13:39 | Emergency Department Note ---
Disposition Clinical Impression: ELOISE (acute kidney injury), Dehydration, Light headed Disposition: Admitted As Inpatient Condition: Good General Adult HPI - General Chief complaint: ED General Medical Stated complaint: Vertigo x3 weeks. Feet pain Time Seen by Provider: 01/14/18 10:12 Source: patient Limitations: no limitations Nursing Notes Reviewed: Yes Vital Signs Reviewed: Yes - History of Present Illness HPI Narrative: Patient presents today for evaluation of multiple complaints. Patient states that he has had vertigo for the last 3 weeks. Unsteady gait. Pain in the hips as well as the legs. Chronic pain that has been worsening over the last several weeks better with lidocaine patches bilaterally but Medicare only pays for one lidocaine patches day. He does appear to state that most of these are chronic. He was supposed to go to wound care clinic today but did not get his appointment time right. Patient has a wound to the left heel. Mild drainage. Concern for purulence. ESR CRP and x-ray ordered. Patient will also be further evaluated with for vertigo. Given its chronicity he will receive a CT scan as well as workup for possible near syncope as he is unable to describe other significant symptoms. Pain Scale: 6 - Related Data Home Medications Medication Instructions Recorded Confirmed RX: Fenofibrate [Tricor] 54 mg PO DAILY 04/07/15 01/14/18 RX: Levothyroxine [Synthroid] 100 mcg PO QAM 04/07/15 01/14/18 RX: Pantoprazole Sodium [Protonix] 40 mg PO DAILY 10/04/15 01/14/18 RX: metFORMIN [Glucophage] 500 mg PO BID 08/21/16 01/14/18 RX: Atorvastatin [Lipitor] 40 mg PO HS 10/04/16 01/14/18 RX: Acetaminophen [Tylenol] 500 mg PO Q6H PRN 10/10/16 01/14/18 RX: Nitroglycerin [Nitrostat] 0.4 mg SL Q5M PRN 12/11/16 01/14/18 RX: Gabapentin [Neurontin] 800 mg PO QID 12/27/16 01/14/18 RX: Glimepiride [Amaryl] 4 mg PO BID 12/27/16 01/14/18 RX: hydrOXYzine pamoate 25 mg PO TID 01/17/17 01/14/18 [HydrOXYzine Pamoate] RX: Citalopram [CeleXA] 20 mg PO DAILY 02/06/17 01/14/18 RX: Lisinopril [Zestril] 2.5 mg PO DAILY 02/06/17 01/14/18 RX: Isosorbide MONOnitrate (24 HR) 30 mg PO DAILY 07/16/17 01/14/18 [Imdur] RX: Sodium Chloride [Sodium 1 gm PO TID 07/16/17 01/14/18 Chloride Tab] RX: Carvedilol 3.125 mg PO BIDWM 07/17/17 01/14/18 RX: Trazodone HCl 100 mg PO HS PRN 12/19/17 01/14/18 RX: Naproxen [Naprosyn] 250 mg PO BID 01/14/18 01/14/18 Previous Rx's Medication Instructions Recorded RX: Aspirin 81 mg PO DAILY #30 09/30/16 RX: Clopidogrel [Plavix] 75 mg PO DAILY 30 Days tab 09/30/16 RX: Docusate [Colace] 100 mg PO BID capsule 07/20/17 RX: Lidocaine Patch [Lidoderm 5% 1 - 2 each TP DAILY PRN #20 11/21/17 patch] adh..patch RX: Divalproex (12 HR) [Depakote 1,500 mg PO BID 30 Days #180 12/20/17 (12 HR)] tablet. levETIRAcetam [Keppra] 500 mg PO Q12HR 30 Days #60 tablet 12/20/17 Allergies Allergy/AdvReac Type Severity Reaction Status Date / Time No Known Allergies Allergy Verified 10/20/17 18:36 All systems ED: reviewed and negative except as stated. Review of Systems: As Per HPI Constitutional: Reports: weakness (Generalized weakness and not able to walk all the way to his sister's house as he normally would). Denies: fever, chills ENT ED: Denies: congestion Cardiovascular: Reports: other (Near syncope). Denies: chest pain Respiratory: Denies: cough Gastrointestinal: Denies: abdominal pain, nausea, vomiting Genitourinary: Denies: urgency, dysuria Musculoskeletal: Reports: back pain (Chronic) Integumentary: Denies: rash, abrasion Neurological: Reports: weakness (Generalized), paresthesias (Worsening paresthesias to the right leg), abnormal gait (Worsening acute on chronic) Endocrine: Reports: fatigue Past Medical History - Past Medical History Medical history: Reports: diabetes, hypertension, myocardial infarction, s eizures Surgical history: Reports: other Psychiatric history: Reports: anxiety, bipolar, depression, prior suicide attempt, schizophrenia - Social History Smoking Status: Current every day smoker Smokeless Tobacco Status: No Alcohol use: Reports: none Drug use: Reports: marijuana Physical Exam - General Limitations: no limitations General appearance: alert, in no apparent distress Course - Reevaluation(s) Reevaluation #1: Workup negative other than for ELOISE. No elevated ESR CRP. Infection less likely. The patient does have significant DESIREE. This is likely from decreased intake. On further evaluation and reframing questions it does appear that he has been having morning near syncope type symptoms as he has difficulty walking to the sister's house because he gets lightheaded and dizzy. Patient will be admitted for ELOISE and dehydration. Vital Signs Temperature 98.5 F 01/14/18 09:40 Pulse Rate 82 01/14/18 09:40 Respiratory Rate 16 01/14/18 09:40 Blood Pressure 114/73 01/14/18 09:40 O2 Sat by Pulse Oximetry 97 01/14/18 09:40 Temperature 97.8 F 01/14/18 15:48 Pulse Rate 76 01/14/18 15:48 Respiratory Rate 18 01/14/18 15:48 Blood Pressure 93/54 01/14/18 15:48 O2 Sat by Pulse Oximetry 97 01/14/18 15:48 Oxygen Delivery Oxygen Delivery Room Air Medical Decision Making - Medical Records Medical records reviewed: Yes I reviewed the patient's medical records. - Lab Data Lab results reviewed: Yes I reviewed the patient's lab results. Result diagrams: 01/14/18 10:46 01/14/18 10:46 Lab Results 01/14/18 01/14/18 01/14/18 Range/Units 10:46 10:46 10:46 WBC 6.2 (4.3-11.1) K/mcL RBC 3.99 L (4.19-5.50) M/mcL Hgb 11.9 L (12.9-16.9) g/dL Hct 33.6 L (37.5-50.1) % MCV 84.2 (83.0-100.0) fL MCH 29.8 (28.0-33.3) pg MCHC 35.4 (31.6-35.5) g/dL RDW 13.5 (11.5-14.5) % Plt Count 174 (140-400) K/mcL MPV 10.4 (9.4-12.4) fL ESR 1 (0-10) mm/hr Sodium 128 L (136-145) mEq/L Potassium 3.3 L (3.5-5.1) mEq/L Chloride 97 L (98-107) mEq/L Carbon Dioxide 21 L (23-29) mEq/L BUN 30 H (6-20) mg/dL Creatinine 1.54 H (0.70-1.30) mg/dL Est GFR ( Amer) 57 L (> 60) Est GFR (Non-Af Amer) 47 L (> 60) BUN/Creatinine Ratio 19 (6-26) Glucose 126 H (70-105) mg/dL Calculated Osmolality 274 L (280-300) Calcium 8.7 (8.6-10.3) mg/dL Troponin I 0.03 (< 0.04) ng/mL C-Reactive Protein (Less than 10) mg/L Ethyl Alcohol < 10 (Less than 10) mg/dL 01/14/18 Range/Units 10:46 WBC (4.3-11.1) K/mcL RBC (4.19-5.50) M/mcL Hgb (12.9-16.9) g/dL Hct (37.5-50.1) % MCV (83.0-100.0) fL MCH (28.0-33.3) pg MCHC (31.6-35.5) g/dL RDW (11.5-14.5) % Plt Count (140-400) K/mcL MPV (9.4-12.4) fL ESR (0-10) mm/hr Sodium (136-145) mEq/L Potassium (3.5-5.1) mEq/L Chloride (98-107) mEq/L Carbon Dioxide (23-29) mEq/L BUN (6-20) mg/dL Creatinine (0.70-1.30) mg/dL Est GFR ( Amer) (> 60) Est GFR (Non-Af Amer) (> 60) BUN/Creatinine Ratio (6-26) Glucose (70-105) mg/dL Calculated Osmolality (280-300) Calcium (8.6-10.3) mg/dL Troponin I (< 0.04) ng/mL C-Reactive Protein < 5 (Less than 10) mg/L Ethyl Alcohol (Less than 10) mg/dL - Radiology Data Radiology results reviewed: Yes I reviewed the patient's radiology results.
[2018-01-14] MEDS ORDERED: traZODone 50 MG TABLET PO PRN (14:40)
[2018-01-14] MEDS ORDERED: Nitroglycerin 0.4 MG TAB.SUBL SL PRN (14:40)
[2018-01-14] MEDS ORDERED: Naloxone 0.4 MG/ML INJ IVP PRN (14:45)
[2018-01-14] MEDS ORDERED: Dextrose Gel 15 GM/37.5 ML TUBE PO PRN ×2 (14:47)
[2018-01-14] MEDS ORDERED: *HR* Dextrose 50 % in Water (Syg) 50 ML SYRINGE IVP PRN (14:47)
[2018-01-14] MEDS ORDERED: D5% in Water 1,000 ML IVC PRN (14:47)
--- NOTE | 2018-01-14 15:21 | Internal Med History&Physical ---
Date of Encounter: 01/14/18 Time of Encounter: 15:19 Internal Medicine - H&P: HPI Chief complaint: Dizziness, left foot wound Admitted From: Home Plans for Post Hospital Care: Home History of present illness: Mr. Frey is a 57 year old male with a PMH of DM, HTN, MD, seizures anxiety and depression. He presented to [facility] with with complaints of unsteady gait, lower back pain with bilateral lower extremity pain and vertigo 3 weeks. Additionally, he is concerned about a left heel foot wound. He is recently treated at [facility] and discharged on 12/20/17 for seizures. He reports that for the last 3 weeks since discharge he has had persistent dizziness which is worse with position change and ambulation. He notes today that his dizziness worsened abruptly. However, he reports that this occurred shortly after ingesting E.D. medications. He denies any headaches, vision changes, unilateral loss of strength, unilateral numbness or tingling, fevers, chills, shortness of breath, nausea, vomiting, diarrhea. He denies any seizure activity and does not appear to be in a postictal state. CT imaging of head in the ED negative for acute intracranial abnormality. Chest x-ray without acute pulmonary process. He was noted to have hyponatremia however this is chronic and around patient's stated baseline. He does note that he has had poor oral intake and that he does not drink much water. He has recent CTA of head and neck in October 2017 which was negative for his significant arterial stenosis. Given his ongoing symptoms with a minimum to observation for further workup and evaluation including MRI of brain in the morning and echocardiogram. Additionally, he is reporting a left heel foot wound for which he follows with Dr. Fairchild. He is concerned reporting that the wound was draining clear/white drainage. This was evaluated at bedside with the findings of a clean and dry/intact dressing without drainage. He is nontoxic appearing, without leukocytosis, afebrile and hemodynamically stable. I will consult wound care to assist with assessment and management of the wound. Past Med Surg Social Fam HX - Past Medical History Medical history: diabetes, hypertension, myocardial infarction, seizures Additional medical history: chronic back pain. sciatica Psychiatric history: anxiety, bipolar, depression, prior suicide attempt, schizophrenia - Past Surgical History Surgical History: other Additional surgical history: bilat leg orthopedic - Social History Smoking Status: Current every day smoker Smokeless Tobacco Status: No Alcohol use: none Drug use: marijuana - Family History Daughter Living Status: Still Living Hx Family Cardiac Disorders: No Hx Family Respiratory Disorders: Yes Hx Family Cancer: No Hx Family GI Disorders: No Hx Family Endocrine Disorder: No Hx Family Neuromuscular Disorders: No Hx Family Neurologic Disorders: No Hx Family HEENT Disorders: No Hx Family Autoimmune Disorders: No Mother Living Status: Hx Family Cardiac Disorders: Yes Father Living Status: Hx Family Cardiac Disorders: Yes (MD) Internal Medicine - H&P: Meds Fenofibrate [Tricor] 54 mg PO DAILY 04/07/15 [History] Levothyroxine [Synthroid] 100 mcg PO QAM 04/07/15 [History] Pantoprazole Sodium [Protonix] 40 mg PO DAILY 10/04/15 [History] metFORMIN [Glucophage] 500 mg PO BID 08/21/16 [History] Aspirin 81 mg PO DAILY #30 09/30/16 [Rx] Clopidogrel [Plavix] 75 mg PO DAILY 30 Days tab 09/30/16 [Rx] Atorvastatin [Lipitor] 40 mg PO HS 10/04/16 [History] Acetaminophen [Tylenol] 500 mg PO Q6H PRN 10/10/16 [History] Nitroglycerin [Nitrostat] 0.4 mg SL Q5M PRN 12/11/16 [History] Gabapentin [Neurontin] 800 mg PO QID 12/27/16 [History] Glimepiride [Amaryl] 4 mg PO BID 12/27/16 [History] hydrOXYzine pamoate [HydrOXYzine Pamoate] 25 mg PO TID 01/17/17 [History] Citalopram [CeleXA] 20 mg PO DAILY 02/06/17 [History] Lisinopril [Zestril] 2.5 mg PO DAILY 02/06/17 [History] Isosorbide MONOnitrate (24 HR) [Imdur] 30 mg PO DAILY 07/16/17 [History] Sodium Chloride [Sodium Chloride Tab] 1 gm PO TID 07/16/17 [History] Carvedilol 3.125 mg PO BIDWM 07/17/17 [History] Docusate [Colace] 100 mg PO BID capsule 07/20/17 [Rx] Lidocaine Patch [Lidoderm 5% patch] 1 - 2 each TP DAILY PRN #20 adh..patch 11/21/17 [Rx] Trazodone HCl 100 mg PO HS PRN 12/19/17 [History] Divalproex (12 HR) [Depakote (12 HR)] 1,500 mg PO BID 30 Days #180 tablet. 12/20/17 [Rx] levETIRAcetam [Keppra] 500 mg PO Q12HR 30 Days #60 tablet 12/20/17 [Rx] Naproxen [Naprosyn] 250 mg PO BID 01/14/18 [History] Allergy/AdvReac Type Severity Reaction Status Date / Time No Known Allergies Allergy Verified 10/20/17 18:36 All Systems PM: A 10-system review of systems was performed and is negative for pertinent findings except as documented above in the HPI. Review of systems: REVIEW OF SYSTEMS GENERAL: Negative for any nausea, vomiting, fevers, chills, or weight loss. NEUROLOGIC: Negative for any tendinitis, blurry vision, blind spots, double vision, facial asymmetry, dysphagia, dysarthria, hemiparesis, hemisensory deficits, ataxia. Positive for vertigo and disequilibrium HEENT: Negative for any head trauma, neck trauma, neck stiffness, photophobia, phonophobia, sinusitis, rhinitis. CARDIAC: Negative for any chest pain, dyspnea on exertion, paroxysmal nocturnal dyspnea, peripheral edema. PULMONARY: Negative for any shortness of breath, wheezing, COPD, or TB exposure. GASTROINTESTINAL: Negative for any abdominal pain, nausea, vomiting, bright red blood per rectum, melena. GENITOURINARY: Negative for any dysuria, hematuria, incontinence. MUSCULOSKELETAL: Chronic low back pain INTEGUMENTARY: Negative for any rashes, cuts, insect bites. RHEUMATOLOGIC: Negative for any joint pains, photosensitive rashes, history of vasculitis or kidney problems. HEMATOLOGIC: Negative for any abnormal bruising, frequent infections or bleeding. - Constitutional Vitals: Temp Pulse Resp BP Pulse Ox 98.5 F 71 15 110/74 100 01/14/18 09:40 01/14/18 13:52 01/14/18 13:52 01/14/18 13:52 01/14/18 13:52 General appearance: Present: A&O X 3 Exam: PHYSICAL EXAMINATION: GENERAL: The patient is an male NAD, A&OX3 HEENT: Head is normocephalic and atraumatic. Lt EOMI, left pupil round and reactive to light and accommodation. Artificial eye on right NECK: Supple. No carotid bruits. No lymphadenopathy or thyromegaly. LUNGS: Clear to auscultation B/L AP and L. HEART: Regular rate and rhythm, S1, S2 without murmur rubs or gallops. ABDOMEN: Soft, nontender, and nondistended. Positive bowel sounds. No hepatosplenomegaly was noted. EXTREMITIES: Without any cyanosis, clubbing, rash, lesions or edema. NEUROLOGIC: Cranial nerves II through XII are grossly intact without focal neuro deficits. PSYCHIATRIC: Calm and cooperative SKIN: No ulceration or induration present. Internal Med - H&P Results - Labs CBC & Chem 7: 01/14/18 10:46 01/14/18 10:46 Labs: Short CBC 01/14/18 Range/Units 10:46 WBC 6.2 (4.3-11.1) K/mcL Hgb 11.9 L (12.9-16.9) g/dL Hct 33.6 L (37.5-50.1) % Plt Count 174 (140-400) K/mcL BMP 01/14/18 10:46 Sodium 128 L Potassium 3.3 L Chloride 97 L Carbon Dioxide 21 L BUN 30 H Creatinine 1.54 H Glucose 126 H Calcium 8.7 Cardiac Enzymes 01/14/18 Range/Units 10:46 Troponin I 0.03 (< 0.04) ng/mL - Impressions ITS Impressions Chest X-Ray 01/14/18 10:25 IMPRESSION: No evidence pneumonia or pleural effusion. D/ / Corona Suresh / Corona Suresh Interpreting Provider: Corona Surseh Foot X-Ray 01/14/18 10:25 IMPRESSION: Postsurgical changes in the hindfoot. Hardware is intact. No acute osseous abnormality in the left foot. D/ / Leisa Parson MD / Leisa Parson MD Interpreting Provider: Leisa Parson MD Head CT 01/14/18 10:25 IMPRESSION: No acute intracranial abnormality. Cerebral atrophy. Mild chronic small vessel ischemic changes. D/ / 01/14/2018 11:26:20 Thi Villaseñor MD / [facility] Interpreting Provider: Thi Villaseñor MD - Assessment and plan (1) Dizziness Current Visit: No Status: Acute Assessment and plan: Presents with dizziness which is worse with position change Assessment ongoing for the last 3 weeks but worse today He notes that today it worsened shortly after taken his medication for erectile dysfunction While in the ED he is continuing to experience dizziness No focal neurological deficits He is without non-fatigable nystagmus I do not believe this to be central cause however, we will continue to rule out central etiology CT head unremarkable obtain orthostatic VS BID MRI brain in a.m obtain Echocardiogram Meclizine PRN IVF to promote hydration Zofran for nausea (2) ELOISE (acute kidney injury) Current Visit: Yes Status: Acute Assessment and plan: No prior history of CKD Serum creatinine 1.54 He does note poor oral intake and dehydration He appears dehydrated on exam Continue IV fluid Avoid nephrotoxins Recheck SCR in the morning Monitor UOP (3) Dehydration Current Visit: Yes Status: Acute (4) Light headed Current Visit: Yes Status: Acute Assessment and plan: As above (5) Abscess of left foot Current Visit: No Status: Acute Assessment and plan: Left lateral ankle/heel without clinical evidence for edema, erythema, lymphangitis or cellulitis. No purulence or necrosis noted. No drainage has dressing is CDI. I will consult wound care for further management (6) CAD (coronary artery disease) Current Visit: No Status: Acute Assessment and plan: Chest pain-free Continue cardiac meds Qualifiers: Coronary Disease-Associated Artery/Lesion type: unspecified vessel or lesion type [place] vs. 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 Diabetes mellitus complication status: with other specified complication Qualified Code(s): E11.69 - Type 2 diabetes mellitus with other specified complication; 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 Hernandez; added Keppra Denies any seizure like activity does not appear postictal NA chronically low; replete with NA supplementation (home med) seizure precautions (12) Hyponatremia Current Visit: No Status: Chronic (13) Hypothyroidism Current Visit: No Status: Chronic Assessment and plan: resume synthroid Qualifiers: Hypothyroidism type: acquired Qualified Code(s): E03.9 - Hypothyroidism, un specified (14) Substance abuse Current Visit: No Status: Chronic Assessment and plan: marijuana use (15) Back pain Current Visit: Yes Status: Acute Assessment and plan: chronic back pain Lumbar spine XR 05/30 moderate to severe L5-S1 DDD with grade 1 retrolisthesis IR oxycodone 5mg Q6 PRN Qualifiers: Back pain location: low back pain Chronicity: chronic Back pain laterality: unspecified Sciatica presence: without sciatica Qualified Code(s): M54.5 - Low back pain; G89.29 - Other chronic pain - Time Spent With Patient Total time spent is greater than 50% in coordination of care (as documented) at patient's floor/unit and/or counseling patient: less than 15 minutes
[2018-01-14] MEDS: hydrOXYzine pamoate 25 MG CAPSULE PO SCH ×2 (16:37→21:07)
[2018-01-14] MEDS: Insulin LISPRO 300 UNITS/3 ML VIAL SQ SCH ×2 (18:03→21:08)
[2018-01-14] MEDS: levETIRAcetam 250 MG TABLET PO SCH (18:06)
[2018-01-14] MEDS: Divalproex (12 HR) 500 MG TABLET PO SCH (21:07)
[2018-01-14] MEDS: Gabapentin 400 MG CAPSULE PO SCH (21:08)
[2018-01-15] MEDS: *HR* OxyCODONE Immed Rel 5 MG TABLET PO PRN ×3 (00:48→19:53)
[2018-01-15 05:42] LABS: Hematocrit 30.5 % (37.5-50.1); Mean Corpuscular HGB Conc 36.1 g/dL (31.6-35.5); Mean Corpuscular Hemoglobin 30.6 pg (28.0-33.3); Mean Corpuscular Volume 84.7 fL (83.0-100.0); Mean Platelet Volume 10.6 fL (9.4-12.4); Platelet Count 154 K/mcL (140-400); Red Cell Distribution Width 13.7 % (11.5-14.5)
[2018-01-15] MEDS: levETIRAcetam 250 MG TABLET PO SCH ×2 (06:01→18:33)
[2018-01-15 06:03] LABS: BUN/Creatinine Ratio 20 (6-26); Blood Urea Nitrogen 18 mg/dL (6-20); Calcium 8.7 mg/dL (8.6-10.3); Carbon Dioxide 24 mEq/L (23-29); Chloride 100 mEq/L (98-107); Glucose 127 mg/dL (70-105); Osmolality,Calculated 271 (280-300); Potassium 3.7 mEq/L (3.5-5.1); Sodium 129 mEq/L (136-145); eGFR For Non-African Americans > 60 (> 60)
[2018-01-15] MEDS: Insulin LISPRO 300 UNITS/3 ML VIAL SQ SCH ×4 (07:41→22:13)
[2018-01-15] MEDS: Divalproex (12 HR) 500 MG TABLET PO SCH ×2 (08:23→19:37)
[2018-01-15] MEDS: Isosorbide MONOnitrate (24 HR) 30 MG TAB.ER.24H PO SCH (08:23)
[2018-01-15] MEDS: hydrOXYzine pamoate 25 MG CAPSULE PO SCH ×3 (08:23→19:37)
[2018-01-15] MEDS: Fenofibrate 54 MG TABLET PO SCH (08:24)
[2018-01-15] MEDS: Aspirin 81 MG TAB.CHEW PO SCH (08:24)
[2018-01-15] MEDS: Gabapentin 400 MG CAPSULE PO SCH ×2 (08:25→19:37)
--- NOTE | 2018-01-15 09:40 | Internal Med Progress Note ---
Hospitalist Progress Note - Encounter Date of Encounter: 01/15/18 Time of Encounter: 09:39 - Subjective Interval History: Patient was seen and examined at bedside patient has been complaining of back pain as well as pain in his left foot. - Exam Vitals: Temp Pulse Resp BP Pulse Ox 97.4 F L 69 18 132/79 98 01/15/18 07:13 01/15/18 07:50 01/15/18 07:13 01/15/18 07:50 01/15/18 07:13 Exam: PHYSICAL EXAMINATION: GENERAL: The patient is an male NAD, A&OX3 HEENT: Head is normocephalic and atraumatic. Lt EOMI, left pupil round and reactive to light and accommodation. Artificial eye on right NECK: Supple. No carotid bruits. No lymphadenopathy or thyromegaly. LUNGS: Clear to auscultation B/L AP and L. HEART: Regular rate and rhythm, S1, S2 without murmur rubs or gallops. ABDOMEN: Soft, nontender, and nondistended. Positive bowel sounds. No hepatosplenomegaly was noted. EXTREMITIES: Without any cyanosis, clubbing, rash, lesions or edema. NEUROLOGIC: Cranial nerves II through XII are grossly intact without focal neuro deficits. PSYCHIATRIC: Calm and cooperative SKIN: No induration present. Ulceration to outer aspect of left foot - Assessment and Plan (1) Near syncope Current Visit: No Status: Acute Assessment and Plan: Denies any LOC or near syncope but notes that dizziness worse with position change and sometimes with ambulation initial troponin negative EKG with ST-T wave changes concerning for ischemia echo pending recent CTA head and neck exhibits no significant arterial stenosis 01/15 Patient has been complaining of weakness and dizziness which is worse with position change and during ambulation. Troponins have been negative EKG with no ST T wave abnormalities head CT with no acute intracranial abnormality Echo is pending CTA completed 10/20/17 no acute arterial abnormality or hemodynamically significant arterial stenosis in the head or neck Suspect dizziness and weakness may be related to the use of Viagra as well as patient is taking Imdur. Patient reports that he has been taking 3-5 Viagra as well as his Imdur. Patient does not have a prescription for Viagra he states he purchased it from a friend. Patient was educated on the importance of not taking Viagra with nitrates per Pharmacist Ken. Patient requesting that imdur be reduced-patient will need to follow-up with PCP and cardiology concerning Imd ur adjustment PT and OT has been consulted for evaluation. Nursing reporting a patient's very unsteady on his feet (2) Hyponatremia Current Visit: No Status: Acute Assessment and Plan: chronic resume supplementation 01/15 This appears to be chronic we will continue with home supplements continue to monitor (3) Hyponatremia Current Visit: No Status: Chronic (4) Diabetes Current Visit: No Status: Acute Assessment and Plan: Sliding scale insulin coverage ac/hs fsbg (5) Hypothyroidism Current Visit: No Status: Chronic Assessment and Plan: resume synthroid (6) Dehydration Current Visit: Yes Status: Acute Assessment and Plan: Patient was given IV fluids and appears to have stable blood pressure at this time (7) Substance abuse Current Visit: No Status: Chronic Assessment and Plan: marijuana use (8) ELOISE (acute kidney injury) Current Visit: Yes Status: Acute Assessment and Plan: No prior history of CKD Serum creatinine 1.54 He does note poor oral intake and dehydration He appears dehydrated on exam Continue IV fluid Avoid nephrotoxins Recheck SCR in the morning Monitor UOP 01/15 Most likely related to hypo-tension secondary to nitrates and Viagra use. Patient is currently back to baseline 0.89 creatinine GFR is greater than 60 Patient is tolerating oral intake We will avoid nephrotoxins (9) Cardiomyopathy Current Visit: No Status: Acute (10) Dizziness Current Visit: No Status: Acute Assessment and Plan: Presents with dizziness which is worse with position change Assessment ongoing for the last 3 weeks but worse today He notes that today it worsened shortly after taken his medication for erectile dysfunction While in the ED he is continuing to experience dizziness No focal neurological deficits He is without non-fatigable nystagmus I do not believe this to be central cause however, we will continue to rule out central etiology CT head unremarkable obtain orthostatic VS BID MRI brain in a.m obtain Echocardiogram Meclizine PRN IVF to promote hydration Zofran for nausea 01/15 See above MRI pending (11) Abscess of left foot Current Visit: No Status: Acute Assessment and Plan: Left lateral ankle/heel without clinical evidence for edema, erythema, lymphangitis or cellulitis. No purulence or necrosis noted. No drainage has dressing is CDI. I will consult wound care for further management 01/15 Patient was seen by wound nurse continue with current treatment and patient will follow-up with podiatry as outpatient (12) CAD (coronary artery disease) Current Visit: No Status: Acute Assessment and Plan: Chest pain-free Continue cardiac meds (13) Seizure Current Visit: No Status: Acute Assessment and Plan: per hx recent seizure in 12/[address] Hernandez; added Keppra Denies any seizure like activity does not appear postictal NA chronically low; replete with NA supplementation (home med) seizure precautions (14) Light headed Current Visit: Yes Status: Acute Assessment and Plan: As above (15) Back pain Current Visit: Yes Status: Acute Assessment and Plan: chronic back pain Lumbar spine XR 05/30 moderate to severe L5-S1 DDD with grade 1 retrolisthesis IR oxycodone 5mg Q6 PRN - Time Spent with Patient Total time spent is greater than 50% in coordination of care (as documented) at patient's floor/unit and/or counseling patient: Internal Medicine: Result - Labs CBC & Chem 7: 01/15/18 05:30 01/15/18 05:30 Labs: Short CBC 01/14/18 01/15/18 Range/Units 10:46 05:30 WBC 6.2 5.3 (4.3-11.1) K/mcL Hgb 11.9 L 11.0 L (12.9-16.9) g/dL Hct 33.6 L 30.5 L (37.5-50.1) % Plt Count 174 154 (140-400) K/mcL BMP 01/14/18 01/15/18 10:46 05:30 Sodium 128 L 129 L Potassium 3.3 L 3.7 Chloride 97 L 100 Carbon Dioxide 21 L 24 BUN 30 H 18 Creatinine 1.54 H 0.89 Glucose 126 H 127 H Calcium 8.7 8.7 Cardiac Enzymes 01/14/18 Range/Units 10:46 Troponin I 0.03 (< 0.04) ng/mL - Impressions Impressions Chest X-Ray 01/14/18 10:25 IMPRESSION: No evidence pneumonia or pleural effusion. D/ / Corona Suresh / Corona Suresh Interpreting Provider: Corona Suresh Foot X-Ray 01/14/18 10:25 IMPRESSION: Postsurgical changes in the hindfoot. Hardware is intact. No acute osseous abnormality in the left foot. D/ / Leisa Parson MD / Leisa Parson MD Interpreting Provider: Leisa Parson MD Head CT 01/14/18 10:25 IMPRESSION: No acute intracranial abnormality. Cerebral atrophy. Mild chronic small vessel ischemic changes. D/ / 01/14/2018 11:26:20 Thi Villaseñor MD / jorge alberto Interpreting Provider: Thi Villaseñor MD Echocardiogram 01/14/18 15:17 Impressions: LVEF 50-55%. Normal LV chamber size and systolic function. Mild concentric left ventricular hypertrophy. Mild left ventricular diastolic dysfunction. Normal right ventricular structure and function. No significant valvular dysfunction. Unable to estimate RVSP due to lack of TR jet. Left Ventricular Wall Motion: Rest Echo Findings All wall segments showed normal motion. Findings: Study Quality * Technically adequate exam. ECG Findings * Normal sinus rhythm. Left Ventricle * LVEF 50-55%. * Normal LV chamber size and systolic function. * Mild concentric left ventricular hypertrophy. * Mild left ventricular diastolic dysfunction. * Definity echo contrast was not used. Right Ventricle * Normal right ventricular structure and function. Left Atrium * Normal left atrial size. Right Atrium * Normal right atrial size. Interatrial Septum * Interatrial septum not well evaluated. Aortic Valve * Trileaflet aortic valve. * No aortic stenosis. * No aortic regurgitation. Mitral Valve * Normal mitral valve structure and function. * No mitral stenosis. * Trace mitral regurgitation. Tricuspid Valve * Normal tricuspid valve structure and function. * No tricuspid stenosis. * Trace tricuspid regurgitation. * Unable to estimate RVSP due to lack of TR jet. * Estimated RA pressure is 8 mmHg. Pulmonic Valve * Pulmonic valve is not well visualized. * No pulmonic stenosis. * Trace pulmonic regurgitation. Aorta * Normally sized aortic root. Pericardium * The pericardium appears normal. IVC * Normal IVC dimensions and inspiratory collapse. 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 transplanted heart: unspecified whether [place] or transplanted heart Associated angina: angina presence unspecified Qualified Code(s): I25.10 - Atherosclerotic heart disease of [place] coronary artery without angina pectoris (15) Back pain Qualifiers: Back pain location: low back pain Chronicity: chronic Back pain laterality: unspecified Sciatica presence: without sciatica Qualified Code(s): M54.5 - Low back pain; G89.29 - Other chronic pain
[2018-01-16] MEDS: *HR* OxyCODONE Immed Rel 5 MG TABLET PO PRN ×2 (03:19→09:27)
[2018-01-16 04:06] LABS: Hematocrit 31.7 % (37.5-50.1); Hemoglobin 11.2 g/dL (12.9-16.9); Mean Corpuscular HGB Conc 35.3 g/dL (31.6-35.5); Mean Corpuscular Hemoglobin 29.8 pg (28.0-33.3); Mean Corpuscular Volume 84.3 fL (83.0-100.0); Mean Platelet Volume 10.5 fL (9.4-12.4); Platelet Count 129 K/mcL (140-400); Red Blood Count 3.76 M/mcL (4.19-5.50); Red Cell Distribution Width 13.8 % (11.5-14.5)
[2018-01-16] MEDS: levETIRAcetam 250 MG TABLET PO SCH (06:03)
[2018-01-16 07:38] VITALS: BP 140/77
[2018-01-16] MEDS: Divalproex (12 HR) 500 MG TABLET PO SCH (07:49)
[2018-01-16] MEDS: Aspirin 81 MG TAB.CHEW PO SCH (07:50)
[2018-01-16] MEDS: hydrOXYzine pamoate 25 MG CAPSULE PO SCH (07:52)
[2018-01-16] MEDS: Isosorbide MONOnitrate (24 HR) 30 MG TAB.ER.24H PO SCH (07:52)
[2018-01-16] MEDS: Fenofibrate 54 MG TABLET PO SCH (07:52)
[2018-01-16] MEDS: Gabapentin 400 MG CAPSULE PO SCH (07:53)
[2018-01-16] MEDS: Insulin LISPRO 300 UNITS/3 ML VIAL SQ SCH (08:02)
--- NOTE | 2018-01-16 11:05 | Discharge Summary ---
- NOTES TO OUTPATIENT PROVIDER Notes to Outpatient Provider: Presented with dizziness with positional change and chronic back pain. Workup completed for syncope all negative. Did have a low blood pressure on presentation patient states he is been taking Viagra 3-5 tablets and Imdur patient advised not to take Viagra. 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 Diabetes mellitus complication status: with other specified complication Qualified Code(s): E11.69 - Type 2 diabetes mellitus with other specified complication; Z79.4 - assisted (current) use of insulin (5) Hypothyroidism Priority: Secondary Status: Chronic Qualifiers: Hypothyroidism type: acquired Qualified Code(s): E03.9 - Hypothyroidism, unspecified (6) Dehydration Priority: Secondary Status: Acute (7) Substance abuse Priority: Secondary Status: Chronic (8) ELOISE (acute kidney injury) Priority: Secondary Status: Acute (9) Cardiomyopathy Priority: Secondary Status: Acute Qualifiers: Cardiomyopathy type: ischemic Qualified Code(s): I25.5 - Ischemic cardiomyopathy (10) Dizziness Priority: Secondary Status: Acute (11) Abscess of left foot Priority: Secondary Status: Acute (12) CAD (coronary artery disease) Priority: Secondary Status: Acute Qualifiers: Coronary Disease-Associated Artery/Lesion type: unspecified vessel or lesion type [place] vs. transplanted heart: unspecified whether [place] or transplanted heart Associated angina: angina presence unspecified Qualified Code(s): I25.10 - Atherosclerotic heart disease of [place] coronary artery without angina pectoris (13) Seizure Priority: Secondary Status: Acute (14) Light headed Priority: Secondary Status: Acute (15) Back pain Priority: Secondary Status: Acute Qualifiers: Back pain location: low back pain Chronicity: chronic Back pain laterality: unspecified Sciatica presence: without sciatica Qualified Code(s): M54.5 - Low back pain; G89.29 - Other chronic pain Hospital course: Mr. Frey is a 57 year old male past medical history of diabetes hypertension MIs seizure anxiety and depression chronic back pain. Patient presented to [facility] with complaints of dizziness and lightheadedness upon position change as well as chronic lower back pain.Patient did have a syncopal workup during this admission he was noted to have a low blood pressure as well as appeared to be slightly dehydrated. He was given IV fluids. Patient did admit to taking Viagra approximately 3-5 tablets as well as taking nitrates. Patient was educated per pharmacy on the importance of not mixing these 2 medications and advised to stop taking the Viagra. Patient states he has been purchasing from his friend and does not have prescription. Rest of syncopal workup was negative. She did have complaints of chronic back pain again advised patient to follow-up with pain management as well as primary care provider patient requesting narcotics patient advised that he will have to follow-up with primary care concerning narcotics since this is a chronic condition. Patient did have wound consult advised to follow-up with Dr. Fairchild as outpatient and continue current treatment. Patient uses cane to ambulate and was initially very weak ordered PT OT evaluation however patient did refuse evaluation. Advised to patient importance of PT OT evaluation and the patient's high risk for falls. Patient again refused and felt as if he was safe to ambulate. representative phlebotomy services did speak to the patient concerning possible home health and again patient refused. Advised patient to follow-up with PCP since his provider knows him best and candidate adjust medications accordingly Currently patient is hemodynamically stable at this time and he is ready for discharge - Time Spent with Patient Total time spent providing and/or coordinating discharge services: - Discharge Medications Home Medications: Fenofibrate [Tricor] 54 mg PO DAILY 04/07/15 [History] Levothyroxine [Synthroid] 100 mcg PO QAM 04/07/15 [History] Pantoprazole Sodium [Protonix] 40 mg PO DAILY 10/04/15 [History] metFORMIN [Glucophage] 500 mg PO BID 08/21/16 [History] Aspirin 81 mg PO DAILY #30 09/30/16 [Rx] Clopidogrel [Plavix] 75 mg PO DAILY 30 Days tab 09/30/16 [Rx] Atorvastatin [Lipitor] 40 mg PO HS 10/04/16 [History] Acetaminophen [Tylenol] 500 mg PO Q6H PRN 10/10/16 [History] Nitroglycerin [Nitrostat] 0.4 mg SL Q5M PRN 12/11/16 [History] Gabapentin [Neurontin] 800 mg PO QID 12/27/16 [History] Glimepiride [Amaryl] 4 mg PO BID 12/27/16 [History] hydrOXYzine pamoate [HydrOXYzine Pamoate] 25 mg PO TID 01/17/17 [History] Citalopram [CeleXA] 20 mg PO DAILY 02/06/17 [History] Lisinopril [Zestril] 2.5 mg PO DAILY 02/06/17 [History] Isosorbide MONOnitrate (24 HR) [Imdur] 30 mg PO DAILY 07/16/17 [History] Sodium Chloride [Sodium Chloride Tab] 1 gm PO TID 07/16/17 [History] Carvedilol 3.125 mg PO BIDWM 07/17/17 [History] Docusate [Colace] 100 mg PO BID capsule 07/20/17 [Rx] Lidocaine Patch [Lidoderm 5% patch] 1 - 2 each TP DAILY PRN #20 adh..patch 11/21/17 [Rx] Trazodone HCl 100 mg PO HS PRN 12/19/17 [History] Divalproex (12 HR) [Depakote (12 HR)] 1,500 mg PO BID 30 Days #180 tablet.dr 12/20/17 [Rx] levETIRAcetam [Keppra] 500 mg PO Q12HR 30 Days #60 tablet 12/20/17 [Rx] Naproxen [Naprosyn] 250 mg PO BID 01/14/18 [History] Allergies/Adverse Reactions: Allergy/AdvReac Type Severity Reaction Status Date / Time No Known Allergies Allergy Verified 10/20/17 18:36 Date of admission: 01/14/18 13:44 Primary care physician: PCP NONE Consults: 01/14/18 14:19 PICC Consult [Consult to Invasive Line Access Team] [CONS] Routine Reason for Consult: limited access Line Type: Midline 01/14/18 15:45 Consult to Wound Care [CONS] Routine Reason for Consult: lt heel wound Time Notified: 15:46 Call Completed: Yes 01/15/18 13:27 Consult to Occupational Therapy [CONS] Routine Comment: Evaluate, develop and implement POC Reason for Consult: d/c planning Does patient have active BEDREST order?: No Is patient medically & hemodynamically stable?: Yes Consult to Physical Therapy [CONS] Routine Comment: Evaluate, develop and implement POC Reason for Consult: d/c planning Does patient have active BEDREST order?: No Is patient medically & hemodynamically stable?: Yes Discharging clinician: Mikki Walker Anticipated date of discharge: 01/16/18 - Constitutional Vitals: Temp Pulse Resp BP Pulse Ox 97.4 F L 74 16 140/77 99 01/16/18 07:36 01/16/18 07:36 01/16/18 07:36 01/16/18 07:36 01/16/18 07:36 General appearance: Present: A&O X 3 Exam: GENERAL: Pleasant cooperative alert and oriented 3 HEENT: Head is normocephalic and atraumatic. Extraocular muscles are intact. Pupils are equal, round, and reactive to light and accommodation. NECK: Supple. No carotid bruits. No lymphadenopathy or thyromegaly. LUNGS: CTA, symmetrical expansion. Respirations easy and unlabored HEART: Regular rate and rhythm, S1, S2 without murmur. ABDOMEN: Soft, nontender, and nondistended. Positive bowel sounds. No hepatosplenomegaly was noted. EXTREMITIES: Without any cyanosis, clubbing, rash, lesions or edema. NEUROLOGIC: Cranial nerves II through XII are grossly intact. PSYCHIATRIC: Appropriate affect, denies SI/HI, without agitation or anxiety SKIN: No ulceration or induration present. - Patient Status Disposition: Home, Self-Care Condition: Good Functional capacity at discharge: uses cane/walker Overall status at discharge: patient is back to baseline - Discharge Instructions Instructions: Dehydration (DC), Acute Kidney Injury (DC) Follow Up With: NONE,PCP [Primary Care Provider] - (Call to find a primary care physician and schedule an appointment to be seen in the next week. ) - Diet and Activity Activity: increase activity as tolerated Diet: advance to your usual diet
[2018-01-16 11:50] LABS: BUN/Creatinine Ratio 17 (6-26); Blood Urea Nitrogen 11 mg/dL (6-20); Calcium 7.3 mg/dL (8.6-10.3); Carbon Dioxide 23 mEq/L (23-29); Chloride 103 mEq/L (98-107); Glucose 75 mg/dL (70-105); Osmolality,Calculated 270 (280-300); Potassium 3.9 mEq/L (3.5-5.1); Sodium 131 mEq/L (136-145); eGFR For Non-African Americans > 60 (> 60)
== END 2018-01-16 14:05 | disposition home or self-care (01) ==
LOC: EMEROOARM 09:35 → 3BNU 09:35
PROVIDERS: ADMIT Internal Medicine Cardiovascular Disease; ATTEND Internal Medicine Cardiovascular Disease

== ENCOUNTER 2019-02-05 02:01 | Observation (INO) ==
[2019-02-05] MEDS ORDERED: Aspirin 81 MG TAB.CHEW PO ONE (02:03)
[2019-02-05] MEDS: Nitroglycerin 0.4 MG TAB.SUBL SL PRN ×2 (02:28→02:34)
[2019-02-05 02:34] LABS: Basophils # 0.1 K/mcL (0.0-0.2); Basophils % 0.9 %; Eosinophils # 0.3 K/mcL (0.0-0.6); Eosinophils % 4.7 %; Hematocrit 37.5 % (37.5-50.1); Hemoglobin 12.8 g/dL (12.9-16.9); Immature Granulocytes % 0.8 % (0-4); Lymphocytes # 2.5 K/mcL (0.6-4.6); Lymphocytes % 37.7 %; Mean Corpuscular HGB Conc 34.1 g/dL (31.6-35.5); Mean Corpuscular Hemoglobin 28.8 pg (28.0-33.3); Mean Corpuscular Volume 84.3 fL (83.0-100.0); Mean Platelet Volume 9.3 fL (9.4-12.4); Monocytes # 0.7 K/mcL (0.0-1.3); Platelet Count 297 K/mcL (140-400); Red Blood Count 4.45 M/mcL (4.19-5.50); Red Cell Distribution Width 13.2 % (11.5-14.5); Segmented Neutrophils % 45.9 %; White Blood Count 6.6 K/mcL (4.3-11.1)
[2019-02-05 02:36] LABS: INR 1.1; Prothrombin Time 12.3 Seconds (9.4-12.1)
[2019-02-05 02:39] LABS: Activated Partial Thrombo Time 33.6 Seconds (26.0-36.0)
[2019-02-05 02:53] LABS: BUN/Creatinine Ratio 14 (6-26); Blood Urea Nitrogen 12 mg/dL (6-20); Calcium 8.6 mg/dL (8.6-10.3); Carbon Dioxide 20 mEq/L (23-29); Chloride 98 mEq/L (98-107); Glucose 241 mg/dL (70-105); Osmolality,Calculated 272 (280-300); Potassium 4.3 mEq/L (3.5-5.1); Sodium 127 mEq/L (136-145); eGFR For African Americans > 60 (> 60); eGFR For Non-African Americans > 60 (> 60)
[2019-02-05 02:54] LABS: Troponin I < 0.03 ng/mL (< 0.04)
[2019-02-05] MEDS ORDERED: *HR* HYDROcodone/Acet 5/325 mg TABLET PO ONE (03:09)
[2019-02-05] MEDS ORDERED: levETIRAcetam 500 MG/5 ML UDC PO STA (03:45)
[2019-02-05] MEDS ORDERED: Naloxone 0.4 MG/ML INJ IVP PRN (08:56)
[2019-02-05] MEDS ORDERED: hydrOXYzine pamoate 25 MG CAPSULE PO PRN (08:57)
[2019-02-05] MEDS: Isosorbide MONOnitrate (24 HR) 30 MG TAB.ER.24H PO SCH (09:54)
[2019-02-05] MEDS: Divalproex (12 HR) 500 MG TABLET PO SCH ×2 (09:54→21:55)
[2019-02-05] MEDS: levETIRAcetam 250 MG TABLET PO SCH ×2 (09:54→21:55)
[2019-02-05] MEDS: Aspirin 81 MG TAB.CHEW PO SCH (09:55)
[2019-02-05] MEDS: Gabapentin 400 MG CAPSULE PO SCH ×4 (09:55→21:55)
[2019-02-05] MEDS ORDERED: Perflutren Lipid Microsphere 1.3 ML in 0.9 % Sodium Chloride 8.7 ML IVP ONE (10:30)
[2019-02-05] MEDS: *HR* HYDROcodone/Acet 5/325 mg TABLET PO PRN ×2 (11:01→19:20)
[2019-02-05] MEDS: Insulin LISPRO 300 UNITS/3 ML VIAL SQ SCH ×2 (15:26→17:44)
[2019-02-05] MEDS: carvediloL 6.25 MG TABLET PO SCH (15:34)
[2019-02-05] MEDS: *HR* Heparin 5,000 UNIT/ML VIAL SQ SCH ×2 (15:34→21:55)
[2019-02-05] MEDS ORDERED: traZODone 50 MG TABLET PO SCH (21:00)
[2019-02-06 01:47] LABS: Alanine Aminotransferase 10 Units/L (7-52); Albumin 3.9 g/dL (3.5-5.7); Albumin/Globulin Ratio 1.5 (1.1-2.2); Alkaline Phosphatase 63 Units/L (34-104); Aspartate Amino Transferase 11 Units/L (13-39); BUN/Creatinine Ratio 13 (6-26); Bilirubin,Total 0.4 mg/dL (0.3-1.0); Blood Urea Nitrogen 10 mg/dL (6-20); Calcium 8.8 mg/dL (8.6-10.3); Carbon Dioxide 24 mEq/L (23-29); Chloride 99 mEq/L (98-107); Globulin 2.6 g/dL (2.4-3.5); Glucose 238 mg/dL (70-105); Osmolality,Calculated 277 (280-300); Potassium 4.3 mEq/L (3.5-5.1); Sodium 130 mEq/L (136-145); Total Protein 6.5 g/dL (6.4-8.9); eGFR For African Americans > 60 (> 60); eGFR For Non-African Americans > 60 (> 60)
[2019-02-06 01:48] LABS: Chol/HDL Ratio 4.2 (0-4.9)
[2019-02-06] MEDS: *HR* HYDROcodone/Acet 5/325 mg TABLET PO PRN (04:02)
[2019-02-06] MEDS: *HR* Heparin 5,000 UNIT/ML VIAL SQ SCH (05:46)
[2019-02-06 07:57] VITALS: BP 148/86
[2019-02-06 08:14] LABS: Estimated Average Glucose 263 mg/dl
[2019-02-06] MEDS: Gabapentin 400 MG CAPSULE PO SCH (08:40)
[2019-02-06] MEDS: levETIRAcetam 250 MG TABLET PO SCH (08:40)
[2019-02-06] MEDS: Aspirin 81 MG TAB.CHEW PO SCH (08:40)
[2019-02-06] MEDS: carvediloL 6.25 MG TABLET PO SCH (08:40)
[2019-02-06] MEDS: Divalproex (12 HR) 500 MG TABLET PO SCH (08:40)
[2019-02-06] MEDS: Insulin LISPRO 300 UNITS/3 ML VIAL SQ SCH (08:40)
[2019-02-06] MEDS: Isosorbide MONOnitrate (24 HR) 30 MG TAB.ER.24H PO SCH (08:41)
== END 2019-02-06 09:56 | disposition home or self-care (01) ==
LOC: 3BNU 02:01 → EMEROOARM 02:01 → SUATTDRO 03:35 → 3BNU 03:50
PROVIDERS: ADMIT Internal Medicine; ATTEND Internal Medicine

== ENCOUNTER 2019-10-17 19:26 | Observation (INO) ==
[2019-10-17] MEDS ORDERED: *HR* LORazepam 2 MG/ML VIAL IVP ONE (20:03)
[2019-10-17] MEDS ORDERED: levETIRAcetam 1,000 MG in 0.9 % Sodium Chloride 100 ML IVPB ONE (20:10)
[2019-10-17 20:44] LABS: Alanine Aminotransferase 11 Units/L (7-52); Albumin 4.4 g/dL (3.5-5.7); Albumin/Globulin Ratio 1.5 (1.1-2.2); Alkaline Phosphatase 42 Units/L (34-104); Aspartate Amino Transferase 14 Units/L (13-39); BUN/Creatinine Ratio 23 (6-26); Bilirubin,Total 0.4 mg/dL (0.3-1.0); Blood Urea Nitrogen 18 mg/dL (6-20); Calcium 9.4 mg/dL (8.6-10.3); Carbon Dioxide 25 mEq/L (23-29); Chloride 96 mEq/L (98-107); Globulin 2.9 g/dL (2.4-3.5); Glucose 227 mg/dL (70-105); Magnesium 1.3 mg/dL (1.6-2.6); Osmolality,Calculated 281 (280-300); Potassium 4.6 mEq/L (3.5-5.1); Sodium 131 mEq/L (136-145); Total Protein 7.3 g/dL (6.4-8.9); eGFR For African Americans > 60 (> 60); eGFR For Non-African Americans > 60 (> 60)
[2019-10-17 20:46] LABS: Basophils # 0.1 K/mcL (0.0-0.2); Basophils % 0.6 %; Eosinophils # 0.1 K/mcL (0.0-0.6); Hematocrit 39.6 % (37.5-50.1); Hemoglobin 13.1 g/dL (12.9-16.9); Immature Granulocytes % 0.5 % (0-4); Lymphocytes # 1.3 K/mcL (0.6-4.6); Lymphocytes % 15.7 %; Mean Corpuscular HGB Conc 33.1 g/dL (31.6-35.5); Mean Corpuscular Hemoglobin 28.9 pg (28.0-33.3); Mean Corpuscular Volume 87.2 fL (83.0-100.0); Mean Platelet Volume 10.6 fL (9.4-12.4); Monocytes # 0.6 K/mcL (0.0-1.3); Monocytes % 7.6 %; Platelet Count 209 K/mcL (140-400); Red Blood Count 4.54 M/mcL (4.19-5.50); Red Cell Distribution Width 13.5 % (11.5-14.5); Segmented Neutrophils % 74.6 %
[2019-10-17] MEDS ORDERED: SODIUM CHLORIDE 0.9% IVPB STA (20:54)
[2019-10-17] MEDS ORDERED: VALPROIC ACID IVPB STA (20:54)
[2019-10-17] MEDS ORDERED: Naloxone 0.4 MG/ML INJ IVP PRN (22:06)
[2019-10-17] MEDS ORDERED: Magnesium Sulfate 1 GM/102 ML PIGGYBACK IVPB ONE (22:08)
[2019-10-17] MEDS ORDERED: Thiamine (B-1) 100 MG, Folic Acid 1 MG, MVI, adult with vitamin K 10 ML in 0.9 % Sodi... IVPB SCH (22:45)
[2019-10-18] MEDS: Acetaminophen 325 MG TABLET PO PRN ×2 (02:33→19:41)
[2019-10-18] MEDS ORDERED: Dextrose Gel 15 GM/37.5 ML TUBE PO PRN ×2 (05:43)
[2019-10-18] MEDS ORDERED: *HR* Dextrose 50 % in Water (Vial) 50 ML VIAL IVP PRN (05:43)
[2019-10-18] MEDS ORDERED: D5% in Water 1,000 ML IVC PRN (05:43)
[2019-10-18 06:24] LABS: Hemoglobin 12.8 g/dL (12.9-16.9); Mean Corpuscular Hemoglobin 27.6 pg (28.0-33.3); Mean Corpuscular Volume 86.2 fL (83.0-100.0); Mean Platelet Volume 9.4 fL (9.4-12.4); Platelet Count 232 K/mcL (140-400); Red Blood Count 4.64 M/mcL (4.19-5.50); Red Cell Distribution Width 13.5 % (11.5-14.5); White Blood Count 9.7 K/mcL (4.3-11.1)
[2019-10-18] MEDS: Insulin LISPRO 300 UNITS/3 ML VIAL SQ SCH ×4 (06:43→23:51)
[2019-10-18 06:49] LABS: BUN/Creatinine Ratio 19 (6-26); Blood Urea Nitrogen 15 mg/dL (6-20); Calcium 9.2 mg/dL (8.6-10.3); Carbon Dioxide 22 mEq/L (23-29); Chloride 103 mEq/L (98-107); Glucose 126 mg/dL (70-105); Magnesium 1.7 mg/dL (1.6-2.6); Osmolality,Calculated 280 (280-300); Phosphorous 2.6 mg/dL (2.7-4.5); Potassium 3.7 mEq/L (3.5-5.1); Sodium 134 mEq/L (136-145); eGFR For African Americans > 60 (> 60); eGFR For Non-African Americans > 60 (> 60)
[2019-10-18] MEDS: Valproic Acid INJ 500 MG in 0.9 % Sodium Chloride 100 ML IVPB SCH ×3 (08:57→23:56)
[2019-10-18 11:43] LABS: Amphetamine Screen,Urine Negative ng/mL (Cutoff=1000); Barbiturate Screen,Urine Negative ng/mL (Cutoff=200); Benzodiazepines Screen,Urine Negative ng/mL (Cutoff=200); Cannabinoid Screen,Urine Positive ng/mL (Cutoff = 50); Cocaine Screen,Urine Negative ng/mL (Cutoff= 300); Opiate Screen,Urine Negative ng/mL (Cutoff=300); Phencyclidine Screen,Urine Negative ng/mL (Cutoff=25)
[2019-10-18] MEDS ORDERED: Valproic Acid INJ 500 MG in 0.9 % Sodium Chloride 100 ML IVPB ONE (20:49)
[2019-10-19 01:56] LABS: BUN/Creatinine Ratio 20 (6-26); Blood Urea Nitrogen 16 mg/dL (6-20); Calcium 8.7 mg/dL (8.6-10.3); Carbon Dioxide 20 mEq/L (23-29); Chloride 105 mEq/L (98-107); Glucose 190 mg/dL (70-105); Osmolality,Calculated 284 (280-300); Phosphorous 2.7 mg/dL (2.7-4.5); Sodium 134 mEq/L (136-145); eGFR For African Americans > 60 (> 60); eGFR For Non-African Americans > 60 (> 60)
[2019-10-19] MEDS: Insulin LISPRO 300 UNITS/3 ML VIAL SQ SCH (06:01)
[2019-10-19 06:26] VITALS: BP 152/81
[2019-10-19] MEDS: Valproic Acid INJ 500 MG in 0.9 % Sodium Chloride 100 ML IVPB SCH (07:55)
[2019-10-19] MEDS: Acetaminophen 325 MG TABLET PO PRN (08:01)
== END 2019-10-19 10:18 | disposition home or self-care (01) ==
LOC: 3BNU 19:26 → EMEROOARM 19:26 → 3BNU 21:54
PROVIDERS: ADMIT Family Medicine; ATTEND Family Medicine

== ENCOUNTER 2021-09-02 15:45 | Observation (INO) ==
[2021-09-02] MEDS ORDERED: Vancomycin 1,250 MG/262.5 ML IV.SOLN IVPB ONE (16:46)
[2021-09-02] MEDS ORDERED: Ibuprofen 600 MG TABLET PO ONE (16:47)
[2021-09-02] MEDS ORDERED: Naloxone 0.4 MG/ML INJ IVP PRN (17:26)
[2021-09-02 17:53] LABS: Basophils # 0.1 K/mcL (0.0-0.2); Basophils % 0.9 %; Eosinophils # 0.4 K/mcL (0.0-0.6); Eosinophils % 4.4 %; Hematocrit 40.7 % (37.5-50.1); Hemoglobin 13.3 g/dL (12.9-16.9); Immature Granulocytes % 0.9 % (0-4); Lymphocytes % 37.1 %; Mean Corpuscular HGB Conc 32.7 g/dL (31.6-35.5); Mean Corpuscular Hemoglobin 28.2 pg (28.0-33.3); Mean Corpuscular Volume 86.2 fL (83.0-100.0); Mean Platelet Volume 9.6 fL (9.4-12.4); Monocytes # 0.8 K/mcL (0.0-1.3); Monocytes % 9.8 %; Neutrophils # 3.7 K/mcL (1.6-8.9); Platelet Count 288 K/mcL (140-400); Red Blood Count 4.72 M/mcL (4.19-5.50); Red Cell Distribution Width 14.8 % (11.5-14.5); Segmented Neutrophils % 46.9 %
[2021-09-02] MEDS ORDERED: *HR* Dextrose 50 % in Water (Syg) 50 ML SYRINGE IVP PRN (17:59)
[2021-09-02] MEDS ORDERED: D5% in Water 1,000 ML IVC PRN (17:59)
[2021-09-02] MEDS ORDERED: Dextrose Gel 15 GM/37.5 ML TUBE PO PRN ×2 (17:59)
[2021-09-02 18:09] LABS: BUN/Creatinine Ratio 19 (6-26); Blood Urea Nitrogen 16 mg/dL (8-23); Calcium 8.9 mg/dL (8.6-10.3); Carbon Dioxide 24 mEq/L (23-29); Chloride 99 mEq/L (98-107); Glucose 149 mg/dL (70-105); Osmolality,Calculated 278 (280-300); Sodium 132 mEq/L (136-145); eGFR For African Americans > 60 (> 60); eGFR For Non-African Americans > 60 (> 60)
[2021-09-02] MEDS: Insulin LISPRO 300 UNITS/3 ML VIAL SUBQ SCH (21:45)
[2021-09-02] MEDS: Divalproex (12 HR) 500 MG TABLET PO SCH (21:52)
[2021-09-02] MEDS: levETIRAcetam 250 MG TABLET PO SCH (21:53)
[2021-09-02] MEDS: *HR* OxyCODONE Immed Rel 5 MG TABLET PO PRN (21:53)
[2021-09-02] MEDS: carvediloL 6.25 MG TABLET PO SCH (21:53)
[2021-09-02] MEDS: traZODone 50 MG TABLET PO SCH (21:54)
[2021-09-03] MEDS ORDERED: 0.9 % Sodium Chloride 1,000 ML IVC ONE (03:12)
[2021-09-03 03:28] LABS: Basophils # 0.1 K/mcL (0.0-0.2); Basophils % 1.2 %; Eosinophils # 0.4 K/mcL (0.0-0.6); Eosinophils % 5.4 %; Hematocrit 37.8 % (37.5-50.1); Hemoglobin 12.4 g/dL (12.9-16.9); Immature Granulocytes % 0.8 % (0-4); Lymphocytes # 3.3 K/mcL (0.6-4.6); Lymphocytes % 42.7 %; Mean Corpuscular HGB Conc 32.8 g/dL (31.6-35.5); Mean Corpuscular Hemoglobin 28.4 pg (28.0-33.3); Mean Corpuscular Volume 86.7 fL (83.0-100.0); Mean Platelet Volume 9.5 fL (9.4-12.4); Monocytes # 0.7 K/mcL (0.0-1.3); Monocytes % 8.7 %; Neutrophils # 3.2 K/mcL (1.6-8.9); Platelet Count 281 K/mcL (140-400); Red Blood Count 4.36 M/mcL (4.19-5.50); Red Cell Distribution Width 14.9 % (11.5-14.5); Segmented Neutrophils % 41.2 %; White Blood Count 7.6 K/mcL (4.3-11.1)
[2021-09-03] MEDS ORDERED: 0.9 % Sodium Chloride 1,000 ML ONE (03:34)
[2021-09-03 04:32] LABS: BUN/Creatinine Ratio 22 (6-26); Blood Urea Nitrogen 17 mg/dL (8-23); Calcium 8.5 mg/dL (8.6-10.3); Carbon Dioxide 26 mEq/L (23-29); Chloride 101 mEq/L (98-107); Glucose 88 mg/dL (70-105); Osmolality,Calculated 277 (280-300); Potassium 4.2 mEq/L (3.5-5.1); Sodium 133 mEq/L (136-145); eGFR For African Americans > 60 (> 60); eGFR For Non-African Americans > 60 (> 60)
[2021-09-03] MEDS: Insulin LISPRO 300 UNITS/3 ML VIAL SUBQ SCH ×4 (08:27→22:02)
[2021-09-03] MEDS: carvediloL 6.25 MG TABLET PO SCH ×2 (08:40→16:55)
[2021-09-03] MEDS ORDERED: Aspirin Enteric Coated 81 MG Tablet PO SCH (09:00)
[2021-09-03] MEDS: levETIRAcetam 250 MG TABLET PO SCH ×2 (09:20→21:56)
[2021-09-03] MEDS: Divalproex (12 HR) 500 MG TABLET PO SCH ×2 (09:20→21:57)
[2021-09-03 15:10] VITALS: TEMP 97.8
[2021-09-03] MEDS ORDERED: 0.9 % Sodium Chloride 250 ML ONE (16:46)
[2021-09-03] MEDS: *HR* OxyCODONE Immed Rel 5 MG TABLET PO PRN (16:54)
[2021-09-03 19:07] VITALS: BP 111/74; PULSE 85; O2SAT 97
[2021-09-03] MEDS ORDERED: Acetaminophen 325 MG TABLET PO ONE (21:30)
[2021-09-03] MEDS: traZODone 50 MG TABLET PO SCH (21:56)
== END 2021-09-03 23:58 | disposition left against medical advice (07) ==
LOC: EMEROOARM 15:45 → 3BNU 15:45
PROVIDERS: ADMIT Internal Medicine; ATTEND Internal Medicine